=== PATIENT | male | born 1940 | race Caucasian/White ===

== ENCOUNTER 2017-11-11 14:24 | Inpatient (IN) | payer MEDICARE ==
[2017-11-11 15:41] LABS: Troponin I 0.043 ng/mL (< 0.028)
[2017-11-11] MEDS ORDERED: Sodium Chloride 0.9% 1,000 ML IV SCH (16:55)
[2017-11-11] MEDS ORDERED: Acetaminophen 325 MG TAB PO PRN (16:55)
[2017-11-11] MEDS ORDERED: Guaifenesin DM 100-10/5 ML UDCUP PO PRN (16:55)
[2017-11-11 17:57] VITALS: BMI 36.6
[2017-11-11] MEDS ORDERED: Nitroglycerin 2% Ointment 1 INCH/1 GM Packet TOP SCH (18:45)
--- NOTE | 2017-11-11 19:22 | HP ---
REASON FOR ADMISSION: Possible bronchopneumonia, indeterminate troponin, likely demand ischemia. HISTORY OF PRESENT ILLNESS: The patient gives history of going to restroom this morning and apparently fell on his left knee. He was trying to expectorate his yellowish green mucus phlegm in the restroom when this happened. He mentions that he has been coughing up from the last 4 days and bringing up yellow-green sputum. He has felt feverish, but has not measured any temperature at home. Patient also mentions that he has had 2 sinus surgeries done and has seen Dr. Plata in the past and has issues with upper respiratory tract with sinus infections frequently. The patient also sees Dr. Iniguez and has had a stress test done 2 years back in her office. Currently, he has no complaints of chest pain or palpitation. No complaints of PND or orthopnea. He normally ambulates with a cane inside the house. PAST MEDICAL AND SURGICAL HISTORY: History of chronic atrial fibrillation, hypertension, history of recurrent sinusitis with prior surgery x2 by Dr. Plata , peripheral neuropathy, history of diverticulitis, left total knee replacement , anticipating right ankle surgery for Charcot joint. Has had a subtotal colectomy done for diverticulitis, right rotator cuff repair, appendectomy. CURRENT MEDICATIONS: Patient is on lisinopril 20 mg daily, gabapentin 600 mg p.o. q.a.m. and 900 mg p.o. q.p.m., [place] p.r.n. for pain, amiodarone 100 mg p.o. twice daily, Flomax extended release 0.4 mg daily, pramipexole 0.5 mg p.o. daily, Lasix 40 mg daily, finasteride 5 mg daily. ALLERGIES: Multiple antibiotics including AMOXICILLIN, AZITHROMYCIN, KEFLEX, CIPROFLOXACIN, CLINDAMYCIN, and IODINE. PERSONAL HISTORY: Quit smoking in 1983, prior to which has smoked half to one pack a day for nearly 20 years. 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 Does not abuse alcohol or drugs. Lives with his . FAMILY HISTORY: Mother of breast cancer and its complications at the age of 67 years. Father of heat stroke at the age of 86 years. He lives with his . CODE STATUS: FULL. REVIEW OF SYSTEMS: The following complete review of systems was negative, unless otherwise mentioned in the HPI or below: Constitutional: Weight loss or gain, ability to conduct usual activities. Skin: Rash, itching. Eyes: Double vision, pain. ENT/Mouth: Nose bleeding, neck stiffness, pain, tenderness. Cardiovascular: Palpitations, dyspnea on exertion, orthopnea. Respiratory: Shortness of breath, wheezing, cough, hemoptysis, fever or night sweats. Gastrointestinal: Poor appetite, abdominal pain, heartburn, nausea, vomiting, constipation, or diarrhea. Genitourinary: Urgency, frequency, dysuria, nocturia. Musculoskeletal: Pain, swelling. Neurologic/Psychiatric: Anxiety, depression. Allergy/Immunologic: Skin rash, bleeding tendency. PHYSICAL EXAMINATION: GENERAL: The patient is a 77-year-old male who is currently not in any acute distress. VITAL SIGNS: Blood pressure 114/66, pulse 60 per minute, respiratory rate 16 per minute, temperature 98.4 degrees Fahrenheit, saturating 94% on room air. NECK: Supple, no elevated JVD. HEENT: Eyes, extraocular muscles intact. Pupils reacting to light. Oral cavity, mucous membranes are moist. No exudates or congestion. CARDIOVASCULAR: S1, S2 heard. Regular rhythm. RESPIRATORY: Air entry 1+ bilateral. Scattered rhonchi plus bilateral, occasional wheezes plus bilaterally. ABDOMEN: Soft, bowel sounds heard. No tenderness, rigidity or guarding. EXTREMITIES: No peripheral edema or calf tenderness. VASCULAR SYSTEM: Peripheral pulses 1+ bilateral, no ischemic ulcerations or gangrene. CENTRAL NERVOUS SYSTEM: No gross focal deficits seen. Patient is alert and oriented well. PSYCHIATRIC: Patient's mood is euthymic. No hallucinations or delusions. LABORATORY AND X-RAY FINDINGS: EKG done shows sinus rhythm at 60 beats per minute, nonspecific ST-T wave changes are seen. White count of 7, H&H 12 and 37 , platelet count 199 with 86% neutrophils. Electrolytes stable. BUN 10, creatinine 1.0. Liver enzymes within normal limits. Troponin I is indeterminate peaking up to 0.04, CK-MB 1.4. BNP 94, albumin is 3.9. The patient has had multiple x-rays done including lumbar spine which showed spondylosis, no evidence of compression fracture. Left knee, four views shows previous left knee arthroplasty with no acute osseous abnormality. Left hip two -view x-ray done shows no acute osseous abnormality. CT brain shows no acute intracranial abnormality. Chest x-ray done shows mild cardiomegaly, no obvious pneumonia is seen, but it is a poor penetration x-ray. CLINICAL IMPRESSION AND PLAN: Patient will be admitted to telemetry for possible bronchopneumonia with expectoration of greenish yellow sputum and demand ischemia. He has multiple antibiotic allergies and the does mention that one has to be careful giving him antibiotics. In view of this, he will be placed on meropenem and doxycycline for now. This will be rapidly deescalated once he improves clinically. We will also place him on full dose aspirin, nitro paste half inch q.8 hourly for demand ischemia. We will continue his amiodarone, Flomax, Proscar, Neurontin, lisinopril, Mirapex as before. Echo with 2D Doppler for LV function will be obtained. The family is requesting that the patient be seen by Dr. Iniguez and will be consulted as well. Code status was discussed and patient is a FULL CODE. 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 SANGEETA
[2017-11-11] MEDS ORDERED: Lisinopril 20 MG TAB PO SCH (21:00)
[2017-11-11] MEDS ORDERED: Gabapentin 300 MG CAP PO SCH (21:00)
[2017-11-11] MEDS ORDERED: Pramipexole Di-HCl 1 MG TAB PO SCH (21:00)
[2017-11-11] MEDS: Docusate 100 MG CAP PO SCH (21:40)
[2017-11-11] MEDS: Amiodarone 200 MG TAB PO SCH (21:40)
[2017-11-11] MEDS: Famotidine 20 MG TAB PO SCH (21:40)
[2017-11-11] MEDS: Doxycycline 100 MG CAP PO SCH (21:40)
[2017-11-11] MEDS: Lisinopril 10 MG TAB PO SCH (21:41)
[2017-11-11] MEDS: Tamsulosin HCl 0.4 MG CAP PO SCH (21:48)
[2017-11-11] MEDS ORDERED: Meropenem 1 GM in Sodium Chloride 0.9% 100 ML IVPB SCH (22:00)
[2017-11-11] MEDS: MEROPENEM 1 GM/50 ML 1 GM in Premix Bag 1 BAG IVPB SCH (22:08)
[2017-11-12] MEDS: HYDROcodone/Acetaminophen 10/325 mg Tablet PO PRN ×2 (02:39→15:48)
[2017-11-12 04:24] LABS: #Eosinphils 0.2 thou/uL (0.0-0.7); #Lymphocytes 1.3 thou/uL (1.20-3.40); #Monocytes 0.5 thou/uL (0.11-0.59); #Neutrophils 4.9 thou/uL (1.40-6.50); %Basophils 0.3 % (0.0-1.0); %Eosinophils 2.8 % (0.0-10.0); %Lymphocytes 18.4 % (21.0-51.0); %Monocytes 6.9 % (0.0-10.0); %Neutrophils 71.7 % (42.0-75.0); Hemoglobin 11.5 g/dL (14.0-18.0); Mean Corpuscular HGB CONC 32.6 g/dL (32.0-36.0); Mean Corpuscular Hemoglobin 32.1 pg (27.0-31.0); Mean Corpuscular Volume 98.4 fl (80.0-94.0); Mean Platelet Volume 6.4 fL (7.4-10.4); Platelet Count 201 thou/uL (130-400); RBC Distribution Width 13.6 % (11.5-14.5); Red Blood Cell (RBC) Count 3.59 mill/uL (4.70-6.10); White Blood Cell (WBC) Count 6.9 thou/uL (4.8-10.8)
[2017-11-12 04:48] LABS: Anion Gap 13 mmol/L (10-20); BUN (Urea Nitrogen) 9 mg/dL (8.4-25.7); Calc. Creatinine Clearance 122 mL/min (70-130); Calcium 8.6 mg/dL (7.8-10.44); Carbon Dioxide 24 mmol/L (23-31); Chloride 104 mmol/L (98-107); Estimated GFR-MDRD 90; Glucose 95 mg/dL (83-110); Potassium 3.7 mmol/L (3.5-5.1); Sodium 137 mmol/L (136-145)
[2017-11-12] MEDS: MEROPENEM 1 GM/50 ML 1 GM in Premix Bag 1 BAG IVPB SCH ×2 (05:43→17:41)
[2017-11-12] MEDS: Nitroglycerin 2% Ointment 1 INCH/1 GM Packet TOP SCH ×2 (05:43→15:43)
[2017-11-12] MEDS ORDERED: Aspirin 325 MG TAB PO SCH (08:00)
[2017-11-12] MEDS ORDERED: Polyethylene Glycol 3350 17 GM Packet PO SCH (09:00)
[2017-11-12] MEDS ORDERED: Finasteride 5 MG TAB PO SCH (09:00)
[2017-11-12] MEDS ORDERED: Gabapentin 300 MG CAP PO SCH (09:00)
[2017-11-12] MEDS ORDERED: Enoxaparin Sodium 40 MG/0.4 ML SYRINGE SC SCH (09:00)
[2017-11-12 09:22] LABS: Troponin I 0.069 ng/mL (< 0.028)
[2017-11-12] MEDS: Amiodarone 200 MG TAB PO SCH (10:16)
[2017-11-12] MEDS: Docusate 100 MG CAP PO SCH (10:17)
[2017-11-12] MEDS: Doxycycline 100 MG CAP PO SCH (10:18)
[2017-11-12] MEDS: Tamsulosin HCl 0.4 MG CAP PO SCH (10:18)
[2017-11-12] MEDS: Lisinopril 10 MG TAB PO SCH (10:18)
[2017-11-12] MEDS: Famotidine 20 MG TAB PO SCH (10:18)
--- NOTE | 2017-11-12 11:20 | PDOC.PN ---
- Subjective Encounter Start Date: 11/12/17 Encounter Start Time: 08:30 Subjective: cough is better, no sob -: no chest pain or palp - Objective Resuscitation Status: Resuscitation Status FULL:Full Resuscitation MAR Reviewed: Yes Vital Signs & Weight: Vital Signs (12 hours) Temp Pulse Resp BP BP Pulse Ox 11/12/17 07:23 98.0 F 62 18 127/60 94 L 11/12/17 07:12 76 18 96 11/12/17 03:39 98.0 F 58 L 18 106/52 L 92 L Weight Weight 257 lb I&O: 11/11/17 11/12/17 11/13/17 06:59 06:59 06:59 Intake Total 1118 Output Total 850 Balance 268 Result Diagrams: 11/12/17 03:40 11/12/17 03:40 Phys Exam - Physical Examination HEENT: PERRLA, moist MMs Neck: no JVD, supple Respiratory: no wheezing, no rales rhonchi+ Cardiovascular: RRR, no significant murmur Gastrointestinal: soft, non-tender, positive bowel sounds Musculoskeletal: no edema, pulses present Neurological: non-focal, moves all 4 limbs Psychiatric: normal affect, A&O x 3 Dx/Plan (1) Bronchopneumonia Code(s): J18.0 - BRONCHOPNEUMONIA, UNSPECIFIED ORGANISM Status: Acute (2) Demand ischemia of myocardium Code(s): I24.8 - OTHER FORMS OF ACUTE ISCHEMIC HEART DISEASE Status: Acute (3) Dyslipidemia Code(s): E78.5 - HYPERLIPIDEMIA, UNSPECIFIED Status: Chronic (4) Atrial fibrillation Code(s): I48.91 - UNSPECIFIED ATRIAL FIBRILLATION Status: Chronic Qualifiers: Atrial fibrillation type: chronic Qualified Code(s): I48.2 - Chronic atrial fibrillation (5) Hypertension Code(s): I10 - ESSENTIAL (PRIMARY) HYPERTENSION Status: Chronic Qualifiers: Hypertension type: essential hypertension Qualified Code(s): I10 - Essential (primary) hypertension - Plan is on meropenem and doxy due to multiple allergies -: duonebs, nitropaste -: continue flomax and proscar -: to ambulate as tolerated -: hemostable * . Review of Systems - Medications/Allergies Allergies/Adverse Reactions: Allergies Allergy/AdvReac Type Severity Reaction Status Date / Time amoxicillin Allergy Nausea Verified 05/09/16 13:41 azithromycin [From Zithromax] Allergy Severe Verified 05/09/16 13:41 Hives cephalexin Allergy Nausea Verified 05/09/16 13:41 ciprofloxacin [From Cipro] Allergy Anaphylaxis Verified 05/09/16 13:41 ciprofloxacin HCl Allergy Anaphylaxis Verified 05/09/16 13:41 [From Cipro] clindamycin Allergy Hives Verified 05/09/16 13:41 Iodinated Contrast- Oral and Allergy Short of Verified 05/16/16 12:58 IV Dye Breath [Iodinated Contrast Media - IV Dye] Medications: Current Medications Acetaminophen (Tylenol) 650 mg PO Q4H PRN PRN Reason: Headache/Fever or Pain Last Admin: 11/12/17 00:56 Dose: 650 mg Hydrocodone Bitart/Acetaminophen ([place] 10/325) 1 tab PO Q6H PRN PRN Reason: Pain 7-10 Last Admin: 11/12/17 02:39 Dose: 1 tab Albuterol/Ipratropium (Duoneb) 3 ml NEB [id number] [facility] Last Admin: 11/12/17 07:12 Dose: 3 ml Amiodarone HCl (Cordarone) 100 mg PO BID [facility] Last Admin: 11/12/17 10:16 Dose: 100 mg Aspirin (Aspirin) 325 mg PO QAM-WM [facility] Last Admin: 11/12/17 10:18 Dose: 325 mg Docusate Sodium (Colace) 100 mg PO BID [facility] Last Admin: 11/12/17 10:17 Dose: 100 mg Doxycycline Hyclate (Vibramycin) 100 mg PO BID [facility] Last Admin: 11/12/17 10:18 Dose: 100 mg Enoxaparin Sodium (Lovenox) 40 mg SC 0900 [facility] Last Admin: 11/12/17 10:19 Dose: 40 mg Famotidine (Pepcid) 20 mg PO BID [facility] Last Admin: 11/12/17 10:18 Dose: 20 mg Finasteride (Proscar) 5 mg PO DAILY [facility] Last Admin: 11/12/17 10:19 Dose: 5 mg Gabapentin (Neurontin) 600 mg PO QAM [facility] Last Admin: 11/12/17 10:16 Dose: 600 mg Gabapentin (Neurontin) 900 mg PO HS [facility] Last Admin: 11/11/17 21:41 Dose: 900 mg Guaifenesin/Dextromethorphan (Robitussin Dm) 15 ml PO Q4H PRN PRN Reason: Cough Meropenem 1 gm/ Device 50 mls @ 100 mls/hr IVPB Q8HR [facility] Last Admin: 11/12/17 05:43 Dose: 50 mls Lisinopril (Zestril) 10 mg PO BID [facility] Last Admin: 11/12/17 10:18 Dose: 10 mg Nitroglycerin (Nitro-Bid 2% Ointment) 0.5 inch TOP Q8HR [facility] Last Admin: 11/12/17 05:43 Dose: 0.5 inch Polyethylene Glycol (Miralax) 17 gm PO DAILY [facility] Pramipexole Dihydrochloride (Mirapex) 0.5 mg PO HS [facility] Last Admin: 11/11/17 21:48 Dose: 0.5 mg Tamsulosin HCl (Flomax) 0.4 mg PO BID [facility] Last Admin: 11/12/17 10:18 Dose: 0.4 mg
--- NOTE | 2017-11-12 13:07 | CON ---
DATE OF CONSULTATION: 11/12/2017 INDICATION FOR CONSULTATION: This is a 77-year-old patient who was admitted with bronchitis and mucu s production and then unfortunately, subsequently had a fall while at home. Since he has been here i n the hospital, he denies any cardiac problems, but did have a slight elevation of the cardiac enzyme s, which are still indeterminate with a peak troponin I thus far of 0.065. He denies any other signi ficant problems. He has not had any known coronary artery disease in the past. He has had stress te sting in 2015, which was normal. He had an echocardiogram in 12/2014, which showed a normal ejection fraction, which was 65%. He did have an episode of atrial fibrillation in the past, but has had non e documented since about 2013 except from the echocardiogram that appeared in 2014, he may have had a trial fibrillation also at that time. There is a possibility of diastolic dysfunction. His chest x- ray shows cardiomegaly, but no acute changes otherwise. At this time, he appears to be overall stabl e from a cardiac standpoint. We will continue to monitor the cardiac enzymes. PAST MEDICAL HISTORY: Significant for the shoulder surgery. He has also had history of hypertension . He has had a history of intermittent episode of atrial fibrillation in the past. He has been on a miodarone. He has had recurrent problems with sinusitis. He has had a history of diverticulitis. Hemalatha ch has had left knee replacement. He has [id number] syndrome. PAST SURGICAL HISTORY: He has a history of a subtotal colectomy due to diverticulitis. He has had a right rotator cuff repair and appendectomy. MEDICATIONS PRIOR TO ADMISSION: Included lisinopril, gabapentin, [place], amiodarone, Flomax, pramipex ole and Lasix as well as finasteride. ALLERGIES: He is allergic to AMPICILLIN, AZITHROMYCIN, KEFLEX, CIPRO, CLINDAMYCIN and IODINE. SOCIAL HISTORY: He is . He stopped smoking in 1983, previously said he smoked a half pack a day to a pack a day for over 20 years. He denies any significant alcohol use. FAMILY HISTORY: Noncontributory for any early heart disease. His father had a CVA at age 86. REVIEW OF SYSTEMS: Twelve-point review of systems, he does have some occasional diarrhea and constip ation, but no other significant problems except for the fall and with several small abrasions, but ot herwise he has been doing well from a cardiac standpoint. 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 PHYSICAL EXAMINATION: GENERAL: Reveals a well-developed, well-nourished gentleman who is in no acute distress at this time . He is alert. He is oriented. VITAL SIGNS: Stable. Blood pressure is 127/60, heart rates is in the 60s and shows a sinus rhythm w ith a first-degree AV heart block, respiratory rate is 18, O2 saturation is 94%, heart rate was 62 be ats per minute. HEENT: Shows the head to be normocephalic and atraumatic. NECK: Carotid pulses are present. I did not hear any bruits. There is no JVD. The thyroid did not appear to be enlarged. LUNGS: His chest was clear to auscultation. I did not hear any rales, rhonchi or wheezing at this t akanksha. CARDIOVASCULAR: Heart sounds are somewhat distant, but he has a normal S1, S2. There is no S3 or S4 . There were no significant murmurs, heaves, thrills, bruits or rubs. ABDOMEN: Shows morbid obesity with positive bowel sounds. No organomegaly or masses are noted. Fem oral pulses are present. EXTREMITIES: Showed no clubbing or cyanosis. He did have mild lower extremity edema. He has mild d iscoloration. The right foot is somewhat deformed due to his ankle problems. He needs to undergo fu rther ankle surgery. The pedal pulses are present. NEUROLOGIC: The patient appears to be intact. SKIN: Warm and dry. LABORATORY DATA: EKG shows a normal sinus rhythm with a first-degree AV heart block. Chest x-ray sh ows no acute findings. His laboratory data as noted above shows a slight elevation of the cardiac en zymes with a troponin I of 0.043, increased to 0.069. Remaining laboratory data appeared to be withi n normal limits. He says he has mild anemia with a hemoglobin of 11.5. IMPRESSION: 1. Elderly gentleman with a history of intermittent atrial fibrillation in the past, which has been treated by amiodarone. He is maintaining sinus rhythm. We will continue his same medications. He w ill continue on the amiodarone. He is not on any other oral anticoagulation other than aspirin. 2. History of falls. This is he says was just due to loss of balance. There does not appear to be any evidence of syncope or presyncope. This is not cardiac related. 3. History of hypertension. He is well controlled at this time. We will continue his present medic ations. An echocardiogram has been ordered. We will review the echocardiogram for further evaluatio n. If there are any significant changes, then further recommendations may follow. There has been no other significant abnormalities with the patient. He appears from a cardiac standpoint to be overal l stable.
[2017-11-12 14:10] LABS: Troponin I 0.085 ng/mL (< 0.028)
[2017-11-12 17:12] VITALS: BP 133/66; TEMP 97.9
--- NOTE | 2017-11-13 03:54 | DIS ---
DATE OF ADMISSION: 11/11/2017 DATE OF DISCHARGE: 11/12/2017 DISCHARGE DISPOSITION: To home. PRIMARY DISCHARGE DIAGNOSES: Bronchopneumonia, resolving; demand ischemia, resolving. SECONDARY DISCHARGE DIAGNOSES: Chronic atrial fibrillation, hypertension, dyslipidemia. PROCEDURES DONE DURING HOSPITALIZATION: Echo with 2D Doppler showed an EF of 60 -65%. Chest x-ray done showed no lobar consolidation or pneumothorax. CT brain showed no acute intracranial abnormality. He has had hip and knee x-rays done along with lumbar spine x-rays, which have not revealed any acute fractures or abnormality. Blood cultures x2, no growth. Troponin I indeterminate with peaking up to 0.08, CK-MB 1.4. BNP 94. DISCHARGE MEDICATIONS: Doxycycline 100 mg p.o. twice daily for 6 days, amiodarone 100 mg p.o. twice daily, albuterol inhaler q.6 hourly p.r.n., Proscar 5 mg p.o. daily, gabapentin 600 mg p.o. q.a.m. and 900 mg p.o. at bedtime, lisinopril 20 mg twice daily, Protonix 40 mg daily, MiraLax 17 grams daily, Mirapex 0.5 mg p.o. at bedtime, Flomax extended release 0.4 mg p.o. twice daily. ALLERGIES: Allergic to multiple antibiotics including, PENICILLIN, MACROLIDES, CEPHALOSPORINS, QUINOLONES, CLINDAMYCIN, and IODINE. DISCHARGE PLAN: Patient is to follow up with primary care physician in one week and Dr. Iniguez as advised. BRIEF COURSE DURING HOSPITALIZATION: Patient initially got admitted on the with complaints of cough with expectoration of greenish yellow sputum. He also apparently fell in the restroom while he was trying to use washbasin to spit his sputum. His cough with expectoration were ongoing for the last 4 days. He was admitted to telemetry because of above plus the patient had indeterminate troponin. He has had close monitoring done on telemetry which has not revealed any acute abnormality. Likely the indeterminate troponin is due to demand ischemia from bronchopneumonia. The patient had multiple allergies to antibiotics and had to be placed on doxycycline and meropenem. He is recovering well. This afternoon, the patient is adamant of going home and has threatened to do it one way of the other. He has animals to take care of at home and he does not want to stay in the hospital anymore. In view of this, he is being discharged home. Please see a [id number] documentation on [facility] for the day of discharge. SANGEETA
== END 2017-11-12 18:12 | disposition home or self-care (01) | DRG 194 ==
LOC: ERS 14:24 → 2NO 16:25
PROVIDERS: ADMIT Internal Medicine; ATTEND Internal Medicine
DX: J18.0 Bronchopneumonia, unspecified organism (principal); I24.8 Other forms of acute ischemic heart disease; A52.16 Charcot's arthropathy (tabetic); I48.2 Chronic atrial fibrillation; Z79.01 Long term (current) use of anticoagulants; I10 Essential (primary) hypertension; J32.8 Other chronic sinusitis; Z96.652 Presence of left artificial knee joint; Z88.1 Allergy status to other antibiotic agents; Z88.8 Allergy status to other drugs, medicaments and biological substances; Z79.82 Long term (current) use of aspirin; E78.5 Hyperlipidemia, unspecified; W18.39XA Other fall on same level, initial encounter; Y93.89 Activity, other specified; Y92.002 Bathroom of unspecified non-institutional (private) residence as the place of occurrence of the external cause; G60.0 Hereditary motor and sensory neuropathy; Z87.891 Personal history of nicotine dependence; H54.7 Unspecified visual loss
CPT/HCPCS: 36415; 80048; 83880; 84484; 85025; 93306; 94640; 99285; J1650; J2185; J7620

== ENCOUNTER 2018-08-22 21:37 | Observation (INO) | payer MEDICARE ==
[2018-08-22 23:16] LABS: Troponin I 0.027 ng/mL (< 0.028)
[2018-08-22 23:24] LABS: Bilirubin Negative (Negative); Blood, Urine Negative (Negative); Clarity CLEAR (Clear); Glucose, Urine (Dipstick) Negative (Negative); Leukocyte Negative (Negative); Nitrite Negative (Negative); Protein, Urine (Dipstick) Negative (Neg-Trace); Specific Gravity, Urine 1.012 (1.002-1.036)
--- NOTE | 2018-08-22 23:39 | CT ---
CT CERVICAL SPINE: History: Several fall, possible neck injury. Trauma. Technique: Axial images were obtained with coronal and sagittal reconstructions. FINDINGS: There are changes of spondylosis at C3-4, C4-5, and C5-6. Findings compatible with changes of spondyl osis. No evidence of acute cervical spine fracture is seen. Vertebral bodies and posterior elements are in normal alignment. Central canal demonstrates no evidence of significant osseous encroachment. IMPRESSION: No evidence of acute cervical spine fracture is seen. Multilevel changes of spondylosis seen. POS: LINDA
[2018-08-23 00:26] VITALS: BMI 32.3
[2018-08-23] MEDS ORDERED: Ondansetron ODT 4 MG TAB SL PRN (00:26)
[2018-08-23] MEDS ORDERED: Ondansetron PF 4 MG/2 ML Vial IVP PRN (00:26)
[2018-08-23] MEDS ORDERED: Sodium Chloride 0.9% 1,000 ML IV SCH (00:26)
[2018-08-23] MEDS ORDERED: Acetaminophen 325 MG TAB PO PRN ×2 (00:26→03:45)
[2018-08-23] MEDS ORDERED: Aspirin 325 MG TAB PO SCH (00:45)
[2018-08-23] MEDS ORDERED: Gabapentin 300 MG CAP PO SCH ×3 (01:45→21:00)
[2018-08-23] MEDS ORDERED: HYDROcodone/Acetaminophen 10/325 mg Tablet PO SCH (01:45)
[2018-08-23] MEDS ORDERED: Senokot S 8.6-50 MG TAB PO PRN (03:45)
[2018-08-23] MEDS ORDERED: Calcium Carbonate 500 MG ChewTAB PO PRN (03:45)
[2018-08-23] MEDS ORDERED: Bisacodyl 10 MG SUPP PR PRN (03:45)
[2018-08-23] MEDS ORDERED: Nitroglycerin 0.4 MG TAB (25 Tab Bottle) PO PRN (03:47)
--- NOTE | 2018-08-23 05:01 | HP ---
PRIMARY CARE PHYSICIAN: Dr. Arrington. PRIMARY PACU RN: In [place], [place]. PRIMARY NEUROLOGIST: Dr. Basilio. CHIEF COMPLAINT: Generalized weakness. HISTORY OF PRESENT ILLNESS: The patient is a 78-year-old male with paroxysmal atrial fibrillation, hypertension; chronic pain syndrome, on hydrocodone as well as fentanyl patch; neuropathy, followed by Dr. Basilio; and diverticulosis, who was brought into [facility] with generalized weakness, dizziness as well as recurrent falls. The patient is a poor historian and no other family members are in the room at this time. History is limited. Over the last 1 month or so, the patient has lost approximately 30 to 35 pounds. He has been getting progressively weaker. He has fallen multiple times. He gets lightheaded and dizzy. He denies any loss of consciousness. No double vision, blurring of vision, facial asymmetry, weakness, numbness on any of his extremities reported. Over the last 1 week, he has nausea, vomiting with diarrhea. Over the last 4 days, he quit eating per the patient's report. 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 A couple of days ago, he fell at gas [employer], where he got tangled up in the gas pump tubing without any loss of consciousness. The patient was found to have 2 fentanyl patches in the emergency room. PAST MEDICAL HISTORY: 1. Paroxysmal atrial fibrillation. 2. Hypertension. 3. Peripheral neuropathy, followed by Dr. Basilio. 4. Diverticulosis. 5. Degenerative joint disease. 6. Benign prostatic hypertrophy. 7. Restless legs syndrome. 8. Hypertension. 9. Chronic anemia. PAST SURGICAL HISTORY: 1. Subtotal colectomy for diverticulitis. 2. Right rotator cuff repair. 3. Appendectomy. 4. Back surgery. 5. Surgery for sinusitis. 6. Colonoscopy with polyp removal. ALLERGIES: THE PATIENT IS ALLERGIC TO MULTIPLE MEDICATIONS INCLUDING AMOXICILLIN, AZITHROMYCIN, CIPROFLOXACIN, AND IODINE. CURRENT HOME MEDICATIONS: 1. Fentanyl 25 mcg patch every 3 days. 2. Amiodarone 100 mg b.i.d. 3. Cymbalta 20 mg daily. 4. Proscar 5 mg daily. 5. Lasix 40 mg daily. 6. Gabapentin 600 mg at bedtime and 900 mg q.a.m. 7. [place] 10/325 one tablet 4 times a day. 8. Lisinopril 20 mg b.i.d. 9. MiraLAX as needed. 10. Flomax 0.4 at bedtime. SOCIAL HISTORY: The patient quit smoking in 1980s. He has approximately 15 to 20-pack smoking history. He currently lives at home with his . He has worked in [employer] before retiring. No alcohol or drug use reported. He makes his own decision with the help of his . FAMILY HISTORY: Mother with breast cancer. Father at the age of 86 of heatstroke. CODE STATUS: Full code. REVIEW OF SYSTEMS: All other review of systems were reviewed and were found negative. PHYSICAL EXAMINATION: VITAL SIGNS: In the emergency room; temperature 98.2, respirations of 18, pulse rate of 66, blood pressure of 169/83 with O2 saturation 95% on room air. GENERAL: A 78-year-old male, in significant pain. HEENT: Head, atraumatic and normocephalic. Sclerae anicteric. Moist mucous membranes. No oral lesion. NECK: Supple. No JVD appreciated. No carotid bruit. LUNGS: Clear to auscultation bilaterally. HEART: S1, S2 present. Regular rate and rhythm, 2/6 systolic murmur over the mitral area. No heaves or pulsation. ABDOMEN: Soft. Minimal tenderness around the periumbilical area. No rebound or guarding. No costovertebral angle tenderness. EXTREMITIES: 2+ edema in bilateral lower extremity, which is chronic per the patient's report. No calf tenderness. SKIN: Warm and dry. LYMPH: No palpable lymph nodes in the neck. PERIPHERAL VASCULAR: Radial pulses palpable bilaterally. MUSCULOSKELETAL: No joint swelling or tenderness. SKIN: Warm and dry with multiple bruising over the chest from recent fall. LYMPH NODE: No palpable lymph nodes in the neck. NEUROLOGIC: Grossly nonfocal. Moves all 4 extremities. PSYCHIATRY: Alert, awake, and oriented x3. LABORATORY FINDINGS: WBC 3.9 with hemoglobin 10.4, hematocrit 32.8, platelet 175, with MCV 106, MCH 33.7. Troponin 0.029. Repeat troponin 0.027. Sodium 137, potassium 3.9, chloride 98, bicarb 30, BUN 10, and creatinine 0.98. Urinalysis showed ketones without any other findings. Chest x-ray by my review showed cardiomegaly without any acute findings. EKG by my review showed sinus rhythm with first-degree AV block and right bundle-branch block. CT scan of the brain was negative for acute findings. It showed chronic ischemic changes. Cervical spine CT was negative for acute findings. CT scan of the abdomen and pelvis noncontrast showed circumferential area of thickening at the junction of the proximal colon with sigmoid anastomosis. There is an area of patchy density seen in the right lower lobe concerning for possible patchy pneumonia. IMPRESSION: 1. Generalized weakness with nausea, vomiting, and diarrhea with approximately 30-pound weight loss over the last 1 month. 2. Suspected right lower lobe pneumonia. The patient denies any cough, shortness of breath, wheezing, or fever. 3. Paroxysmal atrial fibrillation. 4. Hypertension. 5. Chronic pain syndrome due to neuropathy, followed by Dr. Basilio. 6. Dehydration with mild starvation ketosis. 7. Macrocytic anemia, rule out vitamin B12 and folic acid. 8. Elevated troponins probably secondary to dehydration/demand ischemia. 9. Normal left ventricular ejection fraction on echocardiogram in 11/2017. 10. History of diverticulitis, requiring subtotal colectomy. CT scan of the abdomen showed thickening at the junction of proximal colon with sigmoid anastomosis. 11. Hypertension. 12. Benign prostatic hypertrophy. 13. Chronic kidney disease, stage 2. 14. Leukopenia. 15. Multiple medication allergies. PLAN: The patient will be monitored in the telemetry unit. We will hold IV fluids due to significant edema. We will hold Lasix. Resume home medications. The patient denies any depression or suicidal ideation. His home dose of [place] and fentanyl will be restarted. We will add low-dose aspirin. We will try to obtain records from his primary steam train driver in [place]. The patient currently has a Holter monitor. He is unable to provide further details. We will discuss with spouse in a.m. when she arrives. We will start him on doxycycline for suspected pneumonia since he is allergic to multiple medications including cephalosporin, azithromycin, and quinolone. We will recheck labs in a.m. Check vitamin B12 and folic acid. Resume Lasix probably after 24 hours. Consult dietitian due to poor appetite and significant weight loss. We will check stool workup. Plan of care was discussed with the patient in detail. He stated understanding. Job ID: [id number]
[2018-08-23 05:12] LABS: Albumin 3.1 g/dL (3.4-4.8); Anion Gap 14 mmol/L (10-20); BUN (Urea Nitrogen) 9 mg/dL (8.4-25.7); BUN/Creatinine Ratio 10.59; Calc. Creatinine Clearance 104 mL/min (70-130); Calcium 9.2 mg/dL (7.8-10.44); Carbon Dioxide 24 mmol/L (23-31); Chloride 102 mmol/L (98-107); Estimated GFR-MDRD 87; Glucose 84 mg/dL (83-110); Magnesium 2.1 mg/dL (1.6-2.6); Phosphorus 2.9 mg/dL (2.3-4.7); Potassium 3.9 mmol/L (3.5-5.1); Sodium 136 mmol/L (136-145)
[2018-08-23 05:40] LABS: #Eosinphils 0.3 thou/uL (0.0-0.7); #Lymphocytes 1.2 thou/uL (1.20-3.40); #Monocytes 0.3 thou/uL (0.11-0.59); %Basophils 0.7 % (0.0-1.0); %Eosinophils 7.5 % (0.0-10.0); %Monocytes 7.7 % (0.0-10.0); %Neutrophils 52.1 % (42.0-75.0); Hemoglobin 9.4 g/dL (14.0-18.0); MDiff Complete? YES; Macrocytosis SLIGHT = 6-15 cells (100X) (0-5/hpf); Mean Corpuscular HGB CONC 32.6 g/dL (32.0-36.0); Mean Corpuscular Hemoglobin 34.8 pg (27.0-31.0); Platelet Count 178 thou/uL (130-400); RBC Distribution Width 17.1 % (11.5-14.5); Red Blood Cell (RBC) Count 2.71 mill/uL (4.70-6.10); White Blood Cell (WBC) Count 3.8 thou/uL (4.8-10.8)
[2018-08-23 05:50] LABS: Vitamin B12 Less than 109 pg/mL (211-911)
[2018-08-23] MEDS ORDERED: Cyanocobalamin 1000 MCG/ML VIAL IM SCH (06:00)
[2018-08-23] MEDS: HYDROcodone/Acetaminophen 10/325 mg Tablet PO SCH ×3 (08:38→16:54)
[2018-08-23] MEDS ORDERED: Lisinopril 20 MG TAB PO SCH (09:00)
[2018-08-23] MEDS ORDERED: Doxycycline 100 MG CAP PO SCH (09:00)
[2018-08-23] MEDS ORDERED: Finasteride 5 MG TAB PO SCH (09:00)
[2018-08-23] MEDS ORDERED: Multivit, Therapeutic 1 TAB PO SCH (09:00)
[2018-08-23] MEDS ORDERED: Aspirin 81 mg Enteric Coated Tablet PO SCH (09:00)
--- NOTE | 2018-08-23 16:27 | PDOC.EVN ---
Event Note - Event Note Event Note: I have interviewed, examined and discussed pt with Beatriz Haney regarding gen weakness and RLL PNA. Overall feeling better and planning on continuing cardiac work up in [place], [place] later this week. Please see dictated and documented notes for full details. D/C home today.
[2018-08-23 16:35] VITALS: BP 150/73; TEMP 98.3
--- NOTE | 2018-08-23 18:48 | DIS ---
DATE OF ADMISSION: 08/23/2018 DATE OF DISCHARGE: 08/23/2018 DISCHARGE DIAGNOSES: 1. Right lower lung pneumonia. 2. Generalized weakness, improved. 3. Essential hypertension. 4. Paroxysmal AF. 5. Chronic pain syndrome. CONSULTING PHYSICIANS: None. HOSPITAL COURSE: Mr. Bahena is a very pleasant 78-year-old man, who presented to [facility] with complaints of generalized weakness, nausea, vomiting, and recurrent falls. He is undergoing investigations including a Holter monitor as well as an echo scheduled for later this week and a heart nuclear scan. The patient has followup with Cardiology in [place] this week. His last fall was approximately 1 week ago and states it was due to getting tangled up with a gas pump tubing. He did not experience any preceding chest pain or any associated diaphoresis, shortness of breath, or loss of consciousness. The patient states over the last several days, he has had persistent nausea, vomiting, and diarrhea. He became very weak, and that prompted his visit to the ER. Since being admitted, he has felt significantly better. He states he feels much stronger since receiving IV fluids. He has also been tolerating oral intake without any further episodes of vomiting or diarrhea. He has been up and walking around today with his walker as normal. He is feeling more steady on his feet. He has also been able to shower and get dressed on his own. The patient insists he is feeling much stronger and is very eager for discharge, so he can follow up with his primary exchange clerk in [place] and undergo investigations as scheduled. The patient has denied any chest pain or shortness of breath during his admission. He has undergone multiple investigations including a cervical spine CT, that showed no acute changes. He had a CT of the brain done as well, which showed no acute changes. A CT of the abdomen and pelvis was done due to abdominal discomfort reported at initial presentation. He was noted to have circumferential area of thickening at the junction of the proximal colon with the sigmoid anastomosis and then area of patchy density in the right lower lobe concerning for pneumonia. Otherwise, no acute changes present. A chest x-ray had also been done showing cardiomegaly and otherwise stable chronic changes with atherosclerosis of the aorta, but no acute changes. Laboratory studies done showed normal troponins. His electrolytes were normal. Renal function was stable. Urinalysis was done showing trace ketones, otherwise normal. REVIEW OF SYSTEMS: On day of discharge, as mentioned above, the patient is feeling significantly better with no further nausea, vomiting, or diarrhea. He denies any abdominal pain, chest pain, or shortness of breath. Very eager for discharge home. He has not had any fevers, chills, or sweats. No skin changes. Has chronic lower leg swelling, which is stable. All other review of systems is negative. PHYSICAL EXAMINATION: GENERAL: The patient appears to be in no acute distress. VITAL SIGNS: Temperature 98.3, pulse 58, respirations 16, O2 saturation 95% on room air, blood pressure 150/73. HEENT: Normocephalic and atraumatic. Pupils are equal, round, and reactive to light. Sclerae are without icterus. Oropharynx is clear. NECK: Supple without lymphadenopathy. LUNGS: Clear to auscultation bilaterally without wheezes, rales, or rhonchi. CARDIAC: Regular rate and rhythm without audible murmurs, rubs, or gallops. ABDOMEN: Soft, nontender, and nondistended. Normoactive bowel sounds present. EXTREMITIES: Notable for deformity to the right foot, which is chronic and stable. No signs of cellulitis or skin sores. He has bilateral edema, worse in the right leg, which is chronic and stable as per the patient. NEUROLOGIC: Alert and oriented x3. SKIN: Without rash or jaundice. LABORATORY DATA: White blood count 3.8, hemoglobin 9.4, hematocrit 28.9, platelets 178. Sodium 136, potassium 3.9, BUN 9, creatinine 0.85, GFR 87, albumin 3.1. Vitamin B12 less than 109. Troponin, negative x3. Folate 12.20. TSH 0.6931. Cortisol 6.40. IMAGING DATA: 1. Cervical spine CT. No evidence of acute cervical spine fracture. Changes of spondylosis at C3-C4, C4-C5, and C5-C6. No evidence of significant osseous encroachment. 2. CT brain, 08/22/2018. Atrophy and chronic ischemic changes. No mass or bleed. Sinus mucosal disease and postoperative nasal sinus surgery. 3. Chest x-ray, 08/22/2018. Cardiomegaly. Old granulomatous disease. Stable chronic changes. Atherosclerosis of the aorta. 4. CT of the abdomen and pelvis, 08/22/2018. Circumferential area of thickening at the junction of the proximal colon with the sigmoid anastomosis. Area of patchy density in the right lower lobe concerning for pneumonia. PROCEDURES PERFORMED: None. DISCHARGE MEDICATIONS: The patient was given a prescription for doxycycline 100 mg p.o. twice daily for 5 days. Advised to resume home medications. CONDITION: Stable at discharge. ACTIVITY: As tolerated with assistive device as per baseline. DIET: Heart-healthy. FOLLOWUP: 1. The patient will follow up with Cardiology in [place] this week and proceed with cardiac investigations as scheduled. 2. The patient was advised to follow up with his primary care physician within 1 week. There was a mention of possible thickening in the proximal colon at the site of anastomosis and may require a colonoscopy for further investigation. However, it could be a stricture from previous surgery. DISPOSITION: The patient was medically cleared for discharge home today, August 23, 2018. The patient's case was discussed with Dr. Campbell, who has also evaluated the patient and is in agreement with plan as above. Job ID: [id number]
[2018-08-23] MEDS ORDERED: Tamsulosin HCl 0.4 MG CAP PO SCH (21:00)
[2018-08-24] MEDS ORDERED: Cyanocobalamin 1000 MCG/ML VIAL IM SCH (09:00)
== END 2018-08-23 19:50 | disposition home or self-care (01) ==
LOC: ERS 21:37 → 2SW 08-23 00:21 → INTOOBSV 08-23 00:21
PROVIDERS: ADMIT Internal Medicine; ATTEND Internal Medicine
DX: J18.9 Pneumonia, unspecified organism (principal); I12.9 Hypertensive chronic kidney disease with stage 1 through stage 4 chronic kidney disease, or unspecified chronic kidney disease; N18.2 Chronic kidney disease, stage 2 (mild); I48.0 Paroxysmal atrial fibrillation; G89.4 Chronic pain syndrome; G62.9 Polyneuropathy, unspecified; K57.90 Diverticulosis of intestine, part unspecified, without perforation or abscess without bleeding; M19.90 Unspecified osteoarthritis, unspecified site; N40.0 Benign prostatic hyperplasia without lower urinary tract symptoms; G25.81 Restless legs syndrome; E86.0 Dehydration; D53.9 Nutritional anemia, unspecified; Z90.49 Acquired absence of other specified parts of digestive tract; Z86.010 Personal history of colon polyps; Z87.891 Personal history of nicotine dependence; Z88.1 Allergy status to other antibiotic agents; Z91.041 Radiographic dye allergy status; Z79.891 Long term (current) use of opiate analgesic; Z79.2 Long term (current) use of antibiotics; Z79.899 Other long term (current) drug therapy; Z98.890 Other specified postprocedural states
CPT/HCPCS: 72125; 80069; 81003; 82533; 82607; 82746; 83735; 84443; 84484 ×2; 85025; 87086; 93005; 94760; 96372; 99285; G0378 ×2; 36415; J3420

== ENCOUNTER 2018-10-19 09:57 | Inpatient (IN) | payer MEDICARE ==
--- NOTE | 2018-10-19 11:24 | RAD ---
Exam: 1 view abdomen HISTORY: Fatigue. FINDINGS: Limited evaluation. There appears to be distended air filled right hemicolon. Findings are similar to CT from 10/15/2018. No evidence of pneumoperitoneum on supine. IMPRESSION: Limited evaluation of the bowel gas pattern. Persistent dilatation of the right hemicolon . Refer to recent CT for further detail. The patient does have a abrupt caliber change noted in the sigmoid colon.
[2018-10-19] MEDS ORDERED: Ondansetron PF 4 MG/2 ML Vial IVP PRN (11:48)
[2018-10-19 11:55] LABS: Troponin I 0.037 ng/mL (< 0.028)
--- NOTE | 2018-10-19 12:57 | HP ---
PRIMARY CARE PROVIDER: Dr. Arrington. HISTORY OF PRESENT ILLNESS: The patient referred to the [facility]ist Service after being transferred from [facility] for acute renal failure, diarrhea and lactic acidosis. I am unable to get any history out of this gentleman. He is awake. He will say one word at a time, but gives me no lucid history. He was recently in the hospital on 08/23/2018, the [facility] Service with generalized weakness. Diagnoses at that time, paroxysmal atrial fibrillation, hypertension, peripheral neuropathy, diverticulosis, degenerative joint disease, benign prostatic hypertrophy, restless legs syndrome, hypertension, chronic anemia. PAST SURGICAL HISTORY: Subtotal colectomy for diverticulitis, right rotator cuff repair, appendectomy, back surgery, surgery for sinusitis, and colonoscopy. CURRENT MEDICATIONS: 1. Fentanyl patch topical every 3 days. 2. Flomax 0.4 mg at bedtime. 3. MiraLAX 17 g in water daily. 4. Lisinopril 20 mg twice a day. 5. Hydrocodone 10/325 one 4 times a day. 6. Gabapentin 900 mg in the morning and 600 mg at bedtime. 7. Lasix 40 mg a day. 8. Proscar 5 mg a day. 9. Vibramycin 100 mg twice a day. 10. Duloxetine 20 mg a day. 11. Amiodarone 100 mg twice a day. ALLERGIES: AMOXICILLIN, ZITHROMAX, CEPHALEXIN, CIPRO, CLINDAMYCIN, IODINATED CONTRAST. SOCIAL HISTORY: From chart, no tobacco since . Lives home with , who is not present. His status was full code in the past. No alcohol history. FAMILY HISTORY: Mother with breast cancer. Father at 86 of heatstroke. REVIEW OF SYSTEMS: Unobtainable due to the patient's obtunded mental status. PHYSICAL EXAMINATION: GENERAL: He is a chronically ill-appearing man. VITAL SIGNS: Blood pressure 114/65, pulse 73, respirations 20, and temperature 98.2. HEAD, EYES, EARS, NOSE, AND THROAT: Pupils are equal and round. Extraocular movements grossly intact. Sclerae are white. Tympanic membranes are clear. Nose clear. Mucous membranes are dry with poor hygiene. NECK: No jugular venous distention, adenopathy, or thyromegaly. CHEST: Grossly clear to auscultation and percussion. CARDIAC: Distant heart sounds. Regular rate and rhythm. Incomplete right bundle branch block, first degree block reviewed by me. LABORATORY DATA: Laboratory done in [place] earlier today. CBC; hemoglobin is 11.1, macrocytic indices, and platelet count 170,000, white count 6.0. Urine was unremarkable. Comprehensive metabolic profile; blood sugar 128, creatinine 2.17, BUN 29, sodium 136, potassium 3.8. Lactic acid 5.2. Troponin 0.32. TSH 1.7. ADMITTING DIAGNOSIS: 1. Diarrhea. 2. Acute renal failure, unknown etiology. 3. Lactic acidosis. 4. Elevated troponin. 5. Chronic pain syndrome on chronic high-dose narcotics. 6. Paroxysmal atrial fibrillation, on amiodarone. 7. Hypertension. 8. Chronic anemia. PLAN: 1. N.p.o. 2. IV fluids. 3. GI consult. 4. Chest x-ray. 5. Repeat lactate level. 6. Hold routine medicines. 7. Serial laboratory including CBC, basic metabolic profile, monitor renal function, etc. The patient was made full code. He was full code last time. There is no family or informants here with him and he is not lucid. Stool for occult blood has been ordered. Blood and urine cultures have been ordered. Job ID: [id number]
[2018-10-19 14:40] LABS: Troponin I 0.056 ng/mL (< 0.028)
[2018-10-19 14:52] VITALS: BMI 29.2
[2018-10-19] MEDS: Sodium Chloride 0.9% 1,000 ML IV SCH ×2 (15:10→21:25)
[2018-10-19] MEDS: Heparin 5,000 UNITS/ML VIAL SC SCH ×2 (15:11→21:25)
[2018-10-19] MEDS: metroNIDAZOLE 500 MG in Premix Bag 1 BAG IVPB SCH ×2 (15:11→21:25)
[2018-10-19 16:17] LABS: Lactic Acid 2.5 mmol/L (0.5-2.2)
[2018-10-19] MEDS ORDERED: Ciprofloxacin Lactate/D5W 200 MG in Premix Bag 1 BAG IVPB SCH (21:00)
[2018-10-19] MEDS ORDERED: Prevnar 13-Val Conj/PF 0.5 ML SYRINGE IM ONE (21:00)
[2018-10-19] MEDS ORDERED: Famotidine/PF 20 mg/2ml Vial SLOW IVP SCH (21:00)
--- NOTE | 2018-10-19 23:40 | CON ---
DATE OF CONSULTATION: 10/19/2018 REASON FOR CONSULTATION: Diarrhea, abnormal GI imaging. CONSULTING PHYSICIAN: Dr. Shea Bo. HISTORY OF PRESENT ILLNESS: The patient is a 78-year-old male with past medical history of paroxysmal atrial fibrillation, hypertension, peripheral neuropathy, DJD, diverticulosis, BPH, restless legs syndrome and chronic anemia, presenting with diarrhea and altered mental status. The patient is currently in a state, he was unable to answer any significant amount of questioning, but his was at bedside, so all information was obtained through his and through chart review. Per the patient's , the patient had been in his usual state of health until yesterday when he began to exhibit changes in his mental status as well as increased irritability. She also notes that the patient had been complaining of increased constipation for which she had been taking increasing amounts of laxatives prior to admission that ultimately resulted in a significantly large bowel movement to the point where the patient was in the tub, defecating upon himself. EMS was called with his inability to rise out of the tub and he was subsequently transferred to [place] emergency room for additional evaluation. While in the ER there, he was noted to have acute renal failure and lactic acidosis and was subsequently transferred to [facility] for further evaluation. Per the patient's , she states that he has had a long-standing history of constipation and has been frequently using laxatives as an outpatient to achieve having a bowel movement every day. He will take increasing amounts of MiraLAX and a "Women's laxative" in order to achieve that goal. Yesterday with increasing amounts of ingestion of laxatives, he did have a very large bowel movement, but was accompanied by this acute change in his mental status. Upon conferring with the patient's , he did have a similar episode "a couple beltrán ago" where he was admitted to the hospital for electrolyte abnormalities. Once his electrolyte abnormalities were corrected, the patient's mental status returned to baseline and he was ultimately discharged to follow up in the outpatient clinic. Otherwise, she states that he denied any nausea, vomiting, fevers, chills, dysphagia, odynophagia, or weight loss prior to admission. REVIEW OF SYSTEMS: A 10-category review of systems was obtained with all responses negative except for the pertinent positives as listed in the HPI. PAST MEDICAL HISTORY: As per HPI. PAST SURGICAL HISTORY: Right rotator cuff repair, appendectomy, sinus surgery, back surgery and left hemicolectomy with surgical colocolonic anastomosis from the right hemicolon to the sigmoid colon. FAMILY HISTORY: His denied any GI malignancies. SOCIAL HISTORY: She denies any tobacco, alcohol, or illicit drug use. OUTPATIENT MEDICATIONS: Reviewed. ALLERGIES: AMOXICILLIN, AZITHROMYCIN, CEPHALEXIN, CIPROFLOXACIN, CLINDAMYCIN, AND IODINATED CONTRAST. PHYSICAL EXAMINATION: VITAL SIGNS: Temperature 99.6, pulse 70, blood pressure 102/61, respiratory rate 18, saturating 95% on room air. GENERAL: The patient was lying in bed, in no acute distress, was not easily aroused, but did open his my eyes to noxious stimuli. NECK: Supple. No JVD or scleral icterus noted. Normocephalic, atraumatic. CARDIOVASCULAR: Regular rate and rhythm with no discernible murmurs, gallops, or rubs. RESPIRATORY: Clear to auscultation bilaterally with no discernible wheezes or rales. ABDOMEN: Normoactive bowel sound, soft, mild abdominal distention that was tympanic to percussion over the right josh abdomen. Some grimacing to palpation over the right hemiabdomen as well, but difficult to discern. EXTREMITIES: 1+ bilateral lower extremity edema extending up to mid mariano. Otherwise, no cyanosis or clubbing. LABORATORY DATA: CBC with a white blood cell count of 6, hemoglobin 11.1, hematocrit 35.8, platelets 170, with 3% bands noted on CBC. Chemistry with a sodium of 135, potassium 3.8, chloride 96, CO2 of 25, BUN 29, creatinine 2.17, glucose 128, calcium 9.7, phosphorus 2.9, magnesium 2.5. AST 12, ALT 7, alkaline phosphatase 105, and total bilirubin 1.0. IMAGING DATA: CT of the abdomen and pelvis was obtained on October 15, 2018, which showed small bowel loops in the left josh-abdomen with the remainder of the colon in the right josh-abdomen. There was no evidence of obstruction, although there was an abrupt change within the sigmoid colon. A KUB was obtained on October 19, 2018, which showed distended right hemicolon with no evidence of pneumoperitoneum. However, there was an abrupt caliber change within the sigmoid colon noted on this study as well. The most recent colonoscopy in our chart was performed on June 03, 2009, which showed an ileocolonic anastomosis at approximately 50 cm past the anal verge as well as increased diverticulosis and grade 1 internal hemorrhoids. ASSESSMENT AND PLAN: The patient is a 78-year-old male with past medical history of paroxysmal atrial fibrillation, hypertension, peripheral neuropathy, degenerative joint disease, diverticulosis, benign prostatic hypertrophy, restless legs syndrome, chronic anemia and diverticulitis, status post left hemicolectomy and colocolonic anastomosis, presenting with altered mental status, history of diarrhea and abnormal gastroenterology imaging. Diarrhea. The patient has a longstanding history of constipation characterized as having infrequent or harder to pass bowel movements in the past. However, the patient per the patient's has been taking increasing amounts of laxatives as an outpatient in order to facilitate having a bowel movement with the goal of having approximately 1 bowel movement per day. Shortly prior to admission, the patient had ingested increasing amounts of laxatives in order to facilitate having a bowel movement and had a "massive bowel movement" requiring the patient to sit in the tub in order to finish defecating. However, he was unable to stand up after his larger bowel movement, which then prompted his to call EMS and his subsequent admission to the [place] ER. Per review of the patient's CT scan, he does still have some retained colonic stool contents, which is sort of concerning for continued constipation. However, the patient does take fentanyl patches as well as hydrocodone on a daily basis, which could then further contribute to his chronic constipation. At this time, the origin of his diarrhea seems to be more related to surreptitious use of laxatives or inappropriate use of laxatives as opposed to a true infectious etiology, although that cannot be ruled out at this time. RECOMMENDATIONS: 1. We would obtain infectious stool studies for evaluation of possible infectious etiology of his diarrhea. 2. We would place obtain stool electrolytes in order to obtain an osmolar gap, which could then further guide therapy, if this is an osmotic diarrhea. 3. We would hold off on any antimotility agents at least for the time being. 4. Antibiotic administration for diarrhea is not necessarily indicated at this time. Abnormal GI imaging. The patient is presenting with a history of increased colonic distention and an abrupt transition within the sigmoid colon on most recent CT scan and KUB obtained within the last week. However, upon evaluation of the patient's chart, he has had increased colonic distention and this transition point has been present as far back as 2015. At this time it is unclear as to how chronic this particular finding is and may be more related to his past surgical history of the left hemicolectomy and the colocolonic anastomosis within the sigmoid colon. However, with the decreased caliber the sigmoid colon noted on multiple imaging within the recent past, a GI malignancy cannot be ruled out at this time, especially with the last colonoscopy being performed in 2008. Recommendations: 1. We would continue IV fluid with resuscitation as part of confucianism the patient's mental status. 2. We will continue to monitor the patient clinically with stabilization over the next 24 hours. 3. If the patient stabilizes, we would then consider a flexible sigmoidoscopy for evaluation of the sigmoid colon and possible neoplastic process. We will continue to follow. Please call with any questions. Job ID: [id number] [facility] SYSTEMPaul
[2018-10-19 23:46] LABS: Anion Gap 12 mmol/L (10-20); Carbon Dioxide 24 mmol/L (23-31); Chloride 104 mmol/L (98-107); Potassium 4.8 mmol/L (3.5-5.1); Sodium 135 mmol/L (136-145)
[2018-10-20] MEDS: Acetaminophen 325 MG/10.15 ML UDCUP PO PRN ×3 (01:19→21:39)
[2018-10-20] MEDS: Sodium Chloride 0.9% 1,000 ML IV SCH ×3 (04:57→19:45)
[2018-10-20] MEDS: metroNIDAZOLE 500 MG in Premix Bag 1 BAG IVPB SCH ×3 (05:55→21:34)
[2018-10-20] MEDS: Heparin 5,000 UNITS/ML VIAL SC SCH ×3 (07:43→21:35)
[2018-10-20 08:03] LABS: Anion Gap 12 mmol/L (10-20); BUN (Urea Nitrogen) 39 mg/dL (8.4-25.7); Calc. Creatinine Clearance 47 mL/min (70-130); Calcium 8.4 mg/dL (7.8-10.44); Carbon Dioxide 23 mmol/L (23-31); Chloride 106 mmol/L (98-107); Estimated GFR-MDRD 38; Glucose 116 mg/dL (83-110); Potassium 4.5 mmol/L (3.5-5.1); Sodium 136 mmol/L (136-145)
[2018-10-20 08:19] LABS: Band 39 % (5-11); Hemoglobin 9.8 g/dL (14.0-18.0); Lymphocytes 6 % (21-51); MDiff Complete? YES; Macrocytosis MODERATE=16-30 cells (100X) (0-5/hpf); Mean Corpuscular HGB CONC 32.3 g/dL (32.0-36.0); Mean Corpuscular Hemoglobin 38.6 pg (27.0-31.0); Mean Platelet Volume 6.9 fL (7.4-10.4); Monocytes 3 % (0-10); Neutrophil 51 % (42-75); Platelet Count 154 thou/uL (130-400); Platelet Morphology Comment Appears Adequate; RBC Distribution Width 17.5 % (11.5-14.5); Reactive Lymphocytes 1 % (0-10); Red Blood Cell (RBC) Count 2.53 mill/uL (4.70-6.10)
[2018-10-20] MEDS ORDERED: Famotidine/PF 20 mg/2ml Vial SLOW IVP SCH (09:00)
--- NOTE | 2018-10-20 13:30 | PDOC.PN ---
- Subjective Encounter Start Date: 10/20/18 Encounter Start Time: 13:28 Subjective: no verbal responce - Objective Resuscitation Status - Order Detail: 10/19/18 11:43 Resuscitation Status Routine Resuscitation Status: FULL: Full Resuscitation Discussed with: not lucid, no family present MAR Reviewed: Yes Vital Signs & Weight: Vital Signs (12 hours) Temp Pulse Resp BP Pulse Ox 10/20/18 12:00 99.4 F 69 20 99/51 L 98 10/20/18 09:42 101 F H 10/20/18 08:36 100.0 F H 77 20 106/56 L 97 10/20/18 08:00 97 10/20/18 04:00 97.1 F L 70 18 98/52 L 97 Weight Weight 209 lb 12.8 oz Result Diagrams: 10/20/18 07:13 10/20/18 07:13 Phys Exam - Physical Examination Neck: no JVD Respiratory: clear to auscultation bilateral Cardiovascular: RRR, no significant murmur Gastrointestinal: soft, positive bowel sounds Musculoskeletal: no edema Dx/Plan (1) Diarrhea Code(s): R19.7 - DIARRHEA, UNSPECIFIED Status: Acute Qualifiers: Diarrhea type: unspecified type Qualified Code(s): R19.7 - Diarrhea, unspecified (2) Acute renal failure Status: Acute Qualifiers: Acute renal failure type: unspecified Qualified Code(s): N17.9 - Acute kidney failure, unspecified (3) Lactic acidosis Code(s): E87.2 - ACIDOSIS Status: Acute (4) Chronic pain syndrome Code(s): G89.4 - CHRONIC PAIN SYNDROME Status: Chronic Comment: on intermediate project manager hydrocodone and fentanyl (5) Dyslipidemia Code(s): E78.5 - HYPERLIPIDEMIA, UNSPECIFIED Status: Chronic (6) Hypertension Code(s): I10 - ESSENTIAL (PRIMARY) HYPERTENSION Status: Chronic Qualifiers: Hypertension type: essential hypertension Qualified Code(s): I10 - Essential (primary) hypertension - Plan acidosis improved, renal fcn improved -: cont iv fluids -: cont flagyl iv -: endoscopy planned * .
--- NOTE | 2018-10-20 19:39 | PRG ---
DATE OF SERVICE: 10/20/2018 REASON FOR CONSULTATION: Diarrhea, abnormal gastrointestinal imaging. SUBJECTIVE: The patient today has improved in terms of his mental status, is now fully interactive. He was able to respond to questioning with appropriate responses, albeit his responses were diminished due to hoarseness of his voice and quiet character of locality. Otherwise, he states that he does have continued right lower quadrant abdominal pain as well as significant diarrhea per patient and per nursing staff. Otherwise, he denies any vomiting, fevers, chills, or GI bleeding. OBJECTIVE: VITAL SIGNS: Temperature 98.7, pulse 59, blood pressure 99/52, respiratory rate 18, saturating 97% on room air. T-max of 101 Fahrenheit at 9:42 am on October 20, 2018. GENERAL: The patient was lying in bed, in no acute distress. Alert and oriented x3. CARDIOVASCULAR: Regular rate and rhythm. RESPIRATORY: Clear to auscultation bilaterally. ABDOMEN: Normoactive bowel sounds, soft. Mild abdominal distention. Tenderness to palpation in the suprapubic and right lower quadrant. EXTREMITIES: 1+ bilateral lower extremity edema extending up to mid mariano. Otherwise, no cyanosis or clubbing. LABORATORY DATA: CBC with a white blood cell count of 4, hemoglobin 9.8, hematocrit 30.2, platelets 154. Chemistry with a sodium of 136, potassium 4.5, chloride 106, CO2 of 23, BUN 39, creatinine 1.74, glucose 116. IMAGING DATA: No current GI imaging is available for review. ASSESSMENT AND PLAN: The patient is a 78-year-old male with past medical history of paroxysmal atrial fibrillation, hypertension, peripheral neuropathy, degenerative joint disease, diverticulosis, benign prostatic hypertrophy, restless legs syndrome, chronic anemia and diverticulitis status post left hemicolectomy and colonic anastomosis initially presenting with altered mental status, diarrhea, right lower quadrant abdominal pain and abnormal GI imaging. Diarrhea: The patient has a longstanding history of constipation characterized as infrequent and hard to pass stools in the past that has required the frequent use of laxatives as an outpatient in order to facilitate defecation. Per and shortly before admission, the patient had ingested increasing amount of laxatives in order to facilitate having a bowel movement and had a "massive bowel movement" after which he was unable to rise from a seated position and prompted his calling EMS and admission to the medicine ER. During the hospitalization here, he has had multiple large volume bowel movements per nursing staff, but no appearance of blood. Infectious stool studies so far have been negative for Campylobacter, E. coli with Clostridium difficile is still pending. Fecal lactoferrin and FOBT are positive, which could be indicative of inflammation and/or infection. At this time, the origin of his diarrhea is unknown but may be related to surreptitious use of laxatives/inappropriate use of laxatives, infectious etiology, microscopic colitis, decreased colonic capacity versus possible GI neoplasm. RECOMMENDATIONS: 1. We will follow up on the Clostridium difficile stool studies for possible infectious etiology. 2. Would like to obtain an osmolar gap with stool electrolytes, but this order was canceled. 3. Would hold on any antimotility agents at this time given the possibility of infectious etiology. 4. Given his fever today, broadening of antibiotic administration may be prudent. 5. If the Clostridium difficile studies are negative, we then proceed with flexible sigmoidoscopy for evaluation of the lower colon. 6. Abnormal GI imaging. The patient is presenting with a history of increased colonic distention and an abrupt transition within the sigmoid colon on the most recent CT and KUB. However, upon evaluation or upon review of the patient's chart, he has had increased colonic distention going as far back as 2016. It is unclear if this is related to possible colonic stricture or stenosis related to colonic anastomosis or other underlying pathology. RECOMMENDATIONS: 1. Would continue with IV fluid resuscitation. 2. Once infectious etiology has been ruled out, we would proceed with flexible sigmoidoscopy for further evaluation of the distal colon. We will continue to follow. Please call with any questions. Job ID: [id number]
[2018-10-20] MEDS: Amiodarone 200 MG TAB PO SCH (21:32)
[2018-10-21] MEDS: Acetaminophen 325 MG/10.15 ML UDCUP PO PRN (02:17)
[2018-10-21] MEDS: Sodium Chloride 0.9% 1,000 ML IV SCH ×3 (05:00→20:34)
[2018-10-21] MEDS: metroNIDAZOLE 500 MG in Premix Bag 1 BAG IVPB SCH ×3 (06:26→20:28)
[2018-10-21] MEDS: Acetaminophen 650 MG/20.3 ML UDCUP PO PRN ×2 (08:51→20:30)
[2018-10-21] MEDS: Heparin 5,000 UNITS/ML VIAL SC SCH ×3 (08:51→20:29)
[2018-10-21] MEDS: Famotidine/PF 20 mg/2ml Vial SLOW IVP SCH (08:51)
[2018-10-21] MEDS: Amiodarone 200 MG TAB PO SCH ×2 (08:52→20:32)
[2018-10-21] MEDS: Ketorolac Tromethamine 30 MG/ML VIAL IVP PRN ×2 (13:56→20:26)
--- NOTE | 2018-10-21 15:18 | PDOC.PN ---
- Subjective Encounter Start Date: 10/21/18 Encounter Start Time: 12:30 Subjective: Patient with lower abdominal pain. He seems unclear currently -: if he was constipated at home prior to diarrhea or if he took -: laxatives. On chronic norco 4x per day for neuropathy, started on fentanyl patch 25mcg to try and get patient off the hydrocodone, but he has just been using both. Fentanyl patch removed at some point after EMS picked him up and now, not sure when. - Objective Resuscitation Status - Order Detail: 10/19/18 11:43 Resuscitation Status Routine Resuscitation Status: FULL: Full Resuscitation Discussed with: not lucid, no family present MAR Reviewed: Yes Vital Signs & Weight: Vital Signs (12 hours) Temp Pulse Resp BP BP Pulse Ox 10/21/18 12:00 98.3 F 72 20 139/62 99 10/21/18 08:00 98 10/21/18 07:19 98.2 F 78 18 135/64 98 10/21/18 03:55 98.5 F 79 18 134/54 L 97 Weight Weight 209 lb 12.8 oz I&O: 10/20/18 10/21/18 10/22/18 06:59 06:59 06:59 Intake Total 1600 1700 Output Total 1125 1200 Balance 475 500 Result Diagrams: 10/20/18 07:13 10/20/18 07:13 Phys Exam - Physical Examination Constitutional: NAD HEENT: moist MMs Respiratory: no wheezing, no rales, no rhonchi, clear to auscultation bilateral Cardiovascular: RRR, no significant murmur hypoactive high pitched bowel sounds, TTP diffusely but worse lower abd, no sig guarding, no masses Musculoskeletal: edema present Neurological: moves all 4 limbs decreased sensation to bilateral feet Psychiatric: normal affect, A&O x 3 Dx/Plan (1) Diarrhea Code(s): R19.7 - DIARRHEA, UNSPECIFIED Status: Acute Qualifiers: Diarrhea type: unspecified type Qualified Code(s): R19.7 - Diarrhea, unspecified (2) Acute renal failure Status: Acute Qualifiers: Acute renal failure type: unspecified Qualified Code(s): N17.9 - Acute kidney failure, unspecified Comment: improving with fluids (3) Abdominal pain Code(s): R10.9 - UNSPECIFIED ABDOMINAL PAIN Status: Acute Comment: likely related to the diarrhea, though may involve opiate withdrawl as well (4) Lactic acidosis Code(s): E87.2 - ACIDOSIS Status: Acute Comment: improved but rebounded somewhat (5) Chronic pain syndrome Code(s): G89.4 - CHRONIC PAIN SYNDROME Status: Chronic Comment: on intermediate school teacher hydrocodone and fentanyl, likely source of reported severe constipation, holding for now (6) Dyslipidemia Code(s): E78.5 - HYPERLIPIDEMIA, UNSPECIFIED Status: Chronic (7) Hypertension Code(s): I10 - ESSENTIAL (PRIMARY) HYPERTENSION Status: Chronic Qualifiers: Hypertension type: essential hypertension Qualified Code(s): I10 - Essential (primary) hypertension (8) Atrial fibrillation Code(s): I48.91 - UNSPECIFIED ATRIAL FIBRILLATION Status: Chronic Qualifiers: Atrial fibrillation type: chronic Qualified Code(s): I48.2 - Chronic atrial fibrillation Comment: controlled with amiodarone - Plan cont current plan of care, continue antibiotics, DVT proph w/heparin * . - Discharge Day Encounter end time: 12:45
--- NOTE | 2018-10-21 23:14 | PRG ---
DATE OF SERVICE: 10/21/2018 REASON FOR CONSULTATION: Diarrhea, abnormal GI imaging. SUBJECTIVE: The patient states that he is feeling better today with lessened right lower quadrant abdominal pain, although he does continue to still have some diarrhea-like bowel movements. He is much more responsive today to questioning with increased vocal quality today as well. Currently, he denies any vomiting, fevers, chills or GI bleeding. OBJECTIVE: VITAL SIGNS: Temperature 98.5, pulse 54, blood pressure 144/60, respiratory rate 16, saturating 93% on room air. GENERAL: The patient is lying in bed, in no acute distress. Alert and oriented x4. CARDIOVASCULAR: Regular rate and rhythm. RESPIRATORY: Clear to auscultation bilaterally. ABDOMEN: Normoactive bowel sounds. Soft. Mild abdominal distention. Tenderness to palpation in the right lower quadrant. EXTREMITIES: Trace/1+ bilateral lower extremity edema. LABORATORY DATA: No current studies are available for review. IMAGING DATA: No current GI imaging is available for review. ASSESSMENT AND PLAN: The patient is a 78-year-old male with past medical history of paroxysmal atrial fibrillation, hypertension, peripheral neuropathy, degenerative joint disease, diverticulosis, benign prostatic hypertrophy, restless legs syndrome, chronic anemia and diverticulitis, status post left hemicolectomy and colonic anastomosis, initially presenting with altered mental status, now resolved, but with continued diarrhea and right lower quadrant abdominal pain. Diarrhea: The patient has a history of longstanding constipation characterized as infrequent and hard to pass stools that has required the frequent use of laxatives as an outpatient in order to facilitate defecation. This seems to be largely in part due to his increased narcotic use as an outpatient including both fentanyl and hydrocodone. Shortly before admission, the patient had ingested increasing amount of laxatives in order to facilitate having a bowel movement and after having a "massive bowel movement," was unable to ambulate effectively and did exhibit altered mental status. He was ultimately brought to the [place] ER, where he was evaluated and subsequently transferred to [facility] [place] for further evaluation. Infectious stool studies so far have been negative for Campylobacter, E coli, Salmonella/Shigella culture and Clostridium difficile. However, his fecal lactoferrin and FOBT are positive, which could be indicative of inflammation or infection. At this time, the origin of his diarrhea is unknown, but may be related to surreptitious use of laxatives/inappropriate use of laxatives, microscopic colitis, decreased colonic capacity to absorb water versus possible gastrointestinal neoplasm. Recommendations: 1. Stool electrolytes were ordered to calculate an osmolar gap, but never collected. I would like to reorder this if possible. 2. Withhold on any antimotility agents at this time given the possibility of infectious etiology and improving diarrhea. 3. Would proceed with flexible sigmoidoscopy tomorrow for evaluation of the lower colon. Abnormal gastrointestinal imaging: The patient is presenting with a history of increased colonic distention with an abrupt transition within the sigmoid colon seen on the most recent CT and KUB. However, this is a longstanding finding and can be seen to a lesser degree on CT scans going as far back as 2016. However, with most recent imaging showing an abrupt transition point within the sigmoid colon, it is concerning for possible obstructive-type process via inflammation versus neoplasm. Recommendations: 1. Would proceed with flexible sigmoidoscopy tomorrow for further evaluation of the distal colon. 2. The patient to be n.p.o. at midnight. We will continue to follow. Please call with any questions. Job ID: [id number]
[2018-10-22] MEDS: Acetaminophen 650 MG/20.3 ML UDCUP PO PRN ×2 (00:37→16:28)
[2018-10-22] MEDS: Ketorolac Tromethamine 30 MG/ML VIAL IVP PRN (03:33)
[2018-10-22] MEDS: metroNIDAZOLE 500 MG in Premix Bag 1 BAG IVPB SCH ×2 (05:46→19:52)
[2018-10-22] MEDS: Sodium Chloride 0.9% 1,000 ML IV SCH ×3 (05:57→19:51)
[2018-10-22] MEDS ORDERED: Fleet Enema 133 ML BOT PR SCH (06:00)
[2018-10-22 08:55] LABS: #Lymphocytes 0.6 thou/uL (1.20-3.40); #Monocytes 0.1 thou/uL (0.11-0.59); #Neutrophils 2.1 thou/uL (1.40-6.50); %Basophils 0.2 % (0.0-1.0); %Lymphocytes 21.6 % (21.0-51.0); %Monocytes 4.3 % (0.0-10.0); Hemoglobin 9.7 g/dL (14.0-18.0); Mean Corpuscular HGB CONC 31.9 g/dL (32.0-36.0); Mean Corpuscular Hemoglobin 39.2 pg (27.0-31.0); Mean Platelet Volume 7.2 fL (7.4-10.4); Platelet Count 165 thou/uL (130-400); RBC Distribution Width 16.9 % (11.5-14.5); Red Blood Cell (RBC) Count 2.46 mill/uL (4.70-6.10); White Blood Cell (WBC) Count 2.9 thou/uL (4.8-10.8)
[2018-10-22 09:09] LABS: Anion Gap 12 mmol/L (10-20); BUN (Urea Nitrogen) 33 mg/dL (8.4-25.7); Calc. Creatinine Clearance 74 mL/min (70-130); Calcium 8.9 mg/dL (7.8-10.44); Carbon Dioxide 18 mmol/L (23-31); Chloride 117 mmol/L (98-107); Estimated GFR-MDRD 64; Glucose 84 mg/dL (83-110); Potassium 3.2 mmol/L (3.5-5.1); Sodium 144 mmol/L (136-145)
[2018-10-22] MEDS ORDERED: PROPOFOL 200 MG/20 ML VIAL ONE (10:21)
[2018-10-22] MEDS: Amiodarone 200 MG TAB PO SCH ×2 (10:35→19:50)
[2018-10-22] MEDS: Heparin 5,000 UNITS/ML VIAL SC SCH ×3 (10:38→19:50)
[2018-10-22] MEDS: Famotidine/PF 20 mg/2ml Vial SLOW IVP SCH (10:39)
[2018-10-22] MEDS ORDERED: HYDROcodone/Acetaminophen 5/325 mg Tablet PO PRN (13:58)
--- NOTE | 2018-10-22 14:01 | PDOC.PN ---
- Subjective Encounter Start Date: 10/22/18 (f/u diarrhea) Encounter Start Time: 13:59 Subjective: Pt noted to be confused and agitated earlier today, improved post- procedure -: he c/o having pain all over. -: reports fall with broken ribs on 17 August - Objective Resuscitation Status - Order Detail: 10/19/18 11:43 Resuscitation Status Routine Resuscitation Status: FULL: Full Resuscitation Discussed with: not lucid, no family present Vital Signs & Weight: Vital Signs (12 hours) Temp Pulse Resp BP Pulse Ox 10/22/18 12:40 98.5 F 91 20 169/81 H 91 L 10/22/18 07:24 98.5 F 68 18 163/62 H 93 L 10/22/18 04:00 98.3 F 80 18 150/79 H 93 L Weight Weight 209 lb 12.8 oz I&O: 10/21/18 10/22/18 10/23/18 06:59 06:59 06:59 Intake Total 1700 Output Total 1200 700 Balance 500 -700 Result Diagrams: 10/22/18 08:32 10/22/18 08:32 Phys Exam - Physical Examination Constitutional: NAD Respiratory: no wheezing, no rales, no rhonchi, clear to auscultation bilateral Cardiovascular: RRR, no significant murmur Gastrointestinal: soft, positive bowel sounds ttp throughout - no rebound/guarding and abd soft, no palp abnormality Musculoskeletal: no edema Neurological: non-focal Deviation from normal: oriented to person, not to situation Dx/Plan (1) Abdominal pain Code(s): R10.9 - UNSPECIFIED ABDOMINAL PAIN Status: Acute Qualifiers: Abdominal location: generalized Qualified Code(s): R10.84 - Generalized abdominal pain (2) Acute renal failure Status: Resolved Qualifiers: Acute renal failure type: unspecified Qualified Code(s): N17.9 - Acute kidney failure, unspecified Comment: improving with fluids (3) Lactic acidosis Code(s): E87.2 - ACIDOSIS Status: Acute (4) Chronic pain syndrome Code(s): G89.4 - CHRONIC PAIN SYNDROME Status: Chronic (5) Hypokalemia Code(s): E87.6 - HYPOKALEMIA Status: Acute (6) Atrial fibrillation Code(s): I48.91 - UNSPECIFIED ATRIAL FIBRILLATION Status: Chronic Qualifiers: Atrial fibrillation type: chronic Qualified Code(s): I48.2 - Chronic atrial fibrillation Comment: controlled with amiodarone (7) Hypertension Code(s): I10 - ESSENTIAL (PRIMARY) HYPERTENSION Status: Chronic Qualifiers: Hypertension type: essential hypertension Qualified Code(s): I10 - Essential (primary) hypertension (8) Delirium Code(s): R41.0 - DISORIENTATION, UNSPECIFIED Status: Acute - Plan * Pt s/o flex sig with some ulcerations noted =- likely chronic constipation secondary to chronic opioid therapy * Delirium - may be multifactorial and includes being off of opioids, hospitalized, and pain * Resume fentanyl patch and prn lower dose hydrocodone * resume some home meds - reviewed and confirmed with the nurse that contacted pt's pharmacy * hold lisinopril given the KAITLYNN that is now resolved. Start amlodipine and monitor bp's * hold lasix * pt/ot consult for deconditioning - ordered yesterday * * anemia - appears stable from yesterday, no signs of active bleeding, continue to monitor * leukopenia - monitor * * replace potassium * * dvt prophy - scd's * gi prophy - not indicated * * code status full * * reviewed plan of care with patient, no questions or further needs at end of eval.
[2018-10-22] MEDS ORDERED: Amlodipine 5 MG TAB PO SCH (14:30)
[2018-10-22] MEDS ORDERED: Potassium Chloride 20 MEQ TAB PO SCH (14:30)
[2018-10-22] MEDS ORDERED: metroNIDAZOLE 500 MG TAB PO SCH (15:00)
--- NOTE | 2018-10-22 18:18 | PDOC.EVN ---
Event Note - Event Note Event Note: called by nurse who is about to start the 4th IV today, as pt has pulled out the others. pt is on IV metronidazole. Placed order for soft restraint, to use on the non-IV arm. Monitoring per hospital protocol. 20:47 - reviewed orders and spoke with RN - pt taking adequate PO, will d/c IVF
[2018-10-22] MEDS: Gabapentin 300 MG CAP PO SCH (19:49)
[2018-10-22] MEDS: Docusate 100 MG CAP PO SCH (19:50)
[2018-10-22] MEDS: Tamsulosin HCl 0.4 MG CAP PO SCH (19:50)
[2018-10-23 05:33] LABS: #Eosinphils 0.1 thou/uL (0.0-0.7); #Lymphocytes 0.8 thou/uL (1.20-3.40); #Neutrophils 1.9 thou/uL (1.40-6.50); %Basophils 0.3 % (0.0-1.0); %Eosinophils 1.9 % (0.0-10.0); %Lymphocytes 29.8 % (21.0-51.0); %Monocytes 0.9 % (0.0-10.0); %Neutrophils 67.1 % (42.0-75.0); Hemoglobin 9.8 g/dL (14.0-18.0); Mean Corpuscular HGB CONC 32.3 g/dL (32.0-36.0); Mean Corpuscular Hemoglobin 39.1 pg (27.0-31.0); Mean Platelet Volume 7.4 fL (7.4-10.4); Platelet Count 178 thou/uL (130-400); Red Blood Cell (RBC) Count 2.49 mill/uL (4.70-6.10); White Blood Cell (WBC) Count 2.8 thou/uL (4.8-10.8)
[2018-10-23 05:58] LABS: Anion Gap 14 mmol/L (10-20); BUN (Urea Nitrogen) 26 mg/dL (8.4-25.7); Calc. Creatinine Clearance 84 mL/min (70-130); Calcium 8.9 mg/dL (7.8-10.44); Carbon Dioxide 19 mmol/L (23-31); Chloride 115 mmol/L (98-107); Estimated GFR-MDRD 75; Glucose 101 mg/dL (83-110); Magnesium 1.9 mg/dL (1.6-2.6); Phosphorus 2.6 mg/dL (2.3-4.7); Potassium 3.7 mmol/L (3.5-5.1); Sodium 144 mmol/L (136-145)
[2018-10-23] MEDS: metroNIDAZOLE 500 MG in Premix Bag 1 BAG IVPB SCH ×3 (06:21→20:52)
[2018-10-23] MEDS: Amiodarone 200 MG TAB PO SCH ×2 (08:58→20:32)
[2018-10-23] MEDS: Finasteride 5 MG TAB PO SCH (08:59)
[2018-10-23] MEDS ORDERED: Amlodipine 5 MG TAB PO SCH (09:00)
[2018-10-23] MEDS: Gabapentin 300 MG CAP PO SCH ×2 (09:00→20:32)
[2018-10-23] MEDS: Heparin 5,000 UNITS/ML VIAL SC SCH ×3 (09:00→20:33)
[2018-10-23] MEDS: Docusate 100 MG CAP PO SCH (09:18)
--- NOTE | 2018-10-23 13:06 | PRG ---
DATE OF SERVICE: 10/23/2018 SUBJECTIVE: Mr. Bahena is still confused. He tells me to get out of the room. His notes he is passing gas well. The nurses report he has had a bowel movement about every 2 to 3 hours with soft stool. OBJECTIVE: VITAL SIGNS: Temperature is 98, blood pressure 161/80, and pulse 90. LUNGS: Clear. He is basically a belly breather when he exhales. ABDOMEN: Soft. It is nontender. Bowel sounds are present. LABORATORY DATA: White count 2.8, hemoglobin 9.8, platelet count 178. Sodium 144, potassium 3.7, BUN and creatinine of 27 and 0.97. The patient does have a C. diff from 10/19 at outside facility from [facility], I think it was negative. Biopsies from flex sig performed yesterday are pending. He had fairly severe stercoral ulcers and colitis, which look to be probably ischemic. There were a few pseudomembranes present. Biopsies are pending. ASSESSMENT: 1. Diarrhea. This seems to have been related to the fact that he probably had an impaction by history and stercoral ulceration and colitis related to that. There may be a component of ischemic colitis there. There is no evidence of necrosis or gangrene of the colon. Compounding the diarrhea may be the fact that he has been stopped from all his narcotic pain medicines, which may be causing some narcotic withdrawal and diarrhea. 2. Fecal impaction, resolved. 3. Diarrhea, possibly related to narcotic withdrawal or the colitis present. Biopsies are pending. Clostridium difficile was negative. 4. Confusion and agitated. It is unclear if this is related to recent fall back in August, withdrawal from pain medications or other processes. He has no fever or signs of infection presently. He has a benign abdomen. 5. Acute renal failure, resolved. 6. Lactic acidosis, resolved. 7. Atrial fibrillation. 8. Delirium. RECOMMENDATIONS: 1. Await biopsies. 2. If the patient's abdomen becomes more distended and he stops having bowel movements, we can probably get plain films. 3. Electrolyte replacement. Encourage p.o. intake. Physical therapy. I have discussed with Dr. Mendoza, the hospitalist of Internal Medicine and also the patient's nurse. Job ID: [id number]
--- NOTE | 2018-10-23 14:56 | PDOC.PN ---
- Subjective Encounter Start Date: 10/23/18 (f/u colitis) Encounter Start Time: 14:52 Subjective: Restless and little sleep reported overnight. Pts reports -: he is less confused today. Q2h diarrhea o/n and 3 -: loose stools today - Objective Resuscitation Status - Order Detail: 10/19/18 11:43 Resuscitation Status Routine Resuscitation Status: FULL: Full Resuscitation Discussed with: not lucid, no family present Vital Signs & Weight: Vital Signs (12 hours) Temp Pulse Resp BP BP BP Pulse Ox 10/23/18 12:00 98.7 F 92 18 152/85 H 94 L 10/23/18 09:00 90 161/80 H 10/23/18 08:00 93 L 10/23/18 07:23 98.2 F 90 20 161/80 H 91 L 10/23/18 04:41 98.2 F 84 20 136/66 93 L Weight Weight 209 lb 12.8 oz I&O: 10/22/18 10/23/18 10/24/18 06:59 06:59 06:59 Intake Total 100 Output Total 700 200 Balance -700 -200 100 Result Diagrams: 10/23/18 05:01 10/23/18 05:01 Phys Exam - Physical Examination Constitutional: NAD pt somnolent, wakes to exam Respiratory: no wheezing, no rales, no rhonchi, clear to auscultation bilateral Cardiovascular: RRR, no significant murmur Gastrointestinal: soft, positive bowel sounds ttp throughout, no rebound or guarding Musculoskeletal: no edema, pulses present Neurological: non-focal, moves all 4 limbs Deviation from normal: cracked lips laterally Dx/Plan (1) Abdominal pain Code(s): R10.9 - UNSPECIFIED ABDOMINAL PAIN Status: Acute Qualifiers: Abdominal location: generalized Qualified Code(s): R10.84 - Generalized abdominal pain (2) Acute renal failure Status: Resolved Qualifiers: Acute renal failure type: unspecified Qualified Code(s): N17.9 - Acute kidney failure, unspecified (3) Lactic acidosis Code(s): E87.2 - ACIDOSIS Status: Acute (4) Chronic pain syndrome Code(s): G89.4 - CHRONIC PAIN SYNDROME Status: Chronic (5) Hypokalemia Code(s): E87.6 - HYPOKALEMIA Status: Resolved (6) Atrial fibrillation Code(s): I48.91 - UNSPECIFIED ATRIAL FIBRILLATION Status: Chronic Qualifiers: Atrial fibrillation type: chronic Qualified Code(s): I48.2 - Chronic atrial fibrillation Comment: controlled with amiodarone (7) Hypertension Code(s): I10 - ESSENTIAL (PRIMARY) HYPERTENSION Status: Chronic Qualifiers: Hypertension type: essential hypertension Qualified Code(s): I10 - Essential (primary) hypertension (8) Delirium Code(s): R41.0 - DISORIENTATION, UNSPECIFIED Status: Acute - Plan * * Pt s/o flex sig with some ulcerations and colitis =- likely chronic constipation secondary to chronic opioid therapy * Delirium - improved today - may be multifactorial and includes being off of opioids, hospitalized, and pain * Resumed fentanyl patch and prn lower dose hydrocodone yesterday * resume some home meds * hold lisinopril given the KAITLYNN that is now resolved. Amlodipine started yesterday - will change to BID as bp's elevated and monitor bp's * No indication for lasix - hold * * pt/ot consult for deconditioning - ordered yesterday * * leukopenia and megaloblastic anemia - will check vitamin b12/folate/iron levels and initiate Vitamin b12 and folate replacement. This may be another reason for delirium. Leukopenia may be secondary to metronidazole. * start replacement of vitamin b12, folic acid and thiamine * monitor electrolytes * * dvt prophy - scd's * gi prophy - not indicated * * code status full * * reviewed plan of care with patient, no questions or further needs at end of eval * pt remains at high risk in current condition. Reviewed plan of care with patient's , no questions or further needs at end of eval
[2018-10-23] MEDS ORDERED: Folic Acid 1 MG TAB PO SCH (15:00)
[2018-10-23] MEDS ORDERED: Cyanocobalamin (Vitamin B-12) 1,000 MCG TAB PO SCH (15:00)
[2018-10-23] MEDS ORDERED: Thiamine 100 MG TAB PO SCH (16:00)
[2018-10-23 16:46] LABS: Iron 45 ug/dL (65-175); Iron Binding Capacity, Total 114 mcg/dL (261-462)
[2018-10-23 17:18] LABS: Vitamin B12 Less than 109 pg/mL (211-911)
[2018-10-23] MEDS: Tamsulosin HCl 0.4 MG CAP PO SCH (20:32)
[2018-10-23] MEDS: Amlodipine 5 MG TAB PO SCH (20:33)
[2018-10-23] MEDS: Acetaminophen 650 MG/20.3 ML UDCUP PO PRN (20:46)
[2018-10-24] MEDS: metroNIDAZOLE 500 MG in Premix Bag 1 BAG IVPB SCH ×2 (05:14→14:33)
[2018-10-24 07:01] LABS: Band 8 % (5-11); Hemoglobin 9.3 g/dL (14.0-18.0); Hypochromia SLIGHT = 6-15 cells (100X) (0-5/hpf); Lymphocytes 48 % (21-51); MDiff Complete? YES; Mean Corpuscular HGB CONC 31.5 g/dL (32.0-36.0); Mean Corpuscular Hemoglobin 38.9 pg (27.0-31.0); Mean Platelet Volume 7.6 fL (7.4-10.4); Neutrophil 44 % (42-75); Platelet Count 156 thou/uL (130-400); Platelet Morphology Comment Appears Adequate; RBC Distribution Width 17.2 % (11.5-14.5); Red Blood Cell (RBC) Count 2.37 mill/uL (4.70-6.10); White Blood Cell (WBC) Count 2.2 thou/uL (4.8-10.8)
[2018-10-24 07:07] LABS: ALT (SGPT) 10 U/L (8-55); AST (SGOT) 14 U/L (5-34); Albumin 2.6 g/dL (3.4-4.8); Alkaline Phosphatase 63 U/L (40-150); Anion Gap 11 mmol/L (10-20); BUN (Urea Nitrogen) 16 mg/dL (8.4-25.7); Bilirubin, Total 0.6 mg/dL (0.2-1.2); Calc. Creatinine Clearance 99 mL/min (70-130); Calcium 8.5 mg/dL (7.8-10.44); Carbon Dioxide 21 mmol/L (23-31); Chloride 114 mmol/L (98-107); Estimated GFR-MDRD 90; Globulin 2.6 g/dL (2.4-3.5); Glucose 84 mg/dL (83-110); Magnesium 1.9 mg/dL (1.6-2.6); Phosphorus 2.2 mg/dL (2.3-4.7); Potassium 3.6 mmol/L (3.5-5.1); Protein, Total 5.2 g/dL (5.8-8.1); Sodium 142 mmol/L (136-145)
[2018-10-24] MEDS: Acetaminophen 650 MG Suppository PR PRN ×2 (07:30→21:40)
[2018-10-24] MEDS: Gabapentin 300 MG CAP PO SCH ×2 (07:35→20:27)
[2018-10-24] MEDS: Folic Acid 1 MG TAB PO SCH (07:37)
[2018-10-24] MEDS: Amiodarone 200 MG TAB PO SCH ×2 (07:38→20:26)
[2018-10-24] MEDS: Amlodipine 5 MG TAB PO SCH (07:38)
[2018-10-24] MEDS: Finasteride 5 MG TAB PO SCH (07:38)
[2018-10-24] MEDS: Thiamine 100 MG TAB PO SCH (07:38)
[2018-10-24] MEDS: Heparin 5,000 UNITS/ML VIAL SC SCH ×2 (07:39→20:28)
[2018-10-24] MEDS: Cyanocobalamin (Vitamin B-12) 1,000 MCG TAB PO SCH (07:39)
[2018-10-24] MEDS ORDERED: Cyanocobalamin 1000 MCG/ML VIAL IM SCH ×2 (09:00→14:00)
[2018-10-24] MEDS ORDERED: Dextrose 5 % And 0.9 % NaCl 1,000 ML IV SCH (12:15)
--- NOTE | 2018-10-24 14:10 | PRG ---
DATE OF SERVICE: 10/24/2018 SUBJECTIVE: Mr. Bahena is very somnolent, hard to arouse, but he will wake up - The nurse infroms me , he has had fever on and off through the night. She states that it is hard to get oral temperature on. It had been recorded at 100 to 100.3 although she thinks it is more around 102 as he has rigors and sweats. He noticed a change after he gets Tylenol and his temperature has come down. He apparently did drink liquids okay yesterday, but he has had about 5 bowel movements yesterday, this is fairly minimal. He had a little bit of orange juice this morning, little bit of liquids yesterday, will not eat solid foods. He has had about 3 very liquid bowel movements last night and about 5 to 6 yesterday. MEDICATIONS: 1. Tylenol. 2. Amiodarone. 3. B12. 4. Fentanyl patch. 5. Neurontin. 6. Hydrocodone p.r.n. 7. Flagyl 500 IV q.8h. 8. Zofran. 9. Thiamine. 10. Multivitamin. PHYSICAL EXAMINATION: VITAL SIGNS: Temperature 100.3, may be higher, the nurse reports difficulty getting temperatures. On the , it was 101. Pulse is 102, respirations 18 with saturation 91% on room air. GENERAL: He is somnolent, but arousable. He is not oriented. He is combative at times. He is awake per the nurses. LUNGS: Clear with rhonchi in the bases. ABDOMEN: Protuberant, but not overly tender. Bowel sounds are quiescent. EXTREMITIES: Revealed no clubbing, cyanosis, or edema. LABORATORY DATA: White count 2.2, hemoglobin 9.3, MCV 124, platelet count 156. Sodium 142, potassium 3.6, chloride 114, bicarb 21, anion gap is 7, BUN and creatinine are 16 and 0.8, high ferritin, low B12 less than 109, folate of 11. ASSESSMENT: 1. Severe colitis. It is unclear if this is ischemic or infectious. He remains on Flagyl with continued fever, altered mental status. I recommend a repeat CAT scan of his abdomen with oral and IV contrast as this seem to be the focus of infection or inflammation he has had. 2. Severe B12 deficiency. This could account for some of his mental status change. This is being replaced IM and orally. 3. Chronic pain medication use. Apparently, this is the cause of some constipation and fecal impaction when he came in. It is unclear if this is all related to his fever as well. 4. Pancytopenia, likely related to the B12 deficiency. RECOMMENDATIONS: Restart IV fluids. CT scan of abdomen and pelvis with oral and IV contrast today. Job ID: [id number] MTDD
[2018-10-24] MEDS ORDERED: Fentanyl 100 MCG/2 ML VIAL SLOW IVP PRN (14:21)
--- NOTE | 2018-10-24 14:26 | PDOC.PN ---
- Subjective Encounter Start Date: 10/24/18 (f/u abd pain) Encounter Start Time: 14:24 Subjective: Pt c/o persistent abd pain, less interactive today. Fevers starting -: last night. - Objective Resuscitation Status - Order Detail: 10/19/18 11:43 Resuscitation Status Routine Resuscitation Status: FULL: Full Resuscitation Discussed with: not lucid, no family present Vital Signs & Weight: Vital Signs (12 hours) Temp Pulse Resp BP BP Pulse Ox 10/24/18 12:00 94 L 10/24/18 08:00 91 L 10/24/18 07:38 102 H 133/72 10/24/18 07:21 100.3 F H 102 H 18 133/72 91 L 10/24/18 05:00 97.8 F 97 20 118/70 93 L Weight Weight 209 lb 12.8 oz I&O: 10/23/18 10/24/18 10/25/18 06:59 06:59 06:59 Intake Total 1380 Output Total 200 Balance -200 1380 Result Diagrams: 10/24/18 05:32 10/24/18 05:32 Phys Exam - Physical Examination Constitutional: NAD Respiratory: no wheezing, no rales, no rhonchi Cardiovascular: RRR, no significant murmur Gastrointestinal: soft, positive bowel sounds ttp throughout, no rebound or guarding hyperpigmentation of LE bilateral and trace pitting edema Neurological: non-focal, moves all 4 limbs Deviation from normal: very quiet speech Dx/Plan (1) Abdominal pain Code(s): R10.9 - UNSPECIFIED ABDOMINAL PAIN Status: Acute Qualifiers: Abdominal location: generalized Qualified Code(s): R10.84 - Generalized abdominal pain (2) Acute renal failure Status: Resolved Qualifiers: Acute renal failure type: unspecified Qualified Code(s): N17.9 - Acute kidney failure, unspecified (3) Lactic acidosis Code(s): E87.2 - ACIDOSIS Status: Acute (4) Chronic pain syndrome Code(s): G89.4 - CHRONIC PAIN SYNDROME Status: Chronic (5) Hypokalemia Code(s): E87.6 - HYPOKALEMIA Status: Resolved (6) Atrial fibrillation Code(s): I48.91 - UNSPECIFIED ATRIAL FIBRILLATION Status: Chronic Qualifiers: Atrial fibrillation type: chronic Qualified Code(s): I48.2 - Chronic atrial fibrillation Comment: controlled with amiodarone (7) Hypertension Code(s): I10 - ESSENTIAL (PRIMARY) HYPERTENSION Status: Chronic Qualifiers: Hypertension type: essential hypertension Qualified Code(s): I10 - Essential (primary) hypertension (8) Delirium Code(s): R41.0 - DISORIENTATION, UNSPECIFIED Status: Acute - Plan * Pt with worsening today - fevers, persistent abd pain, fatigue * d/w Dr. Tim - check CT scan, changed to today. (Of note, just spoke with the nurse who reports that pt has an allergy to contrast and needs pre- medication, soonest scan can be performed is tomorrow.) * check CXR * On metronidazole IV for colitis -> broaden to meropenem to cover for both intra-abdominal coverage as well as if a pneumonia or other infection is present. * Obtain new blood and urine cultures. * Delirium - likely multifactorial * severe B12 deficiency - initiated oral and IM treatment * colitis * hospitalization * medications * opioid withdrawal from admission * fevers * Change pain meds - d/c fentanyl patch and use prn IV fentanyl or oral opioids * Lower amlodipine to once daily and monitor - normal bp's today, bp's have been elevated prior to today. * hyperchloremic - will change IVF to D5 1/2 NS * No indication for lasix (home medication) - hold * * pt/ot consult for deconditioning - ordered yesterday, per RN they were not able to work with patient. * * leukopenia and megaloblastic anemia * start replacement of vitamin b12, folic acid and thiamine * will need iron replacement * leukopenia may be from metronidazole * monitor electrolytes * * dvt prophy - heparin * gi prophy - not indicated * * code status full * * reviewed plan of care with patient, no questions or further needs at end of eval * pt remains at high risk in current condition. Reviewed plan of care with patient's and daughter, no questions or further needs at end of eval. 21:10 - reviewed VS and bp's are 110's systolic now. Will d/c amlodipine and trend. Discussed with RN/pt taking PO.
[2018-10-24] MEDS ORDERED: Dextrose 5 %-0.45 % NaCl 1,000 ML IV SCH (14:30)
--- NOTE | 2018-10-24 14:53 | RAD ---
PORTABLE CHEST: HISTORY: Fever, cough. COMPARISON: 10/15/2018. FINDINGS: Cardiomegaly. Mild vascular congestion. Small bilateral effusions. Scattered nodular opacities mohsen ear stable. No significant change from prior exam. IMPRESSION: Stable chest finding. POS: OFF
[2018-10-24] MEDS: MEROPENEM 1 GM/50 ML 1 GM in Premix Bag 1 BAG IVPB SCH ×2 (16:19→23:28)
[2018-10-24] MEDS: Dextrose 5 %-0.45 % NaCl 1,000 ML IV SCH (16:28)
[2018-10-24] MEDS: Acetaminophen 500 MG TAB PO PRN (18:18)
[2018-10-24] MEDS: predniSONE 50 MG TAB PO SCH (20:27)
[2018-10-24] MEDS: Tamsulosin HCl 0.4 MG CAP PO SCH (20:28)
[2018-10-25] MEDS: predniSONE 50 MG TAB PO SCH ×2 (01:32→08:01)
[2018-10-25] MEDS: Acetaminophen 500 MG TAB PO PRN (01:33)
[2018-10-25] MEDS: Dextrose 5 %-0.45 % NaCl 1,000 ML IV SCH ×3 (04:31→21:40)
[2018-10-25 06:34] LABS: #Lymphocytes 0.4 thou/uL (1.20-3.40); #Monocytes 0.1 thou/uL (0.11-0.59); #Neutrophils 1.5 thou/uL (1.40-6.50); %Basophils 1.3 % (0.0-1.0); %Eosinophils 0.6 % (0.0-10.0); %Lymphocytes 18.5 % (21.0-51.0); %Monocytes 4.3 % (0.0-10.0); %Neutrophils 75.3 % (42.0-75.0); Hemoglobin 9.2 g/dL (14.0-18.0); Mean Corpuscular HGB CONC 31.6 g/dL (32.0-36.0); Mean Corpuscular Hemoglobin 39.1 pg (27.0-31.0); Mean Platelet Volume 8.1 fL (7.4-10.4); Platelet Count 126 thou/uL (130-400); RBC Distribution Width 16.6 % (11.5-14.5); Red Blood Cell (RBC) Count 2.34 mill/uL (4.70-6.10)
[2018-10-25 06:58] LABS: ALT (SGPT) 9 U/L (8-55); AST (SGOT) 10 U/L (5-34); Albumin 2.6 g/dL (3.4-4.8); Alkaline Phosphatase 59 U/L (40-150); Anion Gap 11 mmol/L (10-20); BUN (Urea Nitrogen) 14 mg/dL (8.4-25.7); Bilirubin, Total 0.4 mg/dL (0.2-1.2); Calc. Creatinine Clearance 100 mL/min (70-130); Calcium 8.3 mg/dL (7.8-10.44); Carbon Dioxide 22 mmol/L (23-31); Chloride 111 mmol/L (98-107); Estimated GFR-MDRD Greater than 90; Globulin 2.7 g/dL (2.4-3.5); Glucose 154 mg/dL (83-110); Potassium 4.1 mmol/L (3.5-5.1); Protein, Total 5.3 g/dL (5.8-8.1); Sodium 140 mmol/L (136-145)
[2018-10-25] MEDS ORDERED: diphenhydrAMINE 50 MG CAP PO SCH (08:00)
[2018-10-25] MEDS: Finasteride 5 MG TAB PO SCH (08:02)
[2018-10-25] MEDS: Cyanocobalamin (Vitamin B-12) 1,000 MCG TAB PO SCH (08:02)
[2018-10-25] MEDS: Amiodarone 200 MG TAB PO SCH ×2 (08:02→20:06)
[2018-10-25] MEDS: Thiamine 100 MG TAB PO SCH (08:02)
[2018-10-25] MEDS: Gabapentin 300 MG CAP PO SCH ×2 (08:03→20:05)
[2018-10-25] MEDS: Folic Acid 1 MG TAB PO SCH (08:04)
[2018-10-25] MEDS: MEROPENEM 1 GM/50 ML 1 GM in Premix Bag 1 BAG IVPB SCH ×3 (08:05→23:40)
[2018-10-25] MEDS: Heparin 5,000 UNITS/ML VIAL SC SCH ×2 (08:05→19:13)
--- NOTE | 2018-10-25 08:13 | OP ---
DATE OF PROCEDURE: 10/22/2018 PREPROCEDURE DIAGNOSES: 1. Diarrhea. 2. Previous subtotal colectomy with ascending colon to distal rectosigmoid anastomosis. 3. Reported abrupt transition with the sigmoid colon, possible obstruction. POSTPROCEDURE DIAGNOSES: 1. Anatomy consistent with a subtotal colectomy and anastomosis of the colon just distal to the cecum to the sigmoid. The terminal ileum is normal. The cecum was normal. 2. Colitis in the residual rectum and sigmoid with ulceration in a linear pattern in some areas with exudate. This is likely stercoral ulceration and ischemia from overdistention from impaction that was apparently present on admission. Differential diagnosis includes Clostridium difficile. A Clostridium difficile was ordered, but apparently some formed stool do not run. 3. I suspect a lot of his diarrhea is probably related to withdrawal as his narcotics have been completely stopped. PROCEDURES PERFORMED: Flexible sigmoidoscopy with biopsy. RECOMMENDATIONS: 1. Await biopsies. 2. Check stool for Clostridium difficile. 3. Replace electrolytes as necessary. Need to check magnesium and phosphorus as well with the amount of diarrhea he has had. We will follow along with you. ANESTHESIA: TIVA. DESCRIPTION OF PROCEDURE: The patient was informed of the risks, benefits, possible complications of endoscopy including perforation, reaction to medication, and aspiration. Informed consent was obtained. The patient was brought to endoscopy suite where he was sedated in a gradual fashion. Once he was comfortable, rectal exam was performed, which was normal. The endoscope was advanced in the anal canal. At about 20 to 30 cm, there was anastomosis with the cecum with the ileocecal valve seen and the appendiceal orifice seen. There was no evidence of colitis or inflammation in these areas. The terminal ileum was normal. The scope was brought back up into the sigmoid colon distal anastomosis. There was areas of some ecchymotic change of the mucosa. Some ulceration in a linear pattern probably along the antimesenteric borders of the colon, although it was difficult to determine that orientation, but this pattern will be very suggestive of ischemic colitis. Multiple biopsies were obtained. There was some areas, where there was some pseudomembranes. Again, this was probably just related to ischemia from overdistention, but biopsies were obtained from these areas as well and stool will be sent for C. difficile. Retroflexed views were otherwise normal. The scope was removed. These findings were discussed with Primary Service and the patient's family. Job ID: [id number]
--- NOTE | 2018-10-25 08:26 | PDOC.PN ---
- Subjective Encounter Start Date: 10/25/18 Encounter Start Time: 11:00 Subjective: Patient without changes. No complaints of pain today. Patient written -: for PRN opiates but not needed. Hopefully can get off opiates completely -: , getting CT abd today. No more high fever. 100.3 yesterday. - Objective Resuscitation Status - Order Detail: 10/19/18 11:43 Resuscitation Status Routine Resuscitation Status: FULL: Full Resuscitation Discussed with: not lucid, no family present MAR Reviewed: Yes Vital Signs & Weight: Vital Signs (12 hours) Temp Pulse Resp BP Pulse Ox 10/25/18 08:22 97.6 F 82 14 116/64 98 10/25/18 04:25 98.1 F 99 18 135/88 98 10/25/18 00:00 98.6 F 81 18 113/68 93 L 10/24/18 21:30 99.9 F H Weight Weight 209 lb 12.8 oz I&O: 10/24/18 10/25/18 10/26/18 06:59 06:59 06:59 Intake Total 1380 2920 Balance 1380 2920 Result Diagrams: 10/25/18 06:02 10/25/18 06:02 Phys Exam - Physical Examination Constitutional: NAD HEENT: moist MMs Respiratory: no wheezing, no rales, no rhonchi Cardiovascular: RRR, no significant murmur Gastrointestinal: soft, no distention, positive bowel sounds Neurological: non-focal, moves all 4 limbs Deviation from normal: a bit confused, alert, following commands Dx/Plan (1) Diarrhea Code(s): R19.7 - DIARRHEA, UNSPECIFIED Status: Acute Qualifiers: Diarrhea type: unspecified type Qualified Code(s): R19.7 - Diarrhea, unspecified Comment: due to impaction resolution and now likely contributed by opiate withdrawl, C. diff was negative at [place] [facility] so no repeat run here (2) Acute renal failure Status: Resolved Qualifiers: Acute renal failure type: unspecified Qualified Code(s): N17.9 - Acute kidney failure, unspecified (3) Abdominal pain Code(s): R10.9 - UNSPECIFIED ABDOMINAL PAIN Status: Acute Qualifiers: Abdominal location: generalized Qualified Code(s): R10.84 - Generalized abdominal pain (4) Lactic acidosis Code(s): E87.2 - ACIDOSIS Status: Acute (5) Chronic pain syndrome Code(s): G89.4 - CHRONIC PAIN SYNDROME Status: Chronic (6) Dyslipidemia Code(s): E78.5 - HYPERLIPIDEMIA, UNSPECIFIED Status: Chronic (7) Hypertension Code(s): I10 - ESSENTIAL (PRIMARY) HYPERTENSION Status: Chronic Qualifiers: Hypertension type: essential hypertension Qualified Code(s): I10 - Essential (primary) hypertension (8) Atrial fibrillation Code(s): I48.91 - UNSPECIFIED ATRIAL FIBRILLATION Status: Chronic Qualifiers: Atrial fibrillation type: chronic Qualified Code(s): I48.2 - Chronic atrial fibrillation Comment: controlled with amiodarone (9) Colitis Code(s): K52.9 - NONINFECTIVE GASTROENTERITIS AND COLITIS, UNSPECIFIED Status : Acute Comment: stercoral colitis due to previous impaction (10) Sepsis Code(s): A41.9 - SEPSIS, UNSPECIFIED ORGANISM Status: Acute Comment: leukopenia, fever, cultures remain negative, on meropenem (11) Acute metabolic encephalopathy Code(s): G93.41 - METABOLIC ENCEPHALOPATHY Status: Acute - Plan cont current plan of care, continue antibiotics, PT/OT, DVT proph w/heparin * . - Discharge Day Encounter end time: 11:15
[2018-10-25] MEDS ORDERED: Amlodipine 5 MG TAB PO SCH (09:00)
[2018-10-25] MEDS ORDERED: ISOVUE-370 76%-LOCM 1 ML ONE (10:57)
[2018-10-25] MEDS ORDERED: diphenhydrAMINE 25 MG CAP PO SCH (11:45)
--- NOTE | 2018-10-25 13:27 | CT ---
ABDOMEN AND PELVIC CT SCAN WITH IV CONTRAST: COMPARISON: 08/22/2018. HISTORY: New fevers with colitis. FINDINGS: Small bilateral pleural effusions and pleural-based parenchymal changes, somewhat worse on the left s andrea and showing definite worsening from 08/22. The liver, gallbladder, pancreas, spleen, and adrenal glands are unremarkable. Bilateral renal cyst, but no renal calculus or acute obstruction. Abnor mal worsening of the thickening of the postoperative rectum and colon with apparent extensive prior p artial colectomy. There is abnormal wall thickening and pericolonic fat stranding, evidence for acut e inflammation/infection extending from near the anus through the cecum. The cecal tip and terminal ileum appear unremarkable. No evidence for abnormal fluid collection. No evidence for a drainable a bscess. There is worsening presacral edema and fat stranding. IMPRESSION: Worsening acute colitis from the anorectal region to the cecum through a very foreshortened residual colon with extensive prior partial colectomy. There is worsening colonic wall thickening and pericol onic and perirectal fat stranding and presacral fluid and edema. Worsening bilateral pleural effusio ns and pleural-based parenchymal changes. No evidence for a drainable abscess. POS: TPC
[2018-10-25] MEDS: Tamsulosin HCl 0.4 MG CAP PO SCH (20:06)
--- NOTE | 2018-10-25 20:16 | PRG ---
DATE OF SERVICE: 10/25/2018 REASON FOR CONSULTATION: Diarrhea, abnormal GI imaging, colitis. SUBJECTIVE: The patient states that he is feeling much better today with no complaints of abdominal pain and has been able to tolerate a full liquid diet without difficulty. He further states that he has had approximately 2 semi- solid liquid bowel movements today as well with no difficulty with defecation. Over the last 24 hours, he has not exhibited any further evidence of fever, although he did have a T-max of 100.2 at 1900 hours last night. Currently, denies any nausea, vomiting, fevers, chills, or GI bleeding. OBJECTIVE: VITAL SIGNS: Temperature 98.4, pulse 98, blood pressure 133/73, respiratory rate 20, saturating 96% on 2 L nasal cannula. GENERAL: The patient is lying in bed, in no acute distress. Alert and oriented x3. CARDIOVASCULAR: Regular rate and rhythm. RESPIRATORY: Clear to auscultation bilaterally. ABDOMEN: Normoactive bowel sounds. Soft. Mild abdominal distention. No tenderness to palpation in any abdominal quadrant. EXTREMITIES: Trace/1+ bilateral lower extremity edema. LABORATORY DATA: CBC with a white blood cell count 2, hemoglobin 9.2, hematocrit 28.9, platelets 126. Chemistry with a sodium of 140, potassium 4.1, chloride 111, CO2 of 22, BUN 14, creatinine 0.82, glucose 154, albumin 2.6. IMAGING DATA: CT of the abdomen and pelvis was obtained on 10/25/2018, which showed abnormal worsening of thickening of the rectum and pericolonic fat stranding, which is evidence of acute inflammation/infection. Worsening presacral edema and fat stranding were also noted. Small bilateral pleural effusions and pleural-based parenchymal changes, somewhat worse on the left side, also showing definite worsening from 08/22. ASSESSMENT AND PLAN: The patient is a 78-year-old male with past medical history of paroxysmal atrial fibrillation, hypertension, peripheral neuropathy, degenerative joint disease, diverticulosis, benign prostatic hypertrophy, restless legs syndrome, chronic anemia, diverticulitis, status post left hemicolectomy and colocolonic anastomosis, presenting with continued diarrhea consistent with ischemic colitis. Diarrhea/ischemic colitis: The patient has a longstanding history of constipation characterized as infrequent and hard to pass stools secondary to chronic narcotic use, requiring the use of laxatives as an outpatient. Shortly before admission, he starting having frequent bowel movements described as "massive" and exhibited altered mental status after initiation of this stooling pattern. He was subsequently brought to [facility] ER for further evaluation and noted on CT scan to have abnormal wall thickening of the rectum. After stabilization of his clinical status, he subsequently underwent flexible sigmoidoscopy on 10/22/2018, which showed evidence of prior surgical colonic resection and anastomosis with a colo-colonic anastomosis. Colitis was also seen in the residual rectum and sigmoid with ulcerations seen in a linear pattern with some areas of exudate, that was concerning for stroke or ulceration versus ischemia. Biopsies from this region were consistent with ischemic-type colitis. At this time, his clinical status continues to improve with no pain on examination today. RECOMMENDATIONS: 1. Would continue to maintain normotensive pressures while in the hospital, given evidence of ischemic colitis. 2. Would consider obtaining a CT angiography for evaluation of the vasculature supplying blood to the rectosigmoid stump to identify any plaques or stenosis contributing to ischemic colitis. Would consider surgical evaluation for end-ileostomy if targets are unable to be intervened upon. 3. Advance diet as tolerated. We will continue to follow. Please call with any questions. Job ID: [id number] [facility]Paul
[2018-10-25] MEDS: HYDROcodone/Acetaminophen 5/325 mg Tablet PO PRN (21:46)
[2018-10-26] MEDS: Gabapentin 300 MG CAP PO SCH ×2 (07:44→20:03)
[2018-10-26] MEDS: Amiodarone 200 MG TAB PO SCH ×2 (07:44→20:03)
[2018-10-26] MEDS: Cyanocobalamin (Vitamin B-12) 1,000 MCG TAB PO SCH (07:45)
[2018-10-26] MEDS: Folic Acid 1 MG TAB PO SCH (07:45)
[2018-10-26] MEDS: Thiamine 100 MG TAB PO SCH (07:45)
[2018-10-26] MEDS: MEROPENEM 1 GM/50 ML 1 GM in Premix Bag 1 BAG IVPB SCH ×3 (07:45→23:24)
[2018-10-26] MEDS: Finasteride 5 MG TAB PO SCH (07:45)
[2018-10-26] MEDS: Heparin 5,000 UNITS/ML VIAL SC SCH ×2 (07:46→20:02)
--- NOTE | 2018-10-26 08:13 | PDOC.PN ---
- Subjective Encounter Start Date: 10/26/18 Encounter Start Time: 11:10 Subjective: Patient feeling much better. Sleepy this AM, but no pain complaints. -: About 5 BM yest but they were very small and more formed. Tolerating -: full liquid diet. No fever. - Objective Resuscitation Status - Order Detail: 10/19/18 11:43 Resuscitation Status Routine Resuscitation Status: FULL: Full Resuscitation Discussed with: not lucid, no family present MAR Reviewed: Yes Vital Signs & Weight: Vital Signs (12 hours) Temp Pulse Resp BP Pulse Ox 10/26/18 07:07 97.6 F 88 19 136/76 95 10/26/18 04:18 98.9 F 68 18 137/70 96 10/26/18 00:00 100.2 F H 89 16 124/88 94 L Weight Weight 209 lb 12.8 oz I&O: 10/25/18 10/26/18 10/27/18 06:59 06:59 06:59 Intake Total 2920 1060 Balance 2920 1060 Result Diagrams: 10/25/18 06:02 10/25/18 06:02 Phys Exam - Physical Examination Constitutional: NAD HEENT: moist MMs Respiratory: no wheezing, no rales, no rhonchi Cardiovascular: RRR, no significant murmur Gastrointestinal: soft, non-tender, no distention, positive bowel sounds Neurological: non-focal, moves all 4 limbs Deviation from normal: sleepy, arousable, talks very softly Dx/Plan (1) Ischemic colitis Code(s): K55.9 - VASCULAR DISORDER OF INTESTINE, UNSPECIFIED Status: Acute Comment: worsening on repeat CT, but clinically is markedly improved so will hold on surgery consult for now, advance diet and see if tolerates, if not may need further evaluation by surgery (2) Diarrhea Code(s): R19.7 - DIARRHEA, UNSPECIFIED Status: Acute Qualifiers: Diarrhea type: unspecified type Qualified Code(s): R19.7 - Diarrhea, unspecified Comment: due to impaction resolution and now likely contributed by opiate withdrawl, C. diff was negative at [place] ER so no repeat run here, ischemic colitis likely contributing as well (3) Acute renal failure Status: Resolved Qualifiers: Acute renal failure type: unspecified Qualified Code(s): N17.9 - Acute kidney failure, unspecified (4) Lactic acidosis Code(s): E87.2 - ACIDOSIS Status: Acute (5) Chronic pain syndrome Code(s): G89.4 - CHRONIC PAIN SYNDROME Status: Chronic (6) Dyslipidemia Code(s): E78.5 - HYPERLIPIDEMIA, UNSPECIFIED Status: Chronic (7) Hypertension Code(s): I10 - ESSENTIAL (PRIMARY) HYPERTENSION Status: Chronic Qualifiers: Hypertension type: essential hypertension Qualified Code(s): I10 - Essential (primary) hypertension (8) Atrial fibrillation Code(s): I48.91 - UNSPECIFIED ATRIAL FIBRILLATION Status: Chronic Qualifiers: Atrial fibrillation type: chronic Qualified Code(s): I48.2 - Chronic atrial fibrillation Comment: controlled with amiodarone (9) Colitis Code(s): K52.9 - NONINFECTIVE GASTROENTERITIS AND COLITIS, UNSPECIFIED Status : Acute Comment: stercoral colitis due to previous impaction (10) Sepsis Code(s): A41.9 - SEPSIS, UNSPECIFIED ORGANISM Status: Acute Comment: leukopenia, fever, cultures remain negative, on meropenem (11) Acute metabolic encephalopathy Code(s): G93.41 - METABOLIC ENCEPHALOPATHY Status: Acute Comment: improved (12) Peripheral neuropathy Code(s): G62.9 - POLYNEUROPATHY, UNSPECIFIED Status: Chronic Comment: chronic pain, can't tolerate the oral Narcotics any more, hasn't really needed them here since admit, got up with PT yesterday without needing pain meds, hopefully can send home without them - Plan cont current plan of care, continue antibiotics, PT/OT, DVT proph w/heparin advance diet -: possibly d/c to [facility] tomorrow though is asking -: about going straight home with home PT/OT * . - Discharge Day Encounter end time: 11:20
--- NOTE | 2018-10-26 09:54 | PRG ---
DATE OF SERVICE: 10/26/2018 REASON FOR CONSULTATION: Diarrhea, abnormal GI imaging, colitis. SUBJECTIVE: The patient continues to state that his condition is improving with no complaints of abdominal pain this morning. At the time of this interview, he had just had a bowel movement and was in the process of being cleaned afterwards. He had not had a bowel movement since yesterday evening when I spoke with the patient earlier, and with this morning was having more of a semi-solid stool as opposed to fully liquid. He is currently tolerating a full liquid diet without any difficulty. Upon review of his vital signs, he did have a slight elevation in his temperature to 100.2 at midnight this morning, but currently the patient denies any nausea, vomiting, fevers, chills, GI bleeding, or abdominal pain. OBJECTIVE: VITAL SIGNS: Temperature 97.6, pulse 88, blood pressure 136/76, respiratory rate 19, and saturating 95% on 2L nasal cannula. GENERAL: The patient was lying in bed, in no acute distress. Alert and oriented x3. CARDIOVASCULAR: Regular rate and rhythm. RESPIRATORY: Clear to auscultation bilaterally. ABDOMEN: Normoactive bowel sounds. Soft, nontender, and nondistended. EXTREMITIES: Trace/1+ bilateral lower extremity edema. LABORATORY DATA: No current studies are available for review. IMAGING DATA: No current GI imaging is available for review. ASSESSMENT AND PLAN: The patient is a 78-year-old male with past medical history of paroxysmal atrial fibrillation, hypertension, peripheral neuropathy, degenerative joint disease, diverticulosis, benign prostatic hyperplasia, restless legs syndrome, chronic anemia, diverticulitis status post left hemicolectomy and colocolonic anastomosis, presenting with diarrhea and abdominal pain. Diarrhea/ischemic colitis: The patient initially presented with complaints of right lower quadrant abdominal pain and increased diarrhea after having a "massive" bowel movement as an outpatient, and altered mental status after this particular episode, prompting admission to [facility] ER. In the ER, he was noted to have a CT scan, showing abnormal wall thickening of the rectum and dilation of the proximal colon, concerning for a possible obstructive-type process. He subsequently underwent flexible sigmoidoscopy on 10/22/2018, which showed evidence of a prior surgical resection and colocolonic anastomosis. There was some increased linear ulceration seen within the distal rectum and sigmoid colon, that was concerning for stercoral colitis versus ischemic colitis. However, biopsies obtained from this region were consistent more with ischemic type changes. At this time, his diarrhea frequency is continued to improve, although his consistency is still semi-solid, concerning for continued inflammation. However, we are still giving him a full liquid diet, which could further contribute to what is going on. At this time, it is unclear if the ischemic type changes were due to stercoral colitis with pressure type ulcerations secondary to retained hard stool in the past (most likely due to chronic narcotic use) or vascular issues supplying blood to the area. RECOMMENDATIONS: 1. We would continue to maintain normotensive pressures while in the hospital given evidence of ischemic colitis on biopsies. 2. We would consider advancing the patient's diet to a more solid diet in anticipation of discharge. However, he is placed back on narcotics. We would highly recommend a bowel regimen to prevent further episodes of constipation and possible stercoral colitis. 3. We would consider obtaining a CT angiography of the vasculature supplying blood to the rectal stump to identify any plaques or stenosis contributing to ischemic colitis. We would also consider surgical evaluation for an ileostomy if targets are unable to be intervened upon. We will sign off at this time as there are no new additional recommendations. Please call with any additional questions. Job ID: [id number]
[2018-10-26] MEDS: Dextrose 5 %-0.45 % NaCl 1,000 ML IV SCH (12:11)
[2018-10-26] MEDS: Tamsulosin HCl 0.4 MG CAP PO SCH (20:03)
[2018-10-27] MEDS: Dextrose 5 %-0.45 % NaCl 1,000 ML IV SCH ×2 (01:07→14:06)
--- NOTE | 2018-10-27 07:45 | PDOC.PN ---
- Subjective Encounter Start Date: 10/27/18 Encounter Start Time: 11:05 Subjective: Patient reports some pain in right hand from old IV site. No abdominal -: pain. Eating full diet without difficulty. Tired right now from PT. - Objective Resuscitation Status - Order Detail: 10/19/18 11:43 Resuscitation Status Routine Resuscitation Status: FULL: Full Resuscitation Discussed with: not lucid, no family present MAR Reviewed: Yes Vital Signs & Weight: Vital Signs (12 hours) Temp Pulse Resp BP BP Pulse Ox 10/27/18 07:22 97.3 F L 88 22 H 139/83 91 L 10/27/18 04:00 98.7 F 71 20 142/84 H 96 10/27/18 01:20 98.2 F 70 20 143/75 H 95 10/26/18 20:00 95 Weight Weight 209 lb 12.8 oz I&O: 10/26/18 10/27/18 10/28/18 06:59 06:59 06:59 Intake Total 1060 1400 Balance 1060 1400 Result Diagrams: 10/25/18 06:02 10/25/18 06:02 Phys Exam - Physical Examination Constitutional: NAD HEENT: moist MMs Respiratory: no wheezing, no rales, no rhonchi Cardiovascular: RRR, no significant murmur Gastrointestinal: soft, non-tender, positive bowel sounds Neurological: moves all 4 limbs Psychiatric: normal affect Dx/Plan (1) Ischemic colitis Code(s): K55.9 - VASCULAR DISORDER OF INTESTINE, UNSPECIFIED Status: Acute Comment: worsening on repeat CT, but clinically is markedly improved so will hold on surgery consult for now, advance diet and see if tolerates, if not may need further evaluation by surgery (2) Diarrhea Code(s): R19.7 - DIARRHEA, UNSPECIFIED Status: Acute Qualifiers: Diarrhea type: unspecified type Qualified Code(s): R19.7 - Diarrhea, unspecified Comment: due to impaction resolution and now likely contributed by opiate withdrawl, C. diff was negative at [place] ER so no repeat run here, ischemic colitis likely contributing as well (3) Acute renal failure Status: Resolved Qualifiers: Acute renal failure type: unspecified Qualified Code(s): N17.9 - Acute kidney failure, unspecified (4) Lactic acidosis Code(s): E87.2 - ACIDOSIS Status: Acute (5) Chronic pain syndrome Code(s): G89.4 - CHRONIC PAIN SYNDROME Status: Chronic (6) Dyslipidemia Code(s): E78.5 - HYPERLIPIDEMIA, UNSPECIFIED Status: Chronic (7) Hypertension Code(s): I10 - ESSENTIAL (PRIMARY) HYPERTENSION Status: Chronic Qualifiers: Hypertension type: essential hypertension Qualified Code(s): I10 - Essential (primary) hypertension (8) Atrial fibrillation Code(s): I48.91 - UNSPECIFIED ATRIAL FIBRILLATION Status: Chronic Qualifiers: Atrial fibrillation type: chronic Qualified Code(s): I48.2 - Chronic atrial fibrillation Comment: controlled with amiodarone (9) Colitis Code(s): K52.9 - NONINFECTIVE GASTROENTERITIS AND COLITIS, UNSPECIFIED Status : Acute Comment: stercoral colitis due to previous impaction (10) Sepsis Code(s): A41.9 - SEPSIS, UNSPECIFIED ORGANISM Status: Resolved Comment: leukopenia, fever resolved, cultures remain negative, abx discontinued (11) Acute metabolic encephalopathy Code(s): G93.41 - METABOLIC ENCEPHALOPATHY Status: Acute Comment: improved (12) Peripheral neuropathy Code(s): G62.9 - POLYNEUROPATHY, UNSPECIFIED Status: Chronic Comment: chronic pain, can't tolerate the oral Narcotics any more, hasn't really needed them here since admit, got up with PT yesterday without needing pain meds, hopefully can send home without them (13) Vitamin B12 deficiency Code(s): E53.8 - DEFICIENCY OF OTHER SPECIFIED B GROUP VITAMINS Status: Acute - Plan cont current plan of care Patient has completed 8 days of antibiotics, will d/c. Tolerating diet -: without pain so can d/c to swing bed in [place]. -: Minimize narcotics and give Senna if needs narcotics to prevent constipatio * . - Discharge Day Encounter end time: 11:35
[2018-10-27] MEDS: Amiodarone 200 MG TAB PO SCH ×2 (09:29→19:54)
[2018-10-27] MEDS: Finasteride 5 MG TAB PO SCH (09:29)
[2018-10-27] MEDS: Cyanocobalamin (Vitamin B-12) 1,000 MCG TAB PO SCH (09:29)
[2018-10-27] MEDS: Heparin 5,000 UNITS/ML VIAL SC SCH ×2 (09:30→19:51)
[2018-10-27] MEDS: Gabapentin 300 MG CAP PO SCH ×2 (09:30→19:53)
[2018-10-27] MEDS: Folic Acid 1 MG TAB PO SCH (09:30)
[2018-10-27] MEDS: Thiamine 100 MG TAB PO SCH (09:30)
[2018-10-27 19:23] VITALS: TEMP 97.4
[2018-10-27 19:29] VITALS: BP 130/73
[2018-10-27] MEDS: HYDROcodone/Acetaminophen 5/325 mg Tablet PO PRN (19:36)
[2018-10-27] MEDS: Tamsulosin HCl 0.4 MG CAP PO SCH (19:54)
--- NOTE | 2018-10-28 02:30 | DIS ---
DATE OF ADMISSION: 10/19/2018 DATE OF DISCHARGE: 10/27/2018 PRIMARY CARE PHYSICIAN: Dr. Arrington. REASON FOR ADMISSION: Diarrhea with sepsis. DIAGNOSES AT DISCHARGE: 1. Post-impaction diarrhea secondary to laxative, opiate withdrawal, and ischemic colitis. Improved. 2. Ischemic colitis, either stercoral versus vascular disease, improved. 3. Acute renal failure, resolved. 4. Lactic acidosis, resolved. 5. Chronic pain syndrome from peripheral neuropathy. 6. Chronic opiate use. 7. Dyslipidemia. 8. Hypertension. 9. Atrial fibrillation. 10. Sepsis, resolved. 11. Acute metabolic encephalopathy, resolved. 12. Vitamin B12 deficiency. PROCEDURES: 1. CT of the abdomen and pelvis with IV contrast showing worsened acute colitis from anorectal region to cecum. There was very foreshortened residual colon due to extensive prior partial colectomy with worsening colonic wall thickening, pericolonic and perirectal fat stranding and presacral fluid and edema. 2. X-ray of the abdomen showing persistent dilatation of the right hemicolon consistent with previous CT scans. 3. Flexible sigmoidoscopy with biopsy showing anatomy consistent with subtotal colectomy, anastomosis to colon just distal of the cecum to the sigmoid with normal terminal ileum, normal cecum with colitis in the residual rectum and sigmoid with ulceration in a linear pattern and some areas of exudate, likely stercoral ulceration and ischemia from overdistension from impaction prior to admission versus ischemic colitis. Biopsy results did show ischemic pattern injury. CONSULTATIONS: Gastroenterology, Dr. Garcia. SUMMARY OF HOSPITAL COURSE: This is a 78-year-old white male with a known history of persistent peripheral neuropathy, on high doses of hydrocodone at home and they had tried to switch him over to a fentanyl patch 25 mcg to decrease that; however, he just used both of them. The patient got very constipated and impacted at home, took a lot of laxatives and then just prior to admission, he had a huge amount of large bowel movement followed by persistent diarrhea, so he was seen in the emergency room. He was noted to have acute renal failure, persistent diarrhea, and lactic acidosis over there along with some altered mental status. The patient was admitted to the hospital. He had persistence of the diarrhea, had leukopenia, some intermittent fevers. He was put on IV antibiotics. He had a negative C diff done in the emergency room. Gastroenterology consult was made with Dr. Garcia. Dr. Garcia did take the patient back for sigmoidoscopy with above results. The patient has slowly improved over the hospitalization. He eventually was able to have his antibiotics discontinued. He had persistent lower abdominal pain and diarrhea for most of the hospitalization. We did do a CT scan which showed significant colitis, there was some concern after the biopsy for this being primarily ischemic colitis. However, at that point, the patient started to improve markedly and no more abdominal pain and diarrhea calmed down. Mostly semi-solid stools now and the patient was able to be advanced to a full diet, so we did not consult Surgery at this point, nor did we continue investigation with any angiographies. The patient was stopped on large amounts of narcotics initially as some of the diarrhea was thought to be due to acute narcotic withdrawal. Since he has had minimal pain complaints, he has gotten an occasional dose of hydrocodone, last one 2 days ago and one dose of fentanyl yesterday, but otherwise doing well with his Tylenol for his pain control. He has been starting to move around with physical therapy and still very weak and so, the patient is being discharged to a swing bed. Of note, the patient was found to have severe vitamin B12 deficiency during hospitalization, he was given replacement both injectable and oral replacement. DISCHARGE MANAGEMENT: Discharged to [place] swing bed. ACTIVITY: As tolerated. DIET: Healthy heart, low-sodium diet. THERAPY: Occupational and physical therapy. FOLLOWUP: The patient is to follow up with Dr. Arrington. DISCHARGE MEDICATIONS: 1. Senna two tablets at night as needed for constipation or if he has any opiates during the day. He can receive those unless he is having persistent diarrhea at that time. This is to prevent recurrent fecal impaction and ischemia of his colon. 2. Acetaminophen as needed. 3. Amiodarone 100 mg twice a day. 4. Vitamin B12 of 1000 mcg daily. 5. Duloxetine 20 mg daily. 6. Finasteride 5 mg daily. 7. Folic acid 1 mg daily. 8. Gabapentin 600 mg at night. 9. Gabapentin 900 mg in the morning. 10. Hydrocodone 5/325 mg one tablet q.8 hours as needed for severe pain, no more than that. 11. Tamsulosin 0.4 mg at night. 12. Thiamine 100 mg daily. TIME SPENT: Arranging the details of this discharge took 35 minutes. Job ID: [id number]
== END 2018-10-27 20:02 | disposition swing bed (61) | DRG 871 ==
LOC: ERS 09:57 → ERHOLD 10:35 → T4-A 14:49
PROVIDERS: ADMIT Internal Medicine; ATTEND Internal Medicine
PROC: 0DBN8ZX Excision of Sigmoid Colon, Via Natural or Artificial Opening Endoscopic, Diagnostic (ICD-10-PCS; principal; 2018-10-22)
DX: A41.9 Sepsis, unspecified organism (principal); G93.41 Metabolic encephalopathy; N17.9 Acute kidney failure, unspecified; E87.2 Acidosis; K55.9 Vascular disorder of intestine, unspecified; D61.818 Other pancytopenia; F15.93 Other stimulant use, unspecified with withdrawal; K63.3 Ulcer of intestine; E87.6 Hypokalemia; T47.4X5A Adverse effect of other laxatives, initial encounter; I48.0 Paroxysmal atrial fibrillation; I10 Essential (primary) hypertension; G62.9 Polyneuropathy, unspecified; M19.90 Unspecified osteoarthritis, unspecified site; N40.0 Benign prostatic hyperplasia without lower urinary tract symptoms; G25.81 Restless legs syndrome; K56.41 Fecal impaction; E78.5 Hyperlipidemia, unspecified; G89.4 Chronic pain syndrome; E53.8 Deficiency of other specified B group vitamins; D53.9 Nutritional anemia, unspecified; Z90.49 Acquired absence of other specified parts of digestive tract; Z98.890 Other specified postprocedural states; Z79.899 Other long term (current) drug therapy; Z91.041 Radiographic dye allergy status; Z88.0 Allergy status to penicillin; Z88.1 Allergy status to other antibiotic agents
CPT/HCPCS: 36415; 71045; 74018; 74177; 80048; 80053; 82274; 82607; 82728; 82746; 83540; 83550; 83605; 83630; 83735; 84100; 84443; 85025; 87040; 87045; 87046; 87077; 87086; 87186; 87449; 87899; 88305; 96360; 96361; J1644; J1885; J2185; J2704; J3010; J3420; Q0153; Q0163; Q9966; S0028

== ENCOUNTER 2018-10-28 06:22 | Observation (INO) | payer MEDICARE ==
[2018-10-28 09:35] VITALS: BMI 33.5
[2018-10-28] MEDS ORDERED: Ondansetron PF 4 MG/2 ML Vial IVP PRN (09:36)
[2018-10-28] MEDS ORDERED: Pantoprazole 40 MG VIAL IVP SCH (09:45)
[2018-10-28 10:08] LABS: Hemoglobin 9.4 g/dL (14.0-18.0)
[2018-10-28] MEDS: Sodium Chloride 0.9% 1,000 ML IV SCH (11:00)
[2018-10-28] MEDS: Morphine 2 MG/ML SYRINGE SLOW IVP PRN ×2 (12:24→17:19)
[2018-10-28 12:54] LABS: Bilirubin Negative (Negative); Blood, Urine Negative (Negative); Glucose, Urine (Dipstick) Negative (Negative); Leukocyte Negative (Negative); Nitrite Negative (Negative); Protein, Urine (Dipstick) Negative (Neg-Trace); Specific Gravity, Urine 1.015 (1.002-1.036); Urobilinogen 0.2 mg/dL (0.2-1.0)
[2018-10-28 12:57] LABS: Bacteria/HPF None Seen HPF (None Seen); Hyaline Casts/LPF 0-3 HYALINE CAST LPF (0-3 Hyaline); Pathc Cast-AUWi Flag 0.13 (0-2.49); RBC/HPF 0-3 HPF (0-3); Squamous Epithelial None Seen HPF (0-3); WBC/HPF 0-3 HPF (0-3)
[2018-10-28 13:00] LABS: Clarity Clear (Clear)
[2018-10-28] MEDS: HYDROcodone/Acetaminophen 5/325 mg Tablet PO PRN (15:31)
[2018-10-28 16:24] LABS: Hemoglobin 8.9 g/dL (14.0-18.0)
[2018-10-28] MEDS ORDERED: Acetaminophen 500 MG TAB PO PRN (16:34)
[2018-10-28] MEDS ORDERED: Senokot 8.6 MG TAB PO PRN (16:34)
--- NOTE | 2018-10-28 17:56 | HP ---
CHIEF COMPLAINT: GI bleed. HISTORY OF PRESENT ILLNESS: Mr. Bahena is a pleasant 78-year-old gentleman with recent admission at this facility, October 19, 2018, to October 27, 2018. During that hospitalization, he was treated for post-impaction diarrhea and ultimately diagnosed with ischemic colitis, either stercoral versus vascular disease. Initially, this had started with increased opioid use. The patient is on chronic pain medication for peripheral neuropathy and some severe osteoarthritis in the right foot. During his recent hospitalization, he underwent flexible sigmoidoscopy with biopsy showing anatomy consistent with subtotal colectomy, anastomosis to colon just distal to the cecum to the sigmoid with normal terminal ileum, normal cecum with colitis in the residual rectum and sigmoid with ulceration in linear pattern and some areas of exudate, likely stercoral ulceration and ischemia from overdistention from impaction. The biopsy did show ischemic pattern injury. He was treated with IV Flagyl and meropenem. The patient's opioids were successfully weaned during that hospitalization, and the patient was discharged no longer requiring fentanyl, his pain being managed with low-dose hydrocodone and Tylenol. Given this history, he was discharged yesterday to [facility] in [place]. Overnight, the patient began passing red blood and clots from his rectum. This was noticed by [facility] staff, and he was transferred to [place] [facility] for further workup. He continued to pass blood and clots via rectum as witnessed by the ER staff there as well. The patient was given 1 unit of packed red blood cells along with 1 L of normal saline, and transferred to our facility. On arrival, the patient's vital signs were stable. He is in no distress at this time. He has no complaints of abdominal pain. His initial hemoglobin was 8.3. He has had no fever or white count. The patient denies any chest pain, shortness of breath, or palpitations. The patient does have history of chronic atrial fibrillation, however, is not on any blood thinners at this time. He was on subcu heparin for DVT prophylaxis, but his last administration of this was the morning of October 27. REVIEW OF SYSTEMS: A 12-point review of systems performed and is negative except that stated above. PAST SURGICAL HISTORY: Subtotal colectomy for diverticulitis, right rotator cuff repair, appendectomy, back surgery, surgery for sinusitis, colonoscopy, and recent flexible sigmoidoscopy. MEDICATIONS: At discharge from his recent hospitalization; 1. Senna 2 tablets at night as needed for constipation or if he has any opiates during the day. 2. Acetaminophen as needed. 3. Amiodarone 100 mg twice a day. 4. Vitamin B12 of 1000 mcg daily. 5. Duloxetine 20 mg daily. 6. Finasteride 5 mg daily. 7. Folic acid 1 mg daily. 8. Gabapentin 600 mg at night and 900 mg in the morning. 9. Hydrocodone 5/325 one tablet q.8 hours as needed for severe pain. 10. Tamsulosin 0.4 mg q.h.s. 11. Thiamine 100 mg daily. ALLERGIES: AMOXICILLIN, AZITHROMYCIN, CEPHALEXIN, CIPROFLOXACIN, CLINDAMYCIN, AND IODINATED CONTRAST. SOCIAL HISTORY: The patient lives at home with his . He has a daughter in the area. He did smoke, but quit in the . No illicit drug or alcohol use. FAMILY HISTORY: Noncontributory. PAST MEDICAL HISTORY: Significant for atrial fibrillation, chronic pain syndrome from peripheral neuropathy, chronic kidney disease, recent admission as outlined above, with colitis, lactic acidosis, and sepsis. Vitamin B12 deficiency. PHYSICAL EXAMINATION: VITAL SIGNS: Blood pressure 121/66, heart rate is 84, O2 saturation is 96% on room air, temperature is 98.3. GENERAL: The patient is an elderly male, resting in bed, in no acute distress. HEENT: Head is atraumatic and normocephalic. Mucous membranes are moist. NECK: Supple. No lymphadenopathy. Trachea is midline. No JVD. CV: S1 and S2. Irregularly irregular. Not tachycardic. LUNGS: Regular respiratory rate and pattern. Clear to auscultation bilaterally. ABDOMEN: Positive bowel sounds. Soft, nontender. Postsurgical scar from remote hemicolectomy noted in midline. EXTREMITIES: Trace edema bilaterally. SKIN: Warm and dry. He does have two very small ulcers located on his buttocks , but these are very small. He has no overt bleeding at this time per my exam. LABORATORY DATA: White blood cell count 6.5, hemoglobin 8.9, hematocrit 26.4, and platelet count 156. Sodium 141, potassium 3.8, carbon dioxide 25, BUN 11, creatinine 0.74, alkaline phosphatase, AST, and ALT all within normal limits. BNP recently was 59. ASSESSMENT: 1. Gastrointestinal bleeding in the setting of recent admission for ischemic colitis, deemed either stercoral versus vascular. 2. History of post-impaction diarrhea secondary to laxative in the setting of chronic opioid use. 3. Atrial fibrillation, rate controlled, not a candidate for stroke prophylaxis in the setting of active bleeding. 4. Chronic pain syndrome from peripheral neuropathy. 5. Megaloblastic anemia/Vitamin B12 deficiency PLAN: GI has been consulted. We will continue serial H and H. We will transfuse PRBC as needed to keep hemoglobin above 8. The patient does not appear to have any infectious component at this time. His vital signs are stable and he is afebrile with no white count. We will continue to monitor him closely. We will hold off on any antibiotic coverage for now and await GI recommendations. The care of this patient has been discussed at length with Dr. Lopez and with Dr. Campbell. Job ID: [id number] [facility]
--- NOTE | 2018-10-28 19:04 | CON ---
DATE OF CONSULTATION: 10/28/2018 CHIEF COMPLAINT: Blood in the stool. HISTORY OF PRESENT ILLNESS: Mr. Bahena is a 78-year-old man, who was just discharged from the hospital yesterday after having been admitted with rectal bleeding and ischemic colitis. During the previous hospital stay on 10/22/2018, he underwent colonoscopy. This showed that he had a prior subtotal colectomy with the ascending colon anastomosed to the distal rectosigmoid. The scope was performed to the terminal ileum. He was noted to have ulcerations in a linear pattern in the rectum and sigmoid colon consistent with stercoral ulceration and ischemic ulcerations. Biopsies confirmed ischemic changes. Preceding that, the patient had been constipated and taking large amounts of laxatives. The constipation could have precipitated the ischemia or the multiple laxatives could have precipitated the ischemia. He improved clinically and the diarrhea and bleeding improved. He was ultimately discharged to the rehab yesterday. Last night, he was noted to have blood in his diaper at the rehab/[facility]. He was transferred back to [facility]. This morning after transferring from the emergency room to the medical floor, he did pass a large liquidy red bloody stool. He has had no nausea or vomiting. He does report some cramping lower abdominal pain. His hemoglobin this morning was noted to have dropped to 8.3 from 9.2 three days ago. He did receive 1 unit transfusion and his hemoglobin improved back to 9.4. PAST MEDICAL HISTORY: Paroxysmal atrial fibrillation, hypertension, peripheral neuropathy, degenerative joint disease, diverticulosis, BPH, and restless legs syndrome. PAST SURGICAL HISTORY: Subtotal colectomy, appendectomy, sinus surgery, back surgery, and right rotator cuff repair. FAMILY HISTORY: Negative for GI malignancy. SOCIAL HISTORY: No alcohol, tobacco, or drugs. ALLERGIES: MULTIPLE AND INCLUDE AMOXICILLIN, AZITHROMYCIN, CEPHALEXIN, CIPROFLOXACIN, CLINDAMYCIN, AND IODINATED CONTRAST. MEDICATIONS: He was discharged from the hospital with yesterday include amiodarone, gabapentin, finasteride, tamsulosin, duloxetine, cyanocobalamin, folic acid, hydrocodone, thiamine, and senna on a p.r.n. basis. REVIEW OF SYSTEMS: Negative x10 systems reviewed except as stated in history of present illness. PHYSICAL EXAMINATION: VITAL SIGNS: Temperature 98.4, pulse 85, and blood pressure 143/75. GENERAL: He is in no acute distress. He is sleepy and really is giving only a limited history. He falls asleep when he is not stimulated. HEENT: His eyes have no scleral icterus. Oropharynx is clear without lesions. No cervical or supraclavicular lymphadenopathy. LUNGS: Clear to auscultation bilaterally. HEART: Regular rate and rhythm without murmur. ABDOMEN: Soft. Minimal tenderness in the lower abdomen without guarding. Bowel sounds are present. EXTREMITIES: No lower extremity edema. LABORATORY DATA: INR 1.2. Hemoglobin is 9.4 after 1 unit transfusion, it was 8.3 prior to transfusion. White blood cell count 6.5, platelets 156. Creatinine 0.74. Bilirubin 0.5, AST 14, ALT 8, alkaline phosphatase 72, and albumin 2.4. IMPRESSION: 1. Recurrent hematochezia secondary to ischemic colitis. 2. Anemia of acute blood loss, status post 1 unit transfusion. 3. Chronic constipation. Once he is stabilized and the diarrhea and bleeding have resolved, then likely he should start a scheduled osmotic laxative with MiraLAX 17 g daily. This is not the time to start the laxative now. RECOMMENDATIONS: 1. Given that he just had colonoscopy a few days ago, this should not have to be repeated at this time. He has known ischemic ulcerations and the treatment is primarily with IV fluids and supportive care at this time. If he continues passing large amounts of red blood from the rectum, then colonoscopy could be considered to check for a vessel that could be cauterized focally, but I would recommend holding off colonoscopy at this point. 2. Recheck hemoglobin in the morning. Job ID: [id number]
--- NOTE | 2018-10-28 20:12 | NM ---
Nuclear medicine GI bleeding scan: 10/28/2018 HISTORY: 78-year-old male with lower GI bleeding and bloody stool. Status post transfusion. TECHNIQUE: 27.2 mCi of technetium 99m-tagged erythrocytes injected IV. 90 minutes of dynamic scintigraphy of abdomen from anterior view. Single static image. FINDINGS: There is no evidence of active GI bleeding. IMPRESSION: Negative
[2018-10-28] MEDS: Tamsulosin HCl 0.4 MG CAP PO SCH (20:56)
[2018-10-28] MEDS: Amiodarone 200 MG TAB PO SCH (20:57)
[2018-10-28] MEDS: Gabapentin 300 MG CAP PO SCH (20:57)
[2018-10-29] MEDS: Sodium Chloride 0.9% 1,000 ML IV SCH ×2 (03:29→08:53)
[2018-10-29] MEDS: Morphine 2 MG/ML SYRINGE SLOW IVP PRN ×3 (04:59→21:41)
[2018-10-29 05:32] LABS: #Eosinphils 0.2 thou/uL (0.0-0.7); #Lymphocytes 1.3 thou/uL (1.20-3.40); #Monocytes 1.2 thou/uL (0.11-0.59); #Neutrophils 6.8 thou/uL (1.40-6.50); %Basophils 0.2 % (0.0-1.0); %Eosinophils 1.7 % (0.0-10.0); %Lymphocytes 13.9 % (21.0-51.0); %Monocytes 12.1 % (0.0-10.0); Hemoglobin 9.6 g/dL (14.0-18.0); Mean Corpuscular HGB CONC 31.5 g/dL (32.0-36.0); Mean Corpuscular Hemoglobin 36.7 pg (27.0-31.0); Mean Platelet Volume 8.6 fL (7.4-10.4); Platelet Count 272 thou/uL (130-400); RBC Distribution Width 19.6 % (11.5-14.5); Red Blood Cell (RBC) Count 2.62 mill/uL (4.70-6.10); White Blood Cell (WBC) Count 9.5 thou/uL (4.8-10.8)
[2018-10-29 06:23] LABS: ALT (SGPT) Less than 7 U/L (8-55); AST (SGOT) 11 U/L (5-34); Albumin 2.5 g/dL (3.4-4.8); Alkaline Phosphatase 77 U/L (40-150); Anion Gap 11 mmol/L (10-20); BUN (Urea Nitrogen) 7 mg/dL (8.4-25.7); Bilirubin, Total 0.5 mg/dL (0.2-1.2); Calc. Creatinine Clearance 129 mL/min (70-130); Calcium 8.1 mg/dL (7.8-10.44); Carbon Dioxide 23 mmol/L (23-31); Chloride 110 mmol/L (98-107); Estimated GFR-MDRD Greater than 90; Globulin 2.5 g/dL (2.4-3.5); Glucose 77 mg/dL (83-110); Potassium 3.6 mmol/L (3.5-5.1); Sodium 140 mmol/L (136-145)
[2018-10-29] MEDS: Cyanocobalamin (Vitamin B-12) 1,000 MCG TAB PO SCH (08:45)
[2018-10-29] MEDS: Amiodarone 200 MG TAB PO SCH ×2 (08:45→20:46)
[2018-10-29] MEDS: Thiamine 100 MG TAB PO SCH (08:47)
[2018-10-29] MEDS: Folic Acid 1 MG TAB PO SCH (08:47)
[2018-10-29] MEDS: Gabapentin 300 MG CAP PO SCH ×2 (08:47→20:46)
[2018-10-29] MEDS: Finasteride 5 MG TAB PO SCH (08:48)
[2018-10-29] MEDS: Pantoprazole 40 MG VIAL IVP SCH (08:50)
[2018-10-29 12:13] LABS: #Eosinphils 0.2 thou/uL (0.0-0.7); #Lymphocytes 1.2 thou/uL (1.20-3.40); #Monocytes 1.2 thou/uL (0.11-0.59); %Basophils 0.3 % (0.0-1.0); %Lymphocytes 14.2 % (21.0-51.0); %Monocytes 14.1 % (0.0-10.0); %Neutrophils 69.4 % (42.0-75.0); Hemoglobin 9.3 g/dL (14.0-18.0); Mean Corpuscular HGB CONC 32.8 g/dL (32.0-36.0); Mean Corpuscular Hemoglobin 37.8 pg (27.0-31.0); Mean Platelet Volume 8.3 fL (7.4-10.4); Platelet Count 291 thou/uL (130-400); RBC Distribution Width 19.2 % (11.5-14.5); Red Blood Cell (RBC) Count 2.45 mill/uL (4.70-6.10); White Blood Cell (WBC) Count 8.7 thou/uL (4.8-10.8)
--- NOTE | 2018-10-29 13:13 | PDOC.PN ---
- Subjective Encounter Start Date: 10/29/18 Encounter Start Time: 10:30 Subjective: pt up in bed appears drowsy -: pt is still having loose bloody stools - Objective Resuscitation Status - Order Detail: 10/28/18 09:19 Resuscitation Status Routine Co-Sign Provider: Resuscitation Status: FULL: Full Resuscitation Discussed with: patient Vital Signs & Weight: Vital Signs (12 hours) Temp Pulse Resp BP BP Pulse Ox 10/29/18 11:42 98.6 F 80 18 113/60 92 L 10/29/18 07:35 98.2 F 98 18 114/63 93 L 10/29/18 05:01 98.4 F 84 20 128/68 96 Weight Weight 227 lb 1.218 oz I&O: 10/28/18 10/29/18 10/30/18 06:59 06:59 06:59 Intake Total 677 Output Total 1100 Balance -423 Result Diagrams: 10/29/18 12:05 10/29/18 04:52 Phys Exam - Physical Examination Neck: no nodes, no JVD, supple, full ROM Respiratory: no wheezing, no rales, no rhonchi, wheezing present, clear to auscultation bilateral Cardiovascular: RRR, no significant murmur, no rub, gallop, irregular Gastrointestinal: soft, non-tender, no distention, positive bowel sounds Dx/Plan (1) Bright red blood per rectum Code(s): K62.5 - HEMORRHAGE OF ANUS AND RECTUM Status: Acute (2) Atrial fibrillation Code(s): I48.91 - UNSPECIFIED ATRIAL FIBRILLATION Status: Chronic Qualifiers: Atrial fibrillation type: chronic Qualified Code(s): I48.2 - Chronic atrial fibrillation Comment: controlled with amiodarone (3) Hypertension Code(s): I10 - ESSENTIAL (PRIMARY) HYPERTENSION Status: Chronic Qualifiers: Hypertension type: essential hypertension Qualified Code(s): I10 - Essential (primary) hypertension (4) Anemia Code(s): D64.9 - ANEMIA, UNSPECIFIED Status: Acute - Plan pt had one loose stool today and 4 last night -: will check hh now. transfuse as needed -: gi consulted. will monitor * . Review of Systems - Review of Systems Respiratory: negative: Cough, Dry, Shortness of Breath, Hemoptysis, SOB with Excertion, Pleuritic Pain, Sputum, Wheezing Cardiovascular: negative: chest pain, palpitations, orthopnea, paroxysmal nocturnal dyspnea, edema, light headedness, other Gastrointestinal: negative: Nausea, Vomiting, Abdominal Pain, Diarrhea, Constipation, Melena, Hematochezia, Other - Medications/Allergies Allergies/Adverse Reactions: Allergies Allergy/AdvReac Type Severity Reaction Status Date / Time amoxicillin Allergy Nausea Verified 10/19/18 14:51 azithromycin [From Zithromax] Allergy Severe Verified 10/19/18 14:51 Hives cephalexin Allergy Nausea Verified 10/19/18 14:51 ciprofloxacin [From Cipro] Allergy Anaphylaxis Verified 10/19/18 14:51 ciprofloxacin HCl Allergy Anaphylaxis Verified 10/19/18 14:51 [From Cipro] clindamycin Allergy Hives Verified 10/19/18 14:51 Iodinated Contrast- Oral and Allergy Short of Verified 10/19/18 14:51 IV Dye Breath [Iodinated Contrast Media - IV Dye] Medications: Current Medications Acetaminophen (Tylenol) 500 mg PO Q6H PRN PRN Reason: Fever>101/(Mi/Mod/Sev) Pain Hydrocodone Bitart/Acetaminophen (Naturita 5/325) 1 tab PO Q8H PRN PRN Reason: Pain Last Admin: 10/28/18 15:31 Dose: 1 tab Amiodarone HCl (Cordarone) 100 mg PO BID [facility] Last Admin: 10/29/18 08:45 Dose: 100 mg Cyanocobalamin (Vitamin B-12) 1,000 mcg PO DAILY [facility] Last Admin: 10/29/18 08:45 Dose: 1,000 mcg Duloxetine HCl (Cymbalta) 20 mg PO DAILY [facility] Last Admin: 10/29/18 08:48 Dose: 20 mg Finasteride (Proscar) 5 mg PO DAILY [facility] Last Admin: 10/29/18 08:48 Dose: 5 mg Folic Acid (Folvite) 1 mg PO DAILY [facility] Last Admin: 10/29/18 08:47 Dose: 1 mg Gabapentin (Neurontin) 600 mg PO HS [facility] Last Admin: 10/28/18 20:57 Dose: 600 mg Gabapentin (Neurontin) 900 mg PO QAM [facility] Last Admin: 10/29/18 08:47 Dose: 900 mg Sodium Chloride (Normal Saline 0.9%) 1,000 mls @ 75 mls/hr IV .[id number] [facility] Last Admin: 10/29/18 08:53 Dose: 1,000 mls Morphine Sulfate (Morphine) 2 mg SLOW IVP Q6H PRN PRN Reason: Pain Last Admin: 10/29/18 04:59 Dose: 2 mg Ondansetron HCl (Zofran) 4 mg IVP Q6H PRN PRN Reason: Nausea/Vomiting Pantoprazole Sodium (Protonix) 40 mg IVP DAILY [facility] Last Admin: 10/29/18 08:50 Dose: 40 mg Senna (Senokot) 1 tab PO HS PRN PRN Reason: Constipation Sodium Chloride (Flush - Normal Saline) 10 ml IVF Q12HR [facility] Last Admin: 10/29/18 09:05 Dose: 10 ml Sodium Chloride (Flush - Normal Saline) 10 ml IVF PRN PRN PRN Reason: Saline Flush Tamsulosin HCl (Flomax) 0.4 mg PO HS [facility] Last Admin: 10/28/18 20:56 Dose: 0.4 mg Thiamine HCl (Thiamine) 100 mg PO DAILY [facility] Last Admin: 10/29/18 08:47 Dose: 100 mg
--- NOTE | 2018-10-29 18:55 | PRG ---
DATE OF SERVICE: 10/29/2018 SUBJECTIVE: Mr. Bahena had four bloody stools last night and one this morning. He has had diarrhea sample sent for C diff, which was negative. He has also had some rectal pain. OBJECTIVE: VITAL SIGNS: Temperature 98.2, pulse , and blood pressure 106/61. GENERAL: He is in no acute distress. Alert and oriented x3. LUNGS: Clear to auscultation bilaterally. HEART: Regular rate and rhythm without murmur. ABDOMEN: Soft, nontender, and nondistended. Bowel sounds are present. EXTREMITIES: No lower extremity edema. LABORATORY DATA: Creatinine 0.69, hemoglobin 9.3, white blood cell count 8.7, and platelets are 291. IMPRESSION: Ischemic colitis of the rectum primarily. This could have had a stercoral etiology or also followed by use of multiple laxatives and potential dehydration with that. Bleeding scan was negative for evidence of more proximal ongoing bleeding. As long as his hemoglobin remains stable, endoscopy is not likely to blade changer significantly. RECOMMENDATIONS: Primary treatment now was supportive with IV fluids and he should be ready to advance his diet now. Job ID: [id number]
[2018-10-29] MEDS: Tamsulosin HCl 0.4 MG CAP PO SCH (20:46)
[2018-10-29 21:16] LABS: Hemoglobin 8.3 g/dL (14.0-18.0)
[2018-10-30] MEDS: Morphine 2 MG/ML SYRINGE SLOW IVP PRN ×2 (04:29→14:44)
[2018-10-30] MEDS: Sodium Chloride 0.9% 1,000 ML IV SCH ×3 (04:30→19:15)
[2018-10-30 06:59] LABS: #Eosinphils 0.2 thou/uL (0.0-0.7); #Lymphocytes 1.2 thou/uL (1.20-3.40); #Neutrophils 4.8 thou/uL (1.40-6.50); %Basophils 0.2 % (0.0-1.0); %Eosinophils 3.1 % (0.0-10.0); %Lymphocytes 15.9 % (21.0-51.0); %Monocytes 13.8 % (0.0-10.0); Mean Corpuscular HGB CONC 32.6 g/dL (32.0-36.0); Mean Platelet Volume 8.1 fL (7.4-10.4); Platelet Count 350 thou/uL (130-400); RBC Distribution Width 19.1 % (11.5-14.5); White Blood Cell (WBC) Count 7.2 thou/uL (4.8-10.8)
[2018-10-30] MEDS: Gabapentin 300 MG CAP PO SCH ×2 (09:00→20:16)
[2018-10-30] MEDS: Pantoprazole 40 MG VIAL IVP SCH (09:01)
[2018-10-30] MEDS: Finasteride 5 MG TAB PO SCH (09:01)
[2018-10-30] MEDS: Cyanocobalamin (Vitamin B-12) 1,000 MCG TAB PO SCH (09:01)
[2018-10-30] MEDS: Folic Acid 1 MG TAB PO SCH (09:01)
[2018-10-30] MEDS: Thiamine 100 MG TAB PO SCH (09:01)
[2018-10-30] MEDS: Amiodarone 200 MG TAB PO SCH ×2 (09:01→20:16)
[2018-10-30] MEDS: HYDROcodone/Acetaminophen 5/325 mg Tablet PO PRN (09:23)
--- NOTE | 2018-10-30 11:58 | PDOC.PN ---
- Subjective Encounter Start Date: 10/30/18 Encounter Start Time: 11:57 Patient seen and examined, no new issues or complaints. - Objective Resuscitation Status - Order Detail: 10/28/18 09:19 Resuscitation Status Routine Co-Sign Provider: Resuscitation Status: FULL: Full Resuscitation Discussed with: patient Vital Signs & Weight: Vital Signs (12 hours) Temp Pulse Resp BP BP Pulse Ox 10/30/18 09:00 98.6 F 81 16 120/66 93 L 10/30/18 07:48 98.6 F 81 17 120/66 93 L 10/30/18 05:08 98.4 F 69 16 127/61 95 10/30/18 00:56 98 F 69 18 116/75 95 Weight Weight 227 lb 1.218 oz I&O: 10/29/18 10/30/18 10/31/18 06:59 06:59 06:59 Intake Total 677 2270 Output Total 1100 Balance -423 2270 Result Diagrams: 10/30/18 06:05 10/29/18 04:52 Phys Exam - Physical Examination Constitutional: NAD HEENT: PERRLA, moist MMs, sclera anicteric Neck: no nodes, no JVD, supple Respiratory: no wheezing, no rales, no rhonchi Cardiovascular: RRR, no significant murmur, no rub Gastrointestinal: soft, non-tender, no distention Musculoskeletal: pulses present, edema present Dx/Plan (1) Bright red blood per rectum Code(s): K62.5 - HEMORRHAGE OF ANUS AND RECTUM Status: Acute (2) Abdominal pain Code(s): R10.9 - UNSPECIFIED ABDOMINAL PAIN Status: Acute Qualifiers: Abdominal location: generalized Qualified Code(s): R10.84 - Generalized abdominal pain (3) Anemia Code(s): D64.9 - ANEMIA, UNSPECIFIED Status: Acute (4) Ischemic colitis Code(s): K55.9 - VASCULAR DISORDER OF INTESTINE, UNSPECIFIED Status: Acute Comment: worsening on repeat CT, but clinically is markedly improved so will hold on surgery consult for now, advance diet and see if tolerates, if not may need further evaluation by surgery (5) Dyslipidemia Code(s): E78.5 - HYPERLIPIDEMIA, UNSPECIFIED Status: Chronic (6) Hypertension Code(s): I10 - ESSENTIAL (PRIMARY) HYPERTENSION Status: Chronic Qualifiers: Hypertension type: essential hypertension Qualified Code(s): I10 - Essential (primary) hypertension - Plan * repeat hgb in AM * advance diet * DC in AM if Hgb stable and ok with GI * case and plan d/w patient at length, he understood and agreed with this plan
[2018-10-30] MEDS: Tamsulosin HCl 0.4 MG CAP PO SCH (20:16)
[2018-10-31] MEDS: Morphine 2 MG/ML SYRINGE SLOW IVP PRN ×2 (03:39→15:00)
[2018-10-31 05:46] LABS: #Eosinphils 0.2 thou/uL (0.0-0.7); #Lymphocytes 1.1 thou/uL (1.20-3.40); #Monocytes 0.8 thou/uL (0.11-0.59); #Neutrophils 3.6 thou/uL (1.40-6.50); %Basophils 0.1 % (0.0-1.0); %Eosinophils 3.8 % (0.0-10.0); %Lymphocytes 19.6 % (21.0-51.0); %Monocytes 13.6 % (0.0-10.0); %Neutrophils 62.9 % (42.0-75.0); Mean Corpuscular HGB CONC 33.6 g/dL (32.0-36.0); Mean Corpuscular Hemoglobin 38.4 pg (27.0-31.0); Mean Platelet Volume 7.5 fL (7.4-10.4); Platelet Count 449 thou/uL (130-400); RBC Distribution Width 18.9 % (11.5-14.5); Red Blood Cell (RBC) Count 2.09 mill/uL (4.70-6.10); White Blood Cell (WBC) Count 5.7 thou/uL (4.8-10.8)
[2018-10-31] MEDS: HYDROcodone/Acetaminophen 5/325 mg Tablet PO PRN ×2 (06:38→17:48)
[2018-10-31] MEDS: Sodium Chloride 0.9% 1,000 ML IV SCH ×3 (07:01→17:12)
[2018-10-31] MEDS: Thiamine 100 MG TAB PO SCH (08:05)
[2018-10-31] MEDS: Folic Acid 1 MG TAB PO SCH (08:06)
[2018-10-31] MEDS: Gabapentin 300 MG CAP PO SCH (08:06)
[2018-10-31] MEDS: Amiodarone 200 MG TAB PO SCH (08:06)
[2018-10-31] MEDS: Finasteride 5 MG TAB PO SCH (08:06)
[2018-10-31] MEDS: Cyanocobalamin (Vitamin B-12) 1,000 MCG TAB PO SCH (08:06)
[2018-10-31] MEDS ORDERED: Clopidogrel Bisulfate 75 MG TAB ONE (11:51)
--- NOTE | 2018-10-31 13:25 | PDOC.EVN ---
Event Note - Event Note Event Note: DC SUMMARY #[id number]
--- NOTE | 2018-10-31 15:03 | PRG ---
DATE OF SERVICE: 10/31/2018 SUBJECTIVE: Mr. Bahena had 2 liquidy brown bowel movements yesterday and 2 liquidy brown bowel movements today. No rectal bleeding. Some lower abdominal discomfort, but no significant or persistent pain. OBJECTIVE: VITAL SIGNS: Temperature 98.2, pulse 72, blood pressure 129/77. GENERAL: He is in no acute distress. He is awake and alert. LUNGS: Clear to auscultation bilaterally. HEART: Regular rate and rhythm. ABDOMEN: Soft, nontender, and nondistended. Bowel sounds are present. EXTREMITIES: No lower extremity edema. LABORATORY DATA: White blood cell count 5.7, hemoglobin 8.0, platelets 449. Creatinine 0.69. IMPRESSION: 1. Ischemic colitis. The bleeding has stopped at this point. He is still having some diarrhea, which is chronic. 2. Deconditioning after prolonged hospital stay. Nursing reports that he worked with Physical Therapy today and required maximum assistance to stand and was unable to walk. The patient on the other hand states that he wants to be allowed to walk to the bathroom and leave and go home. RECOMMENDATIONS: 1. Continue supportive care per Internal Medicine. 2. He might require rehab to transition to home given his severe deconditioning. Job ID: [id number]
[2018-10-31 17:57] VITALS: BP 120/70; TEMP 98.2
--- NOTE | 2018-10-31 19:25 | DIS ---
DATE OF ADMISSION: 10/28/2018 DATE OF DISCHARGE: 10/31/2018 ADMITTING DIAGNOSES: Gastrointestinal bleed, fecal impaction, colitis, and atrial fibrillation. DISCHARGE DIAGNOSES: Gastrointestinal bleed, stable; fecal impaction, resolved; colitis, stable; and atrial fibrillation. HOSPITAL COURSE: This is a 78-year-old male, who presented to the hospital with recent hospitalization approximately two months ago for GI bleed, presenting with diarrhea as well. The patient was admitted to Internal Medicine team, seen by Internal Medicine and Nephrology. The patient's hemoglobin was stable. The patient was given supportive treatment through GI Services. The patient had a nuclear medicine scan done, which was negative for any active GI bleeding. Colonoscopy or endoscopy was not performed during his stay in the hospital as his hemoglobin was stable, was transfused a unit of blood while here. He just had a colonoscopy a few days prior to discharge, which was showing ischemic ulcerations. Treatments were given with IV fluids. The patient at the point in time of discharge was stable, was noted to have 1 L of urine retained in the bladder, was given a leg bag Courtney and an appointment to follow up outpatient with Urology team within 1 week for further management and care. The patient at the point in time of discharge was stable, stated that he did not want to go to any rehab, wanted to go home. No nausea, vomiting, diarrhea, constipation, chest pain, fevers, chills, or shortness of breath. The patient at the point in time of discharge was stable. No alleviating or aggravating factors. Case and plan discussed with the patient at length. at bedside. All questions answered. DISPOSITION: Home per the patient's request, he refused rehab. MEDICATIONS: See MAR. ACTIVITY: As tolerated. CONDITION: Stable. PROGNOSIS: Guarded. Case and plan once again discussed with the patient and at length. They understood and agreed to this plan. Job ID: [id number]
== END 2018-10-31 19:23 | disposition home or self-care (01) ==
LOC: ERS 06:22 → T4-B 08:39
PROVIDERS: ADMIT Internal Medicine; ATTEND Internal Medicine
DX: K55.9 Vascular disorder of intestine, unspecified (principal); I48.0 Paroxysmal atrial fibrillation; K59.09 Other constipation; K52.9 Noninfective gastroenteritis and colitis, unspecified; G62.9 Polyneuropathy, unspecified; G89.4 Chronic pain syndrome; I13.0 Hypertensive heart and chronic kidney disease with heart failure and stage 1 through stage 4 chronic kidney disease, or unspecified chronic kidney disease; I50.9 Heart failure, unspecified; N18.9 Chronic kidney disease, unspecified; D63.1 Anemia in chronic kidney disease; D62 Acute posthemorrhagic anemia; D53.1 Other megaloblastic anemias, not elsewhere classified; D51.9 Vitamin B12 deficiency anemia, unspecified; M19.071 Primary osteoarthritis, right ankle and foot; E78.5 Hyperlipidemia, unspecified; K57.91 Diverticulosis of intestine, part unspecified, without perforation or abscess with bleeding; N40.0 Benign prostatic hyperplasia without lower urinary tract symptoms; G25.81 Restless legs syndrome; Z98.890 Other specified postprocedural states; Z87.891 Personal history of nicotine dependence; Z88.0 Allergy status to penicillin; Z88.1 Allergy status to other antibiotic agents; Z91.041 Radiographic dye allergy status; Z79.2 Long term (current) use of antibiotics; Z79.899 Other long term (current) drug therapy
CPT/HCPCS: 78278; 80053; 81001; 85014 ×2; 85018 ×2; 85025 ×4; 87324; 87449; 96361 ×4; 96374; 96375; 96376 ×4; 97112; 97139; 97530 ×2; 99285; A9604; G0378 ×3; 36415; C9113; J2270

== ENCOUNTER 2018-11-01 17:20 | Inpatient (IN) | payer MEDICARE ==
[2018-11-01 19:05] LABS: ALT (SGPT) 7 U/L (8-55); AST (SGOT) 8 U/L (5-34); Albumin 2.4 g/dL (3.4-4.8); Alkaline Phosphatase 100 U/L (40-150); Anion Gap 11 mmol/L (10-20); BUN (Urea Nitrogen) 7 mg/dL (8.4-25.7); Calc. Creatinine Clearance 0 mL/min (70-130); Calcium 8.1 mg/dL (7.8-10.44); Carbon Dioxide 25 mmol/L (23-31); Chloride 107 mmol/L (98-107); Estimated GFR-MDRD Greater than 90; Globulin 2.6 g/dL (2.4-3.5); Glucose 88 mg/dL (83-110); Potassium 4.3 mmol/L (3.5-5.1); Sodium 139 mmol/L (136-145)
[2018-11-01 19:09] LABS: Bilirubin Negative (Negative); Blood, Urine Trace (Negative); Clarity TURBID (Clear); Glucose, Urine (Dipstick) Negative (Negative); Leukocyte Large (Negative); Nitrite Positive (Negative); Protein, Urine (Dipstick) 30 mg/dL (Neg-Trace); Specific Gravity, Urine 1.026 (1.002-1.036); Urobilinogen 0.2 mg/dL (0.2-1.0); pH, Urine 8.5 (5.0-9.0)
[2018-11-01 19:12] LABS: Bacteria/HPF 3+ HPF (None Seen); Pathc Cast-AUWi Flag 0.76 (0-2.49); Squamous Epithelial 0-3 HPF (0-3)
[2018-11-01 19:14] LABS: Hyaline Casts/LPF 0-3 HYALINE CAST LPF (0-3 Hyaline)
[2018-11-01 19:24] LABS: CKMB 1.4 ng/mL (0-6.6)
[2018-11-01] MEDS ORDERED: Morphine 4 MG/ML VIAL ONE (19:47)
[2018-11-01 20:20] LABS: Hemoglobin 9.5 g/dL (14.0-18.0); Mean Corpuscular HGB CONC 32.2 g/dL (32.0-36.0); Mean Corpuscular Hemoglobin 35.2 pg (27.0-31.0); Mean Platelet Volume 6.7 fL (7.4-10.4); Platelet Count 609 thou/uL (130-400); RBC Distribution Width 20.3 % (11.5-14.5); Red Blood Cell (RBC) Count 2.71 mill/uL (4.70-6.10); White Blood Cell (WBC) Count 7.8 thou/uL (4.8-10.8)
[2018-11-01 20:25] LABS: INR-International Normal Ratio 1.3; Prothrombin Time 16.4 SEC (12.0-14.7)
[2018-11-01 20:26] LABS: PTT 35.2 SEC (22.9-36.1)
[2018-11-01 20:37] LABS: #Eosinphils 0.1 thou/uL (0.0-0.7); #Monocytes 0.8 thou/uL (0.11-0.59); #Neutrophils 5.9 thou/uL (1.40-6.50); %Basophils 0.4 % (0.0-1.0); %Eosinophils 1.6 % (0.0-10.0); %Lymphocytes 12.3 % (21.0-51.0); %Monocytes 10.4 % (0.0-10.0); %Neutrophils 75.3 % (42.0-75.0); Anisocytosis SLIGHT = 6-15 cells (100X) (0-5/hpf); Hypochromia SLIGHT = 6-15 cells (100X) (0-5/hpf); MDiff Complete? YES; Macrocytosis SLIGHT = 6-15 cells (100X) (0-5/hpf); Platelet Morphology Comment Appears Increased
--- NOTE | 2018-11-01 21:02 | HP ---
PRIMARY CARE PHYSICIAN: Michele Arrington MD CHIEF COMPLAINT: Rectal bleeding. HISTORY OF PRESENT ILLNESS: This is a 78-year-old white male, whom we had in here for about a week and a half earlier this month for diarrhea after fecal impaction and colitis. He was diagnosed with ischemic colitis at that time, most likely stercoral, though may be with some vascular insufficiency as well. He had improved during hospitalizations and no interventions were done except for a colonoscopy with biopsy. The patient was discharged to swing bed in [place] and came back the next day with clots and bleeding per his rectum, which is the first time he had that. He was observed in the hospital from the and then discharged on the after his bleeding stopped and he had a negative packed red blood cell scan. The patient was very debilitated and was recommending discharge to the rehab or swing bed. However, he refused and went home with his . This morning, the patient started having bleeding from his rectum again and he started having severe lower abdominal pain. No fevers. He eventually went in to the [facility] where he was noted to have clots and bleeding from his rectum and hemoglobin in the 7s. This is actually just a little bit lower than on his discharge when it was 8.0. He was transfused 1 unit of packed red blood cells and then transferred here. Here, the patient was given a dose of IV morphine. He is very sleepy now and denies significant pain, but he is still very tender in his lower abdomen. He has continued to have blood from his rectum here. PAST MEDICAL HISTORY: 1. Diverticulitis with subtotal colectomy. 2. Paroxysmal atrial fibrillation, on amiodarone. 3. Peripheral neuropathy with chronic pain syndrome with previous opioid overuse. 4. Hypertension. 5. Dyslipidemia. 6. Vitamin B12 deficiency. 7. Ischemic colitis, stercoral versus vascular disease. ALLERGIES: 1. AMOXICILLIN. 2. AZITHROMYCIN. 3. CEPHALEXIN. 4. CIPROFLOXACIN. 5. CLINDAMYCIN. 6. IODINATED CONTRAST REQUIRING PRETREATMENT FOR ANY CONTRAST SCANS. SOCIAL HISTORY: The patient is and lives with his . No tobacco since the . No alcohol or illicit drug use. FAMILY HISTORY: Mother with breast cancer. Father at 86 of heat stroke. CURRENT MEDICATIONS: 1. Acetaminophen as needed for pain. 2. Amiodarone 100 mg twice a day. 3. Vitamin B12 1000 mcg daily. 4. Duloxetine 20 mg daily. 5. Finasteride 5 mg daily. 6. Folic acid 1 mg daily. 7. Gabapentin 3 tablets in the morning and 2 tablets at night. 8. Hydrocodone 5/325 mg one tablet every 8 hours as needed for pain. 9. Senna 17.2 mg at night as needed for constipation. 10. Tamsulosin 0.4 mg at night. 11. Thiamine 100 mg daily. REVIEW OF SYSTEMS: CONSTITUTIONAL: No fevers and no chills. EYES: No double vision or blurred vision. ENT: No congestion, drainage, or sore throat. CARDIOVASCULAR: No chest pain. No palpitations or racing heart. PULMONARY: No coughing, wheezing, or shortness of breath. GASTROINTESTINAL: See HPI. No nausea or vomiting. GENITOURINARY: He had some problems with urinary retention and had a Courtney catheter in his last hospitalization that was discontinued before he was discharged. He states he has been having pain and some difficulty with urination ever since. MUSCULOSKELETAL: No muscle aches or joint pains. He has not complained of his lower extremity peripheral neuropathy in a while. SKIN: No rashes or other lesions that he has noted. NEUROLOGIC: He has decreased sensation in bilateral lower extremities, which is chronic and generalized weakness, but no focal symptoms. PSYCHIATRIC: Alert and oriented x3. He is a little bit slow to respond right now as he just had the morphine. LABORATORY DATA: Hemoglobin reportedly in the 7s at in [facility]. Current CBC pending after transfusion. Complete metabolic panel is back and only have significant abnormalities and albumin of 2.4, which is a drop from the mid 3s when he was initially presented at his last hospitalization. Troponin is indeterminate at 0.099, which is chronic for him. Lactic acid was negative. Urinalysis does show positive nitrites, large leukocyte esterase, greater than 50 to fhl-[id number]-count white blood cells, and 3+ bacteria. Urine culture is pending. ASSESSMENT AND PLAN: 1. Persistent ischemic colitis with recurrent bleeding. The patient is currently hemodynamically stable. He has had a blood transfusion and waiting for CBC to come back. We will need to follow these closely and transfuse as needed. Given this persistence of his ischemic colitis symptoms, he may end up needing surgery. I will get General Surgery as well as Gastroenterology to consult in his case and we will hold any blood thinners for now. 2. Chronic pain syndrome. We will minimize opiates to prevent recurrent impaction as he does need to be on opiates and his diarrhea stops, so we will need to give him a daily bowel regimen to prevent recurrent fecal impaction. 3. Severe protein-calorie malnutrition secondary to the poor p.o. intake since he first got sick. We will try and get him eating better once we get this ischemic colitis under control since it is going to make healing poor should he need any surgical intervention. 4. Paroxysmal atrial fibrillation. Continue with amiodarone. 5. Gastrointestinal prophylaxis. Put the patient on Pepcid twice a day. 6. Deep venous thrombosis prophylaxis. Cannot give any blood thinners at this point. Due to his bleeding and his severe peripheral neuropathy and lower extremity edema, he is unable to use sequential compression devices at this time as well. 7. Code status. I did discuss this with the patient and his . He is a full code. Should he be incapacitated, his would be his medical decision maker. Her name is Shira Bahena. Job ID: [id number]
[2018-11-01 21:53] LABS: Troponin I 0.093 ng/mL (< 0.028)
[2018-11-01] MEDS ORDERED: Ondansetron ODT 4 MG TAB SL PRN (23:12)
[2018-11-01] MEDS ORDERED: Ondansetron PF 4 MG/2 ML Vial IVP PRN ×2 (23:12→23:56)
[2018-11-01] MEDS ORDERED: Morphine 2 MG/ML SYRINGE SLOW IVP PRN (23:12)
[2018-11-01] MEDS ORDERED: Senokot S 8.6-50 MG TAB PO PRN (23:56)
[2018-11-01] MEDS ORDERED: Ondansetron ODT 4 MG TAB PO PRN (23:56)
[2018-11-01] MEDS ORDERED: Guaifenesin DM 100-10/5 ML UDCUP PO PRN (23:56)
[2018-11-01] MEDS ORDERED: Acetaminophen 650 MG Suppository PR PRN (23:56)
[2018-11-01] MEDS ORDERED: Acetaminophen 325 MG TAB PO PRN (23:56)
[2018-11-02] MEDS ORDERED: Famotidine 20 MG TAB PO SCH ×2 (00:15→09:00)
[2018-11-02] MEDS: Sodium Chloride 0.45% 1,000 ML IV SCH ×4 (00:35→19:27)
[2018-11-02] MEDS ORDERED: Famotidine/PF 20 mg/2ml Vial SLOW IVP SCH ×2 (00:45→21:00)
[2018-11-02 00:49] LABS: Hemoglobin 9.7 g/dL (14.0-18.0); Mean Corpuscular HGB CONC 33.5 g/dL (32.0-36.0); Mean Corpuscular Hemoglobin 36.4 pg (27.0-31.0); Mean Platelet Volume 6.7 fL (7.4-10.4); Platelet Count 588 thou/uL (130-400); RBC Distribution Width 20.3 % (11.5-14.5); Red Blood Cell (RBC) Count 2.68 mill/uL (4.70-6.10)
[2018-11-02 01:07] LABS: #Eosinphils 0.1 thou/uL (0.0-0.7); #Lymphocytes 1.1 thou/uL (1.20-3.40); #Monocytes 1.2 thou/uL (0.11-0.59); #Neutrophils 7.5 thou/uL (1.40-6.50); %Basophils 0.4 % (0.0-1.0); %Eosinophils 1.5 % (0.0-10.0); %Lymphocytes 11.1 % (21.0-51.0); %Monocytes 11.8 % (0.0-10.0); %Neutrophils 75.2 % (42.0-75.0); Anisocytosis SLIGHT = 6-15 cells (100X) (0-5/hpf); MDiff Complete? YES; Macrocytosis SLIGHT = 6-15 cells (100X) (0-5/hpf); Platelet Morphology Comment Appears Increased
[2018-11-02 01:14] LABS: Troponin I 0.078 ng/mL (< 0.028)
[2018-11-02 01:20] LABS: Anion Gap 12 mmol/L (10-20); BUN (Urea Nitrogen) 8 mg/dL (8.4-25.7); Calc. Creatinine Clearance 121 mL/min (70-130); Calcium 8.1 mg/dL (7.8-10.44); Carbon Dioxide 23 mmol/L (23-31); Chloride 110 mmol/L (98-107); Estimated GFR-MDRD Greater than 90; Glucose 75 mg/dL (83-110); Potassium 4.2 mmol/L (3.5-5.1); Sodium 141 mmol/L (136-145)
[2018-11-02 06:48] LABS: Hemoglobin 8.4 g/dL (14.0-18.0)
--- NOTE | 2018-11-02 08:14 | PDOC.PN ---
- Subjective Encounter Start Date: 11/02/18 Encounter Start Time: 10:00 Subjective: Patient reports persistent lower abdominal pain. Some blood from -: bottom overnight. No fever. - Objective Resuscitation Status - Order Detail: 11/01/18 19:39 Resuscitation Status Routine Resuscitation Status: FULL: Full Resuscitation Discussed with: Harish SÁNCHEZ Reviewed: Yes Vital Signs & Weight: Vital Signs (12 hours) Temp Pulse Resp BP Pulse Ox 11/02/18 03:52 98.9 F 80 18 132/74 96 11/01/18 23:00 96 11/01/18 22:40 98.4 F 88 18 131/67 96 Weight Weight 235 lb 9.6 oz I&O: 11/01/18 11/02/18 11/03/18 06:59 06:59 06:59 Intake Total 2474 Output Total 3 Balance 2471 Result Diagrams: 11/02/18 12:09 11/02/18 00:40 Phys Exam - Physical Examination Constitutional: NAD HEENT: moist MMs Respiratory: no wheezing, no rales, no rhonchi Cardiovascular: RRR, no significant murmur Gastrointestinal: soft, positive bowel sounds TTP lower abdomen Neurological: non-focal, moves all 4 limbs Psychiatric: normal affect Dx/Plan (1) Bright red blood per rectum Code(s): K62.5 - HEMORRHAGE OF ANUS AND RECTUM Status: Acute (2) Ischemic colitis Code(s): K55.9 - VASCULAR DISORDER OF INTESTINE, UNSPECIFIED Status: Acute Comment: worsening on CT previous hospitalization, but was clinically improved so no intervention, due to recurrent pain and bleeding will GI consults, may need colectomy or vascular study. I spoke with Dr. Holm with general surgery and he recommended isolating source of bleeding and then can get surgery consult at that time if surgery needed to control it. (3) Severe protein-calorie malnutrition Code(s): E43 - UNSPECIFIED SEVERE PROTEIN-CALORIE MALNUTRITION Status: Acute (4) Chronic pain syndrome Code(s): G89.4 - CHRONIC PAIN SYNDROME Status: Chronic (5) Anemia Code(s): D64.9 - ANEMIA, UNSPECIFIED Status: Acute Qualifiers: Anemia type: other cause Other causes of anemia: acute posthemorrhagic Qualified Code(s): D62 - Acute posthemorrhagic anemia Comment: improved with transfusion, monitor closely (6) Vitamin B12 deficiency Code(s): E53.8 - DEFICIENCY OF OTHER SPECIFIED B GROUP VITAMINS Status: Acute Comment: on replacement (7) Atrial fibrillation Code(s): I48.91 - UNSPECIFIED ATRIAL FIBRILLATION Status: Chronic Qualifiers: Atrial fibrillation type: chronic Qualified Code(s): I48.2 - Chronic atrial fibrillation Comment: controlled with amiodarone (8) Dyslipidemia Code(s): E78.5 - HYPERLIPIDEMIA, UNSPECIFIED Status: Chronic (9) Hypertension Code(s): I10 - ESSENTIAL (PRIMARY) HYPERTENSION Status: Chronic Qualifiers: Hypertension type: essential hypertension Qualified Code(s): I10 - Essential (primary) hypertension (10) Peripheral neuropathy Code(s): G62.9 - POLYNEUROPATHY, UNSPECIFIED Status: Chronic Comment: chronic pain, can't tolerate the oral Narcotics any more due to impaction (11) UTI (urinary tract infection) Status: Acute Qualifiers: Urinary tract infection type: acute cystitis Comment: culture pending, recent catheterization, will start antibiotics and await urine culture - Plan cont current plan of care, continue antibiotics, PT/OT drop in H/H after transfusion, will switch to inpatient status * . - Discharge Day Encounter end time: 10:15
[2018-11-02] MEDS: cefTRIAXone\\ROCEPHIN 1 GM in Sodium Chloride 0.9% 100 ML IVPB SCH (09:17)
[2018-11-02] MEDS ORDERED: Senokot 8.6 MG TAB PO PRN (10:47)
[2018-11-02] MEDS: Morphine 2 MG/ML SYRINGE SLOW IVP PRN ×2 (16:03→20:16)
--- NOTE | 2018-11-02 17:08 | CON ---
DATE OF CONSULTATION: 11/02/2018 REASON FOR CONSULTATION: Persistent ischemic colitis. HISTORY OF PRESENT ILLNESS: Jose Bahena is a 78-year-old man, recently hospitalized here for over a week and seen by multiple of my GI colleagues at that time. He has a history of severe diverticulitis with subtotal colectomy in the past as well as atrial fibrillation and previous opioid overuse for his chronic pain syndrome. He was again recently hospitalized here a couple of weeks ago with hematochezia and lower abdominal pain. He had a colonoscopy on 10/22, which demonstrated ischemic injury and ulcerations throughout the sigmoid colon and rectum to the level of the anastomosis just proximal to the cecum. Biopsies confirmed that this was ischemic type injury. Stool studies were negative for explanatory pathogens. At that time, it was thought that the patient might be having some slow clinical improvement in his bleeding by the time of discharge. Other studies during the hospitalization included a CT of the abdomen and pelvis on 10/25, which showed worsening acute colitis changes involving the entire remainder of the colon. He had a tagged RBC scan on 10/28, which was negative for any other sources of bleeding. He was discharged home just a couple of days ago, but this morning he again started having a significant amount of blood per rectum and ongoing significant lower abdominal pain. The way the patient explains it, he really has not had any significant change in ongoing symptoms over the past couple of weeks. He went to the [facility], where he was noted to have clots and bleeding from the rectum and hemoglobin was in the 7s. He received 1 unit of packed RBCs and was transferred here. On arrival, hemoglobin was 9.7, but this has declined back to 8.4 this morning. He is hemodynamically stable. He is receiving IV fluid support and is n.p.o. status. Surgery has been consulted as well as us, and their evaluation is pending. PAST MEDICAL HISTORY: Diverticulitis with subtotal colectomy, paroxysmal atrial fibrillation, on amiodarone, peripheral neuropathy with chronic pain syndrome with previous opioid overuse, hypertension, dyslipidemia, vitamin B12 deficiency, ischemic colitis in October 2018. ALLERGIES: AMOXICILLIN, AZITHROMYCIN, CEPHALEXIN, CIPROFLOXACIN, CLINDAMYCIN, IV CONTRAST, REQUIRING PRETREATMENT FOR ANY CONTRAST SCANS. SOCIAL HISTORY: The patient is and lives with his . No tobacco since the . No alcohol or drug use. FAMILY HISTORY: Mother has breast cancer. Father at age 86 of heat stroke. OUTPATIENT MEDICATIONS: 1. Acetaminophen as needed. 2. Amiodarone. 3. Vitamin B12. 4. Duloxetine. 5. Finasteride. 6. Folic acid. 7. Gabapentin. 8. Hydrocodone. 9. Senna. 10. Tamsulosin. 11. Thiamine. REVIEW OF SYSTEMS: Full review of systems including constitutional; head, eyes, ears, nose, throat; GI; ; cardiovascular; respiratory; musculoskeletal; and neurologic systems are negative except as noted in the HPI. PHYSICAL EXAMINATION: VITAL SIGNS: Temperature 97.3, pulse 95, blood pressure 134/60, and 93% oxygen saturation on 2 L nasal cannula. GENERAL: A 78-year-old man appearing chronically ill, lying in bed, in no distress. SKIN: He is pale. No jaundice. No rashes were palpable. Did not examine his sacral area. EYES: Extraocular movements intact. No scleral icterus. ENT: Mucous membranes moist. No oral lesions. LYMPH: No submandibular or supraclavicular lymphadenopathy. THYROID: Nontender to palpation. HEART: Regular rate and rhythm. LUNGS: Clear to auscultation bilaterally. ABDOMEN: Obese. Bowel sounds present. Soft. Tender to palpation in the lower abdomen, particularly left lower quadrant, but no guarding or rebound tenderness. EXTREMITIES: No peripheral edema. VESSELS: Radial pulses 2+ bilaterally. NEURO: Cranial nerves II through XII intact bilaterally. No focal deficits. LABORATORY STUDIES: Hemoglobin down to 8.4, hematocrit 25.4, WBC 10, and platelets 588. INR 1.3. Sodium 141, potassium 4.2, BUN is 8, creatinine 0.76, glucose 75, and calcium 8.1. Troponin 0.078, this is chronically elevated. Total bilirubin 1.0, alkaline phosphatase 100, AST 8, ALT 7, and albumin 2.4. IMAGING STUDIES: Recent colonoscopy, CT of the abdomen and pelvis and tagged RBC scan from within the past 2 weeks, all as detailed in the HPI. ASSESSMENT AND PLAN: 1. Persistent ischemic colitis. 2. Hematochezia, ongoing. 3. Acute recurrent blood loss anemia. The patient's endoscopic findings as well as biopsy results from recent hospitalization, all point to the diagnosis of ischemic colitis. At the time, this was thought to perhaps represent stercoral etiology, but I really do not think that is the case, given the persistence of evidence of ongoing colonic disease and ulceration. Vascular etiology seems more likely. Unfortunately, this has not really improved over the past several weeks and he has persistent bleeding and anemia with transfusion requirement. For now, I would agree with continuing supportive care, trending the H and H and transfusing as needed. I see no versible benefit to repeating colonoscopy at this time. I agree with plan for surgical evaluation. The patient may indeed end up needing total colectomy with ileostomy. I think it would also be reasonable to go ahead and get a CT angiogram of the abdomen and pelvis to try to identify any vascular pathology. Thank you for the consultation. GI can follow along. Please call anytime with questions or concerns. Job ID: [id number]
[2018-11-02 17:57] LABS: Hemoglobin 7.9 g/dL (14.0-18.0)
[2018-11-02] MEDS: Tamsulosin HCl 0.4 MG CAP PO SCH (20:15)
[2018-11-02] MEDS: Gabapentin 300 MG CAP PO SCH (20:15)
[2018-11-02] MEDS: Amiodarone 200 MG TAB PO SCH (20:15)
[2018-11-02] MEDS: Famotidine 20 MG TAB PO SCH (20:15)
[2018-11-02] MEDS: predniSONE 50 MG TAB PO SCH (20:35)
[2018-11-02] MEDS: HYDROcodone/Acetaminophen 5/325 mg Tablet PO PRN (22:01)
[2018-11-03 00:24] LABS: Hemoglobin 8.8 g/dL (14.0-18.0)
[2018-11-03] MEDS: Sodium Chloride 0.45% 1,000 ML IV SCH ×2 (03:12→12:54)
[2018-11-03] MEDS: predniSONE 50 MG TAB PO SCH ×2 (03:12→09:12)
[2018-11-03 06:00] LABS: #Lymphocytes 0.4 thou/uL (1.20-3.40); %Eosinophils 0.5 % (0.0-10.0); %Lymphocytes 10.7 % (21.0-51.0); %Monocytes 0.8 % (0.0-10.0); Hemoglobin 8.9 g/dL (14.0-18.0); Mean Corpuscular HGB CONC 31.5 g/dL (32.0-36.0); Mean Corpuscular Hemoglobin 34.6 pg (27.0-31.0); Mean Platelet Volume 6.5 fL (7.4-10.4); Platelet Count 644 thou/uL (130-400); RBC Distribution Width 19.7 % (11.5-14.5); Red Blood Cell (RBC) Count 2.58 mill/uL (4.70-6.10); White Blood Cell (WBC) Count 3.4 thou/uL (4.8-10.8)
[2018-11-03 06:15] LABS: Anion Gap 12 mmol/L (10-20); BUN (Urea Nitrogen) 8 mg/dL (8.4-25.7); Calc. Creatinine Clearance 124 mL/min (70-130); Calcium 8.2 mg/dL (7.8-10.44); Carbon Dioxide 24 mmol/L (23-31); Chloride 107 mmol/L (98-107); Estimated GFR-MDRD Greater than 90; Glucose 105 mg/dL (83-110); Potassium 4.7 mmol/L (3.5-5.1); Sodium 138 mmol/L (136-145)
[2018-11-03] MEDS ORDERED: diphenhydrAMINE 50 MG CAP PO SCH (08:00)
--- NOTE | 2018-11-03 08:38 | PDOC.PN ---
- Subjective Encounter Start Date: 11/03/18 Encounter Start Time: 09:45 Subjective: Patient with persistent lower abdominal pain, less rectal bleeding - Objective Resuscitation Status - Order Detail: 11/01/18 19:39 Resuscitation Status Routine Resuscitation Status: FULL: Full Resuscitation Discussed with: Patient PRINCESS Reviewed: Yes Vital Signs & Weight: Vital Signs (12 hours) Temp Pulse Resp BP Pulse Ox 11/03/18 08:00 96.2 F L 108 H 16 132/76 96 Weight Weight 235 lb 9.6 oz I&O: 11/02/18 11/03/18 11/04/18 06:59 06:59 06:59 Intake Total 3674 Output Total 3 Balance 3671 Result Diagrams: 11/03/18 18:54 11/03/18 05:40 Phys Exam - Physical Examination Constitutional: NAD HEENT: moist MMs Respiratory: no wheezing, no rales, no rhonchi Cardiovascular: RRR Gastrointestinal: soft, positive bowel sounds TTP lower abdomen Neurological: non-focal, moves all 4 limbs Psychiatric: normal affect Dx/Plan (1) Bright red blood per rectum Code(s): K62.5 - HEMORRHAGE OF ANUS AND RECTUM Status: Acute Comment: stable this AM (2) Ischemic colitis Code(s): K55.9 - VASCULAR DISORDER OF INTESTINE, UNSPECIFIED Status: Acute Comment: worsening on CT previous hospitalization, but was clinically improved so no intervention, due to recurrent pain and bleeding will GI consults, may need colectomy or vascular study. I spoke with Dr. Holm with general surgery and he recommended isolating source of bleeding and then can get surgery consult at that time if surgery needed to control it. Dr. Aguilera following and getting CTA of abdomen. (3) Severe protein-calorie malnutrition Code(s): E43 - UNSPECIFIED SEVERE PROTEIN-CALORIE MALNUTRITION Status: Acute (4) Chronic pain syndrome Code(s): G89.4 - CHRONIC PAIN SYNDROME Status: Chronic (5) Anemia Code(s): D64.9 - ANEMIA, UNSPECIFIED Status: Acute Qualifiers: Anemia type: other cause Other causes of anemia: acute posthemorrhagic Qualified Code(s): D62 - Acute posthemorrhagic anemia Comment: improved with transfusion, monitor closely (6) Vitamin B12 deficiency Code(s): E53.8 - DEFICIENCY OF OTHER SPECIFIED B GROUP VITAMINS Status: Acute Comment: on replacement (7) Atrial fibrillation Code(s): I48.91 - UNSPECIFIED ATRIAL FIBRILLATION Status: Chronic Qualifiers: Atrial fibrillation type: chronic Qualified Code(s): I48.2 - Chronic atrial fibrillation Comment: controlled with amiodarone (8) Dyslipidemia Code(s): E78.5 - HYPERLIPIDEMIA, UNSPECIFIED Status: Chronic (9) Hypertension Code(s): I10 - ESSENTIAL (PRIMARY) HYPERTENSION Status: Chronic Qualifiers: Hypertension type: essential hypertension Qualified Code(s): I10 - Essential (primary) hypertension (10) Peripheral neuropathy Code(s): G62.9 - POLYNEUROPATHY, UNSPECIFIED Status: Chronic Comment: chronic pain, can't tolerate the oral Narcotics any more due to impaction (11) UTI (urinary tract infection) Status: Acute Qualifiers: Urinary tract infection type: acute cystitis Comment: recent catheterization, on Rocephin since 11/02/18, growing Proteus and other Gram neg nazia - Plan cont current plan of care, continue antibiotics, PT/OT * . - Discharge Day Encounter end time: 09:55
[2018-11-03] MEDS ORDERED: Finasteride 5 MG TAB PO SCH (09:00)
[2018-11-03] MEDS ORDERED: Gabapentin 300 MG CAP PO SCH (09:00)
[2018-11-03] MEDS: cefTRIAXone\\ROCEPHIN 1 GM in Sodium Chloride 0.9% 100 ML IVPB SCH (10:43)
[2018-11-03] MEDS: Amiodarone 200 MG TAB PO SCH (10:44)
[2018-11-03] MEDS: Cyanocobalamin (Vitamin B-12) 1,000 MCG TAB PO SCH (10:44)
[2018-11-03] MEDS: Famotidine 20 MG TAB PO SCH (10:45)
[2018-11-03] MEDS: HYDROcodone/Acetaminophen 5/325 mg Tablet PO PRN ×2 (10:46→13:57)
[2018-11-03] MEDS ORDERED: Dexamethasone 20 MG/5 ML VIAL ONE (13:33)
[2018-11-03] MEDS ORDERED: Esmolol 100 MG/10 ML VIAL ONE (13:33)
[2018-11-03] MEDS ORDERED: Rocuronium Bromide 10 MG/ML (10ML VIAL) ONE (13:33)
[2018-11-03] MEDS ORDERED: PROPOFOL 200 MG/20 ML VIAL ONE (13:33)
[2018-11-03] MEDS ORDERED: ePHEDrine 50 MG/ML VIAL ONE (13:33)
[2018-11-03] MEDS ORDERED: Lidocaine 1% PF 5 ML VIAL ONE (13:33)
[2018-11-03] MEDS ORDERED: PHENYLEPHRINE-NS 100 MCG/ML 10 ML SYRINGE ONE (13:33)
[2018-11-03] MEDS ORDERED: Vecuronium 10 MG VIAL ONE (13:33)
--- NOTE | 2018-11-03 14:50 | CT ---
CT ANGIOGRAM WITH IV CONTRAST AND 3D MIP RECONSTRUCTIONS: DATE: 11/03/2018. PROVIDED CLINICAL HISTORY: Ischemic colitis. FINDINGS: Comparison is made with the study dated 10/15/2018. The visualized lung bases demonstrate at least moderate bilateral pleural effusions with adjacent sub segmental atelectasis and calcified pleural plaques. There is conspicuous mural thickening and surrounding fat stranding involving the rectum and remainin g right colon. There is evidence for pneumatosis in portions of the right colon as well as portal ve nous gas. There is loculated gas density present about the cranial margin of the remaining right col on which does not appear intraluminal and compatible with a contained perforation. There is a 5.5 x 5.3 multiseptated cystic mass involving the left hepatic lobe. This is similar to luca prior examinations but appears somewhat increased in size with respect to 03/04/2016 examinati on at which time it measured about 4.5 cm. The spleen, pancreas, kidneys, and adrenal glands demonstrate no acute abnormality no acute abnormali ty. There is no evidence for an intraperitoneal fluid collection or significant free intraperitoneal fluid. The abdominal aorta appears nonaneurysmal. The contrast bolus within the arterial structures is not optimal. However, the celiac, superior mesenteric, and renal arteries appear patent. An opacified i nferior mesenteric artery is not identified. There is thickening of the urinary bladder wall with surrounding fat stranding. Vascular calcifications are seen. The osseous structures demonstrate no concerning lytic or blastic lesions. IMPRESSION: 1. Findings compatible with provided clinical history of proctocolitis, with evidence of pneumatosi s and portal venous gas as well as evidence for perforation. Findings are communicated to the patien t's nurse, Maggie, 2:05 p.m. 11/03/2018. 2. At least moderate bilateral pleural effusions. 3. A 5.5 cm multiseptated mass involving the left hepatic lobe, incompletely characterized on the ba sis of this study. Nonemergent abdominal MRI is recommended. 4. Findings suggesting cystitis. 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 POS: [facility]
[2018-11-03 16:08] LABS: Troponin I 0.089 ng/mL (< 0.028)
[2018-11-03] MEDS: metroNIDAZOLE 500 MG in Premix Bag 1 BAG IVPB SCH (16:33)
--- NOTE | 2018-11-03 18:32 | PRG ---
DATE OF SERVICE: 11/03/2018 SUBJECTIVE: Mr. Bahena is feeling about the same, but has had some increase in lower abdominal pain. He has continued to have some hematochezia, though less in volume than yesterday. Hemoglobin has been stable. He had a CT scan this morning and this actually shows evidence of contained perforation and ongoing severe inflammatory changes in what is left of his colon. I spoke with Dr. Holm on the phone regarding the CT scan results, and I believe the plan is for him to go to the operating room this evening. OBJECTIVE: VITAL SIGNS: Temperature 98.5, pulse 111, blood pressure 120/58, and 91% oxygen saturation on 1 L nasal cannula. GENERAL: Pale, frail, in no acute distress. HEART: Regular rate and rhythm. LUNGS: Clear to auscultation bilaterally. ABDOMEN: Nondistended. Bowel sounds are hypoactive. Tender to palpation in the lower abdomen. No guarding or rebound tenderness. EXTREMITIES: No peripheral edema. LABORATORY STUDIES: WBC 3.4, hemoglobin 8.9, platelets 644. INR 1.3. Sodium 138, potassium 4.7, BUN 8, creatinine 0.74. Troponin 0.089. IMAGING STUDIES: CT angiogram of the abdomen and pelvis demonstrated nonvisualization of the inferior mesenteric artery, likely signifying complete occlusion, findings suggestive of cystitis. There is a 5.5 cm multi-septated mass involving the left hepatic lobe, which is incompletely characterized, but notably this was present even on examination three years ago in 2016. There is severe mural thickening and fat stranding involving the rectum and remaining right colon with pneumatosis in portions of the right colon, portal venous gas, and loculated gas density adjacent to the remaining right colon, signifying contained perforation. ASSESSMENT AND PLAN: 1. Severe ischemic colitis, now with evidence of spontaneous colonic perforation. 2. Hematochezia, secondary to ischemic colitis. 3. Acute blood loss anemia, stable today. The patient is on appropriate antibiotics. He was already on Rocephin and I added metronidazole once the CT results were back. I spoke with Dr. Holm over the phone earlier this afternoon. I believe the plan is for him to go to the operating room this evening for exploratory laparoscopy, likely completion total colectomy, and end-ileostomy. I agree with this plan. Please call anytime with questions or concerns. Job ID: [id number]
[2018-11-03] MEDS ORDERED: Fentanyl 100 MCG/2 ML VIAL ONE (18:55)
[2018-11-03 19:04] LABS: Hemoglobin 9.4 g/dL (14.0-18.0); Mean Corpuscular HGB CONC 32.2 g/dL (32.0-36.0); Mean Corpuscular Hemoglobin 35.3 pg (27.0-31.0); Mean Platelet Volume 6.5 fL (7.4-10.4); Platelet Count 679 thou/uL (130-400); RBC Distribution Width 19.9 % (11.5-14.5); Red Blood Cell (RBC) Count 2.65 mill/uL (4.70-6.10); White Blood Cell (WBC) Count 4.1 thou/uL (4.8-10.8)
[2018-11-03 19:41] LABS: Band 45 % (5-11); Lymphocytes 10 % (21-51); MDiff Complete? YES; Monocytes 1 % (0-10); Neutrophil 44 % (42-75)
[2018-11-03] MEDS ORDERED: cefOXitin 2 GM VIAL ONE ×3 (19:57→23:49)
--- NOTE | 2018-11-03 20:22 | CON ---
DATE OF CONSULTATION: 11/03/2018 HISTORY OF PRESENT ILLNESS: Mr. Bahena is a 78-year-old man with a previous left colectomy for either chronic diverticulitis or ischemic colitis. The patient did have ascending colon to remnant sigmoid colon anastomosis. Recently admitted with intractable diarrhea, requiring endoscopy. Ischemic colitis was suspected. Following discharge, the patient presented again to the emergency department within 1 week of discharge for rectal bleeding. This required blood transfusion and stops spontaneously. The patient subsequently was discharged home and returned in this admission with recurrent rectal bleeding. He was evaluated by Gastroenterology. A CT scan of the abdomen and pelvis, which was obtained today reveals pneumatosis intestinalis involving the ascending colon. Also noted is a portal venous gas. Meanwhile, the patient is complaining of some vague abdominal pain worse yesterday, frankly little relieved today. PAST MEDICAL HISTORY: Significant for chronic atrial fibrillation. Other pertinent past medical history includes ischemic colitis, peripheral neuropathy with chronic pain syndrome. He also has history of essential hypertension and hyperlipidemia. PAST SURGICAL HISTORY: Pertinent for left colectomy with primary anastomosis. SOCIAL HISTORY: The patient is , lives at home with his . He has a very remote history of cigarette smoking dating it back in the 80s. He denies any ethanol or illicit drug abuse. FAMILY HISTORY: Noncontributory for this patient's age. PREHOSPITALIZATION MEDICATIONS: Include: 1. Amiodarone 100 mg p.o. b.i.d. 2. Vitamin B12 of 1000 mcg p.o. daily. 3. Duloxetine 20 mg p.o. daily. 4. Finasteride 5 mg p.o. daily. 5. Gabapentin 600 mg p.o. at bedtime and 300 mg p.o. q.a.m. He takes hydrocodone one p.o. q.8 hours, Flomax 0.4 mg p.o. at bedtime, and stool softeners. ALLERGIES: PENICILLIN, AZITHROMYCIN, CLINDAMYCIN, CIPROFLOXACIN, AND IV CONTRAST. REVIEW OF SYSTEMS: Ten-point review of systems essentially unremarkable except as stated in past medical history and chief complaint. PHYSICAL EXAMINATION: GENERAL: This reveals a 78-year-old normally developed man, who is otherwise coherent, interactive, and appears stated age. The patient is alert and oriented x3, appears to be in no acute distress at time of my evaluation. VITAL SIGNS: Today include blood pressure 120/58, pulse is 111, respiratory rate is 18, temperature is 98.5 degrees Fahrenheit, and oxygen saturation is 97% on 1 L by nasal cannula oxygen. HEENT: Reveals normocephalic and atraumatic. The pupils are equal, round, reactive to light and accommodation. HEART: Reveals regular rate with sinus tachycardia. No murmurs or gallops auscultated. LUNGS: Clear to auscultation bilaterally. Breathing, regular and nonlabored. ABDOMEN: Soft and moderately distended with moderate tenderness to palpation. He has no gross rebound tenderness present. Liver and spleen, nonpalpable below costal margin. EXTREMITIES: Reveal 2+ radial and pedal pulses bilaterally. No ankle edema is present. NEUROLOGIC: Reveals no focal deficits present. LABORATORY FINDINGS: Today include CBC with 3400 white blood cells, hemoglobin and hematocrit of 8.9 and 28.3 respectively. Platelet count is elevated at 644,000. Other profile; sodium 138, potassium 4.7, chloride is 107, bicarb is 24, BUN 8, creatinine 0.74, and glucose is 105. I have personally reviewed the CT scan of the abdomen and pelvis, which was obtained on recent admission 10/25/2018, this showed worsening acute colitis involving the entire colon from the rectum to the cecum. Of note, it is a foreshortened residual colon, which is consistent with previous history of partial colectomy. CT angiography of the abdomen and pelvis, which was obtained today is remarkable for pneumatosis intestinalis involving the ascending colon as well as portal venous gas. There is also small extraluminal pneumoperitoneum consistent with a perforated viscus. IMPRESSION: 1. Acute ischemic bowel necrosis. 2. Acute thrombocytosis, likely acute phase reactants in the setting of acute infectious process. RECOMMENDATIONS: Exploratory laparotomy and completion of total colectomy with permanent ileostomy. The above findings and recommendation were discussed with the patient, his and nurse at bedside as well as the patient's daughter, Vicki, by telephone conversation. I did inform them of the risks and benefits of the proposed surgery to include, but not limited to bleeding, infection, injury to surrounding bowel. They all indicated understanding of information given. I have answered their questions. The patient and his family have granted consent for this surgical intervention. Thank you again, Dr. Hawley, for allowing me the opportunity to participate in the care of this patient. Job ID: [id number]
[2018-11-03] MEDS ORDERED: Albumin 25% 0 ML ONE (21:31)
[2018-11-03] MEDS ORDERED: Albumin 5% 500 ML ONE (21:31)
[2018-11-03] MEDS ORDERED: Phenylephrine HCL 10 MG/ML VIAL ONE (22:09)
[2018-11-03] MEDS ORDERED: metroNIDAZOLE 500 MG/100 ML BAG ONE (23:49)
[2018-11-04] MEDS ORDERED: Midazolam HCl 2 mg/2 ml Vial ONE (00:30)
[2018-11-04] MEDS ORDERED: Dextrose 5% in Water 1,000 ML IV PRN (00:36)
[2018-11-04] MEDS ORDERED: Dextrose 50% Abboject 50 ML SYRINGE SLOW IVP PRN (00:36)
[2018-11-04] MEDS ORDERED: Sodium Chloride 0.9% 1,000 ML IV SCH (00:45)
[2018-11-04] MEDS ORDERED: Ventilator Sedation Protocol 1 EACH FS SCH (00:46)
[2018-11-04] MEDS ORDERED: Morphine 2 MG/ML SYRINGE SLOW IVP PRN (00:48)
[2018-11-04] MEDS ORDERED: fentaNYL Citrate/PF 2,000 MCG in Sodium Chloride 0.9% 60 ML IV SCH (00:48)
[2018-11-04] MEDS ORDERED: DISCONTINUE PREVIOUS NARCOTIC PAIN MEDICATIONS AND BENZODIAZEPINES FS SCH (00:48)
[2018-11-04] MEDS ORDERED: Fentanyl BOLUS 250 ML IVPB PRN (00:48)
[2018-11-04] MEDS ORDERED: Lorazepam 2 MG/ML VIAL SLOW IVP PRN (00:48)
[2018-11-04] MEDS ORDERED: Propofol BOLUS 1,000 MG/100 ML VIAL IV PRN (00:48)
[2018-11-04] MEDS ORDERED: Propofol 1,000 MG/100 ML VIAL IV PRN (00:48)
[2018-11-04] MEDS ORDERED: Norepinephrine 8 MG/0.9% NS 250 ML IVPB SCH (01:00)
[2018-11-04 01:05] LABS: Hemoglobin 8.6 g/dL (14.0-18.0); Mean Corpuscular HGB CONC 32.9 g/dL (32.0-36.0); Mean Corpuscular Hemoglobin 34.5 pg (27.0-31.0); Mean Platelet Volume 6.4 fL (7.4-10.4); Platelet Count 541 thou/uL (130-400); RBC Distribution Width 19.4 % (11.5-14.5); Red Blood Cell (RBC) Count 2.49 mill/uL (4.70-6.10); White Blood Cell (WBC) Count 6.8 thou/uL (4.8-10.8)
[2018-11-04 01:08] LABS: INR-International Normal Ratio 1.5; PTT 26.9 SEC (22.9-36.1); Prothrombin Time 18.4 SEC (12.0-14.7)
[2018-11-04 01:22] LABS: #Lymphocytes 0.4 thou/uL (1.20-3.40); #Monocytes 0.4 thou/uL (0.11-0.59); %Eosinophils 0.2 % (0.0-10.0); %Lymphocytes 6.3 % (21.0-51.0); %Monocytes 6.3 % (0.0-10.0); %Neutrophils 87.2 % (42.0-75.0); Anisocytosis SLIGHT = 6-15 cells (100X) (0-5/hpf); MDiff Complete? YES; Macrocytosis SLIGHT = 6-15 cells (100X) (0-5/hpf); Platelet Morphology Comment Appears Increased
[2018-11-04 01:24] LABS: Anion Gap 13 mmol/L (10-20); BUN (Urea Nitrogen) 11 mg/dL (8.4-25.7); Calc. Creatinine Clearance 88 mL/min (70-130); Calcium 8.9 mg/dL (7.8-10.44); Carbon Dioxide 19 mmol/L (23-31); Chloride 112 mmol/L (98-107); Estimated GFR-MDRD 69; Glucose 167 mg/dL (83-110); Magnesium 1.7 mg/dL (1.6-2.6); Phosphorus 3.4 mg/dL (2.3-4.7); Sodium 140 mmol/L (136-145)
[2018-11-04] MEDS ORDERED: Albumin 5% 500 ML ONE (01:43)
[2018-11-04 01:45] LABS: Actual Bicarbonate (HCO3a) 19.3 mEq/L (22-28); Base Excess (BEa) -5.2 mEq/L (-2.0 to +3.0); CO2 Tension 33.8 mmHg (35.0-45.0); Calcium, Ionized 1.23 mmol/L (1.12-1.30); Carboxyhemoglobin (COHb) 1.1 gm% (0.0-3.0); Hemoglobin (Hb) 9.1 g/dL (14.0-18.0); O2 Tension (PaO2) 212.6 mmHg (> 70.0); Potassium - ABG Lab 4.09 mmol/L (3.70-5.30); pH, Arterial 7.38 (7.35-7.45)
[2018-11-04 01:46] LABS: Puncture Site LINE
[2018-11-04] MEDS ORDERED: Hydrocortisone Sod Succ/PF 100 mg/2 ml Vial ONE (01:48)
[2018-11-04] MEDS ORDERED: Hydrocortisone Sod Succ/PF 100 mg/2 ml Vial IVP SCH (02:00)
[2018-11-04] MEDS: Sodium Bicarbonate 150 MEQ in Dextrose 5% in Water 1,000 ML IV SCH ×2 (02:09→13:00)
[2018-11-04] MEDS: Amiodarone 200 MG TAB PO SCH ×3 (02:11→21:19)
[2018-11-04] MEDS: Gabapentin 300 MG CAP PO SCH (02:11)
--- NOTE | 2018-11-04 02:39 | OP ---
DATE OF PROCEDURE: 11/03/2018 PREOPERATIVE DIAGNOSIS: Ischemic bowel necrosis. POSTOPERATIVE DIAGNOSES: 1. Ischemic right colon with megacolon. 2. Extensive intraabdominal adhesions. OPERATIONS PERFORMED: 1. Exploratory laparotomy. 2. Extensive adhesiolysis. 3. Placement of triple-lumen central venous catheter. 4. Right colectomy with permanent ileostomy. ANESTHESIA: General endotracheal. ESTIMATED BLOOD LOSS: 500 mL. FLUIDS: Given 3500 mL crystalloids 500 mL 5% albumin and 2 units packed red blood cells. URINARY OUTPUT: 600 mL. SPONGE AND INSTRUMENT COUNT: Verified as correct x2. COMPLICATIONS: None apparent at the time of operation. INDICATIONS FOR OPERATION: This is a 78-year-old man with previous history of ischemic colitis. The patient presented with recurrent lower gastrointestinal hemorrhage. He developed worsening abdominal distention and pain. CT angiography of the abdomen and pelvis, which was obtained reveals pneumatosis intestinalis involving the right colon. Additionally, contained perforation of the colon was also noted. The patient did have portal venous gas on the CT scan. Ischemic bowel necrosis was suspected for which patient was brought to the operating room for laparotomy. Given the patient had previous left colectomy with right colon to rectal anastomosis, the plan was to complete the right colectomy with permanent ileostomy. Findings are consistent with extensive intraabdominal adhesions and a megacolon involving the residual right colon. There was no operative evidence of bowel perforation. DESCRIPTION OF PROCEDURE: Informed consent was obtained from the patient. He was brought to the operating room and placed in supine position. Following general anesthesia, a Courtney catheter was inserted and placed to bedside drain. Nasogastric tube was inserted and placed to wall suction. The abdomen was sterilely prepped and draped in usual fashion. A midline incision was made using #10 scalpel through previous incisional scar. Incision was carried through subcutaneous tissues maintaining hemostasis using cautery. Fascia was gently incised using fresh scalpel and the peritoneal cavity was entered superior to the umbilicus. Extensive adhesions were encountered involving multiple loops of small bowel and omentum. Meticulous dissection ensued taking down small bowel adhesions to allow us to complete the fascia incision superiorly and inferiorly. Bookwalter retractor was then put in place at that juncture to gain appropriate exposure. Small bowel was run from proximal jejunum to the terminal ileum, taking down adhesions along the way as they were encountered. A markedly dilated right colon was noted. This colon was quite dilated from the cecum to the level of the colorectal anastomosis. Decision was made therefore to proceed with right colectomy. To achieve this, the right colon was mobilized along the white line of Toldt. The hepatic flexure was taken down as the right colon was mobilized medially, taking care to avoid injury to underlying duodenum. I placed a rent through the mesentery of the terminal ileum through which BELEN stapler was introduced and the bowel was divided. The colon was then freed from adhering small bowel and omentum and the dissection was carried down all the way to the pelvis, noting the rectal sigmoid junction. I created a rent through the mesentery of the rectum at the colorectal junction through this BELEN stapler was introduced and the bowel was serially divided. Mesentery of the colon were sterilely divided using LigaSure device with good hemostasis. Specimen was passed off the operative field followed by transmission to pathology. Finding no other pathology exploration was terminated. The abdominal cavity was copiously irrigated clear with saline solution. A #19 Star drain was introduced into the pelvis and allowed to exit the abdominal cavity through a separate stab incision. The drain was secured to anterior abdominal wall using 2-0 silk suture. I placed one sheet of Seprafilm in the deep pelvis and small bowel was returned to normal anatomic location. At this juncture, right lower quadrant core incision was made using #10 scalpel. Incision was carried through subcutaneous tissues maintaining hemostasis using cautery. I introduced a tonsil clamp through this core incision advancing this into the peritoneal cavity. The defect was dilated to 2 fingerbreadths. A Sanju forceps was introduced via grasping the staple line of the terminal ileum, which was pulled through the core incision. was secured to the abdominal cavity using 3-0 silk suture at three points. A second sheet of Seprafilm was placed over the remainder of the small bowel. This was accomplished after all sponges and instruments were reported as correct x2. The fascia was approximated in the midline using a running stitch of #1 single stranded PDS. Subcutaneous tissues irrigated clear with saline solution, perfected hemostasis using cautery. Skin incision was closed with tess. Sterile dressings were applied. I turned my attention to the ileostomy site. Staple line of the terminal ileum was excised and the functional Tawny ileostomy was protected using interrupted sutures of 3-0 Vicryl. Next, ostomy appliance was put in place. Note that prior to start of the abdominal exploration, the left upper chest wall was sterilely prepped and draped in usual fashion. The left subclavian vein was cannulated with an 18-gauge introducer needle returning dark venous blood. Guidewire was passed through the needle and advanced into the left subclavian vein without resistance. The needle was withdrawn over the guidewire. A stab incision was made adjacent to the guidewire using 11 scalpel. A dilator was passed over the guidewire dilating the subcutaneous tissues. Dilator was removed and a triple-lumen central venous catheter was advanced over the guidewire and placed in the left subclavian vein without resistance stopping at the 18 cm lamont. The guidewire was removed. Dark venous blood was aspirated from all three ports, which were individually flushed with saline. The catheter was secured to anterior chest wall using 3-0 silk suture. Biopatch and sterile dressings was applied. The patient tolerated the operation without any apparent complication and was returned to the intensive care unit in critical, but stable condition. Job ID: [id number]
[2018-11-04] MEDS: Acetaminophen 1,000 MG in Premix Bag 1 BAG IVPB SCH ×4 (03:29→21:20)
[2018-11-04 05:54] LABS: INR-International Normal Ratio 1.4; PTT 30.3 SEC (22.9-36.1); Prothrombin Time 17.7 SEC (12.0-14.7)
[2018-11-04 06:07] LABS: #Lymphocytes 0.4 thou/uL (1.20-3.40); #Monocytes 1.1 thou/uL (0.11-0.59); #Neutrophils 7.8 thou/uL (1.40-6.50); %Basophils 0.1 % (0.0-1.0); %Eosinophils 0.1 % (0.0-10.0); %Lymphocytes 3.9 % (21.0-51.0); %Monocytes 11.4 % (0.0-10.0); %Neutrophils 84.6 % (42.0-75.0); Hemoglobin 8.7 g/dL (14.0-18.0); Mean Corpuscular HGB CONC 32.8 g/dL (32.0-36.0); Mean Corpuscular Hemoglobin 34.3 pg (27.0-31.0); Mean Platelet Volume 6.9 fL (7.4-10.4); Platelet Count 525 thou/uL (130-400); RBC Distribution Width 19.5 % (11.5-14.5); Red Blood Cell (RBC) Count 2.53 mill/uL (4.70-6.10); White Blood Cell (WBC) Count 9.3 thou/uL (4.8-10.8)
[2018-11-04 06:16] LABS: ALT (SGPT) Less than 7 U/L (8-55); AST (SGOT) 9 U/L (5-34); Albumin 2.6 g/dL (3.4-4.8); Alkaline Phosphatase 64 U/L (40-150); Anion Gap 15 mmol/L (10-20); BUN (Urea Nitrogen) 11 mg/dL (8.4-25.7); Calc. Creatinine Clearance 114 mL/min (70-130); Calcium 8.2 mg/dL (7.8-10.44); Carbon Dioxide 18 mmol/L (23-31); Chloride 110 mmol/L (98-107); Estimated GFR-MDRD Greater than 90; Globulin 2.1 g/dL (2.4-3.5); Glucose 201 mg/dL (83-110); Potassium 3.9 mmol/L (3.5-5.1); Protein, Total 4.7 g/dL (5.8-8.1); Sodium 139 mmol/L (136-145)
[2018-11-04 07:00] LABS: CO2 Tension 33.2 mmHg (35.0-45.0); Calcium, Ionized 1.15 mmol/L (1.12-1.30); Carboxyhemoglobin (COHb) 1.1 gm% (0.0-3.0); O2 Tension (PaO2) 159.1 mmHg (> 70.0); pH, Arterial 7.42 (7.35-7.45)
[2018-11-04] MEDS ORDERED: Magnesium 2 GM/50 ML 2 GM in Premix Bag 1 BAG IVPB SCH (07:00)
[2018-11-04] MEDS ORDERED: Potassium Phosphate 15 MMOL in Sodium Chloride 0.9% 250 ML 250 ML IVPB SCH (07:00)
[2018-11-04 07:03] LABS: Puncture Site ALINE
--- NOTE | 2018-11-04 07:39 | RAD ---
CHEST 1 VIEW: INDICATION: ET tube placement. COMPARISON: Prior exam dated 10/24/2018. FINDINGS: ET tube tip projects just beyond the thoracic inlet. There is a left subclavian central venous kayden ter projecting in the region of the right internal jugular vein. There is cardiomegaly. There is pu lmonary vascular congestion. Lung apices are excluded. There are small bilateral pleural effusions. IMPRESSION: 1. Cardiomegaly with pulmonary vascular congestion and small bilateral pleural effusions. 2. Tubes and lines as above. POS: BH
[2018-11-04] MEDS: cefOXitin Sodium/Dextrose,Iso 2 GM in Premix Bag 1 BAG IVPB SCH ×2 (07:52→15:42)
[2018-11-04] MEDS: Famotidine/PF 20 mg/2ml Vial SLOW IVP SCH ×2 (08:58→21:19)
[2018-11-04] MEDS: Cyanocobalamin (Vitamin B-12) 1,000 MCG TAB PO SCH (08:59)
[2018-11-04] MEDS ORDERED: Famotidine/PF 20 mg/2ml Vial SLOW IVP SCH (09:00)
--- NOTE | 2018-11-04 12:50 | PRG ---
DATE OF SERVICE: 11/04/2018 SUBJECTIVE: Mr. Bahena is a 78-year-old man, underwent exploratory laparotomy with extensive adhesiolysis and right colectomy with permanent ileostomy for ischemic bowel necrosis. He has required sedation on mechanical ventilator support overnight. Urinary output, which was initially low, had responded to fluid resuscitation. This morning, urinary output is in excess of 30 mL/h. Off sedation, the patient moved all extremities and followed commands. He was tolerating ventilator wean to CPAP. OBJECTIVE: VITAL SIGNS: This morning include blood pressure of 123/69, pulse is 94 and irregular, respiratory rate is 12, temperature is 98.8 degrees Fahrenheit, and oxygen saturation is 99% on FiO2 of 40%. The patient is on no vasopressor or inotropic support. HEART: Irregular rate and irregular rhythm. LUNGS: Clear to auscultation bilaterally. Breathing regular and nonlabored. ABDOMEN: Soft and nondistended. Incision is intact, clean, and dry. Ileostomy is viable and functional with liquid stool. NEUROLOGIC: No focal deficits present. EXTREMITIES: 2+ radial and pedal pulses bilaterally. LABORATORY FINDINGS: Today include a CBC with 9300 white blood cells, hemoglobin and hematocrit stable at 8.7 and 26.5 respectively. Platelet count is 525,000. Metabolic profile; sodium 139, potassium 3.9, chloride 110, bicarb 18, BUN 11, creatinine 0.81, glucose 201, magnesium 1.7, and phosphorus 3.4. IMPRESSION: 1. Postoperative day #1 status post exploratory laparotomy, extensive adhesiolysis, right colectomy with end ileostomy. The patient is hemodynamically stable. 2. Acute respiratory failure, improved. 3. Acute blood loss anemia, stable. PLAN: 1. Wean and extubate the patient accordingly. 2. Initiate physical and occupational therapy. Begin to mobilize the patient out of bed to chair. 3. We will ask PM and R to evaluate the patient for possible transfer to inpatient rehabilitation post discharge. 4. Above findings and plan discussed with the patient, who indicates understanding of information given. Total critical care time is 35 minutes. Job ID: [id number]
--- NOTE | 2018-11-04 13:26 | PDOC.PN ---
- Subjective Encounter Start Date: 11/04/18 Encounter Start Time: 11:00 Subjective: is on vent, awake, not oriented - Objective Resuscitation Status - Order Detail: 11/01/18 19:39 Resuscitation Status Routine Resuscitation Status: FULL: Full Resuscitation Discussed with: Patient PRINCESS Reviewed: Yes Vital Signs & Weight: Vital Signs (12 hours) Temp Pulse Resp BP Pulse Ox 11/04/18 12:00 98.5 F 11/04/18 09:38 99 11/04/18 09:37 99 11/04/18 08:00 16 98 11/04/18 07:59 98.8 F 11/04/18 06:45 100 149/61 H 11/04/18 06:00 12 11/04/18 04:00 98.5 F 12 11/04/18 02:30 100 11/04/18 02:23 83 102/75 11/04/18 02:00 98.6 F 12 Weight Weight 235 lb 9.6 oz Most Recent Monitor Data Heart Rate from ECG 73 NIBP 130/77 NIBP BP-Mean 94 Respiration from ECG 15 SpO2 97 I&O: 11/03/18 11/04/18 11/05/18 06:59 06:59 06:59 Intake Total 3674 1300 50 Output Total 3 755 320 Balance 3671 545 -270 Result Diagrams: 11/04/18 04:50 11/04/18 04:50 Additional Labs: Accuchecks 11/03/18 22:19 POC Glucose 144 H Phys Exam - Physical Examination HEENT: PERRLA, sclera anicteric Neck: no JVD, supple Respiratory: no wheezing, no rales Cardiovascular: RRR, no significant murmur Gastrointestinal: soft, no distention ileostomy has dark blood in it Musculoskeletal: no edema, pulses present Neurological: non-focal, moves all 4 limbs Dx/Plan (1) Ischemic colitis Code(s): K55.9 - VASCULAR DISORDER OF INTESTINE, UNSPECIFIED Status: Acute Comment: s/p colectomy with ileostomy 11/03/2018 (2) Acute metabolic encephalopathy Code(s): G93.41 - METABOLIC ENCEPHALOPATHY Status: Acute (3) Anemia Code(s): D64.9 - ANEMIA, UNSPECIFIED Status: Acute Qualifiers: Other causes of anemia: acute posthemorrhagic Comment: improved with transfusion, monitor closely (4) Respiratory failure Code(s): J96.90 - RESPIRATORY FAILURE, UNSP, UNSP W HYPOXIA OR HYPERCAPNIA Status: Acute Qualifiers: Respiratory failure complication: hypoxia Comment: weaning from vent post op (5) Atrial fibrillation Code(s): I48.91 - UNSPECIFIED ATRIAL FIBRILLATION Status: Chronic Qualifiers: Atrial fibrillation type: chronic Qualified Code(s): I48.2 - Chronic atrial fibrillation (6) Dyslipidemia Code(s): E78.5 - HYPERLIPIDEMIA, UNSPECIFIED Status: Chronic (7) Hypertension Code(s): I10 - ESSENTIAL (PRIMARY) HYPERTENSION Status: Chronic Qualifiers: Hypertension type: essential hypertension Qualified Code(s): I10 - Essential (primary) hypertension (8) Peripheral neuropathy Code(s): G62.9 - POLYNEUROPATHY, UNSPECIFIED Status: Chronic - Plan weaning per gen surg adv -: is npo, iv fluids, replace electrolytes per ccu protocol -: recieved 2 u prbc yesterday -: on cefoxitin 2g q8h -: PT/OT/rehab eval once extubated * . Prognosis guarded. Review of Systems - Medications/Allergies Allergies/Adverse Reactions: Allergies Allergy/AdvReac Type Severity Reaction Status Date / Time amoxicillin Allergy Nausea Verified 10/19/18 14:51 azithromycin [From Zithromax] Allergy Severe Verified 10/19/18 14:51 Hives cephalexin Allergy Nausea Verified 10/19/18 14:51 ciprofloxacin [From Cipro] Allergy Anaphylaxis Verified 10/19/18 14:51 ciprofloxacin HCl Allergy Anaphylaxis Verified 10/19/18 14:51 [From Cipro] clindamycin Allergy Hives Verified 10/19/18 14:51 Iodinated Contrast- Oral and Allergy Short of Verified 10/19/18 14:51 IV Dye Breath [Iodinated Contrast Media - IV Dye] Medications: Current Medications Albuterol/Ipratropium (Duoneb) 3 ml NEB Q4H PRN PRN Reason: Wheezing Amiodarone HCl (Cordarone) 100 mg PO BID [facility] Last Admin: 11/04/18 08:58 Dose: 100 mg Cyanocobalamin (Vitamin B-12) 1,000 mcg PO DAILY [facility] Last Admin: 11/04/18 08:59 Dose: 1,000 mcg Dextrose/Water (Dextrose 50%) 25 gm SLOW IVP PRN PRN PRN Reason: Hypoglycemia Famotidine (Pepcid) 20 mg SLOW IVP Q12HR SHAUN Last Admin: 11/04/18 08:58 Dose: 20 mg Glucagon (Glucagon) 1 mg IM PRN PRN PRN Reason: Hypoglycemia Guaifenesin/Dextromethorphan (Robitussin Dm) 15 ml PO Q4H PRN PRN Reason: Cough Dextrose/Water (D5w) 1,000 mls @ 0 mls/hr IV .Q0M PRN PRN Reason: Hypoglycemia Fentanyl Citrate 2,000 mcg/ (Sodium Chloride) 100 mls @ 0 mls/hr IV INF SHAUN; Protocol Stop: 12/04/18 00:48 Last Admin: 11/04/18 02:13 Dose: 100 mls Fentanyl Citrate (Fentanyl Bolus) 250 mls @ 0 mls/hr IVPB PRN PRN PRN Reason: Breakthrough pain/agitation Stop: 12/04/18 00:48 Norepinephrine Bitartrate (Levophed) 250 mls @ 0 mls/hr IVPB INF [facility]; Protocol Cefoxitin Sodium/Dextrose 2 gm (/ Device) 50 mls @ 100 mls/hr IVPB Q8H [facility] Stop: 11/11/18 08:01 Last Admin: 11/04/18 07:52 Dose: 50 mls Sodium Bicarbonate 150 meq/ (Dextrose/Water) 1,150 mls @ 125 mls/hr IV INF [facility] Stop: 11/04/18 21:00 Last Admin: 11/04/18 02:09 Dose: 1,150 mls Acetaminophen 1,000 mg/ Device 100 mls @ 400 mls/hr IVPB 0300,0900,1500,2100 [facility] Stop: 11/04/18 21:14 Last Admin: 11/04/18 08:59 Dose: 100 mls Dextrose/Sodium Chloride (D5 1/2 Ns) 1,000 mls @ 100 mls/hr IV .Q10H [facility] Miscellaneous Medication (Ventilator Sedation Protocol) 1 each FS ONE [facility] Stop: 12/04/18 00:47 Discontinue Previous Narcotic Pain Medications And Benzodiazepines 1 each FS .ONE SHAUN Stop: 12/04/18 00:48 Ondansetron HCl (Zofran Odt) 4 mg PO Q6H PRN PRN Reason: Nausea/Vomiting Ondansetron HCl (Zofran) 4 mg IVP Q6H PRN PRN Reason: Nausea/Vomiting Sodium Chloride (Flush - Normal Saline) 10 ml IVF Q12HR SHANU Last Admin: 11/04/18 08:59 Dose: 10 ml Sodium Chloride (Flush - Normal Saline) 10 ml IVF PRN PRN PRN Reason: Saline Flush
[2018-11-04] MEDS: Dextrose 5 %-0.45 % NaCl 1,000 ML IV SCH ×2 (13:34→21:53)
--- NOTE | 2018-11-04 19:53 | PRG ---
DATE OF SERVICE: 11/04/2018 SUBJECTIVE: Mr. Bahena underwent exploratory laparotomy with extensive lysis of adhesions and right colectomy with end ileostomy with Dr. Holm yesterday evening. Procedure went well. The patient was able to be extubated earlier today and is alert. He is not complaining of any abdominal pain. He has some dark fluid already in the ileostomy bag, but nasogastric tube is still in place. He has been hemodynamically stable. Hemoglobin is stable as well. OBJECTIVE: VITAL SIGNS: Temperature 97.8, pulse 85, blood pressure 116/75, and 97% oxygen saturation on room air. GENERAL: No acute distress. HEART: Regular. Borderline tachycardia. LUNGS: Bibasilar crackles. No wheezing. No respiratory distress. ABDOMEN: Nondistended. Bowel sounds hypoactive. Recent incision is well dressed. Right lower quadrant ileostomy looks good with bilious effluent in the bag. EXTREMITIES: No peripheral edema. LABORATORY STUDIES: Hemoglobin 8.7, WBC 9.3, and platelets 525. INR 1.4. Sodium 139, potassium 3.9, BUN 11, creatinine 0.81, total bilirubin 1.0, alkaline phosphatase 64, AST 9, ALT less than 7, and albumin 2.6. ASSESSMENT AND PLAN: 1. Ischemic colitis with necrosis, now status post right hemicolectomy with end ileostomy last night. 2. Hematochezia, resolved after right hemicolectomy. 3. Acute blood loss anemia, stabilized. The patient appears to be doing relatively well this afternoon following his surgery. Dietary advancement per the surgical service. GI will sign off at this time, but please call at anytime with questions or concerns. Job ID: [id number]
[2018-11-05] MEDS: cefOXitin Sodium/Dextrose,Iso 2 GM in Premix Bag 1 BAG IVPB SCH ×3 (00:24→16:58)
[2018-11-05] MEDS ORDERED: Acetaminophen 325 MG TAB PO PRN (02:28)
[2018-11-05] MEDS ORDERED: Acetaminophen 650 MG Suppository PR PRN (02:28)
[2018-11-05 05:21] LABS: Band 17 % (5-11); Hemoglobin 7.7 g/dL (14.0-18.0); Lymphocytes 8 % (21-51); MDiff Complete? YES; Mean Corpuscular HGB CONC 32.5 g/dL (32.0-36.0); Mean Corpuscular Hemoglobin 34.4 pg (27.0-31.0); Mean Platelet Volume 6.4 fL (7.4-10.4); Monocytes 7 % (0-10); Neutrophil 68 % (42-75); Platelet Count 444 thou/uL (130-400); Platelet Morphology Comment Appears Increased; Red Blood Cell (RBC) Count 2.23 mill/uL (4.70-6.10); White Blood Cell (WBC) Count 9.5 thou/uL (4.8-10.8)
[2018-11-05 05:34] LABS: Anion Gap 8 mmol/L (10-20); BUN (Urea Nitrogen) 9 mg/dL (8.4-25.7); Calc. Creatinine Clearance 110 mL/min (70-130); Calcium 8.1 mg/dL (7.8-10.44); Carbon Dioxide 30 mmol/L (23-31); Chloride 106 mmol/L (98-107); Estimated GFR-MDRD 88; Glucose 161 mg/dL (83-110); Magnesium 2.2 mg/dL (1.6-2.6); Phosphorus 2.2 mg/dL (2.3-4.7); Potassium 3.9 mmol/L (3.5-5.1); Sodium 140 mmol/L (136-145)
[2018-11-05] MEDS ORDERED: DC Sedation Protocol FS ONE (08:15)
--- NOTE | 2018-11-05 09:01 | PRG ---
DATE OF SERVICE: 11/05/2018 SUBJECTIVE: Jose Bahena is status post lap for ischemic bowel. He is extubated. He is awake, alert, responsive, complaining of pain. OBJECTIVE: VITAL SIGNS:, blood pressure 110/54, o2 sat 94%, respirations 15, and pulse 103. I's and O's have been consistently ahead. CHEST: Decreased breath sounds. No wheezing. CARDIAC: Normal S1 and S2. No gallop. ABDOMEN: No masses. EXTREMITIES: 2+ edema. IMAGING DATA: X-ray shows cardiomegaly, left pleural effusion. IMPRESSION: 1. Status post large ischemic bowel. 2. Morbid obesity. 3. Severe deconditioning. 4. History of congestive heart failure. 5. Atrial fibrillation. PLAN: Initiate aggressive physical therapy, supportive care. Cortisol level and BNP are ordered. We will follow in the ICU. One-half hour of critical care time. Job ID: [id number] MTDD
--- NOTE | 2018-11-05 09:22 | RAD ---
PORTABLE CHEST: Date: 11/05/18 HISTORY: Respiratory failure. COMPARISON: 11/04/18 exam. FINDINGS: Heart size is enlarged. NG tube is below the hemidiaphragm. Parenchymal lung changes appear stable. IMPRESSION: Stable exam. POS: [facility]
[2018-11-05] MEDS: Morphine 4 MG/ML VIAL SLOW IVP PRN ×2 (09:43→20:04)
[2018-11-05] MEDS: Famotidine/PF 20 mg/2ml Vial SLOW IVP SCH ×2 (09:45→21:25)
[2018-11-05] MEDS: Amiodarone 200 MG TAB PO SCH ×2 (09:45→21:24)
[2018-11-05] MEDS ORDERED: Furosemide 20 MG/2 ML VIAL SLOW IVP SCH (11:00)
[2018-11-05] MEDS: Cyanocobalamin (Vitamin B-12) 1,000 MCG TAB PO SCH (11:52)
[2018-11-05] MEDS: Dextrose 5 %-0.45 % NaCl 1,000 ML IV SCH (11:52)
--- NOTE | 2018-11-05 14:09 | PRG ---
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 The patient is awake and alert, follows all commands, the patient has been extubated and in no distress. The patient's urinary output has picked up this morning. OBJECTIVE: VITAL SIGNS: Heart rate 79, blood pressure 132/84, CVP 11, SpO2 97 % on nasal cannula at 2 L, respirations 18, temperature 98.1. GENERAL: The patient is awake and alert, in no distress, elderly appearing gentleman. HEART: Irregular rate and irregular rhythm. No murmurs. LUNGS: Clear bilateral, breathing is regular and nonlabored. ABDOMEN: Nondistended, incision is intact, clean, and dry, abdomen is soft and slightly tender with palpation. Ileostomy is viable and functional with liquid stool. NEUROLOGIC: No focal deficits. EXTREMITIES: 2+ radial and pedal pulses bilateral. LABORATORY DATA: WBC 9.5, RBC 2.23, hemoglobin 7.7, hematocrit 23.6, platelets 444. Sodium 140, potassium 3.9, chloride 106, BUN 9, creatinine 0.84, estimated GFR 88, glucose 161, phosphorus 2.2, calcium 8.1, magnesium 2.2. Cortisol 6.5. BNP 604.1. DIAGNOSTICS: Chest x-ray, heart size is enlarged, stable exam. IMPRESSION: 1. Postop day #2, status post exploratory laparotomy, extensive adhesiolysis, right colectomy with end ileostomy. 2. Acute respiratory failure, improved. 3. Acute blood loss anemia, stable. PLAN: We will continue to monitor the patient's ileostomy and output. Pulmonary/Critical Care, Dr. Woodson is following the patient while he is in the CCU. We will continue physical and occupational therapy and encourage the patient to mobilize and get out of bed to chair. We anticipate the patient needing rehab and we will place a rehab screen. The plan was discussed with the attending who agrees. Job ID: [id number] MTDD
--- NOTE | 2018-11-05 14:18 | PDOC.PN ---
- Subjective Encounter Start Date: 11/05/18 Encounter Start Time: 11:00 Subjective: got extubated yesterday -: awake, responds well to verbal stimuli - Objective Resuscitation Status - Order Detail: 11/01/18 19:39 Resuscitation Status Routine Resuscitation Status: FULL: Full Resuscitation Discussed with: Patient PRINCESS Reviewed: Yes Vital Signs & Weight: Vital Signs (12 hours) Temp Pulse Pulse Pulse Resp BP BP 11/05/18 12:58 82 20 11/05/18 11:00 98.1 F 11/05/18 09:43 96 106 H 136/99 H 144/92 H 11/05/18 08:00 11/05/18 07:47 11/05/18 07:00 97.9 F 11/05/18 04:00 98.2 F Pulse Ox Pulse Ox Pulse Ox 11/05/18 12:58 93 L 11/05/18 11:00 11/05/18 09:43 97 97 11/05/18 08:00 96 11/05/18 07:47 96 11/05/18 07:00 11/05/18 04:00 Weight Weight 218 lb 7.649 oz Most Recent Monitor Data Heart Rate from ECG 92 NIBP 152/82 NIBP BP-Mean 105 Respiration from ECG 17 SpO2 88 I&O: 11/04/18 11/05/18 11/06/18 06:59 06:59 06:59 Intake Total 1300 4341.1 45 Output Total 755 1318 815 Balance 545 3023.1 -770 Result Diagrams: 11/05/18 04:45 11/05/18 04:45 Phys Exam - Physical Examination HEENT: PERRLA, sclera anicteric Neck: no JVD, supple Respiratory: no wheezing, no rales Cardiovascular: no significant murmur, irregular Gastrointestinal: soft ileostomy has bile Musculoskeletal: no edema, pulses present Neurological: non-focal, moves all 4 limbs Psychiatric: A&O x 3 Dx/Plan (1) Ischemic colitis Code(s): K55.9 - VASCULAR DISORDER OF INTESTINE, UNSPECIFIED Status: Acute Comment: s/p colectomy with ileostomy 11/03/2018 (2) Acute metabolic encephalopathy Code(s): G93.41 - METABOLIC ENCEPHALOPATHY Status: Resolved (3) Anemia Code(s): D64.9 - ANEMIA, UNSPECIFIED Status: Acute Qualifiers: Other causes of anemia: acute posthemorrhagic Comment: improved with transfusion, monitor closely (4) Respiratory failure Code(s): J96.90 - RESPIRATORY FAILURE, UNSP, UNSP W HYPOXIA OR HYPERCAPNIA Status: Resolved Qualifiers: Respiratory failure complication: hypoxia Comment: extubated 11/04/18 (5) Atrial fibrillation Code(s): I48.91 - UNSPECIFIED ATRIAL FIBRILLATION Status: Chronic Qualifiers: Atrial fibrillation type: chronic Qualified Code(s): I48.2 - Chronic atrial fibrillation (6) Dyslipidemia Code(s): E78.5 - HYPERLIPIDEMIA, UNSPECIFIED Status: Chronic (7) Hypertension Code(s): I10 - ESSENTIAL (PRIMARY) HYPERTENSION Status: Chronic Qualifiers: Hypertension type: essential hypertension Qualified Code(s): I10 - Essential (primary) hypertension (8) Peripheral neuropathy Code(s): G62.9 - POLYNEUROPATHY, UNSPECIFIED Status: Chronic - Plan got a dose of lasix this am -: h/h in am, transfuse if Hb <7g -: PT to mobilize as tolerated -: afib is rate controlled, continue amiodarone -: cefoxitin, nebs, ice chips for now * . Review of Systems - Medications/Allergies Allergies/Adverse Reactions: Allergies Allergy/AdvReac Type Severity Reaction Status Date / Time amoxicillin Allergy Nausea Verified 10/19/18 14:51 azithromycin [From Zithromax] Allergy Severe Verified 10/19/18 14:51 Hives cephalexin Allergy Nausea Verified 10/19/18 14:51 ciprofloxacin [From Cipro] Allergy Anaphylaxis Verified 10/19/18 14:51 ciprofloxacin HCl Allergy Anaphylaxis Verified 10/19/18 14:51 [From Cipro] clindamycin Allergy Hives Verified 10/19/18 14:51 Iodinated Contrast- Oral and Allergy Short of Verified 10/19/18 14:51 IV Dye Breath [Iodinated Contrast Media - IV Dye] Medications: Current Medications Albuterol/Ipratropium (Duoneb) 3 ml NEB Q4H PRN PRN Reason: Wheezing Albuterol/Ipratropium (Duoneb) 3 ml NEB [id number] SHAUN Last Admin: 11/05/18 12:58 Dose: 3 ml Amiodarone HCl (Cordarone) 100 mg PO BID SHAUN Last Admin: 11/05/18 09:45 Dose: 100 mg Cyanocobalamin (Vitamin B-12) 1,000 mcg PO DAILY [facility] Last Admin: 11/05/18 11:52 Dose: 1,000 mcg Dextrose/Water (Dextrose 50%) 25 gm SLOW IVP PRN PRN PRN Reason: Hypoglycemia Famotidine (Pepcid) 20 mg SLOW IVP Q12HR [facility] Last Admin: 11/05/18 09:45 Dose: 20 mg Glucagon (Glucagon) 1 mg IM PRN PRN PRN Reason: Hypoglycemia Guaifenesin/Dextromethorphan (Robitussin Dm) 15 ml PO Q4H PRN PRN Reason: Cough Dextrose/Water (D5w) 1,000 mls @ 0 mls/hr IV .Q0M PRN PRN Reason: Hypoglycemia Norepinephrine Bitartrate (Levophed) 250 mls @ 0 mls/hr IVPB INF SHAUN; Protocol Cefoxitin Sodium/Dextrose 2 gm (/ Device) 50 mls @ 100 mls/hr IVPB Q8H [facility] Stop: 11/11/18 08:01 Last Admin: 11/05/18 09:52 Dose: 50 mls Dextrose/Sodium Chloride (D5 1/2 Ns) 1,000 mls @ 0 mls/hr IV .Q0M [facility] Last Admin: 11/05/18 11:52 Dose: 1,000 mls Morphine Sulfate (Morphine) 4 mg SLOW IVP Q4H PRN PRN Reason: Headache/Fever or Pain Last Admin: 11/05/18 09:43 Dose: 4 mg Ondansetron HCl (Zofran Odt) 4 mg PO Q6H PRN PRN Reason: Nausea/Vomiting Ondansetron HCl (Zofran) 4 mg IVP Q6H PRN PRN Reason: Nausea/Vomiting Sodium Chloride (Flush - Normal Saline) 10 ml IVF Q12HR [facility] Last Admin: 11/05/18 11:52 Dose: 10 ml Sodium Chloride (Flush - Normal Saline) 10 ml IVF PRN PRN PRN Reason: Saline Flush
[2018-11-06] MEDS: Morphine 4 MG/ML VIAL SLOW IVP PRN ×2 (00:17→04:40)
[2018-11-06] MEDS: cefOXitin Sodium/Dextrose,Iso 2 GM in Premix Bag 1 BAG IVPB SCH ×3 (00:22→16:34)
[2018-11-06] MEDS ORDERED: Furosemide 20 MG/2 ML VIAL SLOW IVP SCH (08:15)
[2018-11-06] MEDS: Famotidine/PF 20 mg/2ml Vial SLOW IVP SCH ×2 (08:51→21:12)
[2018-11-06] MEDS: Amiodarone 200 MG TAB PO SCH ×2 (08:51→21:12)
[2018-11-06] MEDS: Cyanocobalamin (Vitamin B-12) 1,000 MCG TAB PO SCH (08:55)
[2018-11-06] MEDS ORDERED: DULoxetine 30 MG CAP PO SCH (09:00)
--- NOTE | 2018-11-06 09:30 | PRG ---
DATE OF SERVICE: 11/06/2018 SUBJECTIVE: Jose Bahena this morning is awake, alert, and responsive. He was agitated last night. OBJECTIVE: VITAL SIGNS: Sats are 96% on room air, pulse 115, blood pressure 137/108, and respiratory rate 18. His I's and O's were negative after he was given some Lasix. CHEST: Decreased breath sounds. No wheezing. CARDIAC: Normal S1 and S2. No gallops. ABDOMEN: No masses. IMPRESSION: 1. Status post laparoscopic colectomy, gastrointestinal bleed. 2. Encephalopathy. 3. Congestive heart failure, probably diastolic dysfunction. Seems to have improved somewhat. PLAN: Disposition as per General surgery. Pulmonary will follow while in the ICU. Job ID: [id number]
--- NOTE | 2018-11-06 15:37 | PRG ---
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 The patient is awake and alert, but confused. The patient follows simple commands. The patient has no respiratory distress. The patient continues to have good urinary output. The patient continues to tolerate a clear liquid diet. OBJECTIVE: VITAL SIGNS: Temperature 98.9, pulse 115, respirations 19, SpO2 of 96% on room air, blood pressure 154/92. GENERAL: The patient is awake and alert, in no distress, elderly appearing gentleman. HEART: Irregular rate and irregular rhythm. No murmurs. LUNGS: Clear bilateral. Breathing is regular and nonlabored. No wheezing, rales, or rhonchi. ABDOMEN: Soft, slightly tender, nondistended. Incision is clean, dry, and intact. Ostomy is viable and functional with liquid stool. NEUROLOGIC: No focal deficits. EXTREMITIES: 2+ radial and pedal pulses. LABORATORY DATA: There are no labs to evaluate today. DIAGNOSTIC DATA: There are no diagnostics to review today. IMPRESSION: 1. Postop day #3, status post exploratory laparotomy, extensive adhesiolysis, right colectomy with end ileostomy. 2. Acute respiratory failure, improved. 3. Acute blood loss anemia, stable. PLAN: We will continue to monitor the patient's ileostomy and output. We will continue clear liquid diet. Pulmonary/Critical Care, Dr. Woodson will continue to follow the patient while he is in the CCU over the weekend. We will continue physical and occupational therapy and encourage the patient to get up in the chair more during the day. The patient is [facility]. The plan was discussed with the attending trauma surgeon, who agrees. Job ID: [id number]
--- NOTE | 2018-11-06 16:20 | PDOC.PN ---
- Subjective Encounter Start Date: 11/06/18 Encounter Start Time: 16:19 Subjective: Admitted due to recurrent rectal bleeding due to ischemic colitis. -: S/p colectomy with perm ileostomy. -: Still with some confusion. tolerating clear liquid diet - Objective Resuscitation Status - Order Detail: 11/01/18 19:39 Resuscitation Status Routine Resuscitation Status: FULL: Full Resuscitation Discussed with: Patient Vital Signs & Weight: Vital Signs (12 hours) Temp Pulse Pulse Pulse Resp BP BP 11/06/18 16:00 98 F 11/06/18 14:55 135 H 116 H 132/95 H 146/76 H 11/06/18 12:29 111 H 20 11/06/18 12:00 98.2 F 11/06/18 11:00 98.2 F 11/06/18 08:10 11/06/18 08:08 115 H 19 11/06/18 07:17 11/06/18 07:00 98.9 F Pulse Ox Pulse Ox Pulse Ox 11/06/18 16:00 11/06/18 14:55 96 94 L 11/06/18 12:29 98 11/06/18 12:00 11/06/18 11:00 11/06/18 08:10 96 11/06/18 08:08 96 11/06/18 07:17 96 11/06/18 07:00 Weight Weight 218 lb 7.649 oz Most Recent Monitor Data Heart Rate from ECG 117 NIBP 128/81 NIBP BP-Mean 96 Respiration from ECG 16 SpO2 93 I&O: 11/05/18 11/06/18 11/07/18 06:59 06:59 06:59 Intake Total 4341.1 930 485 Output Total 1318 2785 2465 Balance 3023.1 -1855 -1980 Result Diagrams: 11/05/18 04:45 11/05/18 04:45 Phys Exam - Physical Examination HEENT: moist MMs Neck: supple Respiratory: no wheezing, no rhonchi fair air entry bilaterally with some transmitted sound Cardiovascular: irregular irregular rhythm and rate Gastrointestinal: soft, no distention, positive bowel sounds Right lower quadrant ileostomy noted moderate bilateral leg edema Neurological: non-focal, moves all 4 limbs Awake but Confused Dx/Plan (1) Severe protein-calorie malnutrition Code(s): E43 - UNSPECIFIED SEVERE PROTEIN-CALORIE MALNUTRITION Status: Acute (2) Bright red blood per rectum Code(s): K62.5 - HEMORRHAGE OF ANUS AND RECTUM Status: Acute Comment: stable this AM (3) Ischemic colitis Code(s): K55.9 - VASCULAR DISORDER OF INTESTINE, UNSPECIFIED Status: Acute Comment: s/p colectomy with ileostomy 11/03/2018 (4) Atrial fibrillation Code(s): I48.91 - UNSPECIFIED ATRIAL FIBRILLATION Status: Chronic Qualifiers: Atrial fibrillation type: chronic Qualified Code(s): I48.2 - Chronic atrial fibrillation (5) Acute metabolic encephalopathy Code(s): G93.41 - METABOLIC ENCEPHALOPATHY Status: Resolved (6) Hypokalemia Code(s): E87.6 - HYPOKALEMIA Status: Resolved - Plan Start oral dietary supplement -: Ileostomy care and diet as per Gen surgery -: Continue amiodarone and monitor HR -: Continue other supportive care. * .
[2018-11-06] MEDS: risperiDONE 0.25 MG TAB PO SCH (21:12)
[2018-11-07] MEDS: cefOXitin Sodium/Dextrose,Iso 2 GM in Premix Bag 1 BAG IVPB SCH ×4 (00:01→23:04)
[2018-11-07 04:57] LABS: #Eosinphils 0.1 thou/uL (0.0-0.7); #Lymphocytes 1.1 thou/uL (1.20-3.40); #Monocytes 1.1 thou/uL (0.11-0.59); #Neutrophils 11.8 thou/uL (1.40-6.50); %Basophils 0.1 % (0.0-1.0); %Eosinophils 0.4 % (0.0-10.0); %Lymphocytes 7.5 % (21.0-51.0); %Monocytes 7.6 % (0.0-10.0); %Neutrophils 84.4 % (42.0-75.0); Mean Corpuscular HGB CONC 32.2 g/dL (32.0-36.0); Mean Corpuscular Hemoglobin 33.7 pg (27.0-31.0); Mean Platelet Volume 6.5 fL (7.4-10.4); Platelet Count 429 thou/uL (130-400); RBC Distribution Width 18.5 % (11.5-14.5); Red Blood Cell (RBC) Count 2.36 mill/uL (4.70-6.10)
[2018-11-07 05:16] LABS: ALT (SGPT) Less than 7 U/L (8-55); AST (SGOT) 8 U/L (5-34); Albumin 2.6 g/dL (3.4-4.8); Alkaline Phosphatase 78 U/L (40-150); Anion Gap 8 mmol/L (10-20); BUN (Urea Nitrogen) 5 mg/dL (8.4-25.7); Bilirubin, Total 0.8 mg/dL (0.2-1.2); Calc. Creatinine Clearance 109 mL/min (70-130); Calcium 8.1 mg/dL (7.8-10.44); Carbon Dioxide 31 mmol/L (23-31); Chloride 103 mmol/L (98-107); Estimated GFR-MDRD Greater than 90; Globulin 2.2 g/dL (2.4-3.5); Glucose 97 mg/dL (83-110); Magnesium 1.7 mg/dL (1.6-2.6); Potassium 3.3 mmol/L (3.5-5.1); Protein, Total 4.8 g/dL (5.8-8.1); Sodium 139 mmol/L (136-145)
--- NOTE | 2018-11-07 09:01 | PRG ---
DATE OF SERVICE: 11/07/2018 SUBJECTIVE: This morning, he is awake, responsive. He apparently was less agitated last night, slept this morning, he vomited about 800 mL of bilious fluid. OBJECTIVE: VITAL SIGNS: Pulse 114, sats 96%, respiratory rate 2, blood pressure 137/65. CHEST: Decreased breath sounds. No wheezing. CARDIAC: Normal S1 and S2. No gallop. ABDOMEN: No masses. LABORATORY DATA: White count 14,000, H and H 8 and 24, platelet count 429. Lytes are normal. IMPRESSION: Status post laparotomy, recurrent gastrointestinal bleed, colitis, respiratory failure, atrial fibrillation, obesity, congestive heart failure by x-ray, and BNP. PLAN: Continue NG drainage. Continue supportive care. IV fluids. Await input from Surgery. Job ID: [id number]
[2018-11-07] MEDS: Cyanocobalamin (Vitamin B-12) 1,000 MCG TAB PO SCH (09:51)
[2018-11-07] MEDS: Amiodarone 200 MG TAB PO SCH ×2 (09:51→19:26)
[2018-11-07] MEDS: Famotidine/PF 20 mg/2ml Vial SLOW IVP SCH ×2 (09:51→19:28)
--- NOTE | 2018-11-07 10:38 | PRG ---
DATE OF SERVICE: 11/07/2018 SUBJECTIVE: Mr. Bahena vomited earlier. He has an NG tube replaced, put out 750 on placement. He is resting comfortably now. He remained confused throughout the night and yesterday. OBJECTIVE: VITAL SIGNS: Pulse is 115, blood pressure is 146/77, respirations are 20. His O2 saturations are 95%. Urine output for the day was 4795. POLO with minimal output. ABDOMEN: His abdomen is distended with no bowel sounds. He does have a small amount of air and stool at his ileostomy bag. LABORATORY DATA: White blood cell count is 14, hemoglobin is 8, and platelet count is 429. Sodium 139, potassium 3.3, and creatinine 0.78. ASSESSMENT: Postop ileus expected given his ischemic event and chronic deconditioned state. PLAN: Continue NG tube for now. I suspect we will need to start TPN in the next 24 to 48 hours. Job ID: [id number]
[2018-11-07] MEDS: Dextrose 5 %-0.45 % NaCl 1,000 ML IV SCH ×2 (11:10→16:01)
[2018-11-07 12:14] LABS: Phosphorus 1.3 mg/dL (2.3-4.7)
[2018-11-07] MEDS ORDERED: Potassium Phosphate 15 MMOL in Sodium Chloride 0.9% 250 ML 250 ML IVPB SCH (12:15)
--- NOTE | 2018-11-07 13:23 | PDOC.PN ---
- Subjective Encounter Start Date: 11/07/18 Encounter Start Time: 13:21 Subjective: Had some vomiting earlier and subsequently had NG tube placement. -: Now NPO. Having hiccups - Objective Resuscitation Status - Order Detail: 11/01/18 19:39 Resuscitation Status Routine Resuscitation Status: FULL: Full Resuscitation Discussed with: Patient Vital Signs & Weight: Vital Signs (12 hours) Temp Pulse Resp Pulse Ox 11/07/18 11:00 98.9 F 11/07/18 07:08 98 11/07/18 07:00 98.7 F 11/07/18 06:51 98 11/07/18 06:50 95 26 H 96 11/07/18 04:00 98.4 F Weight Weight 212 lb 4.882 oz Most Recent Monitor Data Heart Rate from ECG 120 NIBP 127/67 NIBP BP-Mean 87 Respiration from ECG 24 SpO2 91 I&O: 11/06/18 11/07/18 11/08/18 06:59 06:59 06:59 Intake Total 930 1342 50 Output Total 8813 5073 1896 Balance -1855 -3728 -1845 Result Diagrams: 11/07/18 04:32 11/07/18 04:32 Phys Exam - Physical Examination sleeping but arousable HEENT: moist MMs Neck: no JVD fair air entry bilaterally irregular rhythm and rate Gastrointestinal: soft, no distention, positive bowel sounds Right lower quadrant ileostomy noted Musculoskeletal: no edema, pulses present sleeping but arousable. Dx/Plan (1) Ischemic colitis Code(s): K55.9 - VASCULAR DISORDER OF INTESTINE, UNSPECIFIED Status: Acute Comment: s/p colectomy with ileostomy 11/03/2018 (2) Severe protein-calorie malnutrition Code(s): E43 - UNSPECIFIED SEVERE PROTEIN-CALORIE MALNUTRITION Status: Acute (3) Bright red blood per rectum Code(s): K62.5 - HEMORRHAGE OF ANUS AND RECTUM Status: Acute Comment: stable this AM (4) Atrial fibrillation Code(s): I48.91 - UNSPECIFIED ATRIAL FIBRILLATION Status: Chronic Qualifiers: Atrial fibrillation type: chronic Qualified Code(s): I48.2 - Chronic atrial fibrillation (5) Acute metabolic encephalopathy Code(s): G93.41 - METABOLIC ENCEPHALOPATHY Status: Resolved (6) Hypokalemia Code(s): E87.6 - HYPOKALEMIA Status: Resolved (7) Ileus, postoperative Code(s): K91.89 - OTH POSTPROCEDURAL COMPLICATIONS AND DISORDERS OF DGSTV SYS; K56.7 - ILEUS, UNSPECIFIED Status: Acute (8) Hypophosphatemia Code(s): E83.39 - OTHER DISORDERS OF PHOSPHORUS METABOLISM Status: Acute - Plan Replete potassium and phosphate especially in view of atrial fib. -: NPO. -: Continue NG drainage. -: Continue other supportive care. -: Get renal function test, mag and CBC in the am. * .
[2018-11-07] MEDS ORDERED: Potassium Chloride 40 MEQ in Premix Bag 1 BAG IVPB SCH (13:30)
[2018-11-07] MEDS ORDERED: PHOS-NAK 1 PKT PACK PO SCH (15:00)
[2018-11-07] MEDS: Morphine 4 MG/ML VIAL SLOW IVP PRN ×3 (15:07→23:32)
[2018-11-07] MEDS: risperiDONE 0.25 MG TAB PO SCH (19:27)
[2018-11-08 04:58] LABS: #Eosinphils 0.3 thou/uL (0.0-0.7); #Lymphocytes 1.2 thou/uL (1.20-3.40); #Monocytes 1.1 thou/uL (0.11-0.59); #Neutrophils 11.1 thou/uL (1.40-6.50); %Basophils 0.1 % (0.0-1.0); %Eosinophils 2.5 % (0.0-10.0); %Lymphocytes 8.4 % (21.0-51.0); Hemoglobin 7.7 g/dL (14.0-18.0); Mean Corpuscular HGB CONC 32.1 g/dL (32.0-36.0); Mean Corpuscular Hemoglobin 33.9 pg (27.0-31.0); Mean Platelet Volume 6.6 fL (7.4-10.4); Platelet Count 365 thou/uL (130-400); Red Blood Cell (RBC) Count 2.28 mill/uL (4.70-6.10); White Blood Cell (WBC) Count 13.8 thou/uL (4.8-10.8)
[2018-11-08 05:24] LABS: Albumin 2.2 g/dL (3.4-4.8); Anion Gap 8 mmol/L (10-20); BUN (Urea Nitrogen) 5 mg/dL (8.4-25.7); BUN/Creatinine Ratio 6.85; Calc. Creatinine Clearance 114 mL/min (70-130); Calcium 7.8 mg/dL (7.8-10.44); Carbon Dioxide 29 mmol/L (23-31); Chloride 105 mmol/L (98-107); Estimated GFR-MDRD Greater than 90; Glucose 90 mg/dL (83-110); Magnesium 1.8 mg/dL (1.6-2.6); Phosphorus 2.2 mg/dL (2.3-4.7); Sodium 138 mmol/L (136-145)
[2018-11-08] MEDS: Famotidine/PF 20 mg/2ml Vial SLOW IVP SCH ×2 (08:38→20:13)
[2018-11-08] MEDS: Amiodarone 200 MG TAB PO SCH ×2 (08:38→20:13)
[2018-11-08] MEDS: Cyanocobalamin (Vitamin B-12) 1,000 MCG TAB PO SCH (08:39)
--- NOTE | 2018-11-08 08:39 | PRG ---
DATE OF SERVICE: 11/08/2018 SUBJECTIVE: Jose Bahena is a 78-year-old gentleman, this morning, he is still encephalopathic, but in no distress. OBJECTIVE: VITAL SIGNS: Sats are 98% on 2, pulse 138, atrial fibrillation, respiratory rate 20, blood pressure 128/98. CHEST: Decreased breath sounds and wheezing. CARDIAC: Normal S1, S2. No gallops. ABDOMEN: No masses. LABORATORY DATA: White count 13,000, H and H 7 and 24, platelet count 365. IMPRESSION: 1. Status post nausea and vomiting yesterday. 2. aspiration. 3. Status post colectomy. 4. Atrial fibrillation. 5. Severe deconditioning. PLAN: He has been on cefoxitin, pain medicines. Neb treatments. PT. nutrition. Rate control with his amiodarone. I will follow while in the ICU. One-half hour of critical time. Job ID: [id number]
[2018-11-08] MEDS: cefOXitin Sodium/Dextrose,Iso 2 GM in Premix Bag 1 BAG IVPB SCH ×2 (08:44→16:26)
[2018-11-08] MEDS: Dextrose 5 %-0.45 % NaCl 1,000 ML IV SCH (08:44)
--- NOTE | 2018-11-08 09:52 | PDOC.PN ---
- Subjective Encounter Start Date: 11/08/18 Encounter Start Time: 09:50 Subjective: confused, NG to suction - Objective Resuscitation Status - Order Detail: 11/01/18 19:39 Resuscitation Status Routine Resuscitation Status: FULL: Full Resuscitation Discussed with: Patient PRINCESS Reviewed: Yes Vital Signs & Weight: Vital Signs (12 hours) Temp Pulse Resp Pulse Ox 11/08/18 07:18 98 11/08/18 07:15 138 H 20 98 11/08/18 07:01 96 11/08/18 06:58 98.9 F 11/08/18 04:00 98.6 F 11/08/18 00:00 99.5 F 11/07/18 23:43 99 16 99 Weight Weight 207 lb 3.752 oz Most Recent Monitor Data Heart Rate from ECG 110 NIBP 123/84 NIBP BP-Mean 97 Respiration from ECG 15 SpO2 94 I&O: 11/07/18 11/08/18 11/09/18 06:59 06:59 06:59 Intake Total 1342 1524 Output Total 5070 3445 80 [facility] -3728 -1921 -80 Result Diagrams: 11/08/18 04:07 11/08/18 04:07 Radiology Reviewed by me: Yes (acute abd- small left pleural eff, no air fluid levels) Phys Exam - Physical Examination Neck: no JVD Respiratory: clear to auscultation bilateral Cardiovascular: RRR, no significant murmur Gastrointestinal: soft, positive bowel sounds Musculoskeletal: edema present Dx/Plan (1) Hypophosphatemia Code(s): E83.39 - OTHER DISORDERS OF PHOSPHORUS METABOLISM Status: Acute (2) Ileus, postoperative Code(s): K91.89 - OTH POSTPROCEDURAL COMPLICATIONS AND DISORDERS OF DGSTV SYS; K56.7 - ILEUS, UNSPECIFIED Status: Acute (3) UTI (urinary tract infection) Status: Acute Qualifiers: Urinary tract infection type: acute cystitis Comment: recent catheterization, on Rocephin since 11/02/18, growing Proteus and other Gram neg nazia (4) Abdominal pain Code(s): R10.9 - UNSPECIFIED ABDOMINAL PAIN Status: Acute Qualifiers: Abdominal location: generalized Qualified Code(s): R10.84 - Generalized abdominal pain (5) Anemia Code(s): D64.9 - ANEMIA, UNSPECIFIED Status: Acute Qualifiers: Other causes of anemia: acute posthemorrhagic Comment: improved with transfusion, monitor closely (6) Bright red blood per rectum Code(s): K62.5 - HEMORRHAGE OF ANUS AND RECTUM Status: Acute Comment: stable this AM (7) Colitis Code(s): K52.9 - NONINFECTIVE GASTROENTERITIS AND COLITIS, UNSPECIFIED Status : Acute Comment: stercoral colitis due to previous impaction (8) Demand ischemia of myocardium Code(s): I24.8 - OTHER FORMS OF ACUTE ISCHEMIC HEART DISEASE Status: Acute (9) Hyponatremia Code(s): E87.1 - HYPO-OSMOLALITY AND HYPONATREMIA Status: Acute (10) Ischemic colitis Code(s): K55.9 - VASCULAR DISORDER OF INTESTINE, UNSPECIFIED Status: Acute Comment: s/p colectomy with ileostomy 11/03/2018 (11) Lactic acidosis Code(s): E87.2 - ACIDOSIS Status: Acute (12) Dyslipidemia Code(s): E78.5 - HYPERLIPIDEMIA, UNSPECIFIED Status: Chronic (13) Hypertension Code(s): I10 - ESSENTIAL (PRIMARY) HYPERTENSION Status: Chronic Qualifiers: Hypertension type: essential hypertension Qualified Code(s): I10 - Essential (primary) hypertension (14) Acute metabolic encephalopathy Code(s): G93.41 - METABOLIC ENCEPHALOPATHY Status: Resolved - Plan slow recovery from ischemic colitis/colectomy -: on iv amiodarone -: cont iv antibx, etc -: discuss TPN with Surgery * .
--- NOTE | 2018-11-08 10:17 | RAD ---
CHEST 1 VIEW ABDOMEN 2 VIEWS: HISTORY: Vomiting, followup respiratory failure. COMPARISON: 11/05/2018. FINDINGS: Stable cardiomegaly and vascular congestion with left pleural effusion changes and old granulomatous disease. Stable NG Tube and left-sided central line. A catheter overlies the left lower abdomen and pelvis. No evidence for large or small bowel obstruction. No overt intraperitoneal air. IMPRESSION: Recent postsurgical changes. No overt free intraperitoneal air or evidence for bowel obstruction. S table-appearing chest. POS: C
--- NOTE | 2018-11-08 12:49 | PRG ---
DATE OF SERVICE: 11/08/2018 SUBJECTIVE: Jose Bahena is in ICU. He is status post right colectomy and ileostomy. He suffered projectile vomiting a few days ago. NG tube had to be replaced delivering 1 L. He has had decreased ileostomy output. He had a prolonged laparotomy and adhesiolysis due to extensive adhesions and expect he has an ileus. The patient is awake, sitting up in bed. Abdominal x-rays confirm NG tube placement. OBJECTIVE: VITAL SIGNS: Heart rate 86, blood pressure 114/73. Gastric drainage 1175 for 24 hours. POLO drain serous 20 mL per 24 hours. Urine output 1610 for 24 hours. LUNGS: Clear to auscultation. CARDIAC: Regular rate and rhythm without murmur or gallop ABDOMEN: Soft, quiet. POLO serous. Ileostomy healthy. ASSESSMENT/PLAN: Doing well. Continue care. Continue NG tube for ileus. Continue IV fluid support. Remove his POLO drain. He has stable anemia. White count is 13. Renal function is good. We would plan to replace his phosphorus. His level is 2.2. Continue care. Job ID: [id number]
--- NOTE | 2018-11-08 15:44 | CON ---
DATE OF CONSULTATION: 11/08/2018 REASON FOR CONSULTATION: Rate control. HISTORY OF PRESENT ILLNESS: Mr. Bahena is an unfortunate 78-year-old gentleman, who is a patient of Dr. Jerica Iniguez. He has had recent right colectomy and ileostomy and recently admitted for projectile vomiting. His heart rate has increased. He currently has an NG tube. His heart rate has been in the 115 to 130 range. There was concern for malabsorption of medication. Mr. Bahena has no current symptoms suggesting heart fluttering, palpitations, shortness of breath, or chest pain. PAST MEDICAL HISTORY: Includes chronic atrial fibrillation; hypertension; atrial fibrillation, which likely is paroxysmal; sinusitis; diverticulitis; knee surgery; and Wfciwoo-Kxcpp-Apgxo syndrome. ALLERGIES: AMPICILLIN, AZITHROMYCIN, KEFLEX, CIPRO, CLINDAMYCIN, AND IODINE. SOCIAL HISTORY: He is currently . No current tobacco or alcohol use. REVIEW OF SYSTEMS: Ten-point review of systems is reviewed and as above, otherwise negative. PHYSICAL EXAMINATION: GENERAL: Patient is a pleasant gentleman, who is in no acute distress. The patient appears their stated age. VITAL SIGNS: Blood pressure 125/80, pulse 130s, and respirations 20. NEUROLOGIC: The patient is alert and oriented x3 with no focal neurologic deficits. HEENT: Sclerae without icterus. Mouth has moist mucous membranes with normal pallor. NECK: No JVD. Carotid upstroke brisk. No bruits bilaterally. LUNGS: Clear to auscultation with unlabored respirations. BACK: No scoliosis or kyphosis. CARDIAC: Irregularly irregular. ABDOMEN: Decreased bowel sounds. EXTREMITIES: 2+ femoral and 2+ dorsalis pedis pulses. No cyanosis, clubbing, or edema. SKIN: No gross abnormalities. PERTINENT LABORATORY DATA: White blood cell count 13.8, hemoglobin 7.7. Creatinine 0.73. BNP of 604. IMPRESSION: 1. Recent ileostomy and colectomy. 2. Projectile vomiting. 3. Atrial fibrillation with rapid ventricular response. RECOMMENDATIONS: At this point, we recommend IV Cardizem for better rate control. There was concern for absorption of current pills. I am not sure the amiodarone is holding him at this point given continued atrial fibrillation. We will discuss with Dr. Iniguez on chronic versus paroxysmal. It felt to be chronic. There is little benefit to continue amiodarone therapy. May consider rate control once he is absorbing. He has not been on anticoagulation therapy in the past. His hemoglobin is 7.7 and is unlikely an appropriate candidate. May be a candidate long-term for Watchman device. Job ID: [id number]
[2018-11-08] MEDS: risperiDONE 0.25 MG TAB PO SCH (20:14)
[2018-11-08] MEDS: Diltiazem 125 MG in Sodium Chloride 0.9% 100 ML IVPB SCH (21:37)
[2018-11-08] MEDS: Sodium Chloride 0.45% 1,000 ML IV SCH (22:59)
[2018-11-08] MEDS: metroNIDAZOLE 500 MG in Premix Bag 1 BAG IVPB SCH (22:59)
[2018-11-08] MEDS: Famotidine 20 MG TAB PO SCH (23:07)
[2018-11-08] MEDS: Tamsulosin HCl 0.4 MG CAP PO SCH (23:07)
[2018-11-09] MEDS: cefOXitin Sodium/Dextrose,Iso 2 GM in Premix Bag 1 BAG IVPB SCH ×2 (01:03→08:03)
[2018-11-09] MEDS: Dextrose 5 %-0.45 % NaCl 1,000 ML IV SCH ×2 (06:29→17:07)
[2018-11-09] MEDS: Famotidine/PF 20 mg/2ml Vial SLOW IVP SCH ×2 (08:33→21:11)
[2018-11-09] MEDS: Cyanocobalamin (Vitamin B-12) 1,000 MCG TAB PO SCH (08:33)
[2018-11-09] MEDS: Amiodarone 200 MG TAB PO SCH ×2 (08:36→21:11)
--- NOTE | 2018-11-09 09:05 | PRG ---
DATE OF SERVICE: 11/09/2018 SUBJECTIVE: Jose Bahena is a 78-year-old gentleman, remains in the ICU. OBJECTIVE: VITAL SIGNS: Pulse is 120, saturations are 98%, respirations 27, and afebrile. CHEST: Decreased breath sounds. No wheezing. CARDIAC: Normal S1 and S2. No gallops. ABDOMEN: No masses. ASSESSMENT: 1. Status post laparotomy, ischemic bowel. 2. Encephalopathy. 3. Supraventricular tachycardia. PLAN: He needs nutrition. I discussed with Surgery whether he needs TPN. His antibiotics need to be discontinued. Need aggressive PT, supportive care. Cardiology has started Cardizem drip. We will follow while in the ICU. Job ID: [id number]
--- NOTE | 2018-11-09 10:00 | PDOC.CTH ---
Cardiology Progress Note - Subjective Pt. seen and eval. by me. He is awake. c/o's of abd. pain. - Objective Vital Signs Temp Pulse Resp Pulse Ox 11/09/18 07:42 100 19 98 11/09/18 07:35 98.3 F 11/09/18 05:00 98.8 F 11/09/18 00:08 132 H 24 H 97 11/09/18 00:00 97.8 F Admit Weight 235 lb Weight 196 lb 6.91 oz 11/08/18 11/09/18 11/10/18 06:59 06:59 06:59 Intake Total 1524 1374.2 Output Total 3445 1900 140 Balance -1921 -525.8 -140 - Physical Examination General/Neuro: alert & oriented x3 Neck: no JVD present Lungs: CTA Heart: other: (irreg/irreg.) Abdomen: other: (dedcreased BS. Passing gas via colostomy.) - Labs Result Diagrams: 11/08/18 04:07 11/08/18 04:07 Troponin/CKMB CK-MB (CK-2) 1.4 ng/mL (0-6.6) 11/01/18 18:31 Troponin I 0.089 ng/mL (< 0.028) H 11/03/18 15:31 - Assessment/Plan 1. s/p r colectomy/ileostomy. Ileus. Some gas today via ileostomy. 2. Atrial fib. with RVR. Add IV digoxin. 3. HTN: stable. 4. 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
[2018-11-09] MEDS ORDERED: Furosemide 20 MG/2 ML VIAL SLOW IVP SCH (10:45)
[2018-11-09] MEDS ORDERED: Digoxin 0.5 MG/2 ML AMP SLOW IVP SCH (11:00)
--- NOTE | 2018-11-09 11:17 | RAD ---
FRONTAL RADIOGRAPH CHEST: Date: 11/09/18 COMPARISON: 11/05/18. HISTORY: Congestive heart failure. FINDINGS: There is a left-sided vascular catheter which appears to be inserted via a subclavian approach, dista l tip overlying the region of the SVC, directed slightly cephalad. Nasogastric tube extends into the left upper quadrant. There is pulmonary vascular congestion and diffuse perihilar interstitial promin ence. There is dense pleural and parenchymal opacity in the left base, suggesting left lower lobe con solidation/collapse, and/or left pleural fluid. There is small volume free intraperitoneal air beneath the right hemidiaphragm consistent with recent abdominal surgery and extraluminal gas noted on prior CT performed 11/03/18. IMPRESSION: Pulmonary vascular congestion with interstitial prominence suggests edema. Dense opacity in the left base may be related to volume loss, edema, or infectious pneumonitis. POS: [facility]
--- NOTE | 2018-11-09 11:25 | PDOC.PN ---
- Subjective Encounter Start Date: 11/09/18 Encounter Start Time: 11:23 Subjective: confused - Objective Resuscitation Status - Order Detail: 11/01/18 19:39 Resuscitation Status Routine Resuscitation Status: FULL: Full Resuscitation Discussed with: Patient MAR Reviewed: Yes Vital Signs & Weight: Vital Signs (12 hours) Temp Pulse Resp Pulse Ox 11/09/18 08:00 97 11/09/18 07:42 100 19 98 11/09/18 07:35 98.3 F 11/09/18 05:00 98.8 F 11/09/18 00:08 132 H 24 H 97 11/09/18 00:00 97.8 F Weight Admit Weight 235 lb Weight 196 lb 6.91 oz Most Recent Monitor Data Heart Rate from ECG 117 NIBP 106/90 NIBP BP-Mean 95 Respiration from ECG 22 SpO2 94 I&O: 11/08/18 11/09/18 11/10/18 06:59 06:59 06:59 Intake Total 1524 1374.2 100 Output Total 3445 1900 280 Balance -1921 -525.8 -180 Result Diagrams: 11/08/18 04:07 11/08/18 04:07 Radiology Reviewed by me: Yes (cxr- PVC, caardiomegaly) Phys Exam - Physical Examination Neck: no JVD coarse BS, rhonchi Cardiovascular: irregular tachy Gastrointestinal: soft, positive bowel sounds Musculoskeletal: edema present Dx/Plan (1) Hypophosphatemia Code(s): E83.39 - OTHER DISORDERS OF PHOSPHORUS METABOLISM Status: Acute (2) Ileus, postoperative Code(s): K91.89 - OTH POSTPROCEDURAL COMPLICATIONS AND DISORDERS OF DGSTV SYS; K56.7 - ILEUS, UNSPECIFIED Status: Acute (3) UTI (urinary tract infection) Status: Acute Qualifiers: Urinary tract infection type: acute cystitis Comment: recent catheterization, on Rocephin since 11/02/18, growing Proteus and other Gram neg nazia (4) Abdominal pain Code(s): R10.9 - UNSPECIFIED ABDOMINAL PAIN Status: Acute Qualifiers: Abdominal location: generalized Qualified Code(s): R10.84 - Generalized abdominal pain (5) Anemia Code(s): D64.9 - ANEMIA, UNSPECIFIED Status: Acute Qualifiers: Other causes of anemia: acute posthemorrhagic Comment: improved with transfusion, monitor closely (6) Bright red blood per rectum Code(s): K62.5 - HEMORRHAGE OF ANUS AND RECTUM Status: Acute Comment: stable this AM (7) Colitis Code(s): K52.9 - NONINFECTIVE GASTROENTERITIS AND COLITIS, UNSPECIFIED Status : Acute Comment: stercoral colitis due to previous impaction (8) Demand ischemia of myocardium Code(s): I24.8 - OTHER FORMS OF ACUTE ISCHEMIC HEART DISEASE Status: Acute (9) Hyponatremia Code(s): E87.1 - HYPO-OSMOLALITY AND HYPONATREMIA Status: Acute (10) Ischemic colitis Code(s): K55.9 - VASCULAR DISORDER OF INTESTINE, UNSPECIFIED Status: Acute Comment: s/p colectomy with ileostomy 11/03/2018 (11) Lactic acidosis Code(s): E87.2 - ACIDOSIS Status: Acute (12) Dyslipidemia Code(s): E78.5 - HYPERLIPIDEMIA, UNSPECIFIED Status: Chronic (13) Hypertension Code(s): I10 - ESSENTIAL (PRIMARY) HYPERTENSION Status: Chronic Qualifiers: Hypertension type: essential hypertension Qualified Code(s): I10 - Essential (primary) hypertension (14) Acute metabolic encephalopathy Code(s): G93.41 - METABOLIC ENCEPHALOPATHY Status: Resolved (15) Atrial fibrillation with rapid ventricular response Code(s): I48.91 - UNSPECIFIED ATRIAL FIBRILLATION Status: Acute - Plan iv cardizem for AF with RVR -: on NGT to suction -: iv morphine for pain -: discuss with [employer] res[employer]/surgeon * .
[2018-11-09] MEDS ORDERED: Gabapentin 100 MG CAP PO SCH (11:30)
[2018-11-09] MEDS ORDERED: Gabapentin 300 MG CAP PO SCH (11:45)
--- NOTE | 2018-11-09 16:24 | PRG ---
DATE OF SERVICE: 11/09/2018 SUBJECTIVE: Jose Bahena is doing fairly well today. He has an NG tube in place. He had a 1100 output when initially over the past 24 hours prior to this; last 24 hours 400. He has had a small amount of flatus and small amount of stool in his ileostomy. OBJECTIVE: LUNGS: Clear to auscultation. CARDIAC: Regular rate and rhythm. No murmur or gallop. ABDOMEN: Soft. Diminished bowel sounds. Ileostomy healthy. VITAL SIGNS: Heart rate 91, blood pressure 111/60. His urine output is good. LABORATORY DATA: Hemoglobin is stable at 7.7, white count 13.8. Basic metabolic profile normal. ASSESSMENT PLAN: Ileus. PLAN: Continuous NG tube to suction. We would initiate TPN until he resumes bowel function. He had a long adhesiolysis and ileus is expected. POLO was removed yesterday. Job ID: [id number]
[2018-11-09] MEDS: Digoxin 0.5 MG/2 ML AMP SLOW IVP SCH (17:38)
--- NOTE | 2018-11-09 18:23 | EKG ---
Test Reason : Blood Pressure : / mmHG Vent. Rate : 095 BPM Atrial Rate : 096 BPM P-R Int : 000 ms QRS Dur : 148 ms QT Int : 424 ms P-R-T Axes : 000 -25 -18 degrees QTc Int : 532 ms Atrial fibrillation with premature ventricular or aberrantly conducted complexes Right bundle branch block Abnormal ECG When compared with ECG of 01-NOV-2018 19:21, (Unconfirmed) Previous ECG has undetermined rhythm, needs review Confirmed by JUAN M MIRANDA (2) on 11/09/2018 6:23:03 PM Referred By: RO Confirmed By:JUAN M MIRANDA
[2018-11-09] MEDS: Diltiazem 125 MG in Sodium Chloride 0.9% 100 ML IVPB SCH (19:54)
[2018-11-09] MEDS: Gabapentin 300 MG CAP PO SCH (21:11)
[2018-11-09] MEDS ORDERED: SODIUM ACETATE IV SCH (22:00)
[2018-11-09] MEDS ORDERED: FAT EMULSION IV SCH (22:00)
[2018-11-09] MEDS ORDERED: [UNRECOGNIZED DRUG - OTHER] IV SCH (22:00)
[2018-11-09] MEDS ORDERED: SODIUM CHLORIDE IV SCH (22:00)
[2018-11-09] MEDS: SODIUM CHLORIDE IV SCH (22:08)
[2018-11-09] MEDS: SODIUM ACETATE IV SCH (22:08)
[2018-11-09] MEDS: FAT EMULSION IV SCH (22:08)
[2018-11-09] MEDS: [UNRECOGNIZED DRUG - OTHER] IV SCH (22:08)
[2018-11-10] MEDS: Digoxin 0.5 MG/2 ML AMP SLOW IVP SCH ×2 (00:54→08:37)
[2018-11-10] MEDS: Morphine 4 MG/ML VIAL SLOW IVP PRN ×2 (02:21→08:32)
[2018-11-10 05:12] LABS: #Basophils 0.1 thou/uL (0.0-0.2); #Eosinphils 0.7 thou/uL (0.0-0.7); #Lymphocytes 1.3 thou/uL (1.20-3.40); #Monocytes 1.3 thou/uL (0.11-0.59); %Basophils 0.4 % (0.0-1.0); %Eosinophils 4.2 % (0.0-10.0); %Monocytes 7.9 % (0.0-10.0); %Neutrophils 79.5 % (42.0-75.0); Hemoglobin 8.5 g/dL (14.0-18.0); Mean Corpuscular Hemoglobin 33.4 pg (27.0-31.0); Mean Platelet Volume 6.6 fL (7.4-10.4); Platelet Count 371 thou/uL (130-400); RBC Distribution Width 17.7 % (11.5-14.5); Red Blood Cell (RBC) Count 2.55 mill/uL (4.70-6.10); White Blood Cell (WBC) Count 16.4 thou/uL (4.8-10.8)
[2018-11-10 05:29] LABS: Phosphorus 2.7 mg/dL (2.3-4.7)
[2018-11-10 05:30] LABS: Anion Gap 9 mmol/L (10-20); BUN (Urea Nitrogen) 7 mg/dL (8.4-25.7); Calc. Creatinine Clearance 102 mL/min (70-130); Calcium 7.9 mg/dL (7.8-10.44); Carbon Dioxide 27 mmol/L (23-31); Chloride 102 mmol/L (98-107); Estimated GFR-MDRD Greater than 90; Glucose 127 mg/dL (83-110); Magnesium 1.7 mg/dL (1.6-2.6); Potassium 4.1 mmol/L (3.5-5.1); Sodium 134 mmol/L (136-145)
[2018-11-10] MEDS: Famotidine/PF 20 mg/2ml Vial SLOW IVP SCH ×2 (08:37→20:38)
[2018-11-10] MEDS: Gabapentin 300 MG CAP PO SCH ×2 (08:38→20:38)
[2018-11-10] MEDS: Amiodarone 200 MG TAB PO SCH ×2 (08:38→20:39)
--- NOTE | 2018-11-10 08:55 | PRG ---
DATE OF SERVICE: 11/10/2018 SUBJECTIVE: This morning, he appears to be much stronger and is still weak though. OBJECTIVE: VITAL SIGNS: Saturations are 99%, respiratory rate 23, pulse 67, blood pressure 117/43. His I's and O's are negative. CHEST: Decreased breath sounds. No wheezing. CARDIAC: Atrial fibrillation. ABDOMEN: Soft. LABORATORY STUDIES: Lytes are normal. Bicarb is 27, glucose 147. White count 16,000, H and H is 8 and 26. IMPRESSION: Congestive heart failure. Status post lap. Severe deconditioning. Supraventricular tachycardia. Underlying and baseline, maybe chronic obstructive pulmonary disease. PLAN: Continue TPN. Continue PT. If his encephalopathy improves, he can probably be transferred to the Surgical floor. We will follow. Job ID: [id number]
[2018-11-10] MEDS ORDERED: Gabapentin 100 MG CAP PO SCH (09:00)
[2018-11-10] MEDS: Cyanocobalamin (Vitamin B-12) 1,000 MCG TAB PO SCH (09:31)
[2018-11-10 12:38] LABS: Actual Bicarbonate (HCO3v) 23 mEq/L (22-28); Analyzer IN Cardio OR; Base Excess -2.8 mEq/L (-2.0 to +3.0); Calcium, Ionized 1.17 mmol/L (1.16-1.32); Chloride (ABG LAB) 107 mmol/L (98-106); Hemoglobin (Hb) 8.7 g/dL (12.6-17.4); Sodium 138.1 mmol/L (133-146); pH (venous) 7.32 (7.32-7.43)
[2018-11-10 12:39] LABS: Actual Bicarbonate (HCO3a) 21.4 mEq/L (22-28); Analyzer IN Cardio OR; Base Excess (BEa) -4.4 mEq/L (-2.0 to +3.0); CO2 Tension 42.4 mmHg (35.0-45.0); Calcium, Ionized 1.15 mmol/L (1.12-1.30); Carboxyhemoglobin (COHb) 0.3 gm% (0.0-3.0); Hemoglobin (Hb) 9.2 g/dL (14.0-18.0); O2 Tension (PaO2) 222.1 mmHg (> 70.0); pH, Arterial 7.32 (7.35-7.45)
[2018-11-10 12:40] LABS: Actual Bicarbonate (HCO3a) 19.5 mEq/L (22-28); Analyzer IN Cardio OR; Base Excess (BEa) -5.1 mEq/L (-2.0 to +3.0); CO2 Tension 34.3 mmHg (35.0-45.0); Calcium, Ionized 1.11 mmol/L (1.12-1.30); Carboxyhemoglobin (COHb) 0.6 gm% (0.0-3.0); Hemoglobin (Hb) 9.3 g/dL (14.0-18.0); O2 Tension (PaO2) 213.7 mmHg (> 70.0); Potassium - ABG Lab 4.16 mmol/L (3.70-5.30); pH, Arterial 7.37 (7.35-7.45)
[2018-11-10 12:41] LABS: Actual Bicarbonate (HCO3a) 18.9 mEq/L (22-28); Analyzer IN Cardio OR; Base Excess (BEa) -5.4 mEq/L (-2.0 to +3.0); CO2 Tension 32.6 mmHg (35.0-45.0); Calcium, Ionized 1.11 mmol/L (1.12-1.30); Carboxyhemoglobin (COHb) 0.9 gm% (0.0-3.0); Hemoglobin (Hb) 9.2 g/dL (14.0-18.0); O2 Tension (PaO2) 159.8 mmHg (> 70.0); pH, Arterial 7.38 (7.35-7.45)
[2018-11-10 12:41] LABS: Puncture Site ALINE
[2018-11-10 12:42] LABS: Puncture Site ALINE
[2018-11-10 12:42] LABS: Puncture Site ALINE
--- NOTE | 2018-11-10 13:15 | PDOC.CTH ---
Cardiology Progress Note - Subjective The pt seen and examined. No overnight events. No cardiac complaints. NPO - Objective Vital Signs Temp Pulse Resp Pulse Ox 11/10/18 12:00 97.8 F 11/10/18 08:37 70 11/10/18 08:00 97.5 F L 98 11/10/18 07:26 99 11/10/18 07:25 67 23 H 99 11/10/18 04:00 98.2 F Admit Weight 235 lb Weight 201 lb 8.04 oz 11/09/18 11/10/18 11/11/18 06:59 06:59 06:59 Intake Total 1374.2 1893.1 180 Output Total 1900 5615 245 Balance -525.8 -3721.9 -65 - Physical Examination General/Neuro: alert & oriented x3 Neck: no JVD present Lungs: other: (diminished at bases) Heart: other: (irregular) Abdomen: soft Extremities: other: (No edema) - Telemetry Telemetry Rhythm: Afib HR 70s - Labs Result Diagrams: 11/10/18 04:40 11/10/18 04:40 Troponin/CKMB CK-MB (CK-2) 1.4 ng/mL (0-6.6) 11/01/18 18:31 Troponin I 0.089 ng/mL (< 0.028) H 11/03/18 15:31 - Assessment/Plan 1. Atrial fib. with RVR - well controlled HR with Diltiazem and IV digoxin. 2. Ileus with S/p colectomy/ileostomy - 3. HTN: stable. 4. 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 MAR reviewed * Echo in 11/2017 with EF 60-65%, mod-severe dilated LA, mod ERA, mild MR and TR Pt. seen and eval. by me. I agree with the A/P by the [employer]ER. Chest clear. Irreg/ irreg. Mild edema. gjmays Review of Systems - Review of Systems Constitutional: reports: no symptoms reported EENTM: reports: no symptoms reported Respiratory: reports: no symptoms reported Cardiac (ROS): reports: no symptoms reported ABD/GI: reports: no symptoms reported : reports: no symptoms reported Musculoskeletal: reports: no symptoms reported
--- NOTE | 2018-11-10 14:26 | PDOC.PN ---
- Subjective Encounter Start Date: 11/10/18 Encounter Start Time: 14:24 Subjective: awake, oriented, NGT to suction - Objective Resuscitation Status - Order Detail: 11/01/18 19:39 Resuscitation Status Routine Resuscitation Status: FULL: Full Resuscitation Discussed with: Patient PRINCESS Reviewed: Yes Vital Signs & Weight: Vital Signs (12 hours) Temp Pulse Pulse Pulse Resp BP BP 11/10/18 13:38 70 20 11/10/18 13:12 68 66 121/58 L 90/52 L 11/10/18 12:00 97.8 F 11/10/18 08:37 70 11/10/18 08:00 97.5 F L 11/10/18 07:26 11/10/18 07:25 67 23 H 11/10/18 04:00 98.2 F Pulse Ox Pulse Ox Pulse Ox 11/10/18 13:38 100 11/10/18 13:12 96 97 11/10/18 12:00 11/10/18 08:37 11/10/18 08:00 98 11/10/18 07:26 99 11/10/18 07:25 99 11/10/18 04:00 Weight Admit Weight 235 lb Weight 201 lb 8.04 oz Most Recent Monitor Data Heart Rate from ECG 66 NIBP 96/49 NIBP BP-Mean 64 Respiration from ECG 23 SpO2 98 I&O: 11/09/18 11/10/18 11/11/18 06:59 06:59 06:59 Intake Total 1374.2 1893.1 180 Output Total 1900 5615 245 Balance -525.8 -3721.9 -65 Result Diagrams: 11/10/18 04:40 11/10/18 04:40 Additional Labs: Accuchecks 11/10/18 11/10/18 10:21 04:44 POC Glucose 130 H 146 H Phys Exam - Physical Examination Neck: no JVD some rhonchi, diffuse, BS adequate Cardiovascular: RRR, no significant murmur Gastrointestinal: soft distended, BS faint Musculoskeletal: edema present Dx/Plan (1) Hypophosphatemia Code(s): E83.39 - OTHER DISORDERS OF PHOSPHORUS METABOLISM Status: Acute (2) Ileus, postoperative Code(s): K91.89 - OTH POSTPROCEDURAL COMPLICATIONS AND DISORDERS OF DGSTV SYS; K56.7 - ILEUS, UNSPECIFIED Status: Acute (3) UTI (urinary tract infection) Status: Acute Qualifiers: Urinary tract infection type: acute cystitis Comment: recent catheterization, on Rocephin since 11/02/18, growing Proteus and other Gram neg nazia (4) Abdominal pain Code(s): R10.9 - UNSPECIFIED ABDOMINAL PAIN Status: Acute Qualifiers: Abdominal location: generalized Qualified Code(s): R10.84 - Generalized abdominal pain (5) Anemia Code(s): D64.9 - ANEMIA, UNSPECIFIED Status: Acute Qualifiers: Other causes of anemia: acute posthemorrhagic Comment: improved with transfusion, monitor closely (6) Bright red blood per rectum Code(s): K62.5 - HEMORRHAGE OF ANUS AND RECTUM Status: Acute Comment: stable this AM (7) Colitis Code(s): K52.9 - NONINFECTIVE GASTROENTERITIS AND COLITIS, UNSPECIFIED Status : Acute Comment: stercoral colitis due to previous impaction (8) Demand ischemia of myocardium Code(s): I24.8 - OTHER FORMS OF ACUTE ISCHEMIC HEART DISEASE Status: Acute (9) Hyponatremia Code(s): E87.1 - HYPO-OSMOLALITY AND HYPONATREMIA Status: Acute (10) Ischemic colitis Code(s): K55.9 - VASCULAR DISORDER OF INTESTINE, UNSPECIFIED Status: Acute Comment: s/p colectomy with ileostomy 11/03/2018 (11) Lactic acidosis Code(s): E87.2 - ACIDOSIS Status: Acute (12) Dyslipidemia Code(s): E78.5 - HYPERLIPIDEMIA, UNSPECIFIED Status: Chronic (13) Hypertension Code(s): I10 - ESSENTIAL (PRIMARY) HYPERTENSION Status: Chronic Qualifiers: Hypertension type: essential hypertension Qualified Code(s): I10 - Essential (primary) hypertension (14) Atrial fibrillation with rapid ventricular response Code(s): I48.91 - UNSPECIFIED ATRIAL FIBRILLATION Status: Acute - Plan on TPN -: on iv diltizem, famotidine, -: cont duonebs * .
--- NOTE | 2018-11-10 19:54 | PRG ---
DATE OF SERVICE: 11/10/2018 SUBJECTIVE: Mr. Bahena is in ICU. He has an ileus and NG tube. Has TPN administered. He is interactive. OBJECTIVE: VITAL SIGNS: Blood pressure 125/58, heart rate 67, respiratory rate 20. HEAD, EARS, EYES, NOSE, AND THROAT: Unremarkable. LUNGS: Clear to auscultation. CARDIAC: Regular rate and rhythm without murmur or gallop. ABDOMEN: Soft. Diminished bowel sounds. Scant amount of gas and output in his ileostomy. LABORATORY DATA: White count 16 and hemoglobin 8.5. Sodium 134, potassium 4.1, BUN 7. Gastric drainage 2000 mL over 24 hours, ileostomy output 220 mL. ASSESSMENT AND PLAN: 1. Postoperative ileus. Continue TPN. NG tube. 2. Malnutrition. 3. Deconditioning. 4. Ischemic colitis, status post resection. 5. Atrial fibrillation, medical treatment, and diltiazem drip. The patient is doing well and stable. We will send him to [facility]. Continue physical therapy and conditioning. Job ID: [id number]
[2018-11-10] MEDS: Diltiazem 125 MG in Sodium Chloride 0.9% 100 ML IVPB SCH (20:38)
[2018-11-10] MEDS: SODIUM ACETATE IV SCH (22:48)
[2018-11-10] MEDS: SODIUM CHLORIDE IV SCH (22:48)
[2018-11-10] MEDS: FAT EMULSION IV SCH (22:48)
[2018-11-10] MEDS: [UNRECOGNIZED DRUG - OTHER] IV SCH (22:48)
[2018-11-11] MEDS: Morphine 4 MG/ML VIAL SLOW IVP PRN (02:42)
[2018-11-11 03:56] LABS: #Eosinphils 0.6 thou/uL (0.0-0.7); #Lymphocytes 1.5 thou/uL (1.20-3.40); #Monocytes 1.9 thou/uL (0.11-0.59); #Neutrophils 15.3 thou/uL (1.40-6.50); %Basophils 0.1 % (0.0-1.0); %Eosinophils 2.9 % (0.0-10.0); %Lymphocytes 7.7 % (21.0-51.0); %Monocytes 9.9 % (0.0-10.0); %Neutrophils 79.3 % (42.0-75.0); Hemoglobin 8.6 g/dL (14.0-18.0); Mean Corpuscular HGB CONC 32.3 g/dL (32.0-36.0); Mean Corpuscular Hemoglobin 33.5 pg (27.0-31.0); Mean Platelet Volume 6.6 fL (7.4-10.4); Platelet Count 331 thou/uL (130-400); RBC Distribution Width 17.8 % (11.5-14.5); Red Blood Cell (RBC) Count 2.56 mill/uL (4.70-6.10); White Blood Cell (WBC) Count 19.3 thou/uL (4.8-10.8)
[2018-11-11 04:18] LABS: Anion Gap 11 mmol/L (10-20); BUN (Urea Nitrogen) 19 mg/dL (8.4-25.7); Calc. Creatinine Clearance 95 mL/min (70-130); Carbon Dioxide 25 mmol/L (23-31); Chloride 101 mmol/L (98-107); Estimated GFR-MDRD 90; Glucose 92 mg/dL (83-110); Magnesium 1.9 mg/dL (1.6-2.6); Potassium 4.4 mmol/L (3.5-5.1); Sodium 133 mmol/L (136-145)
[2018-11-11 04:23] LABS: Phosphorus 3.7 mg/dL (2.3-4.7)
[2018-11-11] MEDS ORDERED: Acetaminophen 1,000 MG in Premix Bag 1 BAG IVPB PRN (06:49)
[2018-11-11] MEDS ORDERED: Phenylephrine HCL 10 MG/ML VIAL ONE (09:09)
[2018-11-11] MEDS ORDERED: Glycopyrrolate 0.2 MG/ML 5 ML SYRINGE ONE (09:09)
[2018-11-11] MEDS ORDERED: Dexamethasone 20 MG/5 ML VIAL ONE (09:09)
[2018-11-11] MEDS ORDERED: Rocuronium Bromide 10 MG/ML (10ML VIAL) ONE (09:09)
--- NOTE | 2018-11-11 09:39 | PDOC.PN ---
- Subjective Encounter Start Date: 11/11/18 Encounter Start Time: 09:37 Subjective: alert, hiccups - Objective Resuscitation Status - Order Detail: 11/01/18 19:39 Resuscitation Status Routine Resuscitation Status: FULL: Full Resuscitation Discussed with: Patient PRINCESS Reviewed: Yes Vital Signs & Weight: Vital Signs (12 hours) Temp Pulse Resp Pulse Ox 11/11/18 07:43 98.0 F 11/11/18 06:52 71 15 11/11/18 04:00 101.4 F H 11/11/18 00:22 69 24 H 10 L 11/11/18 00:00 97.2 F L Weight Admit Weight 235 lb Weight 205 lb Most Recent Monitor Data Heart Rate from ECG 72 NIBP 116/55 NIBP BP-Mean 75 Respiration from ECG 18 SpO2 100 I&O: 11/10/18 11/11/18 11/12/18 06:59 06:59 06:59 Intake Total 1893.1 1342 Output Total 5615 2160 Balance -3721.9 -818 Result Diagrams: 11/11/18 03:47 11/11/18 03:47 Additional Labs: Accuchecks 11/11/18 11/10/18 11/10/18 04:01 16:56 10:21 POC Glucose 97 125 H 130 H Radiology Reviewed by me: Yes Phys Exam - Physical Examination Neck: no JVD clear anteriorly Cardiovascular: no significant murmur, irregular Gastrointestinal: soft, positive bowel sounds Musculoskeletal: edema present Dx/Plan (1) Hypophosphatemia Code(s): E83.39 - OTHER DISORDERS OF PHOSPHORUS METABOLISM Status: Resolved (2) Ileus, postoperative Code(s): K91.89 - OTH POSTPROCEDURAL COMPLICATIONS AND DISORDERS OF DGSTV SYS; K56.7 - ILEUS, UNSPECIFIED Status: Acute (3) UTI (urinary tract infection) Status: Resolved Qualifiers: Urinary tract infection type: acute cystitis Comment: recent catheterization, on Rocephin since 11/02/18, growing Proteus and other Gram neg nazia (4) Abdominal pain Code(s): R10.9 - UNSPECIFIED ABDOMINAL PAIN Status: Acute Qualifiers: Abdominal location: generalized Qualified Code(s): R10.84 - Generalized abdominal pain (5) Anemia Code(s): D64.9 - ANEMIA, UNSPECIFIED Status: Acute Qualifiers: Other causes of anemia: acute posthemorrhagic Comment: improved with transfusion, monitor closely (6) Bright red blood per rectum Code(s): K62.5 - HEMORRHAGE OF ANUS AND RECTUM Status: Acute Comment: stable this AM (7) Colitis Code(s): K52.9 - NONINFECTIVE GASTROENTERITIS AND COLITIS, UNSPECIFIED Status : Acute Comment: stercoral colitis due to previous impaction (8) Demand ischemia of myocardium Code(s): I24.8 - OTHER FORMS OF ACUTE ISCHEMIC HEART DISEASE Status: Acute (9) Hyponatremia Code(s): E87.1 - HYPO-OSMOLALITY AND HYPONATREMIA Status: Acute (10) Ischemic colitis Code(s): K55.9 - VASCULAR DISORDER OF INTESTINE, UNSPECIFIED Status: Acute Comment: s/p colectomy with ileostomy 11/03/2018 (11) Lactic acidosis Code(s): E87.2 - ACIDOSIS Status: Acute (12) Dyslipidemia Code(s): E78.5 - HYPERLIPIDEMIA, UNSPECIFIED Status: Chronic (13) Hypertension Code(s): I10 - ESSENTIAL (PRIMARY) HYPERTENSION Status: Chronic Qualifiers: Hypertension type: essential hypertension Qualified Code(s): I10 - Essential (primary) hypertension (14) Atrial fibrillation with rapid ventricular response Code(s): I48.91 - UNSPECIFIED ATRIAL FIBRILLATION Status: Acute - Plan NGT to suction -: on TPN -: on iv diltiazem for atrial fib * .
--- NOTE | 2018-11-11 09:43 | RAD ---
Exam: Chest one view HISTORY:Fever. Congestive heart failure. Comparison: 11/09/2018 FINDINGS: Cardiac silhouette:Enlarged Pulmonary vessels: Prominent. Aorta: Atherosclerosis. Lines and tubes: Stable nasogastric tube and left-sided vascular catheter. Costophrenic angles: Small bilateral effusions. LUNGS: Stable patchy interstitial and bandlike opacities suggesting parenchymal change with superimpo sed effusion. Pneumothorax: None none Pneumoperitoneum: Stable small focus of air underneath the right hemidiaphragm. Osseous abnormalities: None IMPRESSION: 1. No significant interval change. Pulmonary vascular congestion with interstitial prominence suggest edema. Congestive heart failure.
--- NOTE | 2018-11-11 09:57 | PDOC.CTH ---
Cardiology Progress Note - Subjective The pt seen and examined. No overnight events. No cardiac complaints. - Objective Vital Signs Temp Pulse Resp Pulse Ox 11/11/18 07:43 98.0 F 11/11/18 06:52 71 15 11/11/18 04:00 101.4 F H 11/11/18 00:22 69 24 H 10 L 11/11/18 00:00 97.2 F L Admit Weight 235 lb Weight 205 lb 11/10/18 11/11/18 11/12/18 06:59 06:59 06:59 Intake Total 1893.1 1342 Output Total 5615 2160 Balance -3721.9 -818 - Physical Examination General/Neuro: other: (A&O to self) Lungs: other: (diminished at bases) Heart: other: (irregular) Abdomen: soft Extremities: other: (No edema) - Telemetry Telemetry Rhythm: Afib vs Aflutter? with controlled HR - Labs Result Diagrams: 11/11/18 03:47 11/11/18 03:47 Troponin/CKMB CK-MB (CK-2) 1.4 ng/mL (0-6.6) 11/01/18 18:31 Troponin I 0.089 ng/mL (< 0.028) H 11/03/18 15:31 - Assessment/Plan 1. Atrial fib. with RVR - well controlled HR with IV Diltiazem and IV digoxin, which are changed to PO from today. 2. Ileus with S/p colectomy/ileostomy - 3. HTN: stable. 4. Qqfghcc-Xdpjd-Bhlhk syndrome with pain in legs. MAR reviewed * Echo in 11/2017 with EF 60-65%, mod-severe dilated LA, mod ERA, mild MR and TR Pt. continued to have an ileus through the night and this AM and was taken back to the OR. Hold po meds until taking po. Resume IV diltiazem if the HR is not controlled with the Afib.. gjmays Review of Systems - Review of Systems Constitutional: reports: no symptoms reported EENTM: reports: no symptoms reported Respiratory: reports: no symptoms reported Cardiac (ROS): reports: no symptoms reported ABD/GI: reports: no symptoms reported : reports: no symptoms reported Musculoskeletal: reports: no symptoms reported
[2018-11-11] MEDS ORDERED: Diltiazem HCl SR 60 mg Capsule PO SCH (10:30)
[2018-11-11] MEDS: Cyanocobalamin (Vitamin B-12) 1,000 MCG TAB PO SCH (11:01)
[2018-11-11] MEDS: Amiodarone 200 MG TAB PO SCH ×2 (11:01→22:04)
[2018-11-11] MEDS: Gabapentin 300 MG CAP PO SCH (11:02)
[2018-11-11] MEDS: Famotidine/PF 20 mg/2ml Vial SLOW IVP SCH ×2 (11:02→22:04)
[2018-11-11] MEDS: Digoxin 0.5 MG/2 ML AMP SLOW IVP SCH (11:03)
--- NOTE | 2018-11-11 11:35 | PRG ---
DATE OF SERVICE: 11/11/2018 SUBJECTIVE: Jose Bahena is a 78-year-old gentleman. OBJECTIVE: VITAL SIGNS: This morning, temperature is 98, pulse 72, blood pressure 116/75, saturations 98%. CHEST: Decreased breath sounds without any wheezing. CARDIAC: Normal S1 and S2. No gallops. ABDOMEN: No masses. LABORATORY DATA: His PO2 is 159, pCO2 42 ph 7.42_. His lytes are normal. Sodium 133, white count 19,000, hemoglobin and hematocrit of 8 and 26, platelet count 231. IMPRESSION: 1. Congestive heart failure, respiratory failure, status post lap__ postop ileus, requiring TPN. 2. Atrial fibrillation, on medication. 3. It appears this morning, he is having issues, recent bleeding. Surgery is going to take him back to surgery. Otherwise, pulmonary archer, continue supportive care, TPN, neb treatments, antibiotics. Job ID: [id number] [id number]
[2018-11-11] MEDS ORDERED: Piperacillin/Tazobactam 3.375 GM in Sodium Chloride 0.9% 100 ML IVPB SCH (12:00)
[2018-11-11 12:04] LABS: Bilirubin Negative (Negative); Blood, Urine Negative (Negative); Clarity CLOUDY (Clear); Glucose, Urine (Dipstick) Negative (Negative); Leukocyte Small (Negative); Nitrite Negative (Negative); Protein, Urine (Dipstick) Trace mg/dL (Neg-Trace); Specific Gravity, Urine 1.022 (1.002-1.036); Urobilinogen 0.2 mg/dL (0.2-1.0)
[2018-11-11 12:19] LABS: Bacteria/HPF None Seen HPF (None Seen); Hyaline Casts/LPF 4-6 HYALINE CAST LPF (0-3 Hyaline); Pathc Cast-AUWi Flag 0.81 (0-2.49); RBC/HPF 0-3 HPF (0-3); Squamous Epithelial 0-3 HPF (0-3)
[2018-11-11 12:25] LABS: Urine Culture Reflex Yes Yes
--- NOTE | 2018-11-11 13:23 | PRG ---
DATE OF SERVICE: 11/11/2018 SUBJECTIVE: Jose Bahena is not doing well today. He had a fever to over 101 degrees. His blood pressure 113/57, heart rate 75. His urine output is good. NG tube output 800 over the last 24 hours. Urine output 1235 over the last 24 hours. white count is up to 19.3, hemoglobin 8.6. Basic metabolic profile is normal. Sodium 133. He is on TPN, NG tube. He has a central line present since admission over a week old. OBJECTIVE: LUNGS: Clear to auscultation. CARDIAC: Regular rate and rhythm. ABDOMEN: Quiet. Tender throughout with guarding. drain site in his left lower quadrant. There is feculent-smelling odorous discharge when probed with a Q-tip. This is purulent, feculent, and slight brownish in nature. ASSESSMENT AND PLAN: Considering his ileus, peritoneal findings on exam, elevated white count, fever, and feculent purulent drainage from him abdominal cavity, I do not see any point to obtain a CAT scan. We will plan laparotomy as he had an extensive adhesiolysis with a colectomy and is at risk for enteric leakage. We will plan exploratory laparotomy today. We will type and cross him 3 units of blood due to his anemia. Continue his intravenous antibiotics. We have started him on meropenem today. Anticipate blood transfusion and postoperative ventilation in the ICU. I have discussed with the patient's daughter, who agrees and signed a verbal consent, and I discussed with the patient, who also agrees. Job ID: [id number]
[2018-11-11] MEDS ORDERED: MEROPENEM 1 GM/50 ML 1 GM in Premix Bag 1 BAG IVPB SCH (14:00)
[2018-11-11] MEDS ORDERED: Metoclopramide HCl 10 MG/2 ML VIAL IVP SCH (14:00)
[2018-11-11] MEDS ORDERED: Bupivacaine HCl 0.5%/Epinephrine 1:200,000/PF 30 ml Vial ONE (14:53)
[2018-11-11] MEDS ORDERED: Sodium Chloride 0.9% 0 ML ONE (14:53)
[2018-11-11] MEDS ORDERED: Ketamine 50 MG/ML (10ML VIAL) ONE (15:04)
[2018-11-11] MEDS ORDERED: SUGAMMADEX SODIUM 500 MG/5 ML VIAL ONE (16:19)
[2018-11-11] MEDS ORDERED: Ventilator Sedation Protocol 1 EACH FS SCH (18:00)
[2018-11-11] MEDS ORDERED: Sodium Chloride 0.9% 1,000 ML IV SCH (18:00)
[2018-11-11] MEDS ORDERED: Fentanyl BOLUS 250 ML IVPB PRN (18:04)
[2018-11-11] MEDS ORDERED: Morphine 2 MG/ML SYRINGE SLOW IVP PRN (18:04)
[2018-11-11] MEDS ORDERED: Propofol BOLUS 1,000 MG/100 ML VIAL IV PRN (18:04)
[2018-11-11] MEDS ORDERED: Lorazepam 2 MG/ML VIAL SLOW IVP PRN (18:04)
--- NOTE | 2018-11-11 18:20 | RAD ---
EXAM: CHEST ONE VIEW HISTORY: Central line placement. On ventilator. Follow-up evaluation. COMPARISON: 11/11/2018 at 0935 hours PA FINDINGS: Endotracheal tube and nasogastric tubes remain in place and unchanged in position. Left subclavian ce ntral venous catheter is also again seen and unchanged in position which courses across the midline with tip overlying the expected location of the right innominate vein. There has been interval placem ent of a right subclavian central venous catheter with the tip overlying the expected location of the cavoatrial junction. No pneumothorax is seen. There is mild increase in perihilar interstitial de nsities which may be related to either pulmonary edema or infectious process. Left lateral costophrenic angle is excluded from view. Calcified granulomata again overlie the upper lung zones. N o other interval change. IMPRESSION: 1. Interval placement of a right subclavian central venous catheter without evidence of a pneumothora x. 2. Additional lines and tubes are stable in position. 3. Mild increase in perihilar interstitial densities which may be related to mild pulmonary edema dinah samanta developing infectious process. Continued follow-up is recommended.
[2018-11-11] MEDS: Sodium Chloride 0.9% 1,000 ML IV SCH (18:29)
[2018-11-11] MEDS: Propofol 1,000 MG/100 ML VIAL IV PRN (18:37)
[2018-11-11] MEDS: Piperacillin/Tazobactam 4.5 GM in Sodium Chloride 0.9% 100 ML IVPB SCH (20:19)
[2018-11-11] MEDS ORDERED: Diltiazem HCl 125 MG, Admixture Fee 1 EACH in Sodium Chloride 0.9% 100 ML IVPB SCH (20:30)
[2018-11-11] MEDS ORDERED: Diltiazem 125 MG in Sodium Chloride 0.9% 100 ML IVPB SCH (20:30)
[2018-11-11] MEDS: fentaNYL Citrate/PF 2,000 MCG in Sodium Chloride 0.9% 60 ML IV SCH (21:52)
[2018-11-11] MEDS ORDERED: Vancomycin HCl 1.25 GM in Sodium Chloride 0.9% 250 ML 250 ML IV SCH (22:00)
[2018-11-11] MEDS: Enoxaparin Sodium 40 MG/0.4 ML SYRINGE SC SCH (22:05)
[2018-11-11] MEDS: SODIUM ACETATE IV SCH (22:14)
[2018-11-11] MEDS: FAT EMULSION IV SCH (22:14)
[2018-11-11] MEDS: SODIUM CHLORIDE IV SCH (22:14)
[2018-11-11] MEDS: [UNRECOGNIZED DRUG - OTHER] IV SCH (22:14)
--- NOTE | 2018-11-12 01:06 | OP ---
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 PROCEDURES: Placement of right subclavian vein central line, exploratory laparotomy, reopening recent laparotomy, abdominal washout, closure of rectal stump, ABThera application with planned return to the operating room 48 hours for reopening and hopefully definitive closure. ANESTHESIA: General. BLOOD TRANSFUSED: 2 units of blood (preop hemoglobin 8). ESTIMATED BLOOD LOSS: 100 mL. DESCRIPTION OF PROCEDURE: The patient was taken to the operating room where under general anesthesia, right paraclavicular area was prepped with ChloraPrep, draped in routine fashion. Sterile technique used. A Seldinger technique was used to place a right subclavian vein central line, removing the J-wire, securing the catheter with 2-0 silk suture, and dressing applied. Each port aspirated blood, flushed with saline solution. The abdomen was prepared with Betadine and draped in routine fashion. Ioban was used. Midline laparotomy opened, removing all tess, removing the sutures from the fascia. Fascia was macerated. There was fecal drainage. It was evacuated with the suction. There were dense adhesions which were bluntly taken down from the abdominal wall using the Bookwalter retractor. The fecal drainage seemed to be coming from the pelvis. Further dissection revealed a disrupted rectal stump. This was carefully dissected free, as the adhesions were intense. Once this was dissected free, the old staple line was identified and the rectal stump had blown open. It was dissected free and then closed with to and fro continuous suture of 2-0 Prolene. Once this was accomplished, abdominal cavity was thoroughly irrigated with saline solution. Irrigant evacuated. ABThera applied. Ileostomy appliance secured. The patient tolerated the procedure well. Job ID: [id number]
[2018-11-12] MEDS: Piperacillin/Tazobactam 4.5 GM in Sodium Chloride 0.9% 100 ML IVPB SCH ×4 (01:27→20:19)
[2018-11-12 05:40] LABS: ALT (SGPT) 7 U/L (8-55); AST (SGOT) 14 U/L (5-34); Albumin 1.8 g/dL (3.4-4.8); Alkaline Phosphatase 79 U/L (40-150); Anion Gap 9 mmol/L (10-20); BUN (Urea Nitrogen) 25 mg/dL (8.4-25.7); Bilirubin, Total 1.2 mg/dL (0.2-1.2); Calc. Creatinine Clearance 100 mL/min (70-130); Calcium 7.2 mg/dL (7.8-10.44); Carbon Dioxide 24 mmol/L (23-31); Chloride 107 mmol/L (98-107); Estimated GFR-MDRD 87; Globulin 2.5 g/dL (2.4-3.5); Glucose 155 mg/dL (83-110); Phosphorus 3.6 mg/dL (2.3-4.7); Potassium 4.5 mmol/L (3.5-5.1); Protein, Total 4.3 g/dL (5.8-8.1); Sodium 135 mmol/L (136-145)
[2018-11-12 06:01] LABS: Band 27 % (5-11); Eosinophils 2 % (0-10); Hemoglobin 9.9 g/dL (14.0-18.0); Lymphocytes 3 % (21-51); MDiff Complete? YES; Mean Corpuscular HGB CONC 32.8 g/dL (32.0-36.0); Mean Corpuscular Hemoglobin 32.5 pg (27.0-31.0); Mean Corpuscular Volume 99.3 fL (78.0-98.0); Mean Platelet Volume 7.3 fL (7.4-10.4); Monocytes 5 % (0-10); Neutrophil 63 % (42-75); Platelet Count 279 thou/uL (130-400); RBC Distribution Width 17.7 % (11.5-14.5); Red Blood Cell (RBC) Count 3.04 mill/uL (4.70-6.10); White Blood Cell (WBC) Count 18.9 thou/uL (4.8-10.8)
[2018-11-12 07:00] LABS: Actual Bicarbonate (HCO3a) 21.2 mEq/L (22-28); Base Excess (BEa) -2.2 mEq/L (-2.0 to +3.0); CO2 Tension 31.3 mmHg (35.0-45.0); Calcium, Ionized 1.05 mmol/L (1.12-1.30); Carboxyhemoglobin (COHb) 0.6 gm% (0.0-3.0); Hemoglobin (Hb) 10.4 g/dL (14.0-18.0); O2 Tension (PaO2) 142.4 mmHg (> 70.0); Potassium - ABG Lab 4.25 mmol/L (3.70-5.30); pH, Arterial 7.45 (7.35-7.45)
[2018-11-12] MEDS ORDERED: HumaLOG 300 UNITS/3 ML VIAL SC PRN (07:13)
[2018-11-12] MEDS ORDERED: Dextrose 50% Abboject 50 ML SYRINGE SLOW IVP PRN (07:13)
[2018-11-12] MEDS ORDERED: Dextrose 5% in Water 1,000 ML IV PRN (07:13)
[2018-11-12 07:17] LABS: Puncture Site RRA
[2018-11-12 07:18] LABS: ALV-art Gradient 174.975 (0-20)
--- NOTE | 2018-11-12 07:36 | PRG ---
DATE OF SERVICE: 11/12/2018 SUBJECTIVE: Jose Bahena doing well postop day 1, open abdomen, ABThera for fecal peritonitis from rectal stump blowout with a history of ischemic colon, with years past colectomy and more recent completion total abdominal colectomy with ileostomy. The patient has done well overnight. He has not required vasopressors. Abdi-Synephrine use intraoperatively has been discontinued. OBJECTIVE: VITAL SIGNS: Heart rate 55, blood pressure 125/39. He is on the ventilator, sedated, and anticipating return to the operating room, Thursday, tomorrow for abdominal washout and hopefully definitive wound closure. His is on the ventilator and sedated. Gastric drainage last 24 hours 100 mL. Urine output 705 since in the ICU. LUNGS: Clear to auscultation. CARDIAC: Regular rate and rhythm, 64. EXTREMITIES: Unremarkable. LABORATORY DATA: White count 18,000, hemoglobin 9.9. Sodium 135, BUN 25, creatinine 0.85, glucose 136 to 155. He is on TPN. He has increased IV fluids perioperatively. Discussion was held with the patient's and noting computer entry that reactions to amoxicillin, penicillin are that of nausea when taken orally. I have asked Pharmacy and Nursing to remove penicillin from his list of allergies and have discontinued his meropenem and put him on 4.5 g of Zosyn q.6 hours. Liver function tests are normal. Magnesium and phosphorus are normal. ASSESSMENT/PLAN: 1. This hospitalization, ischemic colitis requiring resection, ileostomy and Maria Guadalupe procedure and more recently, rectal pouch blowout with fecal peritonitis, now with open abdomen and an ABThera, planning definitive washout closure tomorrow, Thursday. 2. Malnutrition. Continue TPN. 3. Respiratory failure. Continue ventilation and hopefully can wean the ventilator over the weekend after definitive abdominal wall closure, Thursday. 4. Deconditioning. 5. Encephalopathy after recent cardiac events and ischemic colon events. 6. Atrial fibrillation, on a Cardizem drip per Cardiology. Job ID: [id number]
--- NOTE | 2018-11-12 08:02 | RAD ---
XR Chest 1 View Portable History: [Postop] Comparison: Radiograph prior day Findings: Similar bilateral pleural effusions. Improving pulmonary venous congestion. Multiple calcif ied granulomas left upper lobe. Patient is intubated with endotracheal tube tip above the juliette 2 cm. Left subclavian central venous catheter projects over the right subclavian vein. Right subclavian central venous catheter tip in good position. Enteric tube tip below diaphragm of bowel out of field of view. Severe degenerative disease left shoulder. Right vertebral shoulder arthroplasty. Displaced right distal clavicular fracture. Impression: Overall mild improvement of the pulmonary edema.
--- NOTE | 2018-11-12 08:36 | PRG ---
DATE OF SERVICE: 11/12/2018 SUBJECTIVE: Jose Bahena was back to surgery again yesterday, status post lap with unseen surgical intervention for peritonitis. He is back on the vent. He is to go back for a washout. Therefore, I will leave him intubated. He is sedated. OBJECTIVE: VITAL SIGNS: Blood pressure is 125/39, pulse 59, respiratory rate 21, sats 100%. I's and O's have been consistently good. CHEST: Decreased breath sounds. No wheezing. CARDIAC: Normal S1 and S2. No gallops. ABDOMEN: No masses. LABORATORY DATA: White count 18,000, H and H 9 and 30, platelet count 279. The pO2 is 142, pCO2 is 31, pH 7.45, 50%, rate of 16. Lytes are normal. His albumin is low at 1.8. ASSESSMENT: 1. Status post laparoscopic colectomy, status post fecal peritonitis with open abdomen washout. 2. Atrial fibrillation. 3. Severe deconditioning. 4. Encephalopathy. PLAN: Keep him intubated, wean after his surgery later in the weekend. His chest x-ray shows cardiomegaly and left pleural effusion. He is on TPN, Zosyn, and supportive care. We will follow. One-half hour of critical time. Job ID: [id number]
[2018-11-12] MEDS: Sodium Chloride 0.9% 1,000 ML IV SCH ×2 (08:44→15:08)
[2018-11-12] MEDS: Amiodarone 200 MG TAB PO SCH (08:59)
[2018-11-12] MEDS: Famotidine/PF 20 mg/2ml Vial SLOW IVP SCH ×2 (09:00→21:12)
[2018-11-12] MEDS ORDERED: Digoxin 0.125 MG TAB PO SCH (09:00)
[2018-11-12] MEDS: Cyanocobalamin (Vitamin B-12) 1,000 MCG TAB PO SCH (10:03)
--- NOTE | 2018-11-12 10:24 | PDOC.CTH ---
Cardiology Progress Note - Subjective The pt seen and examined. No overnight events. He is on Vent with vent sedation. - Objective Vital Signs Temp Pulse Pulse Resp BP BP Pulse Ox 11/12/18 08:00 100.9 F H 11/12/18 06:32 55 L 125/39 L 11/12/18 06:31 56 L 22 H 99 11/12/18 06:00 21 H 11/12/18 05:00 100.7 F H 11/12/18 04:00 23 H 11/12/18 02:29 57 L 106/45 L 11/12/18 02:00 24 H 11/12/18 00:05 68 26 H 100 11/12/18 00:00 98.4 F 24 H 11/11/18 22:40 97.1 F L 77 20 147/62 H 100 Admit Weight 235 lb Weight 217 lb 6.012 oz 11/11/18 11/12/18 11/13/18 06:59 06:59 06:59 Intake Total 1342 4063.7 17 Output Total 2160 805 123 Balance -818 3258.7 -106 - Physical Examination Lungs: other: (diminished at bases) Heart: other: (irregular) Abdomen: soft Extremities: other: (1+ pitting BLE edema) - Telemetry Telemetry Rhythm: AFib/AFlutter - Labs Result Diagrams: 11/12/18 05:08 11/12/18 05:08 Troponin/CKMB CK-MB (CK-2) 1.4 ng/mL (0-6.6) 11/01/18 18:31 Troponin I 0.089 ng/mL (< 0.028) H 11/03/18 15:31 - Assessment/Plan 1. Atrial fib. with RVR - well controlled HR with IV Diltiazem; Off IV digoxin and Amiodarone 100mg BID for now; 2. Ileus with S/p colectomy/ileostomy - plan for another washout closure for fecal peritonitis on 11/13/2018 3. HTN: stable. 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 MAR reviewed * Echo in 11/2017 with EF 60-65%, mod-severe dilated LA, mod ERA, mild MR and TR Pt. seen and eval. by me. I agree with the a/P by the LAB RN. He remains intubated. Remains in NSR.Chest clear anteriorly. RRR. Review of Systems - Review of Systems Constitutional: reports: see HPI
[2018-11-12] MEDS ORDERED: Diltiazem 125 MG in Sodium Chloride 0.9% 100 ML IVPB SCH (10:27)
[2018-11-12] MEDS ORDERED: Lidocaine 1% (PF) 30 ML VIAL ONE (13:16)
--- NOTE | 2018-11-12 15:07 | PDOC.PN ---
- Subjective Encounter Start Date: 11/12/18 Encounter Start Time: 10:30 Mr. Bahena was seen today in follow-up of Ischemic colitis. He is intubated and sedated. - Objective Resuscitation Status - Order Detail: 11/01/18 19:39 Resuscitation Status Routine Resuscitation Status: FULL: Full Resuscitation Discussed with: Patient MAR Reviewed: Yes Vital Signs & Weight: Vital Signs (12 hours) Temp Pulse Resp BP Pulse Ox 11/12/18 14:17 67 123/45 L 11/12/18 14:15 72 15 99 11/12/18 13:00 100.8 F H 11/12/18 12:00 18 11/12/18 10:42 64 107/46 L 11/12/18 10:00 15 11/12/18 08:00 100.9 F H 16 99 11/12/18 06:32 55 L 125/39 L 11/12/18 06:31 56 L 22 H 99 11/12/18 06:00 21 H 11/12/18 05:00 100.7 F H 11/12/18 04:00 23 H Weight Admit Weight 235 lb 9.6 oz Weight 217 lb 6.012 oz Most Recent Monitor Data Heart Rate from ECG 79 NIBP 119/61 NIBP BP-Mean 80 Respiration from ECG 17 SpO2 100 I&O: 11/11/18 11/12/18 11/13/18 06:59 06:59 06:59 Intake Total 1342 4063.7 17 Output Total 2160 805 258 Balance -818 3258.7 -241 Result Diagrams: 11/12/18 05:08 11/12/18 05:08 Additional Labs: Accuchecks 11/12/18 11/12/18 11/12/18 14:25 10:31 05:37 POC Glucose 117 H 157 H 160 H 11/11/18 11/11/18 11/11/18 23:08 17:39 16:10 POC Glucose 105 136 H 94 Phys Exam - Physical Examination HEENT: PERRLA Respiratory: no wheezing, no rales, no rhonchi, clear to auscultation bilateral Cardiovascular: RRR, no significant murmur, no rub Gastrointestinal: soft, no distention, positive bowel sounds Musculoskeletal: pulses present, edema present trace pedal edema, with chronic venous stasis changes Dx/Plan (1) Ischemic colitis Code(s): K55.9 - VASCULAR DISORDER OF INTESTINE, UNSPECIFIED Status: Acute (2) Severe protein-calorie malnutrition Code(s): E43 - UNSPECIFIED SEVERE PROTEIN-CALORIE MALNUTRITION Status: Acute (3) Atrial fibrillation Code(s): I48.91 - UNSPECIFIED ATRIAL FIBRILLATION Status: Chronic Qualifiers: Atrial fibrillation type: chronic Qualified Code(s): I48.2 - Chronic atrial fibrillation (4) Hypertension Code(s): I10 - ESSENTIAL (PRIMARY) HYPERTENSION Status: Chronic Qualifiers: Hypertension type: essential hypertension Qualified Code(s): I10 - Essential (primary) hypertension (5) Diabetes mellitus type 2 in nonobese Code(s): E11.9 - TYPE 2 DIABETES MELLITUS WITHOUT COMPLICATIONS Status: Chronic - Plan * Ischemic colitis- he is s/p colon resection with ileostomy, and abdominal washout * Continue IV Zosyn for peritonitis * AFIB- his heart rate is stable- Cardizem has been discontinued * HTN- blood pressure is stable * Nutritional Support with TPN * DM- blood glucose is stable * Continue Ventilator support. * Continue DVT and GI prophylaxis
[2018-11-12] MEDS: Propofol 1,000 MG/100 ML VIAL IV PRN (17:20)
[2018-11-12] MEDS ORDERED: Acetaminophen 1,000 MG in Premix Bag 1 BAG IVPB PRN (17:23)
--- NOTE | 2018-11-12 17:24 | RAD ---
RADIOGRAPH CHEST 1 VIEW: DATE: 11/12/2018 TIME: 5:02 PM HISTORY: 78-year-old male Central line removal COMPARISON: 11/12/2018 at 4:41 am FINDINGS: Right subclavian central line has been removed. Left subclavian central line has been retracted such that the distal tip no longer is directed superiorly into the right brachiocephalic vein or superior vena cava, but instead is directed inferiorly now in the mid superior vena cava. No change i n endotracheal tube and NG tube. Consolidation of base of left lower lobe remains. No pulmonary edema. No pneumothorax. IMPRESSION: 1. Interval removal of right subclavian central venous catheter. 2. Interval adjustment of left subclavian central venous catheter now in the SVC.
[2018-11-12] MEDS ORDERED: Meropenem 2 GM in Sodium Chloride 0.9% 100 ML IVPB SCH (18:00)
[2018-11-12] MEDS: Enoxaparin Sodium 40 MG/0.4 ML SYRINGE SC SCH (21:12)
[2018-11-12] MEDS: SODIUM CHLORIDE IV SCH (21:47)
[2018-11-12] MEDS: [UNRECOGNIZED DRUG - OTHER] IV SCH (21:47)
[2018-11-12] MEDS: SODIUM ACETATE IV SCH (21:47)
[2018-11-12] MEDS: POTASSIUM ACETATE IV SCH (21:47)
[2018-11-13] MEDS: Sodium Chloride 0.9% 1,000 ML IV SCH ×2 (02:11→17:48)
[2018-11-13] MEDS: Piperacillin/Tazobactam 4.5 GM in Sodium Chloride 0.9% 100 ML IVPB SCH ×4 (02:18→22:14)
[2018-11-13 04:47] LABS: #Eosinphils 0.4 thou/uL (0.0-0.7); #Lymphocytes 0.5 thou/uL (1.20-3.40); #Monocytes 0.9 thou/uL (0.11-0.59); #Neutrophils 9.3 thou/uL (1.40-6.50); %Basophils 0.4 % (0.0-1.0); %Eosinophils 3.3 % (0.0-10.0); %Lymphocytes 4.2 % (21.0-51.0); %Monocytes 8.2 % (0.0-10.0); %Neutrophils 83.9 % (42.0-75.0); Hemoglobin 8.8 g/dL (14.0-18.0); Mean Corpuscular HGB CONC 32.7 g/dL (32.0-36.0); Mean Corpuscular Hemoglobin 32.6 pg (27.0-31.0); Mean Corpuscular Volume 99.8 fL (78.0-98.0); Mean Platelet Volume 7.2 fL (7.4-10.4); Platelet Count 266 thou/uL (130-400); RBC Distribution Width 17.4 % (11.5-14.5); White Blood Cell (WBC) Count 11.1 thou/uL (4.8-10.8)
[2018-11-13 05:05] LABS: Anion Gap 11 mmol/L (10-20); BUN (Urea Nitrogen) 27 mg/dL (8.4-25.7); Calc. Creatinine Clearance 100 mL/min (70-130); Calcium 7.4 mg/dL (7.8-10.44); Carbon Dioxide 23 mmol/L (23-31); Chloride 109 mmol/L (98-107); Estimated GFR-MDRD 87; Glucose 107 mg/dL (83-110); Magnesium 1.7 mg/dL (1.6-2.6); Phosphorus 3.3 mg/dL (2.3-4.7); Potassium 4.5 mmol/L (3.5-5.1); Sodium 138 mmol/L (136-145)
[2018-11-13 07:33] LABS: Actual Bicarbonate (HCO3a) 20.5 mEq/L (22-28); Base Excess (BEa) -3.1 mEq/L (-2.0 to +3.0); CO2 Tension 31.1 mmHg (35.0-45.0); Calcium, Ionized 1.11 mmol/L (1.12-1.30); Carboxyhemoglobin (COHb) 0.9 gm% (0.0-3.0); Hemoglobin (Hb) 9.1 g/dL (14.0-18.0); O2 Tension (PaO2) 162.2 mmHg (> 70.0); Potassium - ABG Lab 4.21 mmol/L (3.70-5.30); pH, Arterial 7.44 (7.35-7.45)
[2018-11-13 07:34] LABS: Puncture Site ALINE
[2018-11-13 07:35] LABS: ALV-art Gradient 84.125 (0-20)
--- NOTE | 2018-11-13 08:03 | RAD ---
XR Chest 1 View Portable History: [Ventilated patient] Comparison: Radiograph prior day Findings: Endotracheal tube tip sits above the juliette approximately 2.5 cm. Left subclavian central v enous catheter tip is similar. Heart size is enlarged. Layering effusions, mild/moderate in size. Multiple calcified granulomas. Nodular density partially calcified projects over the right upper lobe , incompletely evaluated. Impression: Nodular density projecting over the right upper lobe likely a known calcified pleural cele que. No significant change.
[2018-11-13] MEDS: Cyanocobalamin (Vitamin B-12) 1,000 MCG TAB PO SCH (08:26)
[2018-11-13] MEDS: Famotidine/PF 20 mg/2ml Vial SLOW IVP SCH ×2 (08:26→22:15)
[2018-11-13 09:26] LABS: Vancomycin, Trough 5.8 ug/mL
[2018-11-13] MEDS ORDERED: Rocuronium Bromide 10 MG/ML (10ML VIAL) ONE (10:19)
--- NOTE | 2018-11-13 11:00 | PDOC.PN ---
- Subjective Encounter Start Date: 11/13/18 Encounter Start Time: 10:59 Mr. Bahena was seen today in follow-up of ischemic colitis, and peritonitis. He remains intubated. He is sedated, will respond. - Objective Resuscitation Status - Order Detail: 11/01/18 19:39 Resuscitation Status Routine Resuscitation Status: FULL: Full Resuscitation Discussed with: Patient MAR Reviewed: Yes Vital Signs & Weight: Vital Signs (12 hours) Temp Pulse Resp BP Pulse Ox 11/13/18 10:11 79 129/52 L 11/13/18 10:00 19 11/13/18 08:00 16 97 11/13/18 07:02 71 143/46 H 11/13/18 07:01 71 16 99 11/13/18 06:00 16 11/13/18 04:00 100.4 F H 18 11/13/18 03:27 70 11/13/18 02:00 20 11/13/18 00:00 99.9 F H 24 H 11/12/18 23:29 72 123/58 L 100 Weight Admit Weight 235 lb 9.6 oz Weight 220 lb 7.396 oz Most Recent Monitor Data Heart Rate from ECG 77 NIBP 117/59 NIBP BP-Mean 78 Respiration from ECG 17 SpO2 98 I&O: 11/12/18 11/13/18 11/14/18 06:59 06:59 06:59 Intake Total 4063.7 4487.0 Output Total 805 1692 185 Balance 3258.7 2795.0 -185 Result Diagrams: 11/13/18 04:35 11/13/18 04:35 Additional Labs: Accuchecks 11/13/18 11/12/18 11/12/18 04:31 22:15 16:37 POC Glucose 95 119 H 87 11/12/18 11/12/18 14:25 10:31 POC Glucose 117 H 157 H Phys Exam - Physical Examination HEENT: PERRLA Respiratory: no wheezing, no rales, no rhonchi, clear to auscultation bilateral Cardiovascular: RRR, no significant murmur, no rub Gastrointestinal: soft, positive bowel sounds wound vac is in place Musculoskeletal: pulses present, edema present trace pedal edema bilaterally Dx/Plan (1) Ischemic colitis Code(s): K55.9 - VASCULAR DISORDER OF INTESTINE, UNSPECIFIED Status: Acute (2) Severe protein-calorie malnutrition Code(s): E43 - UNSPECIFIED SEVERE PROTEIN-CALORIE MALNUTRITION Status: Acute (3) Atrial fibrillation Code(s): I48.91 - UNSPECIFIED ATRIAL FIBRILLATION Status: Chronic Qualifiers: Atrial fibrillation type: chronic Qualified Code(s): I48.2 - Chronic atrial fibrillation (4) Hypertension Code(s): I10 - ESSENTIAL (PRIMARY) HYPERTENSION Status: Chronic Qualifiers: Hypertension type: essential hypertension Qualified Code(s): I10 - Essential (primary) hypertension (5) Diabetes mellitus type 2 in nonobese Code(s): E11.9 - TYPE 2 DIABETES MELLITUS WITHOUT COMPLICATIONS Status: Chronic - Plan * Ischemic colitis- with fecal peritonitis- he is s/p colectomy and abdominal washout. Continue Zosyn IV * HTN- blood pressure is controlled * AFIB- his heart rate is stable * DM- blood glucose is stable * Nutritional support with TPN. * Continue DVT and GI Prophylaxis
--- NOTE | 2018-11-13 11:31 | PDOC.CTH ---
Cardiology Progress Note - Subjective Pt. seen and eval. by me. Intubated and sedated. Plan for repeat OR today to irrigate the abdomen. - ROS not able to obtain ROS - Objective Vital Signs Temp Pulse Resp BP Pulse Ox 11/13/18 10:11 79 129/52 L 11/13/18 10:00 19 11/13/18 08:00 16 97 11/13/18 07:02 71 143/46 H 11/13/18 07:01 71 16 99 11/13/18 06:00 16 11/13/18 04:00 100.4 F H 18 11/13/18 03:27 70 11/13/18 02:00 20 11/13/18 00:00 99.9 F H 24 H Admit Weight 235 lb 9.6 oz Weight 220 lb 7.396 oz 11/12/18 11/13/18 11/14/18 06:59 06:59 06:59 Intake Total 4063.7 4487.0 Output Total 805 1692 215 Balance 3258.7 2795.0 -215 - Physical Examination General/Neuro: other: (sedated.On ventilator.) Lungs: CTA Heart: other: (irreg/irreg.Rate controlled.) Abdomen: other: (wound vac in place. Decr. BS. Obeses.Iliostomy bag in place.) - Telemetry Telemetry Rhythm: afib. - Labs Result Diagrams: 11/13/18 04:35 11/13/18 04:35 Troponin/CKMB CK-MB (CK-2) 1.4 ng/mL (0-6.6) 11/01/18 18:31 Troponin I 0.089 ng/mL (< 0.028) H 11/03/18 15:31 - Assessment/Plan 1. Atrial fib. with RVR - well controlled HR with IV Diltiazem; Off IV digoxin and Amiodarone 100mg BID for now; 2. Ileus with S/p colectomy/ileostomy - plan for another washout closure for fecal peritonitis on 11/13/2018 3. HTN: stable. 4. 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 MAR reviewed * Echo in 11/2017 with EF 60-65%, mod-severe dilated LA, mod ERA, mild MR and TR
[2018-11-13] MEDS: Micafungin 100 MG in Sodium Chloride 0.9% 100 ML IVPB SCH (12:45)
--- NOTE | 2018-11-13 12:53 | PRG ---
DATE OF SERVICE: 11/13/2018 SUBJECTIVE: The patient remains in the critical care unit. He is postop day #2, status post abdominal washout and ABThera placement for fecal peritonitis from a rectal stump blowout. He had no issues overnight. He did have a blood culture that returned positive for yeast today and was started on micafungin. Otherwise, the plan remains currently to return to the operating room today for repeat washout and definitive closure. OBJECTIVE: VITAL SIGNS: Temperature is 100.4. He did reportedly have spiked a fever of 102.4 yesterday afternoon. Heart rate 71, blood pressure 129/52, respirations 17, oxygen saturation 98%. GENERAL: The patient appears comfortable in bed. He is on full mechanical ventilatory support and is sedated. The patient will open his eyes to command and nod his head with simple questions. LUNGS: Clear to auscultation bilaterally. HEART: Regular rate and rhythm. GI: Abdomen has ABThera in place and appears to be functioning properly. EXTREMITIES: 1 to 2+ edema. LABORATORY FINDINGS: White blood cell count 11.1, hemoglobin 8.8, hematocrit 27.0, platelets 266. Sodium 138, potassium 4.5, chloride 109, CO2 of 23, BUN 27, creatinine 0.85, glucose 107, magnesium 1.7, phosphorus 3.3. RADIOGRAPHS: AP chest x-ray shows no significant change from previous. ASSESSMENT AND PLAN: 1. Status post multiple abdominal procedures, most recently abdominal washout with ABThera placement for fecal peritonitis with rectal stump blowout. 2. Malnutrition, continue TPN. 3. Respiratory failure. Continue full ventilatory support and discussed with Pulmonology weaning postoperatively. 4. Deconditioning. We will have Physical and Occupational Therapy begin working with the patient as soon as feasible. 5. Encephalopathy, stable. 6. Atrial fibrillation, on Cardizem drip per Cardiology. He has had his digoxin and amiodarone discontinued per Cardiology. Evaluation and examination were discussed with Dr. Freeman this morning. Job ID: [id number]
--- NOTE | 2018-11-13 14:10 | EKG ---
Test Reason : Blood Pressure : / mmHG Vent. Rate : 089 BPM Atrial Rate : 250 BPM P-R Int : 000 ms QRS Dur : 144 ms QT Int : 454 ms P-R-T Axes : 000 -07 -08 degrees QTc Int : 552 ms Undetermined rhythm Right bundle branch block T wave abnormality, consider inferior ischemia Abnormal ECG Confirmed by STACEY RAHMAN ([id number]), newspaper copy editor MARK ANTHONY SANCHEZ ([id number]) on 11/13/2018 2:10:28 PM Referred By: Confirmed By:STACEY RAHMAN
[2018-11-13] MEDS: fentaNYL Citrate/PF 2,000 MCG in Sodium Chloride 0.9% 60 ML IV SCH (14:55)
[2018-11-13] MEDS ORDERED: Fentanyl 100 MCG/2 ML VIAL ONE (19:55)
[2018-11-13] MEDS ORDERED: Midazolam HCl 5 mg/5 ml Vial ONE (19:56)
--- NOTE | 2018-11-13 20:48 | PRG ---
DATE OF SERVICE: 11/13/2018 SUBJECTIVE: Mr. Bahena remains in critical care unit. This is second day after his abdominal washout. Remains mechanically ventilated. He did have yeast isolated on blood culture, so he was started on micafungin today. OBJECTIVE: VITAL SIGNS: His temperature is 100.4. He had a temp spike yesterday. Heart rate is in 70s, blood pressure 129/52. He did have a new line I am told placed yesterday. HEENT: He opens his eyes. He weakly moves extremities. LUNGS: Clear. HEART: Regular rhythm. S1 and S2 are normal. ABDOMEN: Open and has an ABThera dressing in place. EXTREMITIES: 1+ edema. GENERAL: Intake and output is +2795. LABORATORY DATA: White count 11.1, hemoglobin 8.8, and platelets 266,000. Sodium 138, potassium 4.5, chloride 109, bicarb 23, BUN 27, and creatinine 0.85. PH 7.44, pCO2 of 31, pO2 of 162. Chest x-ray today shows calcified granulomas and haziness at apex suggestive of plaque. X-ray looks better than I would have expected given his abdominal problems. IMPRESSION: 1. Respiratory failure associated with abdominal sepsis. 2. Yeast isolated on blood culture likely either related to his peritonitis or a line, probably more likely related to his peritonitis. 3. I believe he is tentatively scheduled to go for another abdominal washout and possible closure. We will continue to follow the other physicians caring for him. Critical care time 30 minutes. Job ID: [id number] [id number]
--- NOTE | 2018-11-13 21:43 | OP ---
DATE OF PROCEDURE: 11/13/2018 PREOPERATIVE DIAGNOSES: Rectal stump blowout after ileostomy and subtotal colectomy for colonic ischemia, open abdomen, planned staged abdominal washout and secondary closure and laparotomy. PROCEDURES PERFORMED: Exploratory laparotomy, removal of ABThera, abdominal washout, placement of #19 gold POLO drain in the pelvis exiting left lower quadrant, closure of fascia, application of wound VAC and application of ileostomy appliance. ACREAGE REPORTER: Ronni Santos PA-C. ANESTHESIA: General anesthesia. DESCRIPTION OF PROCEDURE: The patient was taken to the operating room where under general anesthesia, ABThera was removed, abdomen was prepared with ChloraPrep (allergic to Betadine) and draped in the routine fashion. ABThera was removed. Abdominal cavity was thoroughly irrigated. There was no purulence. Rectal stump looked normal. There was no evidence of any leakage or contamination. A 19 gold POLO drain placed in the pelvis and brought out the left lateral mid abdominal wall and secured with 3-0 nylon suture. Sterile dressing applied. Abdominal cavity irrigated, irrigant evacuated and hemostasis noted. Intestines were matted together and adherent and were taken down. His ileostomy is functioning well prior to the operation. Midline fascia closed with continuous suture of #1 PDS. Skin and subcutaneous tissues irrigated. Skin approximated with tess about the umbilicus and wound VAC applied and then ileostomy applied. The patient tolerated the procedure well. Job ID: [id number]
[2018-11-13] MEDS: Enoxaparin Sodium 40 MG/0.4 ML SYRINGE SC SCH (22:15)
[2018-11-13] MEDS: [UNRECOGNIZED DRUG - OTHER] IV SCH (22:57)
[2018-11-13] MEDS: POTASSIUM ACETATE IV SCH (22:57)
[2018-11-13] MEDS: SODIUM CHLORIDE IV SCH (22:57)
[2018-11-13] MEDS: SODIUM ACETATE IV SCH (22:57)
[2018-11-14] MEDS: Piperacillin/Tazobactam 4.5 GM in Sodium Chloride 0.9% 100 ML IVPB SCH ×4 (02:44→19:57)
[2018-11-14] MEDS: Sodium Chloride 0.9% 1,000 ML IV SCH ×3 (02:47→14:51)
[2018-11-14 04:53] LABS: #Eosinphils 0.8 thou/uL (0.0-0.7); #Lymphocytes 0.8 thou/uL (1.20-3.40); #Monocytes 1.1 thou/uL (0.11-0.59); #Neutrophils 7.4 thou/uL (1.40-6.50); %Basophils 0.3 % (0.0-1.0); %Eosinophils 7.5 % (0.0-10.0); %Lymphocytes 7.7 % (21.0-51.0); %Neutrophils 73.5 % (42.0-75.0); Hemoglobin 8.1 g/dL (14.0-18.0); Mean Corpuscular Hemoglobin 33.1 pg (27.0-31.0); Mean Platelet Volume 7.5 fL (7.4-10.4); Platelet Count 265 thou/uL (130-400); RBC Distribution Width 17.2 % (11.5-14.5); Red Blood Cell (RBC) Count 2.44 mill/uL (4.70-6.10)
[2018-11-14 05:12] LABS: Anion Gap 9 mmol/L (10-20); BUN (Urea Nitrogen) 26 mg/dL (8.4-25.7); Calc. Creatinine Clearance 110 mL/min (70-130); Calcium 7.5 mg/dL (7.8-10.44); Carbon Dioxide 23 mmol/L (23-31); Chloride 111 mmol/L (98-107); Estimated GFR-MDRD Greater than 90; Glucose 89 mg/dL (83-110); Magnesium 1.8 mg/dL (1.6-2.6); Phosphorus 2.9 mg/dL (2.3-4.7); Potassium 4.2 mmol/L (3.5-5.1); Sodium 139 mmol/L (136-145)
[2018-11-14 06:59] LABS: Actual Bicarbonate (HCO3a) 21.5 mEq/L (22-28); Base Excess (BEa) -1.7 mEq/L (-2.0 to +3.0); CO2 Tension 30.2 mmHg (35.0-45.0); Carboxyhemoglobin (COHb) 1.6 gm% (0.0-3.0); Hemoglobin (Hb) 8.4 g/dL (14.0-18.0); O2 Tension (PaO2) 85.6 mmHg (> 70.0); Potassium - ABG Lab 4.17 mmol/L (3.70-5.30); pH, Arterial 7.47 (7.35-7.45)
--- NOTE | 2018-11-14 08:10 | RAD ---
XR Chest 1 View Portable History: [Ventilated patient] Comparison: Radiograph prior day Findings: Left subclavian central venous catheter is similar. Intraventricular tube tip is above the juliette 2 cm. Heart size is enlarged. Basilar pleural plaques. Is a left-sided rib fractures. No appreciable pneumothorax. Bibasilar atelectasis. Dilated pulmonary arteries. Endotracheal tube tip below diaphragm although out of field of view. Impression: Unchanged exam of the chest.
[2018-11-14] MEDS: Propofol 1,000 MG/100 ML VIAL IV PRN (08:24)
[2018-11-14] MEDS: Famotidine/PF 20 mg/2ml Vial SLOW IVP SCH ×2 (08:29→20:04)
[2018-11-14] MEDS: Cyanocobalamin (Vitamin B-12) 1,000 MCG TAB PO SCH (08:33)
--- NOTE | 2018-11-14 11:23 | PDOC.PN ---
- Subjective Encounter Start Date: 11/14/18 Encounter Start Time: 10:00 Mr. Bahena was seen today in follow-up of ischemic bowel post colectomy and abdominal washout. He remains intubated.. - Objective Resuscitation Status - Order Detail: 11/01/18 19:39 Resuscitation Status Routine Resuscitation Status: FULL: Full Resuscitation Discussed with: Patient PRINCESS Reviewed: Yes Vital Signs & Weight: Vital Signs (12 hours) Temp Pulse Resp BP Pulse Ox 11/14/18 10:52 99.9 F H 11/14/18 10:39 81 138/56 L 11/14/18 10:00 18 11/14/18 08:00 18 97 11/14/18 07:00 100.1 F H 11/14/18 06:38 73 91/61 11/14/18 06:36 71 17 98 11/14/18 06:00 15 11/14/18 04:00 99.4 F 16 11/14/18 03:15 57 L 11/14/18 02:00 15 11/14/18 00:00 15 Weight Admit Weight 235 lb 9.6 oz Weight 223 lb 6.4 oz Most Recent Monitor Data Heart Rate from ECG 89 NIBP 137/67 NIBP BP-Mean 90 Respiration from ECG 4 SpO2 99 I&O: 11/13/18 11/14/18 11/15/18 06:59 06:59 06:59 Intake Total 4487.0 3924 100 Output Total 1692 2210 375 Balance 2795.0 1714 -275 Result Diagrams: 11/14/18 04:20 11/14/18 04:20 Additional Labs: Accuchecks 11/14/18 11/13/18 10:25 23:45 POC Glucose 101 90 Phys Exam - Physical Examination HEENT: PERRLA Respiratory: no wheezing, no rales, no rhonchi, clear to auscultation bilateral Cardiovascular: RRR, no significant murmur, no rub Gastrointestinal: soft, no distention + wound vac in place, bowel sounds are diminished Musculoskeletal: pulses present, edema present + edema in the upper and lower extremities Dx/Plan (1) Ischemic colitis Code(s): K55.9 - VASCULAR DISORDER OF INTESTINE, UNSPECIFIED Status: Acute (2) Severe protein-calorie malnutrition Code(s): E43 - UNSPECIFIED SEVERE PROTEIN-CALORIE MALNUTRITION Status: Acute (3) Atrial fibrillation Code(s): I48.91 - UNSPECIFIED ATRIAL FIBRILLATION Status: Chronic Qualifiers: Atrial fibrillation type: chronic Qualified Code(s): I48.2 - Chronic atrial fibrillation (4) Hypertension Code(s): I10 - ESSENTIAL (PRIMARY) HYPERTENSION Status: Chronic Qualifiers: Hypertension type: essential hypertension Qualified Code(s): I10 - Essential (primary) hypertension (5) Diabetes mellitus type 2 in nonobese Code(s): E11.9 - TYPE 2 DIABETES MELLITUS WITHOUT COMPLICATIONS Status: Chronic - Plan * Ischemic Bowel post colectomy and abdominal washout- he had a repeat abdominal washout last night * Continue Zosyn for peritonitis- Leukocytosis is improving- Micafungin has been added * AFIB- his heart rate is stable * DM- blood glucose is stable * HTN- blood pressure is stable.
[2018-11-14] MEDS: Micafungin 100 MG in Sodium Chloride 0.9% 100 ML IVPB SCH (12:00)
--- NOTE | 2018-11-14 12:18 | PDOC.CTH ---
Cardiology Progress Note - Subjective Pt. seen and eval. by me. He is still intubated and sedated. - ROS not able to obtain ROS - Objective Vital Signs Temp Pulse Resp BP Pulse Ox 11/14/18 12:00 16 11/14/18 10:52 99.9 F H 11/14/18 10:39 81 138/56 L 11/14/18 10:00 18 11/14/18 08:00 18 97 11/14/18 07:00 100.1 F H 11/14/18 06:38 73 91/61 11/14/18 06:36 71 17 98 11/14/18 06:00 15 11/14/18 04:00 99.4 F 16 11/14/18 03:15 57 L 11/14/18 02:00 15 Admit Weight 235 lb 9.6 oz Weight 223 lb 6.4 oz 11/13/18 11/14/18 11/15/18 06:59 06:59 06:59 Intake Total 4487.0 3924 149.7 Output Total 1692 2210 475 Balance 2795.0 1714 -325.3 - Physical Examination General/Neuro: other: (sedated on ventilator.) Neck: no JVD present Lungs: CTA Heart: other: (irreg.) Abdomen: other: (surgical dressing and wound vac in place.) - Labs Result Diagrams: 11/14/18 04:20 11/14/18 04:20 Troponin/CKMB CK-MB (CK-2) 1.4 ng/mL (0-6.6) 11/01/18 18:31 Troponin I 0.089 ng/mL (< 0.028) H 11/03/18 15:31 - Assessment/Plan . Atrial fib. with RVR - well controlled HR with IV Diltiazem; Off IV digoxin and Amiodarone . Not a candidate for OAC. 2. Ileus with S/p colectomy/ileostomy - fecal peritonitis . 3. HTN: stable. 4. 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 MAR reviewed * Echo in 11/2017 with EF 60-65%, mod-severe dilated LA, mod ERA, mild MR and TR
--- NOTE | 2018-11-14 16:04 | PRG ---
DATE OF SERVICE: 11/14/2018 SUBJECTIVE: Mr. Bahena is in the ICU. He is doing well. OBJECTIVE: VITAL SIGNS: Temperature 99.7 degrees, blood pressure 120/66. LUNGS: Clear to auscultation. CARDIAC: Rhythm. No murmur or gallop. ABDOMEN: Soft. Bowel sounds present. Some gas and scant ileostomy output present. Wound VAC in place. LABORATORY DATA: White count 10 and hemoglobin 8.1. Basic metabolic profile unremarkable. BUN 26, creatinine 0.78. ASSESSMENT: 1. Status post total abdominal colectomy in 2 stages (first stage several years ago, second-stage this hospitalization to ischemic bowel) with subsequent rectal stump blowout, status post open abdomen and definitive closure yesterday. Wound VAC is in place. Pulmonary Medicine has been weaning the vent as able. 2. Atrial fibrillation with rapid ventricular response, well controlled with heart rate with IV diltiazem, digoxin, and amiodarone, and had been discontinued. 3. Wolnqpp-Qijwv-Xsiqi syndrome with pain in his legs. Followup with Dr. Carmen Iniguez, critical care technician. 4. Respiratory failure. Followup Pulmonary. PLAN: Wean as able. No plans to return to the operating room. POLO drainage 30 mL serous. Gastric drainage 500 mL 24 hours, 225 ileostomy outputs. Continue supportive care. Wean vent as possible. Continue TPN. Initiate tube feedings soon. Job ID: [id number]
[2018-11-14] MEDS: Enoxaparin Sodium 40 MG/0.4 ML SYRINGE SC SCH (20:03)
--- NOTE | 2018-11-14 21:07 | PRG ---
DATE OF SERVICE: 11/14/2018 SUBJECTIVE: Mr. Bahena remains with stable vital signs. Heart rates in the 80s, oximetry is 100%. He remains mechanically ventilated. Blood pressure this evening is 139/70, heart rate 74. Intake and output, it is positive 1714. He is positive almost 8 liters last 3 days. OBJECTIVE: LUNGS: Clear. HEART: Regular rhythm. ABDOMEN: Remarkable for wound VAC. EXTREMITIES: Without edema. IMAGING: Chest x-ray today surprisingly does not show significant infiltrates. LABORATORY DATA: White count is 10, hemoglobin 8.1, platelets 265. Sodium 139, potassium 4.2, chloride 111, bicarb 23, BUN 26, creatinine 0.78. PH 7.47, CO2 30, pO2 85. IMPRESSION: 1. Status post multiple laparotomies. 2. Respiratory failure. 3. We will begin the weaning process as hopefully he has no more planned abdominal procedures. CRITICAL CARE TIME: 30 minutes. Job ID: [id number]
[2018-11-14] MEDS: SODIUM CHLORIDE IV SCH (22:21)
[2018-11-14] MEDS: SODIUM ACETATE IV SCH (22:21)
[2018-11-14] MEDS: POTASSIUM ACETATE IV SCH (22:21)
[2018-11-14] MEDS: [UNRECOGNIZED DRUG - OTHER] IV SCH (22:21)
[2018-11-14] MEDS: fentaNYL Citrate/PF 2,000 MCG in Sodium Chloride 0.9% 60 ML IV SCH (22:38)
[2018-11-15] MEDS: Sodium Chloride 0.9% 1,000 ML IV SCH ×2 (01:22→14:16)
[2018-11-15] MEDS: Piperacillin/Tazobactam 4.5 GM in Sodium Chloride 0.9% 100 ML IVPB SCH ×4 (01:22→20:40)
[2018-11-15 04:58] LABS: #Eosinphils 0.8 thou/uL (0.0-0.7); #Lymphocytes 1.3 thou/uL (1.20-3.40); #Neutrophils 6.3 thou/uL (1.40-6.50); %Basophils 0.4 % (0.0-1.0); %Eosinophils 8.4 % (0.0-10.0); %Lymphocytes 14.1 % (21.0-51.0); %Monocytes 10.4 % (0.0-10.0); %Neutrophils 66.7 % (42.0-75.0); Hemoglobin 7.9 g/dL (14.0-18.0); Mean Corpuscular HGB CONC 32.6 g/dL (32.0-36.0); Mean Platelet Volume 7.6 fL (7.4-10.4); Platelet Count 282 thou/uL (130-400); RBC Distribution Width 17.3 % (11.5-14.5); White Blood Cell (WBC) Count 9.5 thou/uL (4.8-10.8)
[2018-11-15 05:24] LABS: Anion Gap 6 mmol/L (10-20); BUN (Urea Nitrogen) 26 mg/dL (8.4-25.7); Calc. Creatinine Clearance 121 mL/min (70-130); Calcium 7.7 mg/dL (7.8-10.44); Carbon Dioxide 24 mmol/L (23-31); Chloride 114 mmol/L (98-107); Estimated GFR-MDRD Greater than 90; Glucose 88 mg/dL (83-110); Magnesium 1.8 mg/dL (1.6-2.6); Potassium 4.4 mmol/L (3.5-5.1); Sodium 140 mmol/L (136-145)
[2018-11-15 05:25] LABS: Phosphorus 2.9 mg/dL (2.3-4.7)
[2018-11-15 06:48] LABS: Actual Bicarbonate (HCO3a) 21.6 mEq/L (22-28); Base Excess (BEa) -1.8 mEq/L (-2.0 to +3.0); CO2 Tension 31.8 mmHg (35.0-45.0); Calcium, Ionized 1.17 mmol/L (1.12-1.30); Carboxyhemoglobin (COHb) 0.9 gm% (0.0-3.0); Hemoglobin (Hb) 9.7 g/dL (14.0-18.0); Potassium - ABG Lab 4.04 mmol/L (3.70-5.30); pH, Arterial 7.45 (7.35-7.45)
[2018-11-15 06:49] LABS: Puncture Site LRA
[2018-11-15] MEDS: Cyanocobalamin (Vitamin B-12) 1,000 MCG TAB PO SCH (07:46)
[2018-11-15] MEDS: Famotidine/PF 20 mg/2ml Vial SLOW IVP SCH ×2 (07:46→20:40)
--- NOTE | 2018-11-15 08:32 | PRG ---
DATE OF SERVICE: 11/15/2018 SUBJECTIVE: This morning, intubated on the vent on CPAP. OBJECTIVE: VITAL SIGNS: His saturations are 100% on room air, pulse 86, atrial fibrillation, blood pressure 104/86, respiratory rate 20. I's and O's consistently ahead. GENERAL: He is having some pain. CHEST: Decreased breath sounds. No wheezing. CARDIAC: Atrial fibrillation. ABDOMEN: Distended, soft. LABORATORY DATA: PO2 is 88, pCO2 on a pressure support mode. Lytes are normal. His sputum is growing Pseudomonas kevan. IMPRESSION AND PLAN: 1. Multiple laparotomies. 2. Respiratory failure. 3. Congestive heart failure, retained secretions. He remains on Zosyn. He has Pseudomonas in his lung. His on his sputum to make a decision regarding adjusting his antibiotics. He is going to require TPN. He is going to require PT, supportive care. One-half hour of critical care time. Job ID: [id number]
--- NOTE | 2018-11-15 09:18 | OP ---
DATE OF PROCEDURE: 11/12/2018 PREOPERATIVE DIAGNOSES: Respiratory failure, open abdomen, fecal peritonitis, dislodged central line. POSTOPERATIVE DIAGNOSES: Respiratory failure, open abdomen, fecal peritonitis, dislodged central line. PROCEDURE PERFORMED: Placement of left subclavian vein central line. ANESTHESIA: 1% Xylocaine. DESCRIPTION OF PROCEDURE: At the patient's bedside, using Seldinger technique, a triple-lumen catheter was placed in the left subclavian vein, removing the J-wire, securing the catheter with 3-0 silk and suture and sterile dressing applied. Each port aspirated and blood flushed with saline solution. Sterile dressing applied. Chest x-ray confirmed good placement. Job ID: [id number]
[2018-11-15] MEDS ORDERED: DC Sedation Protocol FS ONE (10:03)
--- NOTE | 2018-11-15 10:59 | PDOC.PN ---
- Subjective Encounter Start Date: 11/15/18 Encounter Start Time: 10:30 Mr. Bahena was seen today in follow-up of ischemic colitis, post colectomy. He is intubated, and sedation has been reduced. He is more alert. - Objective Resuscitation Status - Order Detail: 11/01/18 19:39 Resuscitation Status Routine Resuscitation Status: FULL: Full Resuscitation Discussed with: Patient MAR Reviewed: Yes Vital Signs & Weight: Vital Signs (12 hours) Temp Pulse Resp BP Pulse Ox 11/15/18 10:09 87 27 H 99 11/15/18 07:19 16 21 L 11/15/18 06:34 71 135/79 11/15/18 06:32 90 19 99 11/15/18 06:00 18 11/15/18 04:00 12 11/15/18 03:52 70 11/15/18 03:00 98 F 11/15/18 02:00 12 11/15/18 00:00 16 11/14/18 23:08 80 142/78 H 11/14/18 23:00 98.8 F Weight Admit Weight 235 lb 9.6 oz Weight 224 lb Most Recent Monitor Data Heart Rate from ECG 73 NIBP 151/84 NIBP BP-Mean 106 Respiration from ECG 18 SpO2 100 I&O: 11/14/18 11/15/18 11/16/18 06:59 06:59 06:59 Intake Total 3924 4459.7 0 Output Total 2210 1865 1210 Balance 1714 2594.7 -1210 Result Diagrams: 11/15/18 04:25 11/15/18 04:25 Additional Labs: Accuchecks 11/15/18 11/15/18 11/14/18 10:10 00:56 16:10 POC Glucose 93 95 103 Phys Exam - Physical Examination HEENT: PERRLA Respiratory: no wheezing, no rales, clear to auscultation bilateral + rhonchi -bilaterally Cardiovascular: RRR, no significant murmur, no rub Gastrointestinal: soft, non-tender, no distention, positive bowel sounds Musculoskeletal: pulses present, edema present + edema of both the upper and lower extremities Dx/Plan (1) Ischemic colitis Code(s): K55.9 - VASCULAR DISORDER OF INTESTINE, UNSPECIFIED Status: Acute (2) Severe protein-calorie malnutrition Code(s): E43 - UNSPECIFIED SEVERE PROTEIN-CALORIE MALNUTRITION Status: Acute (3) Atrial fibrillation Code(s): I48.91 - UNSPECIFIED ATRIAL FIBRILLATION Status: Chronic Qualifiers: Atrial fibrillation type: chronic Qualified Code(s): I48.2 - Chronic atrial fibrillation (4) Hypertension Code(s): I10 - ESSENTIAL (PRIMARY) HYPERTENSION Status: Chronic Qualifiers: Hypertension type: essential hypertension Qualified Code(s): I10 - Essential (primary) hypertension (5) Diabetes mellitus type 2 in nonobese Code(s): E11.9 - TYPE 2 DIABETES MELLITUS WITHOUT COMPLICATIONS Status: Chronic - Plan * Ischemic colitis- post colectomy and abdominal washout. Wound vac is in place - Continue Zosyn for peritonitis. * AFIB- his heart rate has been stable * HTN- blood pressure is stable * DM- blood glucose is stable * Continue TPN for nutritional support * Respiratory failure- Wean vent per PCCM
--- NOTE | 2018-11-15 11:22 | PDOC.CTH ---
Cardiology Progress Note - Subjective Pt. seen and eval. Extubated. Doing reasonably well considering all of his medical problems. He denied chest pain or SOB. He does still have abd. discomfort. - Objective Vital Signs Temp Pulse Resp BP Pulse Ox 11/15/18 11:07 100 11/15/18 10:09 87 27 H 99 11/15/18 07:19 16 21 L 11/15/18 06:34 71 135/79 11/15/18 06:32 90 19 99 11/15/18 06:00 18 11/15/18 04:00 12 11/15/18 03:52 70 11/15/18 03:00 98 F 11/15/18 02:00 12 11/15/18 00:00 16 Admit Weight 235 lb 9.6 oz Weight 224 lb 11/14/18 11/15/18 11/16/18 06:59 06:59 06:59 Intake Total 3924 4459.7 0 Output Total 2210 1865 1505 Balance 1714 2594.7 -1505 - Physical Examination General/Neuro: alert & oriented x3 Neck: no JVD present Lungs: CTA Heart: other: (irreg/irreg.) - Labs Result Diagrams: 11/15/18 04:25 11/15/18 04:25 Troponin/CKMB CK-MB (CK-2) 1.4 ng/mL (0-6.6) 11/01/18 18:31 Troponin I 0.089 ng/mL (< 0.028) H 11/03/18 15:31 - Assessment/Plan Atrial fib. with RVR - well controlled HR with IV Diltiazem; Off IV digoxin and Amiodarone . Not a candidate for OAC. 2. Ileus with S/p colectomy/ileostomy - fecal peritonitis . 3. HTN: stable but on the high side. May be assoc. with his abd. pain. 4. 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 5. anemia. MAR reviewed * Echo in 11/2017 with EF 60-65%, mod-severe dilated LA, mod ERA, mild MR and TR
--- NOTE | 2018-11-15 11:30 | PRG ---
DATE OF SERVICE: 11/15/2018 SUBJECTIVE: Mr. Bahena remains on the ventilator. No events overnight. OBJECTIVE: VITAL SIGNS: Blood pressure is 150/88 and pulse is 76. He is afebrile. Urine output is 1605 for the day yesterday. Ileostomy mucosa is pink and there is a small amount of output. ABDOMEN: His abdomen is soft. Wound VAC in place. LABORATORY DATA: White blood cell count is 9, hemoglobin is 7.9, and platelet count is 282 with normal differential. Creatinine is 0.72. ASSESSMENT: Status post reexploration, washout, drainage of leaking rectal stump. Continue TPN. Dr. Woodson plans on potentially extubating today. Stay in the ICU. Job ID: [id number]
[2018-11-15] MEDS: Micafungin 100 MG in Sodium Chloride 0.9% 100 ML IVPB SCH (11:51)
[2018-11-15] MEDS: Enoxaparin Sodium 40 MG/0.4 ML SYRINGE SC SCH (20:40)
[2018-11-15] MEDS: SODIUM ACETATE IV SCH (22:33)
[2018-11-15] MEDS: [UNRECOGNIZED DRUG - OTHER] IV SCH (22:33)
[2018-11-15] MEDS: POTASSIUM ACETATE IV SCH (22:33)
[2018-11-15] MEDS: SODIUM CHLORIDE IV SCH (22:33)
[2018-11-16] MEDS: Sodium Chloride 0.9% 1,000 ML IV SCH ×2 (00:34→07:58)
[2018-11-16] MEDS: Piperacillin/Tazobactam 4.5 GM in Sodium Chloride 0.9% 100 ML IVPB SCH ×4 (02:06→20:30)
[2018-11-16 04:32] LABS: #Eosinphils 0.7 thou/uL (0.0-0.7); #Lymphocytes 1.5 thou/uL (1.20-3.40); #Monocytes 1.1 thou/uL (0.11-0.59); #Neutrophils 6.1 thou/uL (1.40-6.50); %Basophils 0.5 % (0.0-1.0); %Eosinophils 7.4 % (0.0-10.0); %Lymphocytes 16.1 % (21.0-51.0); %Monocytes 11.2 % (0.0-10.0); %Neutrophils 64.8 % (42.0-75.0); Hemoglobin 8.7 g/dL (14.0-18.0); Mean Corpuscular HGB CONC 32.6 g/dL (32.0-36.0); Mean Corpuscular Hemoglobin 32.5 pg (27.0-31.0); Mean Corpuscular Volume 99.5 fL (78.0-98.0); Mean Platelet Volume 7.2 fL (7.4-10.4); Platelet Count 345 thou/uL (130-400); Red Blood Cell (RBC) Count 2.68 mill/uL (4.70-6.10); White Blood Cell (WBC) Count 9.4 thou/uL (4.8-10.8)
[2018-11-16 04:59] LABS: Phosphorus 2.7 mg/dL (2.3-4.7)
[2018-11-16 05:02] LABS: Anion Gap 8 mmol/L (10-20); BUN (Urea Nitrogen) 23 mg/dL (8.4-25.7); Calc. Creatinine Clearance 129 mL/min (70-130); Calcium 7.9 mg/dL (7.8-10.44); Carbon Dioxide 24 mmol/L (23-31); Chloride 113 mmol/L (98-107); Estimated GFR-MDRD Greater than 90; Glucose 80 mg/dL (83-110); Magnesium 1.7 mg/dL (1.6-2.6); Potassium 3.9 mmol/L (3.5-5.1); Sodium 141 mmol/L (136-145)
[2018-11-16] MEDS: Famotidine/PF 20 mg/2ml Vial SLOW IVP SCH ×2 (07:57→20:30)
[2018-11-16] MEDS: Cyanocobalamin (Vitamin B-12) 1,000 MCG TAB PO SCH (07:58)
--- NOTE | 2018-11-16 08:29 | PRG ---
DATE OF SERVICE: 11/16/2018 SUBJECTIVE: Jose Bahena post extubation remains weak. He is not encephalopathic. OBJECTIVE: VITAL SIGNS: His saturations are 99% on 2 L, respiratory rate 30, pulse 80, blood pressure 166/96. GENERAL: Denies any pain or discomfort. CHEST: Decreased breath sounds. Anterior rhonchi. CARDIAC: Atrial fibrillation. ABDOMEN: Soft. LABORATORY DATA: His sputum is growing Pseudomonas, significant colonization, multiple organisms from his abdomen, to which he is sensitive on the present antibiotics. IMAGING STUDIES: His last chest x-ray shows CHF. IMPRESSION: 1. Encephalopathy. 2. Atrial fibrillation. 3. Multiple laparotomies, severe deconditioning, sleep apnea. PLAN: At this stage, nothing additional to offer. Continue present antibiotics, PT, supportive care, nocturnal ventilation. One-half hour of critical time. Job ID: [id number] MTDD
--- NOTE | 2018-11-16 08:58 | CON ---
DATE OF CONSULTATION: REASON FOR CONSULTATION: Peritonitis, sepsis. HISTORY OF PRESENT ILLNESS: A 78-year-old patient who has a history of prior diverticulitis with subtotal colectomy, atrial fibrillation, on amiodarone, hypertension, and history of ischemic colitis who was in the usual state of health until the beginning of November when he developed diarrhea after an episode of fecal impaction. He was then diagnosed with ischemic colitis and improved without major intervention except for colonoscopy with biopsy. Pathology revealed a large intestine, endoscopic biopsy with ischemic pattern injury. The patient was discharged on 10/31 with a diagnosis of gastrointestinal bleeding, fecal impaction, and stercoral colitis. The endoscopy demonstrated ischemic ulcerations and the patient declined rehabilitation and he was sent home. He did have urinary retention and he was discharged with an indwelling Courtney catheter with Urology followup appointment for a voiding trial in the outpatient setting. He was readmitted the next day after discharge and started having bleeding from the rectum again with severe lower abdominal pain, went to [facility] with a hemoglobin down to 7. He was given 1 unit of packed red blood cells and transferred to [facility]. Initial findings included blood pressure 128/61, pulse 70, respirations 18, and temperature 97.5. The exam then showed normal HEENT exam, the lung exam was normal, cardiovascular examination was normal as well, the abdomen exam showed diffuse tenderness with moderate intensity. No guarding or rigidity. Initial laboratory results included a white cell count of 10.0, hemoglobin 9.7, platelets 588, 75% neutrophils. INR was 1.3. Sodium 139, creatinine 0.78. Liver profile within normal limits. Albumin 2.4. Urinalysis with greater than 50 wbc 's, 4-6 rbc's. Urine culture on arrival showed Proteus mirabilis, two different gram negatives in addition to Proteus and Streptococcus. Gastroenterology consult was placed. The impression was severe ischemic colitis with evidence of spontaneous colonic perforation. CT angiogram of the abdomen showed nonvisualization of the inferior mesenteric artery. There was evidence of cystitis as well. There was a multiseptated mass in the left hepatic lobe which is old and unchanged and there was severe mural thickening and stranding involving the rectum, remaining right colon with pneumatosis in portions of the right colon, portal venous gas and loculated gas density adjacent to the main right colon signifying contained perforation. General Surgery was consulted for a surgical procedure at the end of October with exploratory laparotomy, adhesiolysis, placement of a central venous catheter and a right colectomy with ileostomy. On November 11, he underwent placement of a right subclavian venous central line, exploratory laparotomy with reopening of recent laparotomy, abdominal washout, closure of rectal stump, ABThera application. During this second procedure, there was evidence of fecal soilage of the peritoneal cavity. The fascia was macerated. This appeared to be coming from the drainage and it revealed a disrupted fecal rectal stump. The next day, the patient had placement of a left subclavian central line and the final procedure recorded is from 2 days ago, which was exploratory laparotomy, removal of ABThera, abdominal washout and placement of a POLO drain and pelvis exiting the left lower quadrant, closure of the fascia, application of wound VAC and ileostomy appliance. Over the course of the past many days, white cell count went up to 19.3 and now has steadily gone down to today's level of 9.5, hemoglobin has remained around 9 and dropped today to 7.9, and creatinine has remained fairly stable and actually improved over the past few days and the sodium has remained stable after 3 days of drop to lower 130 range, carbon dioxide dropped to 19 and then has raised to now the current level of 24. Currently, Mr. Bahena is little bit drowsy. He establishes eye contact. He denies headaches. No dyspnea or chest pain. He denies abdominal pain, and actually requested to be allowed to eat because he was hungry. PAST MEDICAL HISTORY: Includes ischemic colitis, diverticulitis, subtotal colectomy, peripheral neuropathy, B12 deficiency, hypertension, dyslipidemia, neuropathy, opioid dependency syndrome. ALLERGIES: AMOXICILLIN, AZITHROMYCIN, CEPHALEXIN, CIPRO, CLINDAMYCIN, IODINE CONTRAST. SOCIAL HISTORY: , living with . Quit smoking in the 80s. No alcoholic beverage use. FAMILY HISTORY: Breast cancer. CURRENT MEDICATIONS: 1. DuoNeb. 2. Vitamin B12. 3. Electrolytes. 4. Lovenox. 5. Pepcid. 6. Robitussin. 7. Insulin. 8. Micafungin. 9. Zosyn. PHYSICAL EXAMINATION: VITAL SIGNS: T-max 102.4 on 11/12, then 100.1 on 11/14, and he has been afebrile since, blood pressure 170/98, heart rate 91, O2 saturation 100, respiratory rate 23. SKIN: The patient has a left abdominal drain, ileostomy on the right side and a left IJ triple-lumen catheter. He has some abrasions in the gluteal region from pressure. No lymphadenopathy. Ocular movements are conjugate. There is some periorbital edema. Conjunctivae normal. Oral cavity is dry. I do not see any klamath teeth in place. LUNGS: Symmetric air entry. Diminished breath sounds at bases with faint crackles. S1, S2. Regular rate without S3. ABDOMEN: Soft without distention or tenderness; maybe mild tenderness on the left side. Ostomy appears normal. : There is a Courtney catheter and the patient has had positive 2500 mL in the past 24 hours and today is -2590. MUSCULOSKELETAL: He is able to move all extremities, but is diffusely weak. His reflexes are diminished in the lower extremities. Plantar responses are upgoing on the right side. No clonus noted. Pulses 1+ in dorsalis pedis, but faint, no edema. He has evidence of a prior TKR in the left knee. He is able to move all extremities equally, neuro exam nonfocal. He is a little bit drowsy, but he establishes eye contact, knows he is in the hospital, other elements of his history he cannot recall. LABORATORY DATA: Today's labs, sodium 141, creatinine 0.76, troponin 0.078. White cell count 3.4, hemoglobin 8.9, MCV 110, platelets 644, 88% neutrophils. INR is 1.4. Urinalysis with 11-20 wbc's. On microbiology, we have E. coli, which has a fairly broad susceptibility profile, Proteus mirabilis veronica-susceptible, Enterococcus faecalis which is susceptible to the usual antimicrobials for this organism. Basia albicans retrieved from the blood culture. There is Pseudomonas aeruginosa from the sputum. The last chest x- rays from 11/14 and it showed rib fractures on the left side, atelectasis and this is before extubation. ASSESSMENT: Peripheral vascular disease with mesenteric ischemia and recurrent episodes of ischemic colitis which culminated in the current admission, which required an exploratory laparotomy and resection of the right colon, ileostomy placement which is a permanent ileostomy followed by a few other procedures to finish the revision of the colotomy site. He did have a blowout of the rectal stump which developed into a fecal peritonitis and now it seems to have stabilized and from the standpoint of his intraabdominal inflammatory process, the patient has developed Basia species fungemia, possibility of colonization off the central lines, transitioning to a PICC line or removing the central line. Continue Zosyn which will cover all the organisms from the intra-abdominal cultures, positive anaerobes, which are likely, continue micafungin for the Basia species as well. I would not treat the respiratory secretion isolate at this point in time since it is likely to just reflect colonization. Job ID: [id number] [facility]
--- NOTE | 2018-11-16 09:25 | PDOC.PN ---
- Subjective Encounter Start Date: 11/16/18 Encounter Start Time: 09:23 Mr. Bahena was seen today in follow-up of Ischemic bowel post colon resection and abdominal washout. He has been extubated. He is breathing comfortably. He follows commands. He is a bit hard to understand when he speaks, due to dry mouth. - Objective Resuscitation Status - Order Detail: 11/01/18 19:39 Resuscitation Status Routine Resuscitation Status: FULL: Full Resuscitation Discussed with: Patient MAR Reviewed: Yes Vital Signs & Weight: Vital Signs (12 hours) Temp Pulse Resp Pulse Ox 11/16/18 08:03 99 11/16/18 08:02 84 24 H 99 11/16/18 07:37 100 11/16/18 06:00 98.8 F 11/16/18 04:10 99 11/16/18 04:00 98.3 F 11/15/18 23:09 100 11/15/18 23:08 98 Weight Admit Weight 235 lb 9.6 oz Weight 231 lb 11.2 oz Most Recent Monitor Data Heart Rate from ECG 101 NIBP 159/109 NIBP BP-Mean 125 Respiration from ECG 29 SpO2 99 I&O: 11/15/18 11/16/18 11/17/18 06:59 06:59 06:59 Intake Total 4459.7 2108 0 Output Total 1865 7215 580 Balance 2594.7 -5107 -580 Result Diagrams: 11/16/18 04:20 11/16/18 04:20 Additional Labs: Accuchecks 11/15/18 11/15/18 11/15/18 22:23 16:25 10:10 POC Glucose 87 84 93 Phys Exam - Physical Examination HEENT: PERRLA Respiratory: no wheezing, no rales, no rhonchi, clear to auscultation bilateral Cardiovascular: RRR, no significant murmur, no rub Gastrointestinal: soft, no distention, positive bowel sounds + diffuse tenderness , no rebound or guarding wound vac in place Musculoskeletal: no edema, pulses present Dx/Plan (1) Ischemic colitis Code(s): K55.9 - VASCULAR DISORDER OF INTESTINE, UNSPECIFIED Status: Acute (2) Severe protein-calorie malnutrition Code(s): E43 - UNSPECIFIED SEVERE PROTEIN-CALORIE MALNUTRITION Status: Acute (3) Atrial fibrillation Code(s): I48.91 - UNSPECIFIED ATRIAL FIBRILLATION Status: Chronic Qualifiers: Atrial fibrillation type: chronic Qualified Code(s): I48.2 - Chronic atrial fibrillation (4) Hypertension Code(s): I10 - ESSENTIAL (PRIMARY) HYPERTENSION Status: Chronic Qualifiers: Hypertension type: essential hypertension Qualified Code(s): I10 - Essential (primary) hypertension (5) Diabetes mellitus type 2 in nonobese Code(s): E11.9 - TYPE 2 DIABETES MELLITUS WITHOUT COMPLICATIONS Status: Chronic - Plan * Ischemic bowel- s/p colon resection and abdominal washoutX2. Continue local wound care and wound vac * Peritonitis from Ischemic bowel is being treated with Zosyn * AFIB- his heart rate is stable * HTN- blood pressure has been a bit labile- will add Hydralazine PRN. * DM- blood glucose is stable * Respiratory failure- he continue to require BiPAP at night, will monitor in the ICU
[2018-11-16] MEDS ORDERED: hydrALAZINE 20 MG/ML VIAL SLOW IVP PRN (09:30)
[2018-11-16] MEDS ORDERED: Morphine 4 MG/ML VIAL SLOW IVP PRN (09:40)
[2018-11-16 10:02] LABS: Actual Bicarbonate (HCO3a) 23.4 mEq/L (22-28); Analyzer IN Cardio OR; Base Excess (BEa) -0.8 mEq/L (-2.0 to +3.0); CO2 Tension 36.5 mmHg (35.0-45.0); Calcium, Ionized 1.07 mmol/L (1.12-1.30); Carboxyhemoglobin (COHb) 0.7 gm% (0.0-3.0); Hemoglobin (Hb) 8.6 g/dL (14.0-18.0); O2 Tension (PaO2) 349.5 mmHg (> 70.0); Potassium - ABG Lab 4.14 mmol/L (3.70-5.30); pH, Arterial 7.42 (7.35-7.45)
[2018-11-16 10:02] LABS: Actual Bicarbonate (HCO3a) 24.1 mEq/L (22-28); Analyzer IN Cardio OR; Base Excess (BEa) 0.7 mEq/L (-2.0 to +3.0); CO2 Tension 33.6 mmHg (35.0-45.0); Calcium, Ionized 1.08 mmol/L (1.12-1.30); Carboxyhemoglobin (COHb) 1.2 gm% (0.0-3.0); Hemoglobin (Hb) 8.2 g/dL (14.0-18.0); Potassium - ABG Lab 4.14 mmol/L (3.70-5.30); pH, Arterial 7.47 (7.35-7.45)
[2018-11-16 10:19] LABS: Puncture Site ALINE
[2018-11-16 10:20] LABS: Puncture Site ALINE
--- NOTE | 2018-11-16 10:29 | PRG ---
DATE OF SERVICE: 11/16/2018 SUBJECTIVE: Mr. Bahena is extubated. He is stable overnight. He is mostly too weak to answer questions, although, he shakes his head and denies pain. OBJECTIVE: VITAL SIGNS: Blood pressure 159/109, pulse 101, respirations are 20, O2 saturation 99% on room air. Urine output is 3420 for the day. Ileostomy minimal so far. ABDOMEN: Soft. Wound VAC is in place. The ostomy mucosa is pink. LABORATORY DATA: White blood cell count is 9, hemoglobin 8.7. Creatinine is 0.68. ASSESSMENT: Reexploration and washout for rectal stump leak by Dr. Freeman. PLAN: Continue wound VAC, TPN, IV antibiotics. NG tube for now. Job ID: [id number]
[2018-11-16] MEDS: Morphine 4 MG/ML VIAL SLOW IVP PRN ×3 (11:16→22:43)
[2018-11-16] MEDS: Micafungin 100 MG in Sodium Chloride 0.9% 100 ML IVPB SCH (12:29)
--- NOTE | 2018-11-16 14:29 | PDOC.CTH ---
Cardiology Progress Note - Subjective Pt. seen and eval. Extubated. Doing reasonably well considering all of his medical problems. He denied chest pain or SOB. He does still have abd. discomfort.No new overnight events. - Objective Vital Signs Temp Pulse Pulse Pulse Resp BP BP 11/16/18 13:24 94 24 H 11/16/18 09:21 95 83 159/78 H 164/96 H 11/16/18 08:03 11/16/18 08:02 84 24 H 11/16/18 07:37 11/16/18 06:00 98.8 F 11/16/18 04:10 11/16/18 04:00 98.3 F Pulse Ox Pulse Ox Pulse Ox 11/16/18 13:24 98 11/16/18 09:21 100 98 11/16/18 08:03 99 11/16/18 08:02 99 11/16/18 07:37 100 11/16/18 06:00 11/16/18 04:10 99 11/16/18 04:00 Admit Weight 235 lb 9.6 oz Weight 231 lb 11.2 oz 11/15/18 11/16/18 11/17/18 06:59 06:59 06:59 Intake Total 4459.7 2108 0 Output Total 1865 3357 2240 Balance 2594.7 -7851 -2240 - Physical Examination General/Neuro: alert & oriented x3 Neck: no JVD present Lungs: CTA, unlabored respirations Heart: other: (irreg/irreg.) Abdomen: soft, other: (s/p surgery. wound dry, wound-vac in place.) - Labs Result Diagrams: 11/16/18 04:20 11/16/18 04:20 Troponin/CKMB CK-MB (CK-2) 1.4 ng/mL (0-6.6) 11/01/18 18:31 Troponin I 0.089 ng/mL (< 0.028) H 11/03/18 15:31 - Assessment/Plan 1. Atrial fib. with RVR - well controlled HR with IV Diltiazem; Off IV digoxin and Amiodarone . Not a candidate for OAC. 2. Ileus with S/p colectomy/ileostomy - fecal peritonitis . Seem stable after repeat irrigation. 3. HTN: stable but on the high side. May be assoc. with his abd. pain. 4. 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 5. anemia. MAR reviewed * Echo in 11/2017 with EF 60-65%, mod-severe dilated LA, mod ERA, mild MR and TR
[2018-11-16] MEDS: Enoxaparin Sodium 40 MG/0.4 ML SYRINGE SC SCH (20:30)
[2018-11-16] MEDS: SODIUM ACETATE IV SCH (22:37)
[2018-11-16] MEDS: POTASSIUM ACETATE IV SCH (22:37)
[2018-11-16] MEDS: [UNRECOGNIZED DRUG - OTHER] IV SCH (22:37)
[2018-11-16] MEDS: FAT EMULSION IV SCH (22:37)
[2018-11-17] MEDS: Sodium Chloride 0.9% 1,000 ML IV SCH ×4 (00:53→22:27)
[2018-11-17] MEDS: Piperacillin/Tazobactam 4.5 GM in Sodium Chloride 0.9% 100 ML IVPB SCH ×4 (02:24→19:50)
[2018-11-17 04:23] LABS: #Basophils 0.1 thou/uL (0.0-0.2); #Eosinphils 0.7 thou/uL (0.0-0.7); #Lymphocytes 1.6 thou/uL (1.20-3.40); #Monocytes 0.9 thou/uL (0.11-0.59); #Neutrophils 6.6 thou/uL (1.40-6.50); %Basophils 0.6 % (0.0-1.0); %Eosinophils 7.3 % (0.0-10.0); %Monocytes 9.2 % (0.0-10.0); %Neutrophils 66.9 % (42.0-75.0); Hemoglobin 8.9 g/dL (14.0-18.0); Mean Corpuscular HGB CONC 32.6 g/dL (32.0-36.0); Mean Corpuscular Hemoglobin 32.5 pg (27.0-31.0); Mean Corpuscular Volume 99.9 fL (78.0-98.0); Mean Platelet Volume 7.2 fL (7.4-10.4); Platelet Count 390 thou/uL (130-400); RBC Distribution Width 17.4 % (11.5-14.5); Red Blood Cell (RBC) Count 2.73 mill/uL (4.70-6.10); White Blood Cell (WBC) Count 9.8 thou/uL (4.8-10.8)
[2018-11-17 04:45] LABS: Anion Gap 11 mmol/L (10-20); BUN (Urea Nitrogen) 25 mg/dL (8.4-25.7); Calc. Creatinine Clearance 119 mL/min (70-130); Carbon Dioxide 24 mmol/L (23-31); Chloride 112 mmol/L (98-107); Estimated GFR-MDRD Greater than 90; Glucose 91 mg/dL (83-110); Magnesium 1.7 mg/dL (1.6-2.6); Potassium 4.3 mmol/L (3.5-5.1); Sodium 143 mmol/L (136-145)
[2018-11-17 04:58] LABS: Phosphorus 3.5 mg/dL (2.3-4.7)
[2018-11-17 05:12] VITALS: BMI 32.5
--- NOTE | 2018-11-17 07:47 | RAD ---
FRONTAL RADIOGRAPH CHEST: Date: 11/17/2018 COMPARISON: 11/14/2018 HISTORY: Congestive heart failure. FINDINGS: There is a nasogastric tube extending into the left upper quadrant. There is a stable left- sided central vascular catheter. There is a displaced fracture of the right clavicular shaft. There is dense opacity in the left base suggesting a combination of left lower lobe consolidation/collapse and a left pleural fluid. Probable small volume right pleural effusion. Pulmonary vascular congestion noted. Nonspecific perihilar airspace disease noted on the right. IMPRESSION: Pulmonary vascular congestion and perihilar increased density on the right with dense opa city of the left base. Findings may be on the basis of congestive heart failure/pulmonary edema. Superimposed infection/aspiration cannot be excluded. Follow-up to resolution advised. Transcribed Date/Time: 11/17/2018 7:49 AM
[2018-11-17] MEDS: Famotidine/PF 20 mg/2ml Vial SLOW IVP SCH ×2 (08:01→19:51)
[2018-11-17] MEDS: Cyanocobalamin (Vitamin B-12) 1,000 MCG TAB PO SCH (08:02)
--- NOTE | 2018-11-17 08:38 | PRG ---
DATE OF SERVICE: 11/17/2018 SUBJECTIVE: Jose Bahena is sitting on the chair this morning. He is better. Weak. Denies difficulty breathing. OBJECTIVE: VITAL SIGNS: Pulse is 96, blood pressure 122/75, sats 99% on 2 L, respirations 23. CHEST: Decreased breath sounds. Minimal crackles. CARDIAC: Normal S1, S2. No gallops. ABDOMEN: No masses. LABORATORY STUDIES: Lytes are normal. Magnesium and phosphorus are unremarkable. CBC shows H and H of 9 and 27, platelet count normal. IMPRESSION: 1. Status post multiple laps, peritonitis. 2. Severe deconditioning. 3. Supraventricular tachycardia. 4. Chronic obstructive pulmonary disease, probably has sleep apnea. Continue Zosyn, micafungin, TPN. PT, supportive care. Hopefully, we can transition him into a diet. Probably can be transferred to MICU tomorrow. Cardiac care as per Cardiology. Job ID: [id number]
[2018-11-17] MEDS: Morphine 4 MG/ML VIAL SLOW IVP PRN (10:03)
[2018-11-17] MEDS: Micafungin 100 MG in Sodium Chloride 0.9% 100 ML IVPB SCH (11:07)
--- NOTE | 2018-11-17 12:36 | PDOC.CTH ---
Cardiology Progress Note - Subjective The pt seen and examined. No overnight events. He is very lethargic. Per RN, he nodded his head to answer. - Objective Vital Signs Temp Pulse Pulse Resp BP BP Pulse Ox 11/17/18 10:17 95 146/90 H 133/85 11/17/18 08:00 98.5 F 100 11/17/18 07:59 99 11/17/18 07:57 95 24 H 99 11/17/18 00:45 90 23 H 100 Pulse Ox Pulse Ox 11/17/18 10:17 98 99 11/17/18 08:00 11/17/18 07:59 11/17/18 07:57 11/17/18 00:45 Admit Weight 235 lb 9.6 oz Weight 226 lb 6.4 oz 11/16/18 11/17/18 11/18/18 06:59 06:59 06:59 Intake Total 2035 4489 60 Output Total 4137 7676 785 Balance -0270 -9188 -725 - Physical Examination Neck: carotid US brisk Lungs: other: (diminished at bases) Heart: other: (irregular) Abdomen: soft Extremities: other: (generalized edema) - Labs Result Diagrams: 11/17/18 04:15 11/17/18 04:15 Troponin/CKMB CK-MB (CK-2) 1.4 ng/mL (0-6.6) 11/01/18 18:31 Troponin I 0.089 ng/mL (< 0.028) H 11/03/18 15:31 - Assessment/Plan 1. Atrial fib. with RVR - well controlled HR without Diltiazem IV, IV digoxin and Amiodarone . Not a candidate for OAC. 2. Ileus with S/p colectomy/ileostomy - fecal peritonitis . Seem stable after repeat irrigation. 3. HTN: stable but on the high side. May be assoc. with his abd. pain. 4. 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 5. anemia. MAR reviewed * Echo in 11/2017 with EF 60-65%, mod-severe dilated LA, mod ERA, mild MR and TR Review of Systems - Review of Systems Constitutional: reports: see HPI
--- NOTE | 2018-11-17 19:31 | PDOC.PN ---
- Subjective Encounter Start Date: 11/17/18 Encounter Start Time: 15:20 Subjective: f/u for ischemic necrosis of bowel with colectomy/ostomy with -: multiple washouts on Micafungin/Zosyn with open wound/wound -: vac. - Objective Resuscitation Status - Order Detail: 11/01/18 19:39 Resuscitation Status Routine Resuscitation Status: FULL: Full Resuscitation Discussed with: Patient MAR Reviewed: Yes Vital Signs & Weight: Vital Signs (12 hours) Temp Pulse Pulse Resp BP BP Pulse Ox 11/17/18 18:06 88 22 H 97 11/17/18 16:00 98.5 F 11/17/18 14:26 83 29 H 97 11/17/18 12:00 98.3 F 11/17/18 10:17 95 146/90 H 133/85 11/17/18 08:00 98.5 F 100 11/17/18 07:59 99 11/17/18 07:57 95 24 H 99 Pulse Ox Pulse Ox 11/17/18 18:06 11/17/18 16:00 11/17/18 14:26 11/17/18 12:00 11/17/18 10:17 98 99 11/17/18 08:00 11/17/18 07:59 11/17/18 07:57 Weight Admit Weight 235 lb 9.6 oz Weight 226 lb 6.4 oz Most Recent Monitor Data Heart Rate from ECG 83 NIBP 142/92 NIBP BP-Mean 108 Respiration from ECG 29 SpO2 99 I&O: 11/16/18 11/17/18 11/18/18 06:59 06:59 06:59 Intake Total 2103 4466 3598 Output Total 7215 7625 4150 [facility] -5107 -3159 -20 Result Diagrams: 11/17/18 04:15 11/17/18 04:15 Additional Labs: Accuchecks 11/17/18 11/17/18 11/16/18 16:53 10:15 23:04 POC Glucose 109 114 H 76 Microbiology 11/11/18 22:23 Sputum Respiratory Culture - Final Pseudomonas aeruginosa 11/11/18 12:25 Urine ravi catheter Urine Culture - Final NO GROWTH AT 48 HOURS 11/11/18 11:17 Venous blood - Right Arm Blood Culture - Final Presumptive Basia albicans 11/11/18 10:49 Venous blood - Right Arm Blood Culture - Final NO GROWTH IN 5 DAYS 11/11/18 09:54 Abdomen Bacterial Culture - Final Escherichia coli Proteus mirabilis Enterococcus faecalis Laboratory Tests 11/01/18 11/04/18 11/04/18 20:11 00:58 04:50 Hgb INR 1.3 1.5 1.4 11/15/18 11/16/18 04:25 04:20 Hgb 7.9 L 8.7 L INR Radiology Reviewed by me: Yes (PCXR - pulm vasc prominence, LLL opacity) EKG Reviewed by me: Yes (Tele - A-fib in 80's) Phys Exam - Physical Examination lethargic, opens eyes and nods HEENT: PERRLA, sclera anicteric, oral pharynx no lesions Neck: no nodes, no JVD, supple, full ROM diminished bilat, few coarse sounds bilat Respiratory: no wheezing S1, S2 Cardiovascular: no significant murmur, no rub, gallop, irregular wound vac in place, ostomy noted with pink mucosa Musculoskeletal: no edema, pulses present Neurological: moves all 4 limbs Skin: normal turgor, cap refill <2 seconds Dx/Plan (1) Peritonitis Code(s): K65.9 - PERITONITIS, UNSPECIFIED Status: Acute Comment: Wound vac with open abd wound, local care, POLO drain, continue Zosyn/Micafungin (2) Ischemic colitis Code(s): K55.9 - VASCULAR DISORDER OF INTESTINE, UNSPECIFIED Status: Acute Comment: s/p colectomy with ileostomy 11/03/2018 with multiple washouts, wound vac in place (3) Severe protein-calorie malnutrition Code(s): E43 - UNSPECIFIED SEVERE PROTEIN-CALORIE MALNUTRITION Status: Chronic Comment: TPN for nutritional support (4) Diabetes mellitus type 2 in nonobese Code(s): E11.9 - TYPE 2 DIABETES MELLITUS WITHOUT COMPLICATIONS Status: Chronic Comment: ISS, serial accuchecks (5) Bronchopneumonia Code(s): J18.0 - BRONCHOPNEUMONIA, UNSPECIFIED ORGANISM Status: Acute Comment: Continue Duonebs, Zosyn, IS, nocturnal BiPAP - Plan continue antibiotics, PT/OT, manager social responsibility, respiratory therapy, incentive spirometry, DVT proph w/SCDs Continue supportive mgmt -: Continue Zosyn/Micafungin -: Nutritional support with TPN -: WCT with wound vac mgmt -: AM lab: BMP, CBC, Mg++, PO3 * .
[2018-11-17] MEDS: Enoxaparin Sodium 40 MG/0.4 ML SYRINGE SC SCH (19:51)
[2018-11-17] MEDS: POTASSIUM ACETATE IV SCH (22:18)
[2018-11-17] MEDS: [UNRECOGNIZED DRUG - OTHER] IV SCH (22:18)
[2018-11-17] MEDS: SODIUM ACETATE IV SCH (22:18)
[2018-11-17] MEDS: FAT EMULSION IV SCH (22:18)
[2018-11-18] MEDS: Morphine 4 MG/ML VIAL SLOW IVP PRN ×3 (00:21→20:17)
[2018-11-18] MEDS: Piperacillin/Tazobactam 4.5 GM in Sodium Chloride 0.9% 100 ML IVPB SCH ×4 (01:08→19:47)
[2018-11-18 05:13] LABS: #Basophils 0.1 thou/uL (0.0-0.2); #Eosinphils 0.9 thou/uL (0.0-0.7); #Lymphocytes 1.9 thou/uL (1.20-3.40); #Monocytes 0.8 thou/uL (0.11-0.59); #Neutrophils 6.5 thou/uL (1.40-6.50); %Basophils 0.7 % (0.0-1.0); %Eosinophils 8.6 % (0.0-10.0); %Lymphocytes 18.6 % (21.0-51.0); %Monocytes 8.2 % (0.0-10.0); %Neutrophils 63.9 % (42.0-75.0); Hemoglobin 8.1 g/dL (14.0-18.0); Mean Corpuscular HGB CONC 31.4 g/dL (32.0-36.0); Mean Corpuscular Hemoglobin 31.7 pg (27.0-31.0); Mean Platelet Volume 7.9 fL (7.4-10.4); Platelet Count 415 thou/uL (130-400); RBC Distribution Width 17.5 % (11.5-14.5); Red Blood Cell (RBC) Count 2.55 mill/uL (4.70-6.10); White Blood Cell (WBC) Count 10.2 thou/uL (4.8-10.8)
[2018-11-18 05:28] LABS: Phosphorus 3.5 mg/dL (2.3-4.7)
[2018-11-18 05:29] LABS: Anion Gap 9 mmol/L (10-20); BUN (Urea Nitrogen) 27 mg/dL (8.4-25.7); Calc. Creatinine Clearance 105 mL/min (70-130); Calcium 8.1 mg/dL (7.8-10.44); Carbon Dioxide 26 mmol/L (23-31); Chloride 115 mmol/L (98-107); Estimated GFR-MDRD 87; Glucose 99 mg/dL (83-110); Magnesium 1.9 mg/dL (1.6-2.6); Potassium 3.8 mmol/L (3.5-5.1); Sodium 146 mmol/L (136-145)
[2018-11-18] MEDS: Famotidine/PF 20 mg/2ml Vial SLOW IVP SCH ×2 (08:35→20:02)
[2018-11-18] MEDS: Cyanocobalamin (Vitamin B-12) 1,000 MCG TAB PO SCH (08:35)
--- NOTE | 2018-11-18 08:42 | PRG ---
DATE OF SERVICE: 11/18/2018 SUBJECTIVE: This morning, he is awake, alert, and responsive. He denies any pain. OBJECTIVE: VITAL SIGNS: Saturations 100% on room air, temperature 97, blood pressure 159/81, respirations 18. CHEST: Decreased breath sounds. No wheezing. CARDIAC: Normal S1, S2. No gallops. ABDOMEN: Soft. LABORATORY STUDIES: His lytes are normal. His white count is unremarkable. ASSESSMENT AND PLAN: 1. Abdominal sepsis, status post multiple laparotomies. 2. Encephalopathy. 3. Congestive heart failure. 4. Chronic obstructive pulmonary disease. 5. Sleep apnea. Due to consider nutritional support, he needs a swallow study. Discussed with General Surgery. Job ID: [id number]
--- NOTE | 2018-11-18 09:02 | PDOC.GSPN ---
Surgery Progress Note: Subj - Subjective Narrative: More awake today, in chair Surgery Progress Note: Obj - Vital signs Vital signs: Vital Signs - Most Recent Temp Pulse Resp BP Pulse Ox 98.5 F 94 26 H 146/90 H 99 11/18/18 08:00 11/18/18 07:31 11/18/18 07:31 11/17/18 10:17 11/18/18 07:33 - Physical Exam General: no distress Respiratory: clear to auscultation Abdomen: soft, appropriately tender Wound: wound vac, ostomy/colostomy (ostomy viable, minimal output) Surgery Progress Note: Results - Labs Result Diagrams: 11/18/18 03:42 11/18/18 03:30 Lab results: Laboratory Results - last 24 hr 11/17/18 11/18/18 11/18/18 22:19 03:30 03:30 WBC RBC Hgb Hct MCV MCH MCHC RDW Plt Count MPV Neutrophils % Lymphocytes % Monocytes % Eosinophils % Basophils % Neutrophils # Lymphocytes # Monocytes # Eosinophils # Basophils # Sodium 146 H Potassium 3.8 Chloride 115 H Carbon Dioxide 26 Anion Gap 9 L BUN 27 H Creatinine 0.85 Estimated GFR (MDRD) 87 Glucose 99 POC Glucose 76 Calcium 8.1 Phosphorus 3.5 Magnesium 1.9 11/18/18 03:42 WBC 10.2 RBC 2.55 L Hgb 8.1 L Hct 25.8 L MCV 101.0 H MCH 31.7 H MCHC 31.4 L RDW 17.5 H Plt Count 415 H MPV 7.9 Neutrophils % 63.9 Lymphocytes % 18.6 L Monocytes % 8.2 Eosinophils % 8.6 Basophils % 0.7 Neutrophils # 6.5 Lymphocytes # 1.9 Monocytes # 0.8 H Eosinophils # 0.9 H Basophils # 0.1 Sodium Potassium Chloride Carbon Dioxide Anion Gap BUN Creatinine Estimated GFR (MDRD) Glucose POC Glucose Calcium Phosphorus Magnesium Surgery Progress Note: A/P - Problem (1) Ischemic colitis Current Visit: Yes Code(s): K55.9 - VASCULAR DISORDER OF INTESTINE, UNSPECIFIED Status: Acute - Plan Plan: Rectal stump blowout -move to imcu -not ready for feeds yet, worry about aspiration
[2018-11-18 11:56] VITALS: BP 168/65
--- NOTE | 2018-11-18 12:52 | PDOC.CTH ---
Cardiology Progress Note - Subjective The pt seen and examined. No overnight events. Complains of back pain in a chair. - Objective Vital Signs Temp Pulse Pulse Pulse Pulse Resp BP 11/18/18 11:26 98.8 F 11/18/18 11:25 88 135 H 90 168/65 H 11/18/18 09:46 93 100 145/91 H 11/18/18 08:00 98.5 F 11/18/18 07:33 11/18/18 07:31 94 26 H 11/18/18 04:00 96.9 F L 11/18/18 02:16 82 22 H BP BP Pulse Ox Pulse Ox Pulse Ox Pulse Ox 11/18/18 11:26 11/18/18 11:25 168/65 H 98 100 11/18/18 09:46 143/89 H 100 100 11/18/18 08:00 97 11/18/18 07:33 99 11/18/18 07:31 99 11/18/18 04:00 11/18/18 02:16 96 Admit Weight 235 lb 9.6 oz Weight 228 lb 6.382 oz 11/17/18 11/18/18 11/19/18 06:59 06:59 06:59 Intake Total 4466 4508 Output Total 7651 5662 972 Balance -2692 -012 -630 - Physical Examination General/Neuro: alert & oriented x3 Neck: no JVD present Lungs: other: (diminished at bases) Heart: other: (irregular) Abdomen: soft Extremities: other: (Generalized edema) - Telemetry Telemetry Rhythm: AFib - Labs Result Diagrams: 11/18/18 03:42 11/18/18 03:30 Troponin/CKMB CK-MB (CK-2) 1.4 ng/mL (0-6.6) 11/01/18 18:31 Troponin I 0.089 ng/mL (< 0.028) H 11/03/18 15:31 - Assessment/Plan 1. Atrial fib. with RVR - well controlled HR without Diltiazem IV, IV digoxin and Amiodarone . Not a candidate for OAC. 2. Ileus with S/p colectomy/ileostomy - fecal peritonitis . Seem stable after repeat irrigation. 3. HTN: stable but on the high side. May be assoc. with his abd. pain. 4. 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 5. anemia. MAR reviewed * Echo in 11/2017 with EF 60-65%, mod-severe dilated LA, mod ERA, mild MR and TR Pt. seen and eval. by me. I agree with the A/P by the BENEFITS CONSULTANT.No significant change. Consider OAC due to the Afib. There is no obvious bleeding at this time. Wound vac in place.Chest clear. RRR Review of Systems - Review of Systems Constitutional: reports: weakness EENTM: reports: no symptoms reported Respiratory: reports: no symptoms reported Cardiac (ROS): reports: no symptoms reported ABD/GI: reports: no symptoms reported
[2018-11-18] MEDS: Micafungin 100 MG in Sodium Chloride 0.9% 100 ML IVPB SCH (13:55)
[2018-11-18] MEDS: Sodium Chloride 0.9% 1,000 ML IV SCH ×2 (13:56→19:47)
--- NOTE | 2018-11-18 14:27 | PDOC.PN ---
- Subjective Encounter Start Date: 11/18/18 Encounter Start Time: 14:20 Subjective: f/u for sepsis, peritonitis with colectomy/ostomy and wound vac -: Remains on Micafungin/Zosyn. - Objective Resuscitation Status - Order Detail: 11/01/18 19:39 Resuscitation Status Routine Resuscitation Status: FULL: Full Resuscitation Discussed with: Patient PRINCESS Reviewed: Yes Vital Signs & Weight: Vital Signs (12 hours) Temp Pulse Pulse Pulse Pulse Resp BP 11/18/18 13:20 85 30 H 11/18/18 11:26 98.8 F 11/18/18 11:25 88 135 H 90 168/65 H 11/18/18 09:46 93 100 145/91 H 11/18/18 08:00 98.5 F 11/18/18 07:33 11/18/18 07:31 94 26 H 11/18/18 04:00 96.9 F L BP BP Pulse Ox Pulse Ox Pulse Ox Pulse Ox 11/18/18 13:20 99 11/18/18 11:26 11/18/18 11:25 168/65 H 98 100 11/18/18 09:46 143/89 H 100 100 11/18/18 08:00 97 11/18/18 07:33 99 11/18/18 07:31 99 11/18/18 04:00 Weight Admit Weight 235 lb 9.6 oz Weight 228 lb 6.382 oz Most Recent Monitor Data Heart Rate from ECG 80 NIBP 155/88 NIBP BP-Mean 110 Respiration from ECG 30 SpO2 97 I&O: 11/17/18 11/18/18 11/19/18 06:59 06:59 06:59 Intake Total 4466 4508 Output Total 7625 5420 800 Balance -3159 -912 -800 Result Diagrams: 11/18/18 03:42 11/18/18 03:30 Additional Labs: Accuchecks 11/18/18 11/17/18 11/17/18 10:56 22:19 16:53 POC Glucose 98 76 109 Microbiology 11/11/18 22:23 Sputum Respiratory Culture - Final Pseudomonas aeruginosa 11/11/18 12:25 Urine ravi catheter Urine Culture - Final NO GROWTH AT 48 HOURS 11/11/18 11:17 Venous blood - Right Arm Blood Culture - Final Presumptive Basia albicans 11/11/18 10:49 Venous blood - Right Arm Blood Culture - Final NO GROWTH IN 5 DAYS 11/11/18 09:54 Abdomen Bacterial Culture - Final Escherichia coli Proteus mirabilis Enterococcus faecalis Laboratory Tests 11/01/18 11/04/18 11/04/18 20:11 00:58 04:50 Hgb INR 1.3 1.5 1.4 11/15/18 11/16/18 04:25 04:20 Hgb 7.9 L 8.7 L INR EKG Reviewed by me: Yes (Tele - A-fib in 90's) Phys Exam - Physical Examination opens eyes, responds to questions, NGT in place HEENT: PERRLA, sclera anicteric, oral pharynx no lesions Neck: no nodes, no JVD, supple, full ROM diminished in bases, few scattered coarse sounds Respiratory: no wheezing S1, S2 Cardiovascular: no significant murmur, no rub, gallop, irregular + ostomy/colostomy, wound vac in place Gastrointestinal: no distention Musculoskeletal: no edema, pulses present Neurological: normal sensation, moves all 4 limbs Skin: normal turgor, cap refill <2 seconds Dx/Plan (1) Peritonitis Code(s): K65.9 - PERITONITIS, UNSPECIFIED Status: Acute Comment: Wound vac with open abd wound, local care, POLO drain, continue Zosyn/Micafungin (2) Ischemic colitis Code(s): K55.9 - VASCULAR DISORDER OF INTESTINE, UNSPECIFIED Status: Acute Comment: s/p colectomy with ileostomy 11/03/2018 with multiple washouts, wound vac in place (3) Severe protein-calorie malnutrition Code(s): E43 - UNSPECIFIED SEVERE PROTEIN-CALORIE MALNUTRITION Status: Chronic Comment: TPN for nutritional support (4) Diabetes mellitus type 2 in nonobese Code(s): E11.9 - TYPE 2 DIABETES MELLITUS WITHOUT COMPLICATIONS Status: Chronic Comment: ISS, serial accuchecks (5) Bronchopneumonia Code(s): J18.0 - BRONCHOPNEUMONIA, UNSPECIFIED ORGANISM Status: Acute Comment: Continue Duonebs, Zosyn, IS, nocturnal BiPAP - Plan continue antibiotics, PT/OT, rn social work, DVT proph w/SCDs Stable currently -: Continue nutritional support with TPN -: Continue Micafungin/Zosyn -: OOB/PT for mobilization -: AM lab: BMP, CBC, Mg++, PO3 * .
[2018-11-18] MEDS: Enoxaparin Sodium 40 MG/0.4 ML SYRINGE SC SCH (20:02)
[2018-11-18] MEDS ORDERED: FAT EMULSION IV SCH (22:00)
[2018-11-18] MEDS ORDERED: [UNRECOGNIZED DRUG - OTHER] IV SCH (22:00)
[2018-11-18] MEDS ORDERED: POTASSIUM ACETATE IV SCH (22:00)
[2018-11-18] MEDS ORDERED: SODIUM ACETATE IV SCH (22:00)
[2018-11-19] MEDS: Morphine 4 MG/ML VIAL SLOW IVP PRN ×2 (00:59→10:05)
[2018-11-19] MEDS: Piperacillin/Tazobactam 4.5 GM in Sodium Chloride 0.9% 100 ML IVPB SCH ×2 (01:01→09:58)
[2018-11-19 04:17] LABS: #Basophils 0.1 thou/uL (0.0-0.2); #Eosinphils 1.4 thou/uL (0.0-0.7); #Lymphocytes 1.9 thou/uL (1.20-3.40); #Monocytes 0.9 thou/uL (0.11-0.59); #Neutrophils 7.6 thou/uL (1.40-6.50); %Basophils 0.9 % (0.0-1.0); %Eosinophils 11.9 % (0.0-10.0); %Lymphocytes 15.9 % (21.0-51.0); %Monocytes 7.3 % (0.0-10.0); Hemoglobin 8.2 g/dL (14.0-18.0); Mean Corpuscular HGB CONC 31.6 g/dL (32.0-36.0); Mean Platelet Volume 7.5 fL (7.4-10.4); Platelet Count 425 thou/uL (130-400); RBC Distribution Width 17.5 % (11.5-14.5); Red Blood Cell (RBC) Count 2.57 mill/uL (4.70-6.10); White Blood Cell (WBC) Count 11.9 thou/uL (4.8-10.8)
[2018-11-19 04:38] LABS: Phosphorus 3.9 mg/dL (2.3-4.7)
[2018-11-19 04:39] LABS: Anion Gap 11 mmol/L (10-20); BUN (Urea Nitrogen) 31 mg/dL (8.4-25.7); Calc. Creatinine Clearance 90 mL/min (70-130); Calcium 8.2 mg/dL (7.8-10.44); Carbon Dioxide 26 mmol/L (23-31); Chloride 119 mmol/L (98-107); Estimated GFR-MDRD 73; Glucose 82 mg/dL (83-110); Magnesium 2.1 mg/dL (1.6-2.6); Sodium 152 mmol/L (136-145)
[2018-11-19] MEDS: Sodium Chloride 0.9% 1,000 ML IV SCH (06:18)
[2018-11-19] MEDS: Cyanocobalamin (Vitamin B-12) 1,000 MCG TAB PO SCH (07:55)
[2018-11-19] MEDS ORDERED: Sodium Chloride 0.45% 1,000 ML IV SCH (08:15)
--- NOTE | 2018-11-19 08:31 | PRG ---
DATE OF SERVICE: 11/19/2018 SUBJECTIVE: Jose Bahena is a 78-year-old gentleman, who was on noninvasive ventilation at nighttime. OBJECTIVE: VITAL SIGNS: His saturations are 100% respiratory rate 21, temperature 97, pulse 88, blood pressure 170/96. Still has a large amount of bilious drainage from his NG tube. CHEST: Decreased breath sounds. No wheezing. CARDIAC: Normal S1, S2. No gallop. ABDOMEN: No masses. LABORATORY DATA: Sodium is 152, chloride is 119. White count 9000, H and H 8 and 26, platelet count . IMPRESSION: Electrolyte imbalance, probably prerenal azotemia, respiratory failure, severe deconditioning, morbid obesity, chronic obstructive pulmonary disease, status post laparotomy. PLAN: He has been on several weeks of antibiotics, so may consider discontinuing his antibiotic. Otherwise, unfortunately, he is not able to tolerate any p.o. intake. Again, continue TPN. Supportive care. We will follow. Eventually placement. Job ID: [id number]
--- NOTE | 2018-11-19 09:20 | PDOC.GSPN ---
Surgery Progress Note: Subj - Subjective Narrative: Awake but no too weak to talk Surgery Progress Note: Obj - Vital signs Vital signs: Vital Signs - Most Recent Temp Pulse Resp BP Pulse Ox 97.6 F 87 21 H 168/65 H 99 11/19/18 07:23 11/19/18 07:33 11/19/18 07:33 11/18/18 11:25 11/19/18 07:33 - Physical Exam General: no distress Respiratory: coarse breath sounds Abdomen: soft, appropriately tender, distended (with minimal bowel sounds) Wound: wound vac, ostomy/colostomy (with stool) Surgery Progress Note: Results - Labs Result Diagrams: 11/19/18 04:05 11/19/18 04:05 Lab results: Laboratory Results - last 24 hr 11/18/18 11/19/18 11/19/18 22:39 04:05 04:05 WBC 11.9 H RBC 2.57 L Hgb 8.2 L Hct 26.1 L MCV 101.0 H MCH 32.0 H MCHC 31.6 L RDW 17.5 H Plt Count 425 H MPV 7.5 Neutrophils % 64.0 Lymphocytes % 15.9 L Monocytes % 7.3 Eosinophils % 11.9 H Basophils % 0.9 Neutrophils # 7.6 H Lymphocytes # 1.9 Monocytes # 0.9 H Eosinophils # 1.4 H Basophils # 0.1 Sodium 152 H Potassium 4.0 Chloride 119 H Carbon Dioxide 26 Anion Gap 11 BUN 31 H Creatinine 0.99 Estimated GFR (MDRD) 73 Glucose 82 L POC Glucose 103 Calcium 8.2 Phosphorus Magnesium 2.1 11/19/18 11/19/18 04:05 08:09 WBC RBC Hgb Hct MCV MCH MCHC RDW Plt Count MPV Neutrophils % Lymphocytes % Monocytes % Eosinophils % Basophils % Neutrophils # Lymphocytes # Monocytes # Eosinophils # Basophils # Sodium Potassium Chloride Carbon Dioxide Anion Gap BUN Creatinine Estimated GFR (MDRD) Glucose POC Glucose 101 Calcium Phosphorus 3.9 Magnesium Surgery Progress Note: A/P - Problem (1) Ischemic colitis Current Visit: Yes Code(s): K55.9 - VASCULAR DISORDER OF INTESTINE, UNSPECIFIED Status: Acute - Plan Plan: Still very weak -NG tube output less but worry about aspiration if remove too early -Will allow for free water bolus thru tube if needed for Na level -Will need LTAC
--- NOTE | 2018-11-19 09:56 | PDOC.CTH ---
Cardiology Progress Note - Subjective The pt seen and examined. No overnight events. No cardiac complaints. - Objective Vital Signs Temp Pulse Resp Pulse Ox 11/19/18 07:33 87 21 H 99 11/19/18 07:32 88 21 H 99 11/19/18 07:23 97.6 F 11/19/18 03:53 98.6 F 11/19/18 00:04 91 18 96 11/18/18 23:54 99.7 F H Admit Weight 235 lb 9.6 oz Weight 225 lb 9.6 oz 11/18/18 11/19/18 11/20/18 06:59 06:59 06:59 Intake Total 4508 4430 Output Total 5420 6840 Balance -912 -5040 - Physical Examination General/Neuro: alert & oriented x3 Neck: no JVD present Lungs: other: (diminished at bases) Heart: other: (irregular) Abdomen: soft Extremities: other: (generalized edema) - Telemetry Telemetry Rhythm: Afib HR 80-90s - Labs Result Diagrams: 11/19/18 04:05 11/19/18 04:05 Troponin/CKMB CK-MB (CK-2) 1.4 ng/mL (0-6.6) 11/01/18 18:31 Troponin I 0.089 ng/mL (< 0.028) H 11/03/18 15:31 - Assessment/Plan 1. Atrial fib. with RVR - well controlled HR without Diltiazem IV, IV digoxin and Amiodarone. If no obvious bleeding, Consider OAC due to the Afib. 2. Ileus with S/p colectomy/ileostomy - fecal peritonitis . Seem stable after repeat irrigation. 3. HTN: not on PO BP med; On Hydralazine IV push for SBP >180. May be assoc. with his abd. pain. 4. 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 5. anemia. MAR reviewed * Echo in 11/2017 with EF 60-65%, mod-severe dilated LA, mod ERA, mild MR and TR Pt. seen and eval. by me. 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 He is very weak/ deconditioned. Chest clear. Irreg/irreg. Minimal BS. Continue with present cardiac meds/treatment. Continue low dose Lovenox. [email or web address] Review of Systems - Review of Systems Constitutional: reports: weakness
[2018-11-19] MEDS: Famotidine/PF 20 mg/2ml Vial SLOW IVP SCH (09:59)
[2018-11-19 11:39] VITALS: TEMP 98.4
[2018-11-19] MEDS: Micafungin 100 MG in Sodium Chloride 0.9% 100 ML IVPB SCH (13:04)
--- NOTE | 2018-11-20 03:36 | DIS ---
DATE OF ADMISSION: 11/02/2018 DATE OF DISCHARGE: 11/19/2018 DISCHARGE DIAGNOSES: 1. Ischemic colitis status post exploratory laparotomy with resection of right colon. 2. Status post ileostomy with permanent ileostomy placement. 3. Status post revision with multiple abdominal washouts with open abdominal wound with wound VAC. 4. Rectal stump blowout with fecal peritonitis. 5. Basia fungemia. 6. Severe protein-calorie malnutrition. 7. Diabetes mellitus type 2. CONSULTATIONS: 1. Dr. Aguilera with GI Service. 2. Dr. Woodson with Pulmonology Critical Care Service. 3. Dr. Hurst, Dr. Freeman, and Dr. Holm with General Surgery Service. 4. Dr. De Los Santos and Dr. Iniguez with Cardiology Service. PERTINENT LAB AND X-RAY FINDINGS: Sodium ranged between 133-152. Lactic acid level ranged between 1.0 to 1.4. Albumin level ranged between 1.8 to 2.6. CBC showed a white blood cell count ranging between 3.4 to 19.3, hemoglobin ranged between 7.7 to 9.5. Urine culture dated 11/01/2018 showed Proteus mirabilis and nonhemolytic Streptococcus species. Abdominal wound culture dated 11/11/2018 showed E coli, Proteus mirabilis and Enterococcus faecalis. Blood culture 06/09, dated 11/11/2018, showed presumptive Basia albicans. Urine culture dated 11/11/2018, showed no growth at 48 hours. Sputum culture dated 11/11/2018, showed few Pseudomonas aeruginosa. CT angiogram of the abdomen and pelvis dated 11/03/2018, showed proctocolitis with evidence of pneumatosis and portal venous gas concerning for perforation. Moderate bilateral pleural effusions. 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 HOSPITAL COURSE: The patient was initially admitted after presenting with rectal bleeding. The patient with a prior diagnosis of ischemic colitis, likely stercoral and known peripheral vascular disease, presenting with GI bleed. The patient presented with severe abdominal pain, presenting to the emergency room with initial hemoglobin in the 7 range. The patient received 1 unit of packed red blood cells and was transferred to [facility] from [facility] Emergency Room. The patient was evaluated by General Surgery and Gastroenterology Service. Recommendations were to pursue surgical intervention given patient's history of ischemic colitis with recent endoscopic evaluation. The patient proceeded to the OR on 11/04/2018, undergoing exploratory laparotomy with lysis of extensive adhesions as well as right colectomy and permanent ileostomy placement. The patient received additional 2 units of packed red blood cells during the procedure and was monitored postoperatively. Pathological evaluation of the bowel showed ischemic bowel necrosis consistent with ischemic colitis with diverticulosis. The patient's hospital course was complicated as patient developed a fecal peritonitis after rectal stump blowout necessitating a total colectomy with ileostomy due to ongoing vascular bowel ischemia and peritonitis. The patient had extensive abdominal washout with closure of the rectal stump with placement of POLO drain and leaving the wound open with application of a wound VAC. The patient received broad-spectrum antibiotic coverage with Zosyn in addition to micafungin after Basia species was noted on the blood culture result 11/11/2018. The patient continued to receive TPN for nutritional supplementation and close monitoring by the Wound Care Service. The patient remained deconditioned with metabolic encephalopathy and deconditioning. Due to patient's complicated medical course and prolonged hospital stay, the patient was deemed an appropriate candidate for ongoing skilled care and long-term acute care. Current plans are to transfer to [facility] for ongoing medical supervision, nutritional supplementation, physical and occupational therapy, as well as management for complicated abdominal wound and general pulmonary support. I have examined the patient at the time of discharge with plans for transfer to [facility] on 11/19/2018. DISCHARGE MEDICATIONS: 1. Vitamin B12 of 1000 mcg p.o. daily. 2. Lovenox 40 mg subcutaneously daily. 3. Pepcid 20 mg IV b.i.d. 4. Humalog insulin sliding scale. 5. DuoNeb 3 mL nebulized q.4 hours p.r.n. 6. Morphine sulfate 4 mg IV q.4 hours p.r.n. pain. 7. Zofran 4 mg IV q.6 hours p.r.n. 8. TPN continuously. 9. Micafungin 100 mg IV q.24 hours. 10. Zosyn 4.5 g IV q.6 hours. FOLLOWUP: The patient may follow up with his primary care provider, Dr. Michele Arrington, after discharge from long-term acute care. CONDITION ON DISCHARGE: Fair. ACTIVITY: Ad-rahel. The patient remains bed-bound status with maximal assistance for sitting in a chair. SPECIAL INSTRUCTIONS: 1. BiPAP noninvasive mechanical ventilation at bedtime with settings of 12/6, respiratory rate of 10, FiO2 of 21%. Wound VAC management per protocol. 2. NG tube with low intermittent wall suction. DIET: TPN continuously. CODE STATUS: Full. DISPOSITION: Discharged to [place], [place], 11/19/2018. TIME SPENT: Total time preparing and coordinating discharge is 45 minutes. Job ID: [id number]
== END 2018-11-19 14:40 | disposition short-term general hospital (02) | DRG 329 ==
LOC: ERS 17:20 → ONC 18:42 → OBSVTOIN 11-02 11:14 → CCU 11-03 19:59 → IMCU/EMU 11-10 19:18 → CCU 11-11 13:51 → IMCU/EMU 11-18 10:45
PROVIDERS: ADMIT Hospitalist; ATTEND Hospitalist
PROC: 05H633Z Insertion of Infusion Device into Left Subclavian Vein, Percutaneous Approach (ICD-10-PCS; principal; 2018-11-04)
PROC: 0DTF0ZZ Resection of Right Large Intestine, Open Approach (ICD-10-PCS; 2018-11-04)
PROC: 0D1B0Z4 Bypass Ileum to Cutaneous, Open Approach (ICD-10-PCS; 2018-11-04)
PROC: 0DNU0ZZ Release Omentum, Open Approach (ICD-10-PCS; 2018-11-04)
PROC: 30233N1 Transfusion of Nonautologous Red Blood Cells into Peripheral Vein, Percutaneous Approach (ICD-10-PCS; 2018-11-04)
PROC: 0DNB0ZZ Release Ileum, Open Approach (ICD-10-PCS; 2018-11-11)
PROC: 05H533Z Insertion of Infusion Device into Right Subclavian Vein, Percutaneous Approach (ICD-10-PCS; 2018-11-11)
PROC: 0DQP0ZZ Repair Rectum, Open Approach (ICD-10-PCS; 2018-11-11)
PROC: 05H633Z Insertion of Infusion Device into Left Subclavian Vein, Percutaneous Approach (ICD-10-PCS; 2018-11-12)
PROC: 0W9J00Z Drainage of Pelvic Cavity with Drainage Device, Open Approach (ICD-10-PCS; 2018-11-13)
PROC: 2W13X6Z Compression of Abdominal Wall using Pressure Dressing (ICD-10-PCS; 2018-11-13)
DX: K55.9 Vascular disorder of intestine, unspecified (principal); K65.8 Other peritonitis; E43 Unspecified severe protein-calorie malnutrition; G93.41 Metabolic encephalopathy; J96.01 Acute respiratory failure with hypoxia; J18.0 Bronchopneumonia, unspecified organism; B49 Unspecified mycosis; K59.39 Other megacolon; K56.7 Ileus, unspecified; K66.0 Peritoneal adhesions (postprocedural) (postinfection); I73.9 Peripheral vascular disease, unspecified; E11.9 Type 2 diabetes mellitus without complications; E78.5 Hyperlipidemia, unspecified; G89.4 Chronic pain syndrome; I48.0 Paroxysmal atrial fibrillation; D64.9 Anemia, unspecified; G60.0 Hereditary motor and sensory neuropathy; Z88.0 Allergy status to penicillin; Z88.8 Allergy status to other drugs, medicaments and biological substances; Z79.899 Other long term (current) drug therapy; Z68.32 Body mass index [BMI] 32.0-32.9, adult
CPT/HCPCS: 36415; 36416; 36430; 71045; 74022; 74174; 80048; 80053; 80069; 80202; 81001; 81003; 81015; 82533; 82553; 82805; 83605; 83735; 83880; 84100; 84484; 85007; 85014; 85018; 85025; 85027; 85610; 85730; 86850; 86900; 86901; 87040; 87070; 87077; 87086; 87186; 87205; 88307; 93005; 93010; 94002; 94003; 94640; 94660; 96361; 96374; A4217; C1751; J0131; J0610; J0670; J0694; J0696; J1100; J1160; J1642; J1650; J1720; J1815; J1940; J2001; J2185; J2248; J2250; J2270; J2370; J2405; J2543; J2704; J2765; J3010; J3370; J3475; J3480; J3490; J7050; J7070; J7620; P9016; P9045; P9047; Q0153; Q0162; S0028